=== PATIENT | male | born 1945 | race Caucasian/White ===

== ENCOUNTER 2018-05-30 19:59 | Observation (INO) | payer OTHER ==
[2018-05-30 21:42] LABS: Arterial Blood Carboxyhemoglob 1.6 % (0-1.5); Blood Gas Oxyhemoglobin 92.5 % (94-97); Blood O2 Saturation 94.8 % (92-98.5)
[2018-05-30] MEDS ORDERED: NA CHLORIDE 0.9% 1,000 ML ONE (21:43)
[2018-05-30 21:57] LABS: Absolute Lymphocytes (CBC) 1.5 K/uL (0.7-4.9); Absolute Monocytes 0.7 K/uL (0.1-1.3); Absolute Neutrophil 12.9 K/uL (1.8-8.0); Basophils % 0.5 % (0-1.3); Eosinophils % 0.2 % (0-4.4); Hematocrit 41.9 % (39.6-49.0); Lymphocytes % 10.1 % (15.3-44.8); MCH 29.4 pg (27.0-35.0); MCV 87.9 fL (80-100); MPV 9.1 fL (7.6-11.3); Monocytes % 4.7 % (3.3-12.3); RBC Red Blood Cell Count 4.77 M/uL (4.33-5.43)
[2018-05-30 21:58] LABS: Protime INR 1.03
[2018-05-30 22:20] LABS: Albumin 3.6 g/dL (3.4-5.0); Bilirubin Direct 0.1 mg/dL (0-0.2); Bilirubin Total 0.8 mg/dL (0.2-1.0); C-Reactive Protein 24.5 mg/L (<3.00); CKMB Creatine Kinase MB 2.5 ng/mL (0.3-3.6); Magnesium 2.2 mg/dL (1.8-2.4); Potassium 4.6 mmol/L (3.5-5.1); Protein, Total 7.1 g/dL (6.4-8.2); Troponin (Emerg Dept Use Only) 0.1 ng/mL (0.0-0.045)
--- NOTE | 2018-05-30 22:57 | ER ---
Nurse's Notes [facility] Name: Carlos Yoon Age: 72 yrs Sex: Male : 1945 Arrival Date: 05/30/2018 Time: 20:00 Bed 7 Private MD: Arvind Collado Diagnosis: Acute dyspnea. 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 Transition of care: patient was not received from another setting of care. Onset of symptoms was May 30, 2018. Risk Assessment: Do you want to hurt yourself or someone else? Patient reports no desire to harm self or others. Initial Sepsis Screen: Does the patient meet any 2 criteria? No. Patient's initial sepsis screen is negative. Does the patient have a suspected source of infection? No. Patient's initial sepsis screen is negative. Care prior to arrival: None. 20:17 Method Of Arrival: Wheelchair ea 20:17 Acuity: IZZY 3 ea Triage Assessment: 20:24 General: Appears in no apparent distress. Behavior is calm, cooperative, appropriate ea for age. Pain: Denies pain. Neuro: Level of Consciousness is awake, alert, obeys commands, Oriented to person, place, time, situation. Cardiovascular: Patient's skin is warm and dry. Respiratory: Reports "I felt short of breath earlier but I feel like I am doing a little better" Airway is patent Respiratory effort is even, unlabored, Respiratory pattern is regular, symmetrical, Breath sounds are clear bilaterally. Onset: The symptoms/episode began/occurred 1600, the patient reports symptoms have resolved. Derm: Skin is pink, warm \\T\\ dry. Musculoskeletal: Circulation, motion, and sensation intact. Historical: - Allergies: 20:23 No Known Allergies; ea - Home Meds: 20:23 Januvia oral oral [Active]; carvedilol 6.25 mg oral tab [Active]; Abilify 2 mg oral tab ea [Active]; [place] Thyroid 30 mg Oral tab [Active]; clopidogrel 75 mg oral tab 1 tab once daily [Active]; Crestor 5 mg oral tab 1 tab once daily [Active]; sertraline oral oral [Active]; metformin 1,000 mg Oral tab [Active]; Benicar oral oral [Active]; Aspirin Oral [Active]; - PMHx: 20:23 Diabetes - IDDM; Hypertension; Hypothyroidism; ea - PSHx: 20:23 triple bypass; ea - Immunization history:: Adult Immunizations up to date. - Social history:: Smoking status: Patient/guardian denies using tobacco. - Ebola Screening: : No symptoms or risks identified at this time. Screenin:27 Abuse screen: Denies threats or abuse. Nutritional screening: No deficits noted. ea Tuberculosis screening: No symptoms or risk factors identified. Fall Risk Gait- Impaired (20 pts.). Assessment: 20:17 Reassessment: see triage assessment. ea 21:50 Reassessment: Patient and/or family updated on plan of care and expected duration. Pain ea level reassessed. Patient is alert, oriented x 3, equal unlabored respirations, skin warm/dry/pink. 22:20 Reassessment: Pt stood up for urine sample, pt reports feeling short of breath. O2 sats ea at 94%, pt placed on 2 L of O2 per NC tolerating well. 22:54 Reassessment: Patient and/or family updated on plan of care and expected duration. Pain ea level reassessed. Patient is alert, oriented x 3, equal unlabored respirations, skin warm/dry/pink. 23:14 Reassessment: Patient and/or family updated on plan of care and expected duration. Pain ea level reassessed. Patient is alert, oriented x 3, equal unlabored respirations, skin warm/dry/pink. awaiting on Room assignment. 05/31 00:36 Reassessment: Report called to [facility] on second floor. Reassessment: Patient and/or ea family updated on plan of care and expected duration. Pain level reassessed. Patient is alert, oriented x 3, equal unlabored respirations, skin warm/dry/pink. 00:47 Reassessment: Patient and/or family updated on plan of care and expected duration. Pain ea level reassessed. Patient is alert, oriented x 3, equal unlabored respirations, skin warm/dry/pink. Patient admitted to second floor, taken via wheelchair per tech, tolerating well. Patient states feeling better. Vital Signs: 05/30 20:26 BP 108 / 81; Pulse 91; Resp 18; Pulse Ox 96% on R/A; Weight 113.4 kg; Height 5 ft. 10 ea in. (177.80 cm); Pain 0/10; 20:26 Temp 99.2(O); ea 21:15 BP 114 / 54; Pulse 93; Resp 18; Pulse Ox 97% ; ea 22:00 BP 105 / 54; Pulse 89; Resp 18; Pulse Ox 97% on R/A; Pain 0/10; ea 23:15 BP 108 / 59; Pulse 87; Resp 18; Temp 98.9(TE); Pulse Ox 97% on 2 lpm NC; Pain 0/10; ea 23:55 BP 117 / 62; Pulse 90; Resp 16; Pulse Ox 99% on 2 lpm NC; ea 05/31 00:37 BP 123 / 75; Pulse 75; Resp 16; Pulse Ox 98% on 1 lpm NC; ea 05/30 20:26 Body Mass Index 35.87 (113.40 kg, 177.80 cm) ea ED Course: 05/30 20:00 Patient arrived in ED. ds1 20:01 Volodymyr Beltran MD is Attending Physician. pkl 20:07 Arvind Collado is Private Physician. ds1 20:17 Bev Garcia, RUCHI is Primary Nurse. ea 20:19 Triage completed. ea 20:28 Patient has correct armband on for positive identification. Bed in low position. Call ea light in reach. Side rails up X2. 20:28 Patient placed in an exam room, on a stretcher, on pulse oximetry. ea 21:27 Inserted saline lock: 20 gauge in right antecubital area, using aseptic technique. ea Blood collected. 21:39 X-ray completed. Portable x-ray completed in exam room. Patient tolerated procedure az well. 21:41 XRAY Chest (1 view) In Process Unspecified. EDMS 22:51 Attending Physician role handed off by Volodymyr Beltran MD rn 22:51 Kayode Rodriguez MD is Attending Physician. rn 22:56 Phil Palafox MD is Hospitalizing Provider. rn 23:07 Attending Physician role handed off by Kayode Rodriguez MD bb 23:07 Volodymyr Beltran MD is Attending Physician. bb 23:56 No provider procedures requiring assistance completed. Patient admitted, IV remains in ea place. Administered Medications: 22:02 Drug: NS 0.9% 1000 ml Route: IV; Rate: 100 ml/hr; Site: right antecubital; jana 05/31 00:13 Follow up: Response: No adverse reaction; IV Status: Infusion continued upon admission jana Point of Care Testing: Blood Glucose: 05/30 20:18 Blood Glucose: 324 mg/dL; cc1 Ranges: Outcome: 22:57 Decision to Hospitalize by Provider. rn 23:57 Instructed on the need for admit, Demonstrated understanding of instructions. jana 05/31 00:13 Condition: stable ea 00:37 Admitted to Med/surg accompanied by tech, room 228, with oxygen, with chart, Report ea called to Aliza HOPPER 00:49 Patient left the ED. ea Signatures: Dispatcher [employer] EDMS Volodymyr Beltran MD MD pkl Sanford, Demi ds1 Sandy Leggett RN RN Kayode Molina MD MD rn Cahoon, Charlie cc1 Bev Garcia RN RN ea Zavala, Araceli az Corrections: (The following items were deleted from the chart) 00:31 00:11 Reassessment: Report given to Gricelda HOPPER on second floor. jana bates
--- NOTE | 2018-05-30 22:57 | EDPHYS ---
Physician Documentation [facility] Name: Carlos Yoon Age: 72 yrs Sex: Male : 1945 Arrival Date: 05/30/2018 Time: 20:00 Bed 7 Private MD: Arvind Collado ED Physician Volodymyr Beltran HPI: 05/30 22:52 This 72 yrs old Male presents to ER via Wheelchair with complaints of rn Shortness Of Breath. 22:52 The patient has shortness of breath at rest. Onset: The symptoms/episode began/occurred rn today. Associated signs and symptoms: Pertinent positives: productive cough, fever, chills. Historical: - Allergies: 20:23 No Known Allergies; ea - Home Meds: 20:23 Januvia oral oral [Active]; carvedilol 6.25 mg oral tab [Active]; Abilify 2 mg oral tab ea [Active]; [place] Thyroid 30 mg Oral tab [Active]; clopidogrel 75 mg oral tab 1 tab once daily [Active]; Crestor 5 mg oral tab 1 tab once daily [Active]; sertraline oral oral [Active]; metformin 1,000 mg Oral tab [Active]; Benicar oral oral [Active]; Aspirin Oral [Active]; - PMHx: 20:23 Diabetes - IDDM; Hypertension; Hypothyroidism; ea - PSHx: 20:23 triple bypass; ea - Immunization history:: Adult Immunizations up to date. - Social history:: Smoking status: Patient/guardian denies using tobacco. - Ebola Screening: : No symptoms or risks identified at this time. ROS: 22:52 Eyes: Negative for injury, pain, redness, and discharge, ENT: Negative for injury, rn pain, and discharge, Neck: Negative for injury, pain, and swelling. 22:52 Cardiovascular: 22:52 Cardiovascular: Negative for chest pain. 22:52 Respiratory: Positive for cough, with yellow sputum, shortness of breath. 22:52 Abdomen/GI: Negative for abdominal pain, nausea, vomiting, and diarrhea. 22:52 Back: Negative for acute changes. 22:52 : Negative for urinary symptoms. 22:52 MS/extremity: Negative for rash. 22:52 Skin: Negative for rash. 22:52 Neuro: Negative for altered mental status. Exam: 22:52 Head/Face: Normocephalic, atraumatic. Eyes: Pupils equal round and reactive to light, rn extra-ocular motions intact. Lids and lashes normal. Conjunctiva and sclera are non-icteric and not injected. Cornea within normal limits. Periorbital areas with no swelling, redness, or edema. ENT: Nares patent. No nasal discharge, no septal abnormalities noted. Tympanic membranes are normal and external auditory canals are clear. Oropharynx with no redness, swelling, or masses, exudates, or evidence of obstruction, uvula midline. Mucous membranes moist. Neck: Trachea midline, no thyromegaly or masses palpated, and no cervical lymphadenopathy. Supple, full range of motion without nuchal rigidity, or vertebral point tenderness. No Meningismus. Chest/axilla: Normal chest wall appearance and motion. Nontender with no deformity. No lesions are appreciated. Cardiovascular: Regular rate and rhythm with a normal S1 and S2. No gallops, murmurs, or rubs. Normal PMI, no JVD. No pulse deficits. 22:52 Respiratory: the patient does not display signs of respiratory distress, Respirations: normal, Breath sounds: rales, that are mild, are scattered. 22:52 Abdomen/GI: Bowel sounds: normal, Palpation: abdomen is soft and non-tender, in all quadrants. 22:52 Back: Exam negative for acute changes. 22:52 : Exam negative for acute changes. 22:52 Musculoskeletal/extremity: Exam is negative for acute changes. 22:52 Skin: Exam negative for rash. 22:52 Neuro: Orientation: is normal, Mentation: is normal, Cranial nerves: grossly normal, Motor: is normal. Vital Signs: 20:26 BP 108 / 81; Pulse 91; Resp 18; Pulse Ox 96% on R/A; Weight 113.4 kg; Height 5 ft. 10 ea in. (177.80 cm); Pain 0/10; 20:26 Temp 99.2(O); ea 21:15 BP 114 / 54; Pulse 93; Resp 18; Pulse Ox 97% ; ea 22:00 BP 105 / 54; Pulse 89; Resp 18; Pulse Ox 97% on R/A; Pain 0/10; ea 23:15 BP 108 / 59; Pulse 87; Resp 18; Temp 98.9(TE); Pulse Ox 97% on 2 lpm NC; Pain 0/10; ea 23:55 BP 117 / 62; Pulse 90; Resp 16; Pulse Ox 99% on 2 lpm NC; ea 05/31 00:37 BP 123 / 75; Pulse 75; Resp 16; Pulse Ox 98% on 1 lpm NC; ea 05/30 20:26 Body Mass Index 35.87 (113.40 kg, 177.80 cm) ea MDM: 05/30 20:02 Patient medically screened. pkl 22:52 Data reviewed: vital signs, nurses notes, lab test result(s), EKG, radiologic studies, rn plain films. 05/30 20:15 Order name: Glucose, Ancillary Testing; Complete Time: 22:15 EDDE 05/30 21:17 Order name: Basic Metabolic Panel [facility] 05/30 21:17 Order name: CBC with Diff pk 05/30 21:17 Order name: Ckmb pk 05/30 21:17 Order name: CPK; Complete Time: 04:21 pk 05/30 21:17 Order name: LFT's; Complete Time: 04:21 pk 05/30 21:17 Order name: Magnesium; Complete Time: 04:21 pk 05/30 21:17 Order name: NT PRO-BNP; Complete Time: 04:21 pk 05/30 21:17 Order name: PT-INR; Complete Time: 22:15 pk 05/30 21:17 Order name: Ptt, Activated; Complete Time: 22:15 pk 05/30 21:17 Order name: Troponin (emerg Dept Use Only); Complete Time: 04:21 [facility] 05/30 21:19 Order name: Basic Metabolic Panel; Complete Time: 04:21 EDDE 05/30 21:19 Order name: CBC with Automated Diff; Complete Time: 22:15 EDDE 05/30 21:19 Order name: CKMB Creatine Kinase MB; Complete Time: 04:21 EDDE 05/30 21:17 Order name: XRAY Chest (1 view); Complete Time: 04:21 pk 05/30 21:17 Order name: EKG; Complete Time: 21:19 pk 05/30 21:17 Order name: Cardiac monitoring; Complete Time: 21:53 pk 05/30 21:17 Order name: EKG - Nurse/Tech; Complete Time: 21:53 pk 05/30 21:17 Order name: IV Saline Lock; Complete Time: 21:28 pkl 05/30 21:17 Order name: Labs collected and sent; Complete Time: 21:54 pkl 05/30 21:17 Order name: O2 Per Protocol; Complete Time: 21:54 pkl 05/30 21:20 Order name: ABG; Complete Time: 22:15 pkl 05/30 21:20 Order name: Lactate; Complete Time: 04:21 pkl 05/30 21:20 Order name: Procalcitonin; Complete Time: 04:21 pkl 05/30 21:41 Order name: Sedimentation Rate, [place]; Complete Time: 22:15 EDMS 05/30 21:43 Order name: C-Reactive Protein; Complete Time: 04:21 EDMS 05/30 22:32 Order name: Urine Dipstick--Ancillary (enter results); Complete Time: 04:21 ms 05/30 21:17 Order name: O2 Sat Monitoring; Complete Time: 21:54 pkl 05/30 21:17 Order name: Urine Dipstick-Ancillary (obtain specimen); Complete Time: 21:54 pkl Administered Medications: 22:02 Drug: NS 0.9% 1000 ml Route: IV; Rate: 100 ml/hr; Site: right antecubital; ea 05/31 00:13 Follow up: Response: No adverse reaction; IV Status: Infusion continued upon admission ea Point of Care Testing: Blood Glucose: 05/30 20:18 Blood Glucose: 324 mg/dL; cc1 Ranges: Critical Glucose Levels:Adult <50 mg/dl or >400 mg/dl <40 mg/dl or >180 mg/dl Disposition: 05/30/18 22:57 Hospitalization ordered by Phil Palafox for Inpatient Admission. Preliminary diagnosis is Acute dyspnea. Pneumonia. - Bed requested for Telemetry/MedSurg (Inpatient). - Status is Inpatient Admission. ea - Condition is Stable. - Problem is new. - Symptoms are unchanged. UTI on Admission? No Signatures: Dispatcher [employer] Volodymyr Brown MD MD pkl Solis, Maria ms Nieto, Roman, MD MD rn Antunez, Elena, RN RN ea Corrections: (The following items were deleted from the chart) 21:41 21:21 [place] SEDRATE+H.LAB.BRZ ordered. EDDE EDMS 21:42 21:21 C-REACTIVE PROTEIN+C.LAB.BRZ ordered. [facility] EDDE 23:51 22:57 Hospitalization Ordered by Phil Palafox MD for Inpatient Admission. Preliminary ms diagnosis is Acute dyspnea. Pneumonia. Bed requested for Telemetry/MedSurg (Inpatient). Status is Inpatient Admission. Condition is Stable. Problem is new. Symptoms are unchanged. UTI on Admission? No. rn 05/31 00:49 05/30 23:51 05/30/2018 22:57 Hospitalization Ordered by Phil Palafox MD for Inpatient ea Admission. Preliminary diagnosis is Acute dyspnea. Pneumonia. Bed requested for Telemetry/MedSurg (Inpatient). Status is Inpatient Admission. Condition is Stable. Problem is new. Symptoms are unchanged. UTI on Admission? No. ms
[2018-05-30] MEDS ORDERED: ALBUTEROL 2.5 MG/3 ML NEB SOL NEB PRN (23:03)
[2018-05-30] MEDS ORDERED: ACETAMINOPHEN 500 MG TAB PO PRN (23:03)
[2018-05-30] MEDS ORDERED: ONDANSETRON 4 MG/2 ML VIAL IV PRN (23:03)
--- NOTE | 2018-05-30 23:07 | RAD REPORT ---
EXAM DESCRIPTION: RAD - Chest Single View - 05/30/2018 9:41 pm CLINICAL HISTORY: Cough;Dyspnea Chest pain. COMPARISON: None FINDINGS: Portable technique limits examination quality. The lungs are grossly clear. The heart is upper limit normal size. No displaced fractures.Sternotomy wires present. IMPRESSION: No acute intrathoracic process suspected.
[2018-05-30] MEDS ORDERED: NA CHLORIDE 0.9% 1,000 ML IV SCH (23:45)
[2018-05-30 23:50] LABS: Urine Blood NEGATIVE (NEG); Urine Glucose 2+ (NEG); Urine Protein TRACE (NEG)
[2018-05-31] MEDS: Levofloxacin500mg IV 500 MG/100 ML BAG IV SCH ×2 (01:24→23:34)
[2018-05-31 05:19] LABS: Absolute Lymphocytes (CBC) 3.3 K/uL (0.7-4.9); Absolute Monocytes 0.8 K/uL (0.1-1.3); Absolute Neutrophil 9.2 K/uL (1.8-8.0); Basophils % 0.4 % (0-1.3); Eosinophils % 0.4 % (0-4.4); Hematocrit 39.5 % (39.6-49.0); Lymphocytes % 24.5 % (15.3-44.8); MCH 29.7 pg (27.0-35.0); MCV 87.9 fL (80-100); MPV 8.6 fL (7.6-11.3); Monocytes % 6.1 % (3.3-12.3); RBC Red Blood Cell Count 4.49 M/uL (4.33-5.43)
[2018-05-31 05:37] LABS: Magnesium 2.3 mg/dL (1.8-2.4); Phosphorus 3.1 mg/dL (2.5-4.9); Potassium 3.9 mmol/L (3.5-5.1)
[2018-05-31] MEDS ORDERED: POTASSIUM CL SA 10 MEQ TAB PO ONE (05:55)
[2018-05-31 06:24] LABS: Urine Appearance CLEAR; Urine Bilirubin NEGATIVE (NEG); Urine Blood NEGATIVE (NEG); Urine Color YELLOW; Urine Glucose 3+ (NEG); Urine Protein TRACE (NEG); Urine Specific Gravity 1.025 (1.005-1.030); Urine Urobilinogen 0.2 mg/dL (0.2-1.0)
[2018-05-31 06:26] LABS: Urine Microscopic Reflex ORDER UMIC
[2018-05-31 07:00] LABS: Urine Bacteria <20 /HPF (NONE SEEN); Urine Culture Reflex Order NOT NEEDED; Urine RBC NONE SEEN /HPF (NONE SEEN)
--- NOTE | 2018-05-31 09:42 | P.HP ---
Certification for Inpatient Patient admitted to: Inpatient With expected LOS: >2 Midnights Patient will require the following post-hospital care: None Practitioner: I am a practitioner with admitting privileges, knowledge of patient current condition, hospital course, and medical plan of care. Services: Services provided to patient in accordance with Admission requirements found in Title 42 Section 412.3 of the Code of Federal Regulations Patient History Date of Service: 05/30/18 Reason for admission: Shortness of breath History of Present Illness: Patient is a 72-year-old gentleman who came into the hospital with difficulty breathing. Patient was found have shortness of breath and his workup in the emergency room revealed a pneumonia. Patient has a history of multiple medical issues better taken care of by Dr. Collado in [place]. Patient was feeling poorly and becoming more short of breath and having a fever, cough, and congestion. He came into the hospital for evaluation. In the emergency room his chest x-ray suggested a pneumonia. Patient be admitted to the hospital for further treatment. Allergies No Known Allergies Allergy (Verified 06/06/13 20:17) Home Medications: Aspirin Enteric Coated [ASPIRIN 81 MG EC*] 81 mg PO DAILY 06/07/13 Cyanocobalamin [Vitamin B-12*] 1,000 mcg PO DAILY 06/07/13 Metformin HCl [Glucophage XR OR ER] 750 mg PO DAILY 06/07/13 Thyroid Tab [[place] Thyroid*] 90 mg PO DAILY 06/07/13 Acetaminophen [Tylenol*] 650 mg PO Q4HP PRN #30 tab 06/13/13 Carvedilol [Coreg*] 6.25 mg PO BID #30 06/13/13 Clopidogrel Bisulfate [Plavix*] 75 mg PO DAILY #30 tablet 06/13/13 Hydrocodone 5/APAP 325 [[place] 5/325*] 1 tab PO Q4HP PRN #30 tab 06/13/13 Iron/FA/Vit B-Com W/C [Hemocyte Plus*] 1 tab PO BIDWM #30 tab 06/13/13 Lisinopril [Prinivil*] 2.5 mg PO DAILY #30 tab 06/13/13 Olmesartan/Hydrochlorothiazide [Benicar Hct 20-12.5 mg Tablet] 1 each PO DAILY # 30 06/13/13 Sertraline [Zoloft*] 2 tab PO DAILY #60 06/13/13 - Past Medical/Surgical History Has patient received pneumonia vaccine in the past: Yes Diabetic: Yes -: [place], HTN, CKD -: CHF -: INSOMNIA -: SLEEP APNEA -: CPAP DYSPNEA -: NERVOUSNESS/DEPRESSION -: CARDIOMYOPATHY -: ANEMIA -: quadruple heart bypass (5 yrs ago) - Family History Father Medical History: Cancer Notes: throat cancer Mother Medical History: Cancer Notes: liver cancer - Social History Smoking Status: Never smoker Alcohol use: Yes CD- Drugs: No Caffeine use: Yes Place of Residence: Home Review of Systems 10-point ROS is otherwise unremarkable Physical Examination - Vital Signs Temperature: 98.1 F Blood Pressure: 112/59 Pulse: 82 Respirations: 18 Pulse Ox (%): 96 - Physical Exam General: Alert, In no apparent distress, Oriented x3 HEENT: Atraumatic, PERRLA, Mucous membr. moist/pink, EOMI, Sclerae nonicteric Neck: Supple, 2+ carotid pulse no bruit, No LAD, Without JVD or thyroid abnormality Respiratory: Diminished, Expiratory wheezes Cardiovascular: Regular rate/rhythm, Normal S1 S2, No murmurs Gastrointestinal: Normal bowel sounds, Soft and benign, Non-distended, No tenderness Musculoskeletal: No clubbing, No swelling, No tenderness Integumentary: No rashes Neurological: Normal gait, Normal speech, Normal strength at 5/5 x4 extr, Normal tone, Normal affect Lymphatics: No axilla or inguinal lymphadenopathy - Studies Laboratory Data (last 24 hrs) 05/30/18 21:31: PT 12.2, INR 1.03, APTT 25.7 05/30/18 21:31: WBC 15.3 H, Hgb 14.0, Hct 41.9, Plt Count 221 05/30/18 21:31: Sodium 134 L, Potassium 4.6, BUN 23 H, Creatinine 1.70 H, Glucose 309 H, Magnesium 2.2, Total Bilirubin 0.8, AST 21, ALT 19, Alkaline Phosphatase 132 H Assessment & Plan - Plan Assessment: 1. Shortness of breath 2. Pneumonia 3. History of coronary artery disease status post quadruple bypass 4. History of hypertension 5. History of obstructive sleep apnea. Plan: 1. Continue with IV antibiotics 2. Awaiting blood culture 3. Repeat chest x-ray 4. Will proceed with CT scan of the chest if pneumonia is not improved to evaluate for postobstructive pneumonia 5. Outpatient follow with Pulmonary 6. Continue with nebs as needed 7. O2 per protocol 8. Continue with gentle hydration 9. Repeat labs including CBC and renal function in a.m. 10. Continue with cardiac meds 11. CPAP at night to help breast 12. Strict blood pressure control 13. GI and DVT prophylaxis Discharge Plan: Home Plan to discharge in: Greater than 2 days - Advance Directives Does patient have a Living Will: No Does patient have a Durable POA for Healthcare: Yes - Code Status/Comfort Care Code Status Assessed: Yes Code Status: Full Code Critical Care: No Time Spent Managing PTS Care (In Minutes): 50
[2018-05-31] MEDS: ENOXAPARIN 40 MG/0.4 ML SQ SCH (10:06)
--- NOTE | 2018-05-31 12:11 | EKG ---
Test Date: 2018-05-30 Test Time: 21:44:54 Engagement Engineer: JERRY MEASUREMENT RESULTS: Intervals: Rate: 90 MN: 170 QRSD: 176 QT: 406 QTc: 496 [place]: P: 58 MN: 170 QRS: 157 T: 41 INTERPRETIVE STATEMENTS: Sinus rhythm with frequent premature ventricular complexes Possible Left atrial enlargement Right bundle branch block Possible Lateral infarct, age undetermined Inferior infarct, age undetermined Abnormal ECG No previous ECG available for comparison Electronically Signed On 05-31-18 12:08:45 CDT by Anup Silva
--- NOTE | 2018-05-31 14:33 | P.PN ---
Subjective Date of Service: 05/31/18 Chief Complaint: Shortness of breath Patient seen and examined at bedside with RN. Chart reviewed. Patient this morning has no complaints to offer states that he does feel much better than before. Complains of having some chills better so going on however better than what he was experiencing at home. Denies having any chest pain nausea vomiting or any other associated symptoms at this time Review of Systems 10-point ROS is otherwise unremarkable Physical Examination - Vital Signs Temperature: 97.5 F Blood Pressure: 126/58 Pulse: 68 Respirations: 18 Pulse Ox (%): 96 - Physical Exam General: Alert, In no apparent distress HEENT: Atraumatic, PERRLA, EOMI Neck: Supple, JVD not distended Respiratory: Normal air movement, Crackles/rales Cardiovascular: Regular rate/rhythm, Normal S1 S2 Gastrointestinal: Normal bowel sounds, No tenderness Musculoskeletal: No tenderness Integumentary: No rashes Neurological: Normal speech, Normal tone, Normal affect Lymphatics: No axilla or inguinal lymphadenopathy - Studies Laboratory Data (last 24 hrs) 05/30/18 21:31: PT 12.2, INR 1.03, APTT 25.7 05/30/18 21:31: WBC 15.3 H, Hgb 14.0, Hct 41.9, Plt Count 221 05/30/18 21:31: Sodium 134 L, Potassium 4.6, BUN 23 H, Creatinine 1.70 H, Glucose 309 H, Magnesium 2.2, Total Bilirubin 0.8, AST 21, ALT 19, Alkaline Phosphatase 132 H Medications List Reviewed: Yes Assessment And Plan - Current Problems (Diagnosis) (1) SOB (shortness of breath) Onset Date: 05/31/18 Current Visit: Yes Status: Acute Plan: Shortness of breath on exertion. Most likely secondary to pneumonia versus CHF exacerbation. -patient currently on IV Levaquin at this time. Given the elevated white count pneumonia is most likely the cause of this shortness of breath. -oxygen as necessary. Will wean oxygen off as tolerated (2) PNA (pneumonia) Onset Date: 05/31/18 Current Visit: Yes Status: Acute Plan: Pneumonia on chest x-ray. Elevated white count. Pro calcitonin was within normal limits which could make this a viral pneumonia however given the symptoms of chills and fever at the house bacterial infection cannot be ruled out -Currently on IV Levaquin. -Will continue to monitor it closely (3) CHF (congestive heart failure) Current Visit: Yes Status: Chronic Plan: Patient with ejection fraction of 20-25% after his CABG. -will follow up with his cardiology on last echocardiogram -if needed will repeat a here in the hospital (4) Hx of CABG Current Visit: Yes Status: Chronic - Plan Currently awaiting clinical improvement. Will get in touch with patient's cardiology to find out when his last echocardiogram was. Patient might need an echocardiogram done here in the hospital to re-evaluate his ejection fraction. However if patient has improvement in his symptoms this could be done outpatient as well. Will await further recommendations from his cardiology Discharge Plan: Home Plan to discharge in: 48 Hours - Code Status/Comfort Care Code Status Assessed: Yes Critical Care: No
[2018-05-31] MEDS ORDERED: ARIPIPRAZOLE 2 MG PO SCH (18:00)
[2018-05-31] MEDS: CARVEDILOL 6.25 MG TAB PO SCH (20:55)
[2018-06-01 01:02] VITALS: O2SAT 95
[2018-06-01 05:37] LABS: Potassium 4.9 mmol/L (3.5-5.1)
[2018-06-01 05:41] VITALS: BMI 34.6
[2018-06-01] MEDS ORDERED: glyBURIDE 2.5 MG TAB PO SCH (08:00)
[2018-06-01] MEDS ORDERED: hydroCHLOROthiazide 12.5 MG CAP PO SCH (09:00)
[2018-06-01] MEDS ORDERED: CYANOCOBALAMIN 1,000 MCG TAB PO SCH (09:00)
[2018-06-01] MEDS ORDERED: [UNRECOGNIZED DRUG - OTHER] PO SCH (09:00)
[2018-06-01] MEDS: ENOXAPARIN 40 MG/0.4 ML SQ SCH (09:00)
[2018-06-01] MEDS ORDERED: ASPIRIN EC 81 MG TAB PO SCH (09:00)
[2018-06-01] MEDS ORDERED: SITAGLIPTIN PHOS 100 MG TAB PO SCH (09:00)
[2018-06-01] MEDS ORDERED: OLMESARTAN PO SCH (09:00)
[2018-06-01] MEDS ORDERED: VALSARTAN 80 MG TAB PO SCH (09:00)
[2018-06-01] MEDS ORDERED: HYDROCHLOROTHIAZIDE PO SCH (09:00)
[2018-06-01] MEDS ORDERED: SERTRALINE HCL 100 MG TAB PO SCH (09:00)
[2018-06-01] MEDS ORDERED: CLOPIDOGREL 75 MG TABLET PO SCH (09:00)
[2018-06-01] MEDS: CARVEDILOL 6.25 MG TAB PO SCH (09:02)
[2018-06-01 14:06] VITALS: BP 130/64; TEMP 97.7
--- NOTE | 2018-06-01 14:57 | P.DS ---
Admission Date: 05/30/18 Discharge Date: 06/01/18 Disposition: ROUTINE DISCHARGE Discharge Condition: GOOD Reason for Admission: Shortness of breath - Problems (1) SOB (shortness of breath) Onset Date: 05/31/18 Status: Acute (2) PNA (pneumonia) Onset Date: 05/31/18 Status: Acute (3) CHF (congestive heart failure) Status: Chronic (4) Hx of CABG Status: Chronic Brief History of Present Illness: 72-year-old male with significant past medical history who presented to the ED complaining of having some shortness of breath was admitted to the hospital for pneumonia. Hospital Course: Overall during the hospital stay patient remained stable Patient was initially admitted to [facility] for acute dyspnea most likely secondary to pneumonia. Patient was found to have a lower lobe pneumonia on the x-ray. Patient was started on Levaquin here in the hospital. Had marked improvement in his symptoms. Patient then was discharged home on Levaquin. Of note, there was a possibility the patient has acute dyspnea was also likely secondary to his congestive heart failure with poor ejection fraction. Patient cardiology was consulted who recommended outpatient followup and workup. Patient thus was asked to follow up with his cobbler mckay in about 1-2 weeks post discharge. Patient demonstrate understanding and once his symptoms had resolved patient was then discharged home under stable condition. Patient was given a prescription for Levaquin to be taken for total of 10 days post discharge. Vital Signs/Physical Exam: Temp Pulse Resp BP Pulse Ox 97.7 F 75 18 130/64 93 06/01/18 12:00 06/01/18 12:00 06/01/18 12:00 06/01/18 12:00 06/01/18 12:00 General: Alert, In no apparent distress HEENT: Atraumatic, PERRLA, EOMI Neck: Supple, JVD not distended Respiratory: Clear to auscultation bilaterally, Normal air movement Cardiovascular: Regular rate/rhythm, Normal S1 S2 Gastrointestinal: Normal bowel sounds, No tenderness Musculoskeletal: No tenderness Integumentary: No rashes Neurological: Normal speech, Normal tone, Normal affect Lymphatics: No axilla or inguinal lymphadenopathy Laboratory Data at Discharge: WBC 13.3 K/uL (4.3-10.9) H 05/31/18 04:54 Hgb 13.3 g/dL (13.6-17.9) L 05/31/18 04:54 Hct 39.5 % (39.6-49.0) L 05/31/18 04:54 Plt Count 205 K/uL (152-406) 05/31/18 04:54 PT 12.2 SECONDS (9.5-12.5) 05/30/18 21:31 INR 1.03 05/30/18 21:31 APTT 25.7 SECONDS (24.3-36.9) 05/30/18 21:31 Sodium 133 mmol/L (136-145) L 06/01/18 04:38 Potassium 4.9 mmol/L (3.5-5.1) 06/01/18 04:38 BUN 25 mg/dL (7-18) H 06/01/18 04:38 Creatinine 1.50 mg/dL (0.55-1.3) H 06/01/18 04:38 Glucose 298 mg/dL (74-106) H 06/01/18 04:38 Phosphorus 3.1 mg/dL (2.5-4.9) 05/31/18 04:54 Magnesium 2.3 mg/dL (1.8-2.4) 05/31/18 04:54 Total Bilirubin 0.8 mg/dL (0.2-1.0) 05/30/18 21:31 AST 21 U/L (15-37) 05/30/18 21:31 ALT 19 U/L (12-78) 05/30/18 21:31 Alkaline Phosphatase 132 U/L (45-117) H 05/30/18 21:31 Triglycerides 124 mg/dL (<150) 05/31/18 04:54 Cholesterol 156 mg/dL (<200) 05/31/18 04:54 HDL Cholesterol 32 mg/dL (40-60) L 05/31/18 04:54 Cholesterol/HDL Ratio 4.88 05/31/18 04:54 Home Medications: ARIPiprazole [Aripiprazole] 2 mg PO DAILY 6PM 05/31/18 Aspirin [Aspirin EC 81 MG] 81 mg PO DAILY 05/31/18 Carvedilol [Coreg*] 6.25 mg PO BID 05/31/18 Clopidogrel Bisulfate [Plavix*] 75 mg PO DAILY 05/31/18 Cyanocobalamin (Vitamin B-12) [Vitamin B-12] 1,000 mcg PO DAILY 05/31/18 Magnesium Oxide [Magnesium] 500 mg PO DAILY 05/31/18 Metformin ER [Glucophage ER*] 1,000 mg PO DAILY 05/31/18 Olmesartan/Hydrochlorothiazide [Olmesartan-Hctz 20-12.5 mg Tab] 1 each PO DAILY 05/31/18 Sertraline HCl 200 mg PO DAILY 05/31/18 Sitagliptin Phos/Metformin HCl [Janumet 50-1,000 mg Tablet] 1 each PO DAILY 09/05 levoFLOXacin [Levaquin] 500 mg PO DAILY #10 tab 06/01/18 New Medications: levoFLOXacin [Levaquin] 500 mg PO DAILY #10 tab Patient Discharge Instructions: Please f.u with PCP and Dr Antonio In 1 to 2 week post discharge. New medication. Levaquin 500mg Daily for 10 days Diet: Regular Activity: Ad jimmy Followup: [facility] [UNKNOWN] - 1 Week (Call office to schedule an appointment)
== END 2018-06-01 13:11 | disposition home or self-care (01) ==
LOC: ER 19:59 → INTOOBSV 23:28 → ERHOLD 23:28 → 2ND 05-31
PROVIDERS: ADMIT Hospitalist; ATTEND Hospitalist
DX: J18.9 Pneumonia, unspecified organism (principal); I11.0 Hypertensive heart disease with heart failure; I50.9 Heart failure, unspecified; G47.33 Obstructive sleep apnea (adult) (pediatric); I25.10 Atherosclerotic heart disease of native coronary artery without angina pectoris; E03.9 Hypothyroidism, unspecified; Z95.1 Presence of aortocoronary bypass graft; Z79.82 Long term (current) use of aspirin
CPT/HCPCS: 36415 ×2; 71045; 80048 ×3; 80061; 80076; 81003; 82550; 82553; 82805; 82962 ×6; 83605; 83735 ×2; 83880; 84100; 84145; 84484; 85025 ×2; 85610; 85652; 85730; 86140; 93005; 94660; 96360; 96361; 99285; G0378 ×2; J1650 ×2; J7030; 81015

== ENCOUNTER 2019-10-19 09:21 | Inpatient (IN) | payer OTHER ==
--- NOTE | 2019-10-19 12:01 | R.PREADM ---
SCREENING DATE AND TIME 10/19/2019 10:49 (CARPET FINISHING SUPERVISOR) ANTICIPATED REHAB ADMISSION DATE 10/21/2019 REFERRING FACILITY [facility] REFERRAL DATE AND TIME 10/19/2019 10:50 (CARPET FINISHING SUPERVISOR) REFERRAL ROOM# 422 ACUTE ADMIT DATE 10/06/2019 Previous Rehabilitation(s): No. ACUTE HEAD OF RESEARCH & INSIGHTS/DC LENS POLISHER HAND Priti Treviño REFERRING PHYSICIAN [facility] REHAB FACILITY [facility] CLINICAL LIAISON Nestor Bennett PHYSICIAN REVIEWER Dr. Celso Noonan M.D. MR# [id number] NAME CARLA YOON ADDRESS [address] [place] [address] PHONE [facility] [id number] DATE OF 1945 AGE 73 SSN# [id number] GENDER male MARITAL STATUS RACE white ADMIT FROM 02 - [facility] PRE-HOSPITAL LIVING SETTING 01 - Home (private home/apt. board/care, assisted living, skilled nursing, transitional living) HOME TYPE AND DETAILS Type of home: single family house # of steps within the residence: 1 # of levels in the residence: 1 # of steps to enter the residence: 0 PRE-HOSPITAL LIVING WITH Alone FAMILY SUPPORT Yes PRIMARY FAMILY CONTACT NAME Migel Yoon PRIMARY FAMILY CONTACT PHONE PHONE PRIMARY FAMILY CONTACT ON ADM.? no IS PRIMARY FAMILY CONTACT AUTH. REP.? no 1ST EMERGENCY CONTACT Migel Yoon 1ST CONTACT PHONE PHONE 1ST CONTACT ON ADM. no IS 1ST CONTACT AUTH. REP.? no PHONE 2ND CONTACT ON ADM.? no PATIENT EMPLOYMENT STATUS Retired (for age) PATIENT EMPLOYER No Employer PAYOR INFORMATION: 1ST PAYOR NAME Moshe BASURTO 1ST PAYOR PHONE [phone] 1ST PAYOR POLICY ID [id number] INJURY/ILLNESS DUE TO ACCIDENT? No ANOTHER DEMOCRAT RESPONSIBLE? No PRIMARY REHAB/ACUTE DIAGNOSIS: Left BKA ONSET DATE 10/06/2019 REHAB IMPAIRMENT CATEGORY (SHENA): 10 Amputation, lower extremity (Amp/LE) MEETS 60% rule AFFECTED EXTREMITIES: LLE PRIMARY DIAGNOSIS-RELATED SURGERIES: Left Below the Knee Amputation- performed by Thompson Willis on 10/16/2019 COMORBID REHAB/ACUTE DIAGNOSES: - N/A HTN RI CKD CHF Insomnia Sleep Apnea CPAP dyspnea Depression Cardiomyopathty Anemia DM Sepsis Acute Kidney Injury HYPONATREMIA INTERVENTIONS: - Sleep Apnea 02 sats Oxygen Respiratory management - Depression Medications Psycho/social Safety RISK FOR COMPLICATIONS: - Sleep Apnea Anoxia BI CVA Fatigue RI - Depression Serotonin side effects SUMMARY OF ACUTE HOSPITALIZATION: Pt. is a 73 yo Right-handed white male. His impairment category is Amputation of Limb 05 - Unilateral Lower Limb Below the Knee (BK) (05.4). Pre-morbidly, Pt. was independent/mod-I in Locomotion, Balance, Safety Awareness, Social Cognition, T ransfers Control, Sphincter Control, Self-Care, Communication, and Endurance; and he had good Locomot ion, Balance, Safety Awareness, Social Cognition, Transfers Control, Sphincter Control, Self-Care, Co mmunication, and Endurance. Currently, he has deficits of Locomotion, Balance, Safety Awareness, Transfers Control, Self-Care, En durance, and Communication. Pt. is now referred to [facility] for acute in-patient rehabilitation in order to maximize patient's functional independence in activities of daily living, strength, ROM, and mobi lity. Patient has realistic goal of being discharged at assistance level 6-Elvia to reside at Home with Fam bel/Relatives. Carla Yoon is a 73 year old male that lives alone in a single jhonny home. He was ambulating independently without assistive device. 3 days before the admission he saw his PCP and was given oral antibiotics but with no improvement. On 10/06/2019, he went to ER with complaints of generalized weakness and left lower extremity redness and swelling. He was diagnosed with severe sepsis secondary to severe cellulitis and admitted at [facility]. He was S/P Excisional debridement, infected wound, left foot at 12 x 6cm to subcutaneous tissue and Incision, drainage and debridement of left foot abscess, removal of foreign body and interpretation of fluoroscoy. On 10/15/2019, examination of the left foot revealed worsening of the redness and increase in the fibrin and nonviability of the second and third toe completely now and after careful thought surgeon planned to do Left BKA. He is now medically stable but in need of 24-hour nursing, doctor supervision and oversight is reasonably expected to participate in 3 hours of therapy a day/15 hours per week and receive care with an intensive interdisciplinary approach. CONSULT: Consult Certified Prosthetic for prosthesis construction PAST MEDICAL HISTORY Acute Kidney Injury Anemia CHF CKD CPAP dyspnea Cardiomyopathty DM Depression HTN HYPONATREMIA Insomnia RI Sepsis Sleep Apnea PAST SURGICAL HISTORY: CABG MEDICATION ALLERGIES: No Known Drug Allergies (NKDA) ENVIRONMENTAL ALLERGIES: None Known - Substance Allergies None Known - Other Allergies None Known CODE STATUS: Full code WEIGHT/HEIGHT/BMI: WEIGHT 244 lbs HEIGHT 5' 10" BMI 35 DIET: - Diet Type Regular - Diet - Solid Texture Regular - Diet - Liquid Texture Regular - Tube Feed N/A SKIN DIAGRAM: Incision on Left lower leg; extent - small; stage - NS(Not Stageable). Treatment - Per Physician's Or ders. REVIEW OF SYSTEMS: - Gen Alert and awake Lying in bed No apparent distress Oriented to: person, time, and place - Vital Signs Temperature: 97.9 F SBP/DBP: 137/67 Pulse: 74 Resp: 16 Vital signs stable, afebrile - Skin LLE incisions intact - CVS RRR VITAL SIGNS Temperature: 97.9 F SBP/DBP: 137/67 Pulse: 74 Resp: 16 Vital signs stable, afebrile MEDICATIONS/TREATMENT: Other- See attached MAR (Medication Administration Record). CURRENT SPHINCTER CONTROL: Pre-hospital bladder status: continent # of bladder accidents in the last 7 days prior to screenin Pre-hospital bowel status: continent # of bowel accidents in the last 7 days prior to screenin Last Bowel Movement Date: CURRENT LOCOMOTION STATUS: distance traveled in wheelchair 0 feet distance walked 0 feet DETAILED CURRENT FUNCTIONAL STATUS: - Bladder accident frequency: Ind - No accidents in the past 7 days - Bowel accident frequency: Ind - No accidents in the past 7 days - Walking score based on distance walked: 0(N/A) - Wheelchair score based on distance traveled: 0(N/A) QI SCORES: - Self-Care A. Eating 05-Setup or clean-up assistance B. Oral hygiene 05-Setup or clean-up assistance C. Toileting hygiene 03-Partial/moderate assistance E. Shower/bathe self 03-Partial/moderate assistance F. Upper body dressing 03-Partial/moderate assistance G. Lower body dressing 02-Substantial/maximal assistance H. Putting on/taking off footwear 02-Substantial/maximal assistance - Mobility A. Roll left and right 03-Partial/moderate assistance B. Sit to lying 03-Partial/moderate assistance C. Lying to sitting on side of bed 03-Partial/moderate assistance D. Sit to stand 03-Partial/moderate assistance E. Chair/uqe-ea-ewacu transfer 03-Partial/moderate assistance F. Toilet transfer 03-Partial/moderate assistance G. Car transfer 10-Not attempted due to environmental limitations I. Walk 10 feet 88-Not attempted due to medical condition or safety concerns J. Walk 50 feet with two turns 88-Not attempted due to medical condition or safety concerns K. Walk 150 feet 88-Not attempted due to medical condition or safety concerns L. Walking 10 feet on uneven surfaces 88-Not attempted due to medical condition or safety concerns M. 1 step (curb) 88-Not attempted due to medical condition or safety concerns N. 4 steps 09-Not applicable O. 12 steps 09-Not applicable P. Picking up object 88-Not attempted due to medical condition or safety concerns R. Wheel 50 feet with two turns 88-Not attempted due to medical condition or safety concerns S. Wheel 150 feet 88-Not attempted due to medical condition or safety concerns - Bladder and Bowel Bladder continence 0-Always continent Bowel continence 0-Always continent - Endurance Poor - Balance Poor - Safety Awareness Fair CURRENT FUNC. DEFICITS: Self-Care, Mobility, Endurance, Balance, and Safety Awareness CURRENT / PREVIOUS ASSISTIVE DEVICES: [facility] Rolling Walker Shower Chair Tub Bench Wheelchair CURRENT USE ASSISTIVE DEVICES: CPAP HISTORY OF FALLS. HAS THE PATIENT HAD TWO OR MORE FALLS IN THE PAST YEAR OR ANY FALL WITH INJURY IN T HE PAST YEAR?: No PRIOR SURGERY. DID THE PATIENT HAVE MAJOR SURGERY DURING THE 100 DAYS PRIOR TO ADMISSION?: No THERAPY NOTES FROM ACUTE CARE: Attached. SPECIAL NEEDS: - Safety Concerns Skin breakdown precautions needed due to skin breakdown risk PRECAUTIONS: - Weight Bearing Precaution NWB left LE PATIENT NEEDS ACTIVE AND ONGOING THERAPEUTIC INTERVENTION OF MULTIPLE THERAPY DISCIPLINES, INCLUDING: - Orthotics/Prosthetics Prosthetic Evaluation. - Dietary and Nutrition Adequate Nutrition. Nutritional Education. Nutritional Supplements. PATIENT NEEDS CLOSE MEDICAL SUPERVISION BY A REHABILITATION PHYSICIAN FOR: Coordination of Treatment Team Medical and Co-Morbidity Management Sleep Problems Wound Care PATIENT REQUIRES 24X7 REHAB NURSING FOR MEDICAL AND FUNCTIONAL MGT. OF THE FOLLOWING DEFICITS: Disease Management Medication Management Patient/Family Education Providing Safe Environment Skin Integrity PATIENT REQUIRES INTENSIVE, COORDINATED INTERDISCIPLINARY APPROACH TO REHAB: Arranging Home Equipment/Services Discharge Planning Family Intervention/Training Licensed Mortician/Case Management PATIENT REHAB POTENTIAL: Gibran YOON is able and expected to receive 3 hours of individualized therapy daily on at least 5 of chetan ry 7 days Gibran YOON's prognosis for significant practical improvement within a reasonable period of time appears Good Expected level of measurable improvement will be of a practical value to Gibran Ashton functional capaci ty or adaptations to impairments Has a viable Discharge Plan Medically appropriate; condition is sufficiently stable to participate in intensive rehab program DISCHARGE PLAN: - Estimated Length of Stay (days) 11. - Consensus on plan Discharge plan has been discussed with primary caregiver. Patient/Family is in agreement with the fartun n. Primary caregiver is in agreement with the plan. - Patient/Family Goals Return home with assistance. - Planned Living Setting Upon Discharge Home, to live alone. Transitional Living. RECOMMENDED CARE LEVEL: IRF RECOMMENDATION DETAILS: Recommended Admission to Comprehensive Rehabilitation Program to Increase Functional [place] SCREENER'S COMPLETENESS CONFIRMATION: - Screening Confirmation The patient data collection on this preadmission screening form is finished PHYSICIANS REVIEW AND ADMISSION DETERMINATION Admit - Based on my review of the Pre-Admission Screening results, in my medical judgment and experie nce, I concur with the findings and recommend admission to [facility], as this patient requires an IRF level of care. SIGNATURE PANEL: Clinical Liaison - [electronically] signed by Nestor Bennett on 10/19/2019 at 11:36 (CARPET FINISHING SUPERVISOR) Physician Reviewer - [electronically] signed by Dr. Celso Noonan M.D. on 10/19/2019 at 12:00 (CARPET FINISHING SUPERVISOR )
--- NOTE | 2019-10-19 14:53 | PN ---
Date of Progress Note: 10/19/2019 Subjective: Patient is awake, alert. No complaint. Vital signs stable. Afebrile. White count is down to 11.8. Left shift has improved. His H and H are stable at 8.7 on 27. His dressings are shanika n, dry, and intact. Objective: Vital Signs: Stable. He is afebrile. Assessment: Status post left below-knee amputation. Recommendations: Continue IV antibiotics. Discharge planning, physical therapy. /MODL Voice ID: [id number] Report ID: [id number]
--- NOTE | 2019-10-19 15:51 | R.HP ---
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 board/care, assisted living, correction, transitional living) PRE-HOSPITAL LIVING WITH Alone ENCOUNTER PHYSICIAN: Dr. Celso Noonan M.D. REFERRING DOCTOR: thompson Willis DATE OF ADMISSION: 10/19/2019 15:48 (Central Standard Time) REFERRING FACILITY [facility] HOME TYPE AND DETAILS: Type of home: single family house # of steps within the residence: 1 # of levels in the residence: 1 # of steps to enter the residence: 0 ADMISSION DIAGNOSIS: Left BKA ONSET DATE: 10/06/2019 PRIMARY DIAGNOSIS-RELATED SURGERIES: Left Below the Knee Amputation- performed by Thompson Willis on 10/16/2019 SECONDARY/COMORBID DIAGNOSES (TIERED): - N/A HTN MO CKD CHF Insomnia Sleep Apnea CPAP dyspnea Depression Cardiomyopathty Anemia DM Sepsis Acute Kidney Injury HYPONATREMIA HISTORY OF PRESENT ILLNESS (HPI): Pt. is a 73 yo Right-handed white male. His impairment category is Amputation of Limb 05 - Unilateral Lower Limb Below the Knee (BK) (05.4). Pre-morbidly, Pt. was independent/mod-I in Locomotion, Balance, Safety Awareness, Social Cognition, T ransfers Control, Sphincter Control, Self-Care, Communication, and Endurance; and he had good Locomot ion, Balance, Safety Awareness, Social Cognition, Transfers Control, Sphincter Control, Self-Care, Co mmunication, and Endurance. Currently, he has deficits of Locomotion, Balance, Safety Awareness, Transfers Control, Self-Care, En durance, and Communication. Pt. is now referred to [facility] for acute in-patient rehabilitation in order to maximize patient's functional independence in activities of daily living, strength, ROM, and mobi lity. Patient has realistic goal of being discharged at assistance level 6-Elvia to reside at Home with Fam bel/Relatives. Carla Forbes is a 73 year old male that lives alone in a single jhonny home. He was ambulating independently without assistive device. 3 days before the admission he saw his PCP and was given oral antibiotics but with no improvement. On 10/06/2019, he went to ER with complaints of generalized weakness and left lower extremity redness and swelling. He was diagnosed with severe sepsis secondary to severe cellulitis and admitted at [facility]. He was S/P Excisional debridement, infected wound, left foot at 12 x 6cm to subcutaneous tissue and Incision, drainage and debridement of left foot abscess, removal of foreign body and interpretation of fluoroscoy. On 10/15/2019, examination of the left foot revealed worsening of the redness and increase in the fibrin and nonviability of the second and third toe completely now and after careful thought surgeon planned to do Left BKA. He is now medically stable but in need of 24-hour nursing, doctor supervision and oversight is reasonably expected to participate in 3 hours of therapy a day/15 hours per week and receive care with an intensive interdisciplinary approach. MEDICATION ALLERGIES: No Known Drug Allergies (NKDA) ENVIRONMENTAL ALLERGIES: None Known - Substance Allergies None Known - Other Allergies None Known PAST MEDICAL HISTORY: Acute Kidney Injury Anemia CHF CKD CPAP dyspnea Cardiomyopathty DM Depression HTN HYPONATREMIA Insomnia MO Sepsis Sleep Apnea PAST SURGICAL HISTORY: CABG FAMILY HISTORY: Family history is not contributory. SOCIAL HISTORY: - Home Living Alone REVIEW OF SYSTEMS: - Gen No Chills Fatigue No Fever - Eyes No Double Vision No itchiness - ENMT No Difficulty Swallowing - CVS No Chest Discomfort No Chest Pain Fatigue No Weight Gain - Resp No Cough No Shortness of Breath - GI Continent No Abdominal Pain No Constipation No Diarrhea - Continent No Kidney Pain No Painful Urination No Urinary Urgency - MSK Joint Pain Muscle Cramps Stiffness - Skin No Itching No Rash No Suspicious Lesions - Neuro Coordination Difficulty Difficulty with Concentration No Memory Loss No Seizures Weakness - Psych No Anxiety No Depression No HIV Exposure No Persistent Infections No Seasonal Allergies - Endo No Cold/Heat Intolerance No Excessive Hunger No Excessive Thirst No Excessive Urination PHYSICAL EXAM - Gen Alert and awake Lying in bed No apparent distress Oriented to: person, time, and place - Skin LLE incisions intact Normacephalic - Eyes No abnormalities - ENMT No abnormalities - Neck No abnormalities - CVS RRR - Chest No abnormalities - Resp Clear to auscultation - Abd Soft - GI Non distended Deferred - No abnormalities - Ext Left BKA good hemostasis, dressing in place - MSK 4+/5 weakness in left lower extremity - Neuro 4/5 strength left lower extremity. - Psych No abnormalities VITAL SIGNS Temperature: 97.9 F SBP/DBP: 137/67 Pulse: 74 Resp: 16 NURSING: - Shower allowing shower - Skin care per protocol PRECAUTIONS: - Weight Bearing Precaution NWB left LE ACTIVITIES OOB only with supervision QI SCORES: - Self-Care A. Eating 05-Setup or clean-up assistance B. Oral hygiene 05-Setup or clean-up assistance C. Toileting hygiene 03-Partial/moderate assistance E. Shower/bathe self 03-Partial/moderate assistance F. Upper body dressing 03-Partial/moderate assistance G. Lower body dressing 02-Substantial/maximal assistance H. Putting on/taking off footwear 02-Substantial/maximal assistance - Mobility A. Roll left and right 03-Partial/moderate assistance B. Sit to lying 03-Partial/moderate assistance C. Lying to sitting on side of bed 03-Partial/moderate assistance D. Sit to stand 03-Partial/moderate assistance E. Chair/[id number]-gd-[id number] transfer 03-Partial/moderate assistance F. Toilet transfer 03-Partial/moderate assistance G. Car transfer 10-Not attempted due to environmental limitations I. Walk 10 feet 88-Not attempted due to medical condition or safety concerns J. Walk 50 feet with two turns 88-Not attempted due to medical condition or safety concerns K. Walk 150 feet 88-Not attempted due to medical condition or safety concerns L. Walking 10 feet on uneven surfaces 88-Not attempted due to medical condition or safety concerns M. 1 step (curb) 88-Not attempted due to medical condition or safety concerns N. 4 steps 09-Not applicable O. 12 steps 09-Not applicable P. Picking up object 88-Not attempted due to medical condition or safety concerns R. Wheel 50 feet with two turns 88-Not attempted due to medical condition or safety concerns S. Wheel 150 feet 88-Not attempted due to medical condition or safety concerns - Bladder and Bowel Bladder continence 0-Always continent Bowel continence 0-Always continent - Endurance Poor - Balance Poor - Safety Awareness Fair CURRENT FUNC. DEFICITS: Self-Care, Mobility, Endurance, Balance, and Safety Awareness MEDICATIONS: - Other See attached MAR (Medication Administration Record) ASSESSMENT: Pt. 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 was independent/mod-I in Locomotion, Balance , Safety Awareness, Social Cognition, Transfers Control, Sphincter Control, Self-Care, Communication, and Endurance; and he had good Locomotion, Balance, Safety Awareness, Social Cognition, Transfers Co ntrol, Sphincter Control, Self-Care, Communication, and Endurance.Currently, he has deficits of Locom otion, Balance, Safety Awareness, Transfers Control, Self-Care, Endurance, and Communication.Pt. is n ow referred to [facility] for acute in-patient rehabilitation in order to maxi manuel patient's functional independence in activities of daily living, strength, ROM, and mobility.- R ehab Goal Patient has realistic goal of being discharged at assistance level 6-Elvia to reside at Home with Fam bel/Relatives. Carla Forbes is a 73 year old male that lives alone in a single jhonny home. He was ambulating independently without assistive device. 3 days before the admission he saw his PCP and was given oral antibiotics but with no improvement. On 10/06/2019, he went to ER with complaints of generalized weakness and left lower extremity redness and swelling. He was diagnosed with severe sepsis secondary to severe cellulitis and admitted at [facility]. He was S/P Excisional debridement, infected wound, left foot at 12 x 6cm to subcutaneous tissue and Incision, drainage and debridement of left foot abscess, removal of foreign body and interpretation of fluoroscoy. On 10/15/2019, examination of the left foot revealed worsening of the redness and increase in the fibrin and nonviability of the second and third toe completely now and after careful thought surgeon planned to do Left BKA. He is now medically stable but in need of 24-hour nursing, doctor supervision and oversight is reasonably expected to participate in 3 hours of therapy a day/15 hours per week and receive care with an intensive interdisciplinary approach.REHAB PLAN: - Physical Therapy Gait dysfunction - to improve, our physical therapists will perform initial evaluation of pt's status upon admission and devise an individualized program for Gait Training, and Wheel Chair mobility Inability to transfer - to improve, our physical therapists will perform initial evaluation of pt's s tatus upon admission and devise an individualized program for Bed mobility Need for home safety evaluation - to improve, our physical therapists will perform initial evaluation of pt's status upon admission and devise an individualized program for Home Evaluation Need in caregiver upon discharge - to improve, our physical therapists will perform initial evaluatio n of pt's status upon admission and devise an individualized program for Caregiver Training New precaution - to improve, our physical therapists will perform initial evaluation of pt's status u lyle admission and devise an individualized program for Patient precaution education Poor balance - to improve, our physical therapists will perform initial evaluation of pt's status upo n admission and devise an individualized program for Balance Training Poor endurance - to improve, our physical therapists will perform initial evaluation of pt's status u lyle admission and devise an individualized program for Endurance Training Weakness - to improve, our physical therapists will perform initial evaluation of pt's status upon ad mission and devise an individualized program for Aquatic Therapy, Neuromuscular Reeducation, and Stre ngthening Achieving independence - to improve, our physical therapists will perform initial evaluation of pt's status upon admission and devise an individualized program for Community Reintegration Activities - Occupational Therapy ADL deficits - to improve, our occupation therapists will perform initial evaluation of pt's status u lyle admission and devise an individualized program for Bathing, Bed mobility, Community Reintegration , Cooking, Dressing, Eating, Fine Motor Skills, Grooming, Homemaking, Kitchen Mobility, Laundry, Ju[place] ent Education, Safety Awareness, Splinting - Positioning, Transfers(Toilet, Tub, Shower), and Wheel C hair Management Need for pediatric acute care unit nurse - to improve, our occupation therapists will perform initial evaluation of pt's s tatus upon admission and devise an individualized program for Caregiver Training Weakness - to improve, our occupation therapists will perform initial evaluation of pt's status upon admission and devise an individualized program for Aquatic Therapy, Balance, Endurance, UE ROM, and U E strengthening MEDICAL PLAN: - Diet Type Start Regular - Diet - Liquid Texture Start Regular - Tube Feed Start N/A - Weight Bearing Precaution NWB left LE - Skin care per protocol - Other See attached MAR (Medication Administration Record) - N/A Perform Consult Certified Prosthetic for prosthesis construction - Diet - Solid Texture Regular - Shower shower DISCHARGE PLAN: - Estimated Length of Stay (days) 11. - Consensus on plan Discharge plan has been discussed with primary caregiver. Patient/Family is in agreement with the fartun n. Primary caregiver is in agreement with the plan. - Patient/Family Goals Return home with assistance. - Planned Living Setting Upon Discharge Home, to live alone. Transitional Living. 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
--- NOTE | 2019-10-19 15:52 | PAPE ---
PATIENT: [facility] MR# [id number] REFERRING DOCTOR meron Willis EVALUATION DATE AND TIME 10/19/2019 15:51 (BOBBIN WINDER) NAME CARLA FORBES DATE OF 1945 AGE 73 PHONE SSN# [id number] GENDER male EVALUATING PHYSICIAN Dr. Celso Noonan M.D. ADMISSION DIAGNOSIS: Left BKA ONSET DATE 10/06/2019 SECONDARY/COMORBID DIAGNOSES TIERED: - N/A HTN CA CKD CHF Insomnia Sleep Apnea CPAP dyspnea Depression Cardiomyopathty Anemia DM Sepsis Acute Kidney Injury HYPONATREMIA POST-ADMISSION FUNCTIONAL/MEDICAL STATUS: - Bladder Same accident frequency: Ind - No accidents in the past 7 days - Bowel Same accident frequency: Ind - No accidents in the past 7 days - Walking Same score based on distance walked: 0(N/A) - Wheelchair Same score based on distance traveled: 0(N/A) STATUS CHANGE EVALUATION: No change in Functional or Medical Status is identified compared with Pre-Admission screening. PATIENT NEEDS CLOSE MEDICAL SUPERVISION BY A REHABILITATION PHYSICIAN FOR: Coordination of Treatment Team Medical and Co-Morbidity Management Sleep Problems Wound Care PATIENT REQUIRES 24X7 REHAB NURSING FOR MEDICAL AND FUNCTIONAL MGT. OF THE FOLLOWING DEFICITS: Disease Management Medication Management Patient/Family Education Providing Safe Environment Skin Integrity PATIENT REQUIRES INTENSIVE, COORDINATED INTERDISCIPLINARY APPROACH TO REHAB: Arranging Home Equipment/Services Discharge Planning Family Intervention/Training Software Licensing Analyst/Case Management LIST OF IDENTIFIED AND POTENTIAL PROBLEMS: Alteration in Sleep Alteration in leisure activities Bladder, Incontinence Bowel, Incontinence Depression, Actual or Potential Fluid volume overload related to Congestive Heart Failure (CHF) Infection, Actual or Potential Mobility Impaired Pain, Alteration in Comfort Self Care Deficit Skin Integrity, Actual or Potential Urinary Tract Infection (UTI), Actual or Potential RISK FOR COMPLICATIONS - Sleep Apnea Anoxia. BI. CVA. Fatigue. CA. - Depression Serotonin side effects. INTERVENTIONS - Sleep Apnea 02 sats. Oxygen. Respiratory management. - Depression Medications. Psycho/social. Safety. PATIENT COULD BE AT RISK FOR COMPLICATIONS FROM ADVERSE MEDICAL CONDITIONS DUE TO HIS/HER COMORBIDITI ES AND THE RIGORS OF THE INTENSIVE REHABILLITATION PROGRAM. METHODS OR INTERVENTIONS TO AVOID COMPLIC ATIONS INCLUDE: - Bleeding Assess lab values and manage abnormalities. Nursing to teach precautions for anti-coagulation therapy . Wound to be assessed every shift. - Infection Clinical staff to assess and manage the signs and symptoms of infection including fever, redness, war mth, etc. - Urinary Tract Infection - Falls Patient will be evaluated for Fall Precautions and will be placed on Fall Precautions as indicated pe r protocol. - Skin Breakdown Nursing will assess skin daily using assessment tool and will place on Skin Breakdown Precautions as indicated per protocol. - Pain Clinical staff may employ non-medication methods such as massage, distraction, decrease stimulus, etc . as needed. Clinical staff will assess patient's pain level every shift per protocol to assess and e nsure pain management effectiveness. Medications will be given and the pain level re-assessed. PRELIMINARY PLAN OF CARE: - Physical Therapy Patient needs Physical Therapy for a daily minimum of 1.5 hours at least 5 out of 7 days, to improve: Mobility, Strengthening, Transfers, Stretching, ROM, Endurance, Ability to manage stairs, Gait, and Balance. - Rehabilitation Nursing Patient requires 24x7 Rehabilitation Nursing for: Pain Issues, Identifying and preventing risk factor s, Monitoring and reporting current medical conditions, Assisting with ambulation and transfer, Rosalva ting with all ADL-s, Teaching patients about disease process and medications, Family teaching, Provid ing safe environment, Bowel and Bladder Issues, Skin Integrity, and Medication Management. Patient needs Software Licensing Analyst and/or Case Management for: Discharge Planning, Arranging Home Equipmen t or Services, and Family Interventions. - Dietary and Nutrition Services Patient needs Dietary and Nutrition Services for: Adequate Nutrition, Nutritional Supplements, and Nu tritional Education. - Occupational Therapy Patient needs Occupational Therapy for a daily minimum of 1.5 hours at least 5 out of 7 days, to impr ove Activities of Daily Living, including: Eating, Grooming, Bathing, Dressing, Toileting, Toilet Tra nsfers, Community Reintegration, Higher functional activities, Adaptive Equipment, Splinting, Househo ld Tasks, and Other activities as determined. QI SCORES: - Self-Care A. Eating 05-Setup or clean-up assistance B. Oral hygiene 05-Setup or clean-up assistance C. Toileting hygiene 03-Partial/moderate assistance E. Shower/bathe self 03-Partial/moderate assistance F. Upper body dressing 03-Partial/moderate assistance G. Lower body dressing 02-Substantial/maximal assistance H. Putting on/taking off footwear 02-Substantial/maximal assistance - Mobility A. Roll left and right 03-Partial/moderate assistance B. Sit to lying 03-Partial/moderate assistance C. Lying to sitting on side of bed 03-Partial/moderate assistance D. Sit to stand 03-Partial/moderate assistance E. Chair/raq-tf-[id number] transfer 03-Partial/moderate assistance F. Toilet transfer 03-Partial/moderate assistance G. Car transfer 10-Not attempted due to environmental limitations I. Walk 10 feet 88-Not attempted due to medical condition or safety concerns J. Walk 50 feet with two turns 88-Not attempted due to medical condition or safety concerns K. Walk 150 feet 88-Not attempted due to medical condition or safety concerns L. Walking 10 feet on uneven surfaces 88-Not attempted due to medical condition or safety concerns M. 1 step (curb) 88-Not attempted due to medical condition or safety concerns N. 4 steps 09-Not applicable O. 12 steps 09-Not applicable P. Picking up object 88-Not attempted due to medical condition or safety concerns R. Wheel 50 feet with two turns 88-Not attempted due to medical condition or safety concerns S. Wheel 150 feet 88-Not attempted due to medical condition or safety concerns - Bladder and Bowel Bladder continence 0-Always continent Bowel continence 0-Always continent - Endurance Poor - Balance Poor - Safety Awareness Fair POTENTIAL FUNCTIONAL GOALS FOR PATIENT TO ACHIEVE BY DISCHARGE: - Safety Precaution Patient will remain free from falls or injury at time of discharge. - Bed Mobility Patient will perform bed mobility at 4-Isaías level of assistance. - Transfers Patient will complete transfers from bed to chair at 4-Isaías level of assistance. - Mobility Patient will ambulate 150 ft with 4-Isaías level of assistance with RW. PATIENT REHAB POTENTIAL Gibran FORBES is able and expected to receive 3 hours of individualized therapy daily on at least 5 of chetan ry 7 days Gibran FORBES's prognosis for significant practical improvement within a reasonable period of time appears Good Expected level of measurable improvement will be of a practical value to Gibran FORBES's functional capaci ty or adaptations to impairments Has a viable Discharge Plan Medically appropriate; condition is sufficiently stable to participate in intensive rehab program DISCHARGE PLAN: - Estimated Length of Stay (days) 11. - Consensus on plan Discharge plan has been discussed with primary caregiver. Patient/Family is in agreement with the fartun n. Primary caregiver is in agreement with the plan. - Patient/Family Goals Return home with assistance. - Planned Living Setting Upon Discharge Home, to live alone. Transitional Living. CONCLUSION ON REHABILITATION NECESSITY: I have evaluated patient's pre-admission functional status and, comparing it to the patient's post-ad mission functional status now, I conclude that the pre-admission assessment was accurate. Patient's c ondition on admission supports the medical necessity of admission to [facility]. It is safe to proceed with patient's therapy program. SIGNATURE PANEL: (BOBBIN WINDER)
[2019-10-19] MEDS ORDERED: ACETAMINOPHEN 325 MG TABLET PO PRN (16:46)
[2019-10-19] MEDS ORDERED: ONDANSETRON 4 MG (ODT) TAB PO PRN (16:46)
[2019-10-19] MEDS ORDERED: POLYETHYL GLY 3350 17 GM/DOSE PO PRN (16:46)
[2019-10-19] MEDS ORDERED: GLUCAGON 1 MG/VIAL IM PRN (16:46)
[2019-10-19] MEDS ORDERED: D50W 25 GM/50 ML SYRINGE IV PRN (16:46)
--- NOTE | 2019-10-19 17:01 | FAST ---
ENCOUNTER DATE AND TIME: 10/19/2019 08:00 (DEPUTY BUILDING GUARD) NAME CARLA FORBES DATE OF : 1945 DATE OF ADMISSION: 10/19/2019 15:48 (DEPUTY BUILDING GUARD) PHONE: AGE: 73 N# [id number] GENDER: Male ENCOUNTER PHYSICIAN: Dr. Celso Noonan M.D. 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 ROLL LEFT AND RIGHT: ROLL LEFT AND RIGHT - STEP 1: Does the patient complete the activity by him/herself with no assistance (physical, verbal/nonverbal cueing, setup/clean-up)? No. ROLL LEFT AND RIGHT - STEP 2: Does the patient need only setup/clean-up assistance from one helper? No. ROLL LEFT AND RIGHT - STEP 3: Does the patient need only verbal/nonverbal cueing or touching/steadying/contact guard assistance fro m one helper? Yes. 1. [id number] ADMISSION PERFORMANCE: Supervision or touching assistance CODE: 04 SIT TO LYING: SIT TO LYING - STEP 1: Does the patient complete the activity by him/herself with no assistance (physical, verbal/nonverbal cueing, setup/clean-up)? No. SIT TO LYING - STEP 2: Does the patient need only setup/clean-up assistance from one helper? No. SIT TO LYING - STEP 3: Does the patient need only verbal/nonverbal cueing or touching/steadying/contact guard assistance fro m one helper? No. SIT TO LYING - STEP 4: Does the patient need physical assistance - for example lifting or trunk support from one helper - wi th the helper providing less than half of the effort? Yes. 1. [id number] ADMISSION PERFORMANCE: Partial/moderate assistance CODE: 03 LYING TO SITTING: LYING TO SITTING ON SIDE OF BED - STEP 1: Does the patient complete the activity by him/herself with no assistance (physical, verbal/nonverbal cueing, setup/clean-up)? No. LYING TO SITTING ON SIDE OF BED - STEP 2: Does the patient need only setup/clean-up assistance from one helper? No. LYING TO SITTING ON SIDE OF BED - STEP 3: Does the patient need only verbal/nonverbal cueing or touching/steadying/contact guard assistance fro m one helper? Yes. 1. [id number] ADMISSION PERFORMANCE: Supervision or touching assistance CODE: 04 SIT TO STAND: SIT TO STAND - STEP 1: Does the patient complete the activity by him/herself with no assistance (physical, verbal/nonverbal cueing, setup/clean-up)? No. SIT TO STAND - STEP 2: Does the patient need only setup/clean-up assistance from one helper? No. SIT TO STAND - STEP 3: Does the patient need only verbal/nonverbal cueing or touching/steadying/contact guard assistance fro m one helper? No. SIT TO STAND - STEP 4: Does the patient need physical assistance - for example lifting or trunk support from one helper - wi th the helper providing less than half of the effort? Yes. 1. [id number] ADMISSION PERFORMANCE: Partial/moderate assistance CODE: 03 TRANSFERS: BED, CHAIR: CHAIR/WEN-ZD-PHNUH TRANSFER - STEP 1: Does the patient complete the activity by him/herself with no assistance (physical, verbal/nonverbal cueing, setup/clean-up)? No. CHAIR/NRI-MP-UOAXA TRANSFER - STEP 2: Does the patient need only setup/clean-up assistance from one helper? No. CHAIR/[id number] TRANSFER - STEP 3: Does the patient need only verbal/nonverbal cueing or touching/steadying/contact guard assistance fro m one helper? No. CHAIR/HMJ-OM-DHMHS TRANSFER - STEP 4: Does the patient need physical assistance - for example lifting or trunk support from one helper - wi th the helper providing less than half of the effort? Yes. 1. [id number] ADMISSION PERFORMANCE: Partial/moderate assistance CODE: 03 TRANSFER TOILET: TOILET TRANSFER - STEP 1: Does the patient complete the activity by him/herself with no assistance (physical, verbal/nonverbal cueing, setup/clean-up)? No. TOILET TRANSFER - STEP 2: Does the patient need only setup/clean-up assistance from one helper? No. TOILET TRANSFER - STEP 3: Does the patient need only verbal/nonverbal cueing or touching/steadying/contact guard assistance fro m one helper? No. TOILET TRANSFER - STEP 4: Does the patient need physical assistance - for example lifting or trunk support from one helper - wi th the helper providing less than half of the effort? Yes. 1. [id number] ADMISSION PERFORMANCE: Partial/moderate assistance CODE: 03 TRANSFERS: CAR: Not attempted due to environmental limitations (e.g., lack of equipment, weather constraints) CODE: 10 WALK 10 FEET: WALK 10 FEET - STEP 1: Does the patient complete the activity by him/herself with no assistance (physical, verbal/nonverbal cueing, setup/clean-up)? No. WALK 10 FEET - STEP 2: Does the patient need only setup/clean-up assistance from one helper? No. WALK 10 FEET - STEP 3: Does the patient need only verbal/nonverbal cueing or touching/steadying/contact guard assistance fro m one helper? No. WALK 10 FEET - STEP 4: Does the patient need physical assistance - for example lifting or trunk support from one helper - wi th the helper providing less than half of the effort? Yes. 1. [id number] ADMISSION PERFORMANCE: Partial/moderate assistance CODE: 03 WALK 50 FEET: Not attempted due to medical condition or safety concerns CODE: 88 WALK 150 FEET: Not attempted due to medical condition or safety concerns CODE: 88 WALK 10 FEET UNEVEN: Not attempted due to medical condition or safety concerns CODE: 88 1 STEP (CURB): Not attempted due to medical condition or safety concerns CODE: 88 PICKING UP OBJECT: Not attempted due to medical condition or safety concerns CODE: 88 DOES THE PATIENT USE A WHEELCHAIR/SCOOTER? Q1. DOES THE PATIENT USE A WHEELCHAIR/SCOOTER?: Yes CODE: 1 WHEEL 50 FEET WITH TWO TURNS: WHEEL 50 FEET WITH TWO TURNS - STEP 1: Does the patient complete the activity by him/herself with no assistance (physical, verbal/nonverbal cueing, setup/clean-up)? No. WHEEL 50 FEET WITH TWO TURNS - STEP 2: Does the patient need only setup/clean-up assistance from one helper? No. WHEEL 50 FEET WITH TWO TURNS - STEP 3: Does the patient need only verbal/nonverbal cueing or touching/steadying/contact guard assistance fro m one helper? Yes. 1. [id number] ADMISSION PERFORMANCE: Supervision or touching assistance CODE: 04 INDICATE THE TYPE OF WHEELCHAIR/SCOOTER USED: RR1. INDICATE THE TYPE OF WHEELCHAIR/SCOOTER USED.: Manual CODE: 1 WHEEL 150 FEET: Not attempted due to medical condition or safety concerns CODE: 88 INDICATE THE TYPE OF WHEELCHAIR/SCOOTER USED: SS1. INDICATE THE TYPE OF WHEELCHAIR/SCOOTER USED.: Manual CODE: 1 BLADDER AND BOWEL: CODE: EXPR CODE: EXPR SIGNATURE PANEL: The following modified sections: 1. [id number] Admission Performance, 1. [id number] Admission Performance, 1. [id number] Admission Performance, 1. [id number] Admission Performance, 1. [id number] Admission Performance, 1. [id number] Admission Performance, 1. [id number] Admission Performance, Q1. Does the patient use a wheel chair/scooter?, 1. [id number] Admission Performance, RR1. Indicate the type of wheelchair/scooter used., Code, SS1. Indicate the type of wheelchair/scooter used. were [electronically] signed by Pedro berry PT on TueOct 19 2019 17:00:23 GMT-0600 (Central Standard Time)
[2019-10-19] MEDS: ENOXAPARIN 30 MG/0.3 ML SQ SCH (17:31)
--- OUTSIDE RECORDS SUMMARY | 2019-10-19 17:49 | XMS REPORT ---
:1945 [facility] Address [address] [place] [address] Care Team Providers Name Role Phone Unavailable Unavailable Unavailable Payers Payer Name Policy Type Policy Number Effective Date Expiration Date Problems This patient has no known problems. Allergies, Adverse Reactions, Alerts Allergy Allergy Status Severity Reaction(s) Onset Inactive Treating Comments Name Type Date Date Clinician No Known DA Active U 2013-05 Allergies -12 00:00:0 0 Medications This patient has no known medications. Results Test Description Test Time Test Comments Text Results Atomic Results Result Comments GLUCOSE BEDSIDE TESTING 2019-01-12 07:32:00 Test Item Value Reference Range Comments GLUCOSE BEDSIDE TESTING (test code=GLUBED) 232 MG/DL 60-99 BASIC METABOLIC [id number] 07:01:00 Test Item Value Reference Range Comments SODIUM (test code=NA) 138 MMOL/L 137-145 POTASSIUM (test code=K) 4.8 MMOL/L 3.5-5.1 CHLORIDE (test code=CL) 103 MMOL/L 98-107 CARBON DIOXIDE (test code=CO2) 24 MMOL/L 22-30 ANION GAP (test code=GAP) 16 MMOL/L 14-24 GLUCOSE (test code=GLU) 241 MG/DL 74-106 BLOOD UREA NITROGEN (test 33 MG/DL 9-20 code=BUN) GLOMERULAR FILTRATION RATE 46 Reporting units: ml/min/1.73 (test code=GFR) m2 (Modified MDRD Formula)Reference Range: > or=60 ml/min/1.73 m2 CREATININE (test code=CREAT) 1.50 MG/DL 0.66-1.25 CALCIUM (test code=CA) 9.2 MG/DL 8.4-10.2 [id number] 07:01:00 Test Item Value Reference Range Comments MAGNESIUM (test code=MAG) 2.2 MG/DL 1.6-2.3 CBC W/AUTO [id number] 06:33:00 Test Item Value Reference Range Comments WHITE BLOOD CELL (test code=WBC) 12.4 K/MM3 3.8-9.8 RED BLOOD CELL (test code=RBC) 4.62 M/MM3 3.95-5.67 HEMOGLOBIN (test code=HGB) 13.8 G/DL 12.4-16.7 HEMATOCRIT (test code=HCT) 43.0 % 35.9-49.5 MEAN CELL VOLUME (test code=MCV) 93 fL 81.7-96.1 MEAN CELL HGB (test code=MCH) 29.9 pg 27.6-33.2 MEAN CELL HGB CONCETRATION (test code=MCHC) 32.1 % 32.9-35.5 RED CELL DISTRIBUTION WIDTH (test code=RDW) 13.2 % 12.1-15.2 PLATELET COUNT (test code=PLT) 225 K/MM3 129-368 MEAN PLATELET VOLUME (test code=MPV) 9.4 fl 7.4-10.4 NEUTROPHIL % (test code=NT%) 61.7 % 43-75 IMMATURE GRANULOCYTE % (test code=IG%) 0.4 % 0.0-2.0 LYMPHOCYTE % (test code=LY%) 30.0 % 14-44 MONOCYTE % (test code=MO%) 5.6 % 4-13 EOSINOPHIL % (test code=EO%) 2.1 % 0-6 BASOPHIL % (test code=BA%) 0.2 % 0-2 NUCLEATED RBC % (test code=NRBC%) 0.0 % 0-1.0 NEUTROPHIL # (test code=NT#) 7.64 K/mm3 2.0-7.6 IMMATURE GRANULOCYTE # (test code=IG#) 0.05 x10 3/uL 0-0.03 LYMPHOCYTE # (test code=LY#) 3.72 K/mm3 1.0-3.8 MONOCYTE # (test code=MO#) 0.70 K/mm3 0.1-0.8 EOSINOPHIL # (test code=EO#) 0.26 K/mm3 0.0-0.2 BASOPHIL # (test code=BA#) 0.03 K/mm3 0.0-0.2 NUCLEATED RBC # (test code=NRBC#) 0.00 K/mm3 0.0-0.1 GLUCOSE BEDSIDE [id number] 19:42:00 Test Item Value Reference Range Comments GLUCOSE BEDSIDE TESTING (test code=GLUBED) 174 MG/DL 60-99 - XR CHEST [id number] 17:30:00 Patient Name: CARLA FORBES Unit No: [id number] EXAMS: CPT CODE: [id number] XR CHEST 1V [id number] Location of dictation: B2 Portable chest one view. HISTORY: S /P ICD COMMENT: No recent comparisons. The heart is enlarged. Poststernotomy changes are again noted compared to 06/04/2013. There is a left ICD in place. Mild diffuse interstitial prominence appears unchanged with no new consolidation, pneumothorax or effusion. Visualized soft tissues and skeletal structures are unremarkable. IMPRESSION: Interval placement of left ICD with stable cardiomegaly and possibly mild chronic CHF. at 1730 Reported and signed by: Melody Munson M.D. CC: Carlito Houser Technologist: Belen Ingram RT(R) Transcrpt Date/Tm/Trnsp: 01/11/2019 (1730) JacquelinPXC Orig Print D/T: S: ([id number]) [facility] NAME: CARLA FORBES [id number] PHYS: [place] [address] : 1945 AGE : 73 SEX: M [facility] #: [phone] EXAM DATE: 01/11/2019 STATUS : [facility] FAX #: [phone] RADIOLOGY NO: PAGE 1 Signed ReportPROTHROMBIN [id number] 11:43:00 Test Item Value Reference Range Comments PROTHROMBIN TIME PATIENT (test 10.1 SECONDS 9.6-11.6 code=PTP) INTERNATIONAL NORMAL RATIO 1.0 0.8-1.1 The INR is to be used only (test code=INR) for monitoring oral anticoagulanttherapy. INDICATION INR VALUE 1. Prophylaxis, deep venous thrombosis, including high risk surgery. 2.0 - 3.0 2. Prophylaxis, deep venous thrombosis, hip surgery, treatment for deep venous thrombosis or pulmonary prevention of systemic embolism in patients with valvular heart disease, atrial fibrillation, tissue heart valve, or acute myocardial infarction. 2.0 - 3.0 3. Mechanical prosthesis heart valves, recurrent systemic embolism. 3.0 - 4.5 PTT [id number] 11:43:00 Test Item Value Reference Range Comments PTT ACTIVATED (test code=APTT) 25.8 SECONDS 22.0-33.0 BASIC METABOLIC [id number] 11:41:00 Test Item Value Reference Range Comments SODIUM (test code=NA) 143 MMOL/L 137-145 POTASSIUM (test code=K) 5.3 MMOL/L 3.5-5.1 CHLORIDE (test code=CL) 104 MMOL/L 98-107 CARBON DIOXIDE (test code=CO2) 27 MMOL/L 22-30 GLUCOSE (test code=GLU) 214 MG/DL 74-106 BLOOD UREA NITROGEN (test 29 MG/DL 9-20 code=BUN) GLOMERULAR FILTRATION RATE 46 Reporting units: ml/min/1.73 (test code=GFR) m2 (Modified MDRD Formula)Reference Range: > or=60 ml/min/1.73 m2 CREATININE (test code=CREAT) 1.50 MG/DL 0.66-1.25 CALCIUM (test code=CA) 9.9 MG/DL 8.4-10.2 [id number] 11:41:00 Test Item Value Reference Range Comments MAGNESIUM (test code=MAG) 2.3 MG/DL 1.6-2.3 CBC W/AUTO [id number] 11:27:00 Test Item Value Reference Range Comments WHITE BLOOD CELL (test code=WBC) 10.6 K/MM3 3.8-9.8 RED BLOOD CELL (test code=RBC) 5.06 M/MM3 3.95-5.67 HEMOGLOBIN (test code=HGB) 15.0 G/DL 12.4-16.7 HEMATOCRIT (test code=HCT) 46.2 % 35.9-49.5 MEAN CELL VOLUME (test code=MCV) 91 fL 81.7-96.1 MEAN CELL HGB (test code=MCH) 29.6 pg 27.6-33.2 MEAN CELL HGB CONCETRATION (test code=MCHC) 32.5 % 32.9-35.5 RED CELL DISTRIBUTION WIDTH (test code=RDW) 13.3 % 12.1-15.2 PLATELET COUNT (test code=PLT) 263 K/MM3 129-368 MEAN PLATELET VOLUME (test code=MPV) 9.3 fl 7.4-10.4 NEUTROPHIL % (test code=NT%) 52.8 % 43-75 IMMATURE GRANULOCYTE % (test code=IG%) 0.6 % 0.0-2.0 LYMPHOCYTE % (test code=LY%) 38.4 % 14-44 MONOCYTE % (test code=MO%) 5.3 % 4-13 EOSINOPHIL % (test code=EO%) 2.6 % 0-6 BASOPHIL % (test code=BA%) 0.3 % 0-2 NUCLEATED RBC % (test code=NRBC%) 0.0 % 0-1.0 NEUTROPHIL # (test code=NT#) 5.58 K/mm3 2.0-7.6 IMMATURE GRANULOCYTE # (test code=IG#) 0.06 x10 3/uL 0-0.03 LYMPHOCYTE # (test code=LY#) 4.05 K/mm3 1.0-3.8 MONOCYTE # (test code=MO#) 0.56 K/mm3 0.1-0.8 EOSINOPHIL # (test code=EO#) 0.27 K/mm3 0.0-0.2 BASOPHIL # (test code=BA#) 0.03 K/mm3 0.0-0.2 NUCLEATED RBC # (test code=NRBC#) 0.00 K/mm3 0.0-0.1
[2019-10-19 20:07] LABS: Urine Appearance CLEAR; Urine Bilirubin NEGATIVE (NEG); Urine Blood NEGATIVE (NEG); Urine Color YELLOW; Urine Glucose NEGATIVE (NEG); Urine Protein NEGATIVE (NEG); Urine Urobilinogen 0.2 mg/dL (0.2-1.0); Urine pH 5.5 (5.0-7.0)
[2019-10-19 20:15] LABS: Urine Bacteria <20 /HPF (NONE SEEN); Urine RBC NONE SEEN /HPF (NONE SEEN)
[2019-10-19] MEDS: INSULIN -REGULAR HUMAN 50 UNIT/0.5 ML ML SQ SCH (21:00)
[2019-10-19] MEDS: INSULIN GLARGINE 100 UNITS/ML SQ SCH (21:10)
[2019-10-19] MEDS: DOCUSATE NA 100 MG CAP PO SCH (21:10)
[2019-10-19] MEDS: LACTOBACILLUS/ACIDOPHILUS TAB PO SCH (21:10)
[2019-10-19] MEDS: HYDROCODONE/APAP 7.5/325 MG TAB PO PRN (21:12)
[2019-10-20] MEDS: VANCOMYCIN 1.5 GM in NA CHLORIDE 0.9% 500 ML IVPB SCH (05:22)
[2019-10-20 07:00] LABS: Absolute Lymphocytes (CBC) 5.2 K/uL (0.7-4.9); Basophils % 0.5 % (0-1.3); Hematocrit 28.3 % (39.6-49.0); Lymphocytes % 50.8 % (15.3-44.8); MPV 7.1 fL (7.6-11.3); RBC Red Blood Cell Count 3.11 M/uL (4.33-5.43)
[2019-10-20 07:12] LABS: Albumin 2.1 g/dL (3.4-5.0); Magnesium 2.5 mg/dL (1.8-2.4); Potassium 4.7 mmol/L (3.5-5.1); Prealbumin 9.3 mg/dL (20-40)
[2019-10-20] MEDS: INSULIN -REGULAR HUMAN 50 UNIT/0.5 ML ML SQ SCH ×4 (07:30→21:23)
[2019-10-20] MEDS: HYDROCODONE/APAP 7.5/325 MG TAB PO PRN ×2 (07:52→20:10)
[2019-10-20] MEDS: levoFLOXacin 250 MG TAB PO SCH (07:57)
[2019-10-20] MEDS: DOCUSATE NA 100 MG CAP PO SCH ×2 (07:57→20:00)
[2019-10-20] MEDS: SERTRALINE HCL 100 MG TAB PO SCH (07:57)
[2019-10-20] MEDS: LACTOBACILLUS/ACIDOPHILUS TAB PO SCH ×2 (07:58→20:11)
[2019-10-20] MEDS: ASPIRIN EC 81 MG TAB PO SCH (07:58)
[2019-10-20] MEDS: CYANOCOBALAMIN 1,000 MCG TAB PO SCH (07:58)
[2019-10-20] MEDS: CLOPIDOGREL 75 MG TABLET PO SCH (07:58)
[2019-10-20] MEDS ORDERED: PNEUMOCOCCAL VACCINE 0.5 ML IMVAC ONE (11:00)
[2019-10-20] MEDS: ENSURE HIGH PROTEIN 237 ML CAN PO SCH (12:22)
--- NOTE | 2019-10-20 16:11 | FAST ---
ENCOUNTER DATE AND TIME: 10/20/2019 08:00 (ACCOUNTING SUPPORT SPECIALIST) NAME CARLA FORBES DATE OF : 1945 DATE OF ADMISSION: 10/19/2019 15:48 (ACCOUNTING SUPPORT SPECIALIST) PHONE: AGE: 73 N# [id number] GENDER: Male ENCOUNTER PHYSICIAN: Dr. Celso Noonan M.D. 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 EATING: Not assessed/no information CODE: - ORAL HYGIENE: Not assessed/no information CODE: - TOILETING HYGIENE: TOILETING HYGIENE - STEP 1: Does the patient complete the activity by him/herself with no assistance (physical, verbal/nonverbal cueing, setup/clean-up)? No. TOILETING HYGIENE - STEP 2: Does the patient need only setup/clean-up assistance from one helper? No. TOILETING HYGIENE - STEP 3: Does the patient need only verbal/nonverbal cueing or touching/steadying/contact guard assistance fro m one helper? No. TOILETING HYGIENE - STEP 4: Does the patient need physical assistance - for example lifting or trunk support from one helper - wi th the helper providing less than half of the effort? No. TOILETING HYGIENE - STEP 5: Does the patient need physical assistance - for example lifting or trunk support from one helper - wi th the helper providing more than half of the effort? No. TOILETING HYGIENE - STEP 6: Does the helper provide all of the effort? OR Is the assistance of two or more helpers required to co mplete the activity? Yes. 1. [id number] ADMISSION PERFORMANCE: Dependent CODE: 01 BATHING: SHOWER/BATHE SELF - STEP 1: Does the patient complete the activity by him/herself with no assistance (physical, verbal/nonverbal cueing, setup/clean-up)? No. SHOWER/BATHE SELF - STEP 2: Does the patient need only setup/clean-up assistance from one helper? No. SHOWER/BATHE SELF - STEP 3: Does the patient need only verbal/nonverbal cueing or touching/steadying/contact guard assistance fro m one helper? No. SHOWER/BATHE SELF - STEP 4: Does the patient need physical assistance - for example lifting or trunk support from one helper - wi th the helper providing less than half of the effort? Yes. 1. [id number] ADMISSION PERFORMANCE: Partial/moderate assistance CODE: 03 DRESSING - UPPER BODY: Not attempted due to environmental limitations (e.g., lack of equipment, weather constraints) CODE: 10 DRESSING - LOWER BODY: Not attempted due to environmental limitations (e.g., lack of equipment, weather constraints) CODE: 10 PUTTING ON/TAKING OFF FOOTWEAR: Not attempted due to environmental limitations (e.g., lack of equipment, weather constraints) CODE: 10 DOES THE PATIENT USE A WHEELCHAIR/SCOOTER? CODE: EXPR INDICATE THE TYPE OF WHEELCHAIR/SCOOTER USED: CODE: EXPR INDICATE THE TYPE OF WHEELCHAIR/SCOOTER USED: CODE: EXPR BLADDER AND BOWEL: CODE: EXPR CODE: EXPR SIGNATURE PANEL: The following modified sections: 1. [id number] Admission Performance, 1. [id number] Admission Performance w ere [electronically] signed by Lis Prakash OT on Sat Oct 20 2019 16:10:34 GMT-0600 (Central Stand yamileth Time)
--- NOTE | 2019-10-20 17:16 | PN ---
Date of Progress Note: 10/20/2019 Subjective: Patient is awake, alert. No complaints. Objective: Vital Signs: Stable. Afebrile. Extremities: Examination of the wound reveals to be clean dry and intact. There is some bruising ar ound the wound, but no evidence of any infection Laboratory Data: White count is normal. Assessment: Status post left below-knee amputation. Recommendations: Slxpso-qi-rjxqr dressing changes. Continue antibiotics for the time being and phys ical therapy. /MODL Voice ID: [id number] Report ID: [id number]
[2019-10-20] MEDS: ENOXAPARIN 30 MG/0.3 ML SQ SCH (17:31)
[2019-10-20] MEDS: SODIUM CHLORIDE 0.9% 10ML INJ IV SCH (20:00)
[2019-10-20] MEDS: INSULIN GLARGINE 100 UNITS/ML SQ SCH (21:24)
[2019-10-21] MEDS: VANCOMYCIN 1.5 GM in NA CHLORIDE 0.9% 500 ML IVPB SCH ×2 (06:00→19:17)
[2019-10-21] MEDS ORDERED: ALTEPLASE 2 MG/VIAL IV SCH (06:00)
[2019-10-21] MEDS: INSULIN -REGULAR HUMAN 50 UNIT/0.5 ML ML SQ SCH ×4 (07:30→21:00)
[2019-10-21] MEDS: HYDROCODONE/APAP 7.5/325 MG TAB PO PRN (08:55)
[2019-10-21] MEDS: DOCUSATE NA 100 MG CAP PO SCH ×2 (08:57→19:45)
[2019-10-21] MEDS: SODIUM CHLORIDE 0.9% 10ML INJ IV SCH ×2 (08:57→19:17)
[2019-10-21] MEDS: levoFLOXacin 250 MG TAB PO SCH (08:57)
[2019-10-21] MEDS: ASPIRIN EC 81 MG TAB PO SCH (08:57)
[2019-10-21] MEDS: LACTOBACILLUS/ACIDOPHILUS TAB PO SCH ×2 (08:57→19:45)
[2019-10-21] MEDS: CYANOCOBALAMIN 1,000 MCG TAB PO SCH (08:57)
[2019-10-21] MEDS: SERTRALINE HCL 100 MG TAB PO SCH (08:57)
[2019-10-21] MEDS: CLOPIDOGREL 75 MG TABLET PO SCH (08:58)
[2019-10-21] MEDS: ENSURE HIGH PROTEIN 237 ML CAN PO SCH (11:56)
[2019-10-21] MEDS: ENOXAPARIN 30 MG/0.3 ML SQ SCH (16:44)
[2019-10-21] MEDS: INSULIN GLARGINE 100 UNITS/ML SQ SCH (21:21)
[2019-10-22] MEDS: INSULIN -REGULAR HUMAN 50 UNIT/0.5 ML ML SQ SCH ×4 (07:30→21:32)
[2019-10-22] MEDS: SODIUM CHLORIDE 0.9% 10ML INJ IV SCH ×2 (08:00→21:00)
[2019-10-22] MEDS: HYDROCODONE/APAP 7.5/325 MG TAB PO PRN ×3 (08:23→20:59)
[2019-10-22] MEDS: ASPIRIN EC 81 MG TAB PO SCH (08:23)
[2019-10-22] MEDS: SERTRALINE HCL 100 MG TAB PO SCH (08:23)
[2019-10-22] MEDS: LACTOBACILLUS/ACIDOPHILUS TAB PO SCH ×2 (08:23→20:58)
[2019-10-22] MEDS: levoFLOXacin 250 MG TAB PO SCH (08:23)
[2019-10-22] MEDS: CYANOCOBALAMIN 1,000 MCG TAB PO SCH (08:23)
[2019-10-22] MEDS: DOCUSATE NA 100 MG CAP PO SCH ×2 (08:23→20:00)
[2019-10-22] MEDS: CLOPIDOGREL 75 MG TABLET PO SCH (08:23)
[2019-10-22] MEDS: ENSURE HIGH PROTEIN 237 ML CAN PO SCH (12:27)
--- NOTE | 2019-10-22 15:49 | FAST ---
SHIFT START DATE/TIME: 10/22/2019 07:00 (DEMOGRAPHER) SHIFT END DATE/TIME: 10/22/2019 19:00 (DEMOGRAPHER) NAME CARLA FORBES DATE OF : 1945 DATE OF ADMISSION: 10/19/2019 15:48 (DEMOGRAPHER) PHONE: AGE: 73 N# [id number] GENDER: Male ENCOUNTER PHYSICIAN: Dr. Celso Noonan M.D. 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 EATING: EATING - STEP 1: Does the patient complete the activity by him/herself with no assistance (physical, verbal/nonverbal cueing, setup/clean-up)? No. EATING - STEP 2: Does the patient need only setup/clean-up assistance from one helper? Yes. 1. [id number] ADMISSION PERFORMANCE: Setup or clean-up assistance CODE: 05 ORAL HYGIENE: Not assessed/no information CODE: - TOILETING HYGIENE: TOILETING HYGIENE - STEP 1: Does the patient complete the activity by him/herself with no assistance (physical, verbal/nonverbal cueing, setup/clean-up)? No. TOILETING HYGIENE - STEP 2: Does the patient need only setup/clean-up assistance from one helper? Yes. 1. [id number] ADMISSION PERFORMANCE: Setup or clean-up assistance CODE: 05 BATHING: Not assessed/no information CODE: - DRESSING - UPPER BODY: Not assessed/no information CODE: - DRESSING - LOWER BODY: DRESSING - LOWER BODY - STEP 1: Does the patient complete the activity by him/herself with no assistance (physical, verbal/nonverbal cueing, setup/clean-up)? No. DRESSING - LOWER BODY - STEP 2: Does the patient need only setup/clean-up assistance from one helper? No. DRESSING - LOWER BODY - STEP 3: Does the patient need only verbal/nonverbal cueing or touching/steadying/contact guard assistance fro m one helper? Yes. 1. [id number] ADMISSION PERFORMANCE: Supervision or touching assistance CODE: 04 PUTTING ON/TAKING OFF FOOTWEAR: FOOTWEAR - STEP 1: Does the patient complete the activity by him/herself with no assistance (physical, verbal/nonverbal cueing, setup/clean-up)? No. FOOTWEAR - STEP 2: Does the patient need only setup/clean-up assistance from one helper? No. FOOTWEAR - STEP 3: Does the patient need only verbal/nonverbal cueing or touching/steadying/contact guard assistance fro m one helper? No. FOOTWEAR - STEP 4: Does the patient need physical assistance - for example lifting or trunk support from one helper - wi th the helper providing less than half of the effort? No. FOOTWEAR - STEP 5: Does the patient need physical assistance - for example lifting or trunk support from one helper - wi th the helper providing more than half of the effort? Yes. 1. [id number] ADMISSION PERFORMANCE: Substantial/maximal assistance CODE: 02 ROLL LEFT AND RIGHT: ROLL LEFT AND RIGHT - STEP 1: Does the patient complete the activity by him/herself with no assistance (physical, verbal/nonverbal cueing, setup/clean-up)? No. ROLL LEFT AND RIGHT - STEP 2: Does the patient need only setup/clean-up assistance from one helper? No. ROLL LEFT AND RIGHT - STEP 3: Does the patient need only verbal/nonverbal cueing or touching/steadying/contact guard assistance fro m one helper? Yes. 1. [id number] ADMISSION PERFORMANCE: Supervision or touching assistance CODE: 04 SIT TO LYING: SIT TO LYING - STEP 1: Does the patient complete the activity by him/herself with no assistance (physical, verbal/nonverbal cueing, setup/clean-up)? No. SIT TO LYING - STEP 2: Does the patient need only setup/clean-up assistance from one helper? No. SIT TO LYING - STEP 3: Does the patient need only verbal/nonverbal cueing or touching/steadying/contact guard assistance fro m one helper? Yes. 1. [id number] ADMISSION PERFORMANCE: Supervision or touching assistance CODE: 04 LYING TO SITTING: LYING TO SITTING ON SIDE OF BED - STEP 1: Does the patient complete the activity by him/herself with no assistance (physical, verbal/nonverbal cueing, setup/clean-up)? No. LYING TO SITTING ON SIDE OF BED - STEP 2: Does the patient need only setup/clean-up assistance from one helper? No. LYING TO SITTING ON SIDE OF BED - STEP 3: Does the patient need only verbal/nonverbal cueing or touching/steadying/contact guard assistance fro m one helper? Yes. 1. [id number] ADMISSION PERFORMANCE: Supervision or touching assistance CODE: 04 SIT TO STAND: SIT TO STAND - STEP 1: Does the patient complete the activity by him/herself with no assistance (physical, verbal/nonverbal cueing, setup/clean-up)? No. SIT TO STAND - STEP 2: Does the patient need only setup/clean-up assistance from one helper? No. SIT TO STAND - STEP 3: Does the patient need only verbal/nonverbal cueing or touching/steadying/contact guard assistance fro m one helper? Yes. 1. [id number] ADMISSION PERFORMANCE: Supervision or touching assistance CODE: 04 TRANSFERS: BED, CHAIR: CHAIR/[id number] TRANSFER - STEP 1: Does the patient complete the activity by him/herself with no assistance (physical, verbal/nonverbal cueing, setup/clean-up)? No. CHAIR/[id number] TRANSFER - STEP 2: Does the patient need only setup/clean-up assistance from one helper? No. CHAIR/[id number] TRANSFER - STEP 3: Does the patient need only verbal/nonverbal cueing or touching/steadying/contact guard assistance fro m one helper? No. CHAIR/[id number] TRANSFER - STEP 4: Does the patient need physical assistance - for example lifting or trunk support from one helper - wi th the helper providing less than half of the effort? Yes. 1. [id number] ADMISSION PERFORMANCE: Partial/moderate assistance CODE: 03 TRANSFER TOILET: TOILET TRANSFER - STEP 1: Does the patient complete the activity by him/herself with no assistance (physical, verbal/nonverbal cueing, setup/clean-up)? No. TOILET TRANSFER - STEP 2: Does the patient need only setup/clean-up assistance from one helper? No. TOILET TRANSFER - STEP 3: Does the patient need only verbal/nonverbal cueing or touching/steadying/contact guard assistance fro m one helper? Yes. 1. [id number] ADMISSION PERFORMANCE: Supervision or touching assistance CODE: 04 TRANSFERS: CAR: Not assessed/no information CODE: - WALK 10 FEET: Not assessed/no information CODE: - 1 STEP (CURB): Not assessed/no information CODE: - PICKING UP OBJECT: Not assessed/no information CODE: - DOES THE PATIENT USE A WHEELCHAIR/SCOOTER? Q1. DOES THE PATIENT USE A WHEELCHAIR/SCOOTER?: Yes CODE: 1 WHEEL 50 FEET WITH TWO TURNS: WHEEL 50 FEET WITH TWO TURNS - STEP 1: Does the patient complete the activity by him/herself with no assistance (physical, verbal/nonverbal cueing, setup/clean-up)? No. WHEEL 50 FEET WITH TWO TURNS - STEP 2: Does the patient need only setup/clean-up assistance from one helper? No. WHEEL 50 FEET WITH TWO TURNS - STEP 3: Does the patient need only verbal/nonverbal cueing or touching/steadying/contact guard assistance fro m one helper? Yes. 1. [id number] ADMISSION PERFORMANCE: Supervision or touching assistance CODE: 04 INDICATE THE TYPE OF WHEELCHAIR/SCOOTER USED: RR1. INDICATE THE TYPE OF WHEELCHAIR/SCOOTER USED.: Manual CODE: 1 WHEEL 150 FEET: Not assessed/no information CODE: - INDICATE THE TYPE OF WHEELCHAIR/SCOOTER USED: SS1. INDICATE THE TYPE OF WHEELCHAIR/SCOOTER USED.: Manual CODE: 1 BLADDER AND BOWEL: H350. BLADDER CONTINENCE (3-DAY ASSESSMENT PERIOD): Always continent (no documented incontinence) CODE: 0 H400. BOWEL CONTINENCE (3-DAY ASSESSMENT PERIOD): Always continent CODE: 0 SIGNATURE PANEL: The following modified sections: 1. [id number] Admission Performance, 1. [id number] Admission Performance, 1. [id number] Admission Performance, 1. [id number] Admission Performance, 1. [id number] Admission Performance, 1. [id number] Admission Performance, 1. [id number] Admission Performance, 1. [id number] Admission Performance , 1. [id number] Admission Performance, 1. [id number] Admission Performance, 1. [id number] Admission Performanc e, 1. [id number] Admission Performance, Q1. Does the patient use a wheelchair/scooter?, 1. [id number] Admis zen Performance, RR1. Indicate the type of wheelchair/scooter used., Code, SS1. Indicate the type of wheelchair/scooter used., H350. Bladder Continence (3-day assessment period), H400. Bowel Continence (3-day assessment period) were [electronically] signed by Karis Ochoa C.N.A. on TueOct 22 2019 15 :49:07 GMT-0600 (Central Standard Time)
[2019-10-22] MEDS: ENOXAPARIN 30 MG/0.3 ML SQ SCH (16:30)
--- NOTE | 2019-10-22 17:36 | R.PN ---
ENCOUNTER DATE AND TIME: 10/22/2019 17:27 (MULE DRIVER) NAME CARLA FORBES DATE OF : 1945 DATE OF ADMISSION: 10/19/2019 15:48 (MULE DRIVER) Left BKACHIEF COMPLAINT: Left below the knee amputation SUBJECTIVE: Pt denied any Shortness of Breath. Pt denied any depression. Ambulated 25' with minimum assistance using a rolling walker. WBC 10.3, Hgb 9.4, glucose 147 to 215, vanc trough 14.5, UA is normal. VITAL SIGNS Temperature: 97.2 F SBP/DBP: 128/73 Pulse: 78 Resp: 16 MEDICATION ALLERGIES: No Known Drug Allergies (NKDA) ENVIRONMENTAL ALLERGIES: None Known - Substance Allergies None Known - Other Allergies None Known CONSULT: Perform Consult Certified Prosthetic for prosthesis construction NURSING: - Shower allowing shower - Skin care per protocol PRECAUTIONS: - Weight Bearing Precaution NWB left LE ACTIVITIES OOB only with supervision THERAPIES: - Orthotics/Prosthetics Prosthetic Evaluation. - Dietary and Nutrition Adequate Nutrition. Nutritional Education. Nutritional Supplements. PHYSICAL EXAM - Gen Alert and awake Lying in bed No apparent distress Oriented to: person, time, and place - Skin LLE incisions intact Normacephalic - Eyes No abnormalities - ENMT No abnormalities - Neck No abnormalities - CVS RRR - Chest No abnormalities - Resp Clear to auscultation - Abd Soft - GI Non distended Deferred - No abnormalities - Ext Left BKA good hemostasis, dressing in place - MSK 4+/5 weakness in left lower extremity - Neuro 4/5 strength left lower extremity. - Psych No abnormalities ASSESSMENT: Pt. 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 was independent/mod-I in Locomotion, Balance , Safety Awareness, Social Cognition, Transfers Control, Sphincter Control, Self-Care, Communication, and Endurance; and he had good Locomotion, Balance, Safety Awareness, Social Cognition, Transfers Co ntrol, Sphincter Control, Self-Care, Communication, and Endurance.Currently, he has deficits of Locom otion, Balance, Safety Awareness, Transfers Control, Self-Care, Endurance, and Communication.Pt. is n ow referred to [facility] for acute in-patient rehabilitation in order to max manuel patient's functional independence in activities of daily living, strength, ROM, and mobility.- R ehab Goal Patient has realistic goal of being discharged at assistance level 6-Elvia to reside at Home with Fam bel/Relatives. MDM/PLAN: - Physical Therapy Gait dysfunction - to improve, our physical therapists will perform initial evaluation of pt's statu s upon admission and devise an individualized program for Gait Training, and Wheel Chair mobility Inability to transfer - to improve, our physical therapists will perform initial evaluation of pt's status upon admission and devise an individualized program for Bed mobility Need for home safety evaluation - to improve, our physical therapists will perform initial evaluatio n of pt's status upon admission and devise an individualized program for Home Evaluation Need in caregiver upon discharge - to improve, our physical therapists will perform initial evaluati on of pt's status upon admission and devise an individualized program for Caregiver Training New precaution - to improve, our physical therapists will perform initial evaluation of pt's status upon admission and devise an individualized program for Patient precaution education Poor balance - to improve, our physical therapists will perform initial evaluation of pt's status up on admission and devise an individualized program for Balance Training Poor endurance - to improve, our physical therapists will perform initial evaluation of pt's status upon admission and devise an individualized program for Endurance Training Weakness - to improve, our physical therapists will perform initial evaluation of pt's status upon a dmission and devise an individualized program for Aquatic Therapy, Neuromuscular Reeducation, and Str engthening Achieving independence - to improve, our physical therapists will perform initial evaluation of pt's status upon admission and devise an individualized program for Community Reintegration Activities - Occupational Therapy ADL deficits - to improve, our occupation therapists will perform initial evaluation of pt's status upon admission and devise an individualized program for Bathing, Bed mobility, Community Reintegratio n, Cooking, Dressing, Eating, Fine Motor Skills, Grooming, Homemaking, Kitchen Mobility, Laundry, Pat ient Education, Safety Awareness, Splinting - Positioning, Transfers(Toilet, Tub, Shower), and Wheel Chair Management Need for wound care specialist - to improve, our occupation therapists will perform initial evaluation of pt's status upon admission and devise an individualized program for Caregiver Training Weakness - to improve, our occupation therapists will perform initial evaluation of pt's status upon admission and devise an individualized program for Aquatic Therapy, Balance, Endurance, UE ROM, and UE strengthening - Other See attached MAR (Medication Administration Record) - Diet Type Continue Regular - Diet - Liquid Texture Continue Regular - Tube Feed Continue N/A - Weight Bearing Precaution NWB left LE - Skin care per protocol - N/A Perform Consult Certified Prosthetic for prosthesis construction - Diet - Solid Texture Continue Regular - Shower allowing shower FUNCTIONAL STATUS: UPDATED AT WEEKLY TEAM CONFERENCE - Bladder Same accident frequency: 7-Ind - No accidents in the past 7 days - Bowel Same accident frequency: 7-Ind - No accidents in the past 7 days - Walking Same score based on distance walked: 0(N/A) - Wheelchair Same score based on distance traveled: 0(N/A) FUNCTIONAL STATUS: - Self-Care A. Eating Ind B. Grooming sup C. Bathing Isaías D. Dressing - Upper Ind E. Dressing - Lower modA F. Toileting modA - Sphincter Control G. Bladder control sup H. Bowel control sup - Transfers Control I. Bed/Chair/Wheelchair modA J. Toilet modA K. Tub/Shower modA - Locomotion L. Walk/Wheelchair (B) modA M. Stairs ADNO - Communication N. Comprehension (B) Elvia O. Expression (B) Elvia - Social Cognition P. Social Interaction Elvia Q. Problem Solving sup R. Memory sup - Endurance Fair - Balance Fair - Safety Awareness Fair QI SCORES: - Self-Care A. Eating 05-Setup or clean-up assistance B. Oral hygiene 05-Setup or clean-up assistance C. Toileting hygiene 03-Partial/moderate assistance E. Shower/bathe self 03-Partial/moderate assistance F. Upper body dressing 03-Partial/moderate assistance G. Lower body dressing 02-Substantial/maximal assistance H. Putting on/taking off footwear 02-Substantial/maximal assistance - Mobility A. Roll left and right 03-Partial/moderate assistance B. Sit to lying 03-Partial/moderate assistance C. Lying to sitting on side of bed 03-Partial/moderate assistance D. Sit to stand 03-Partial/moderate assistance E. Chair/[id number]-[id number] transfer 03-Partial/moderate assistance F. Toilet transfer 03-Partial/moderate assistance G. Car transfer 10-Not attempted due to environmental limitations I. Walk 10 feet 88-Not attempted due to medical condition or safety concerns J. Walk 50 feet with two turns 88-Not attempted due to medical condition or safety concerns K. Walk 150 feet 88-Not attempted due to medical condition or safety concerns L. Walking 10 feet on uneven surfaces 88-Not attempted due to medical condition or safety concerns M. 1 step (curb) 88-Not attempted due to medical condition or safety concerns N. 4 steps 09-Not applicable O. 12 steps 09-Not applicable P. Picking up object 88-Not attempted due to medical condition or safety concerns R. Wheel 50 feet with two turns 88-Not attempted due to medical condition or safety concerns S. Wheel 150 feet 88-Not attempted due to medical condition or safety concerns - Bladder and Bowel Bladder continence 0-Always continent Bowel continence 0-Always continent - Endurance Poor - Balance Poor - Safety Awareness Fair CURRENT FUNC. DEFICITS: Self-Care, Mobility, Endurance, Balance, and Safety Awareness SIGNATURE PANEL: (MULE DRIVER)
[2019-10-22] MEDS: INSULIN GLARGINE 100 UNITS/ML SQ SCH (21:00)
[2019-10-22] MEDS ORDERED: INSULIN -REGULAR HUMAN 50 UNIT/0.5 ML ML ONE (21:32)
[2019-10-23] MEDS: VANCOMYCIN 1.5 GM in NA CHLORIDE 0.9% 500 ML IVPB SCH (07:08)
[2019-10-23] MEDS: INSULIN -REGULAR HUMAN 50 UNIT/0.5 ML ML SQ SCH ×4 (07:30→20:17)
[2019-10-23] MEDS: SODIUM CHLORIDE 0.9% 10ML INJ IV SCH ×2 (08:00→20:00)
[2019-10-23] MEDS: ASPIRIN EC 81 MG TAB PO SCH (08:37)
[2019-10-23] MEDS: LACTOBACILLUS/ACIDOPHILUS TAB PO SCH ×2 (08:37→20:17)
[2019-10-23] MEDS: levoFLOXacin 250 MG TAB PO SCH (08:38)
[2019-10-23] MEDS: DOCUSATE NA 100 MG CAP PO SCH ×2 (08:38→20:17)
[2019-10-23] MEDS: CYANOCOBALAMIN 1,000 MCG TAB PO SCH (08:38)
[2019-10-23] MEDS: SERTRALINE HCL 100 MG TAB PO SCH (08:38)
[2019-10-23] MEDS: CLOPIDOGREL 75 MG TABLET PO SCH (08:38)
[2019-10-23] MEDS: HYDROCODONE/APAP 7.5/325 MG TAB PO PRN ×3 (08:39→20:17)
[2019-10-23] MEDS: ENSURE HIGH PROTEIN 237 ML CAN PO SCH (11:44)
[2019-10-23] MEDS: ENOXAPARIN 30 MG/0.3 ML SQ SCH (17:03)
--- NOTE | 2019-10-23 18:07 | R.PN ---
ENCOUNTER DATE AND TIME: 10/23/2019 18:02 (RFP WRITER) NAME CARLA FORBES DATE OF : 1945 DATE OF ADMISSION: 10/19/2019 15:48 (RFP WRITER) Left BKACHIEF COMPLAINT: Left below the knee amputation SUBJECTIVE: Pt denied any Shortness of Breath. Pt denied any depression. Ambulated 66' with minimum assistance using a rolling walker. WBC 10.3, Hgb 9.4, glucose 143 to 186, vanc trough 13.4, UA is normal. VITAL SIGNS Temperature: 97.2 F SBP/DBP: 109/68 Pulse: 76 Resp: 16 MEDICATION ALLERGIES: No Known Drug Allergies (NKDA) ENVIRONMENTAL ALLERGIES: None Known - Substance Allergies None Known - Other Allergies None Known CONSULT: Perform Consult Certified Prosthetic for prosthesis construction NURSING: - Shower allowing shower - Skin care per protocol PRECAUTIONS: - Weight Bearing Precaution NWB left LE ACTIVITIES OOB only with supervision THERAPIES: - Orthotics/Prosthetics Prosthetic Evaluation. - Dietary and Nutrition Adequate Nutrition. Nutritional Education. Nutritional Supplements. PHYSICAL EXAM - Gen Alert and awake Lying in bed No apparent distress Oriented to: person, time, and place - Skin LLE incisions intact Normacephalic - Eyes No abnormalities - ENMT No abnormalities - Neck No abnormalities - CVS RRR - Chest No abnormalities - Resp Clear to auscultation - Abd Soft - GI Non distended Deferred - No abnormalities - Ext Left BKA good hemostasis, dressing in place - MSK 4+/5 weakness in left lower extremity - Neuro 4/5 strength left lower extremity. - Psych No abnormalities ASSESSMENT: Pt. 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 was independent/mod-I in Locomotion, Balance , Safety Awareness, Social Cognition, Transfers Control, Sphincter Control, Self-Care, Communication, and Endurance; and he had good Locomotion, Balance, Safety Awareness, Social Cognition, Transfers Co ntrol, Sphincter Control, Self-Care, Communication, and Endurance.Currently, he has deficits of Locom otion, Balance, Safety Awareness, Transfers Control, Self-Care, Endurance, and Communication.Pt. is n ow referred to [facility] for acute in-patient rehabilitation in order to max manuel patient's functional independence in activities of daily living, strength, ROM, and mobility.- R ehab Goal Patient has realistic goal of being discharged at assistance level 6-Elvia to reside at Home with Fam bel/Relatives. MDM/PLAN: - Physical Therapy Gait dysfunction - to improve, our physical therapists will perform initial evaluation of pt's statu s upon admission and devise an individualized program for Gait Training, and Wheel Chair mobility Inability to transfer - to improve, our physical therapists will perform initial evaluation of pt's status upon admission and devise an individualized program for Bed mobility Need for home safety evaluation - to improve, our physical therapists will perform initial evaluatio n of pt's status upon admission and devise an individualized program for Home Evaluation Need in caregiver upon discharge - to improve, our physical therapists will perform initial evaluati on of pt's status upon admission and devise an individualized program for Caregiver Training New precaution - to improve, our physical therapists will perform initial evaluation of pt's status upon admission and devise an individualized program for Patient precaution education Poor balance - to improve, our physical therapists will perform initial evaluation of pt's status up on admission and devise an individualized program for Balance Training Poor endurance - to improve, our physical therapists will perform initial evaluation of pt's status upon admission and devise an individualized program for Endurance Training Weakness - to improve, our physical therapists will perform initial evaluation of pt's status upon a dmission and devise an individualized program for Aquatic Therapy, Neuromuscular Reeducation, and Str engthening Achieving independence - to improve, our physical therapists will perform initial evaluation of pt's status upon admission and devise an individualized program for Community Reintegration Activities - Occupational Therapy ADL deficits - to improve, our occupation therapists will perform initial evaluation of pt's status upon admission and devise an individualized program for Bathing, Bed mobility, Community Reintegratio n, Cooking, Dressing, Eating, Fine Motor Skills, Grooming, Homemaking, Kitchen Mobility, Laundry, Pat ient Education, Safety Awareness, Splinting - Positioning, Transfers(Toilet, Tub, Shower), and Wheel Chair Management Need for career guidance technician - to improve, our occupation therapists will perform initial evaluation of pt's status upon admission and devise an individualized program for Caregiver Training Weakness - to improve, our occupation therapists will perform initial evaluation of pt's status upon admission and devise an individualized program for Aquatic Therapy, Balance, Endurance, UE ROM, and UE strengthening - Other See attached MAR (Medication Administration Record) - Diet Type Continue Regular - Diet - Liquid Texture Continue Regular - Tube Feed Continue N/A - Weight Bearing Precaution NWB left LE - Skin care per protocol - N/A Perform Consult Certified Prosthetic for prosthesis construction - Diet - Solid Texture Continue Regular - Shower allowing shower FUNCTIONAL STATUS: UPDATED AT WEEKLY TEAM CONFERENCE - Bladder Same accident frequency: 7-Ind - No accidents in the past 7 days - Bowel Same accident frequency: 7-Ind - No accidents in the past 7 days - Walking Same score based on distance walked: 0(N/A) - Wheelchair Same score based on distance traveled: 0(N/A) FUNCTIONAL STATUS: - Self-Care A. Eating Ind B. Grooming sup C. Bathing Isaías D. Dressing - Upper Ind E. Dressing - Lower modA F. Toileting modA - Sphincter Control G. Bladder control sup H. Bowel control sup - Transfers Control I. Bed/Chair/Wheelchair modA J. Toilet modA K. Tub/Shower modA - Locomotion L. Walk/Wheelchair (B) modA M. Stairs ADNO - Communication N. Comprehension (B) Elvia O. Expression (B) Elvia - Social Cognition P. Social Interaction Elvia Q. Problem Solving sup R. Memory sup - Endurance Fair - Balance Fair - Safety Awareness Fair QI SCORES: - Self-Care A. Eating 05-Setup or clean-up assistance B. Oral hygiene 05-Setup or clean-up assistance C. Toileting hygiene 03-Partial/moderate assistance E. Shower/bathe self 03-Partial/moderate assistance F. Upper body dressing 03-Partial/moderate assistance G. Lower body dressing 02-Substantial/maximal assistance H. Putting on/taking off footwear 02-Substantial/maximal assistance - Mobility A. Roll left and right 03-Partial/moderate assistance B. Sit to lying 03-Partial/moderate assistance C. Lying to sitting on side of bed 03-Partial/moderate assistance D. Sit to stand 03-Partial/moderate assistance E. Chair/vhh-rm-[id number] transfer 03-Partial/moderate assistance F. Toilet transfer 03-Partial/moderate assistance G. Car transfer 10-Not attempted due to environmental limitations I. Walk 10 feet 88-Not attempted due to medical condition or safety concerns J. Walk 50 feet with two turns 88-Not attempted due to medical condition or safety concerns K. Walk 150 feet 88-Not attempted due to medical condition or safety concerns L. Walking 10 feet on uneven surfaces 88-Not attempted due to medical condition or safety concerns M. 1 step (curb) 88-Not attempted due to medical condition or safety concerns N. 4 steps 09-Not applicable O. 12 steps 09-Not applicable P. Picking up object 88-Not attempted due to medical condition or safety concerns R. Wheel 50 feet with two turns 88-Not attempted due to medical condition or safety concerns S. Wheel 150 feet 88-Not attempted due to medical condition or safety concerns - Bladder and Bowel Bladder continence 0-Always continent Bowel continence 0-Always continent - Endurance Poor - Balance Poor - Safety Awareness Fair CURRENT FUNC. DEFICITS: Self-Care, Mobility, Endurance, Balance, and Safety Awareness SIGNATURE PANEL: (RFP WRITER)
[2019-10-23] MEDS: INSULIN GLARGINE 100 UNITS/ML SQ SCH (20:18)
[2019-10-24] MEDS: INSULIN -REGULAR HUMAN 50 UNIT/0.5 ML ML SQ SCH ×4 (07:30→19:59)
[2019-10-24] MEDS: SODIUM CHLORIDE 0.9% 10ML INJ IV SCH ×2 (08:00→19:59)
[2019-10-24] MEDS: DOCUSATE NA 100 MG CAP PO SCH ×2 (08:17→19:58)
[2019-10-24] MEDS: LACTOBACILLUS/ACIDOPHILUS TAB PO SCH ×2 (08:17→19:58)
[2019-10-24] MEDS: CLOPIDOGREL 75 MG TABLET PO SCH (08:17)
[2019-10-24] MEDS: ASPIRIN EC 81 MG TAB PO SCH (08:17)
[2019-10-24] MEDS: levoFLOXacin 250 MG TAB PO SCH (08:17)
[2019-10-24] MEDS: CYANOCOBALAMIN 1,000 MCG TAB PO SCH (08:17)
[2019-10-24] MEDS: HYDROCODONE/APAP 7.5/325 MG TAB PO PRN ×3 (08:18→20:12)
[2019-10-24] MEDS: SERTRALINE HCL 100 MG TAB PO SCH (08:18)
[2019-10-24] MEDS: ENSURE HIGH PROTEIN 237 ML CAN PO SCH (12:53)
[2019-10-24] MEDS: ENOXAPARIN 30 MG/0.3 ML SQ SCH (16:47)
--- NOTE | 2019-10-24 18:20 | R.PN ---
ENCOUNTER DATE AND TIME: 10/24/2019 18:16 (COMMERCIAL FRONT LOAD DRIVER) NAME CARLA FORBES DATE OF : 1945 DATE OF ADMISSION: 10/19/2019 15:48 (COMMERCIAL FRONT LOAD DRIVER) Left BKACHIEF COMPLAINT: Left below the knee amputation SUBJECTIVE: Pt denied any Shortness of Breath. Pt denied any depression. Ambulated 86' with contact guard assistance using a rolling walker. WBC 10.3, Hgb 9.4, glucose 182 to 208, vanc trough 13.4, UA is normal. VITAL SIGNS Temperature: 97.8 F SBP/DBP: 120/64 Pulse: 86 Resp: 16 MEDICATION ALLERGIES: No Known Drug Allergies (NKDA) ENVIRONMENTAL ALLERGIES: None Known - Substance Allergies None Known - Other Allergies None Known CONSULT: Perform Consult Certified Prosthetic for prosthesis construction NURSING: - Shower allowing shower - Skin care per protocol PRECAUTIONS: - Weight Bearing Precaution NWB left LE ACTIVITIES OOB only with supervision THERAPIES: - Orthotics/Prosthetics Prosthetic Evaluation. - Dietary and Nutrition Adequate Nutrition. Nutritional Education. Nutritional Supplements. PHYSICAL EXAM - Gen Alert and awake Lying in bed No apparent distress Oriented to: person, time, and place - Skin LLE incisions intact Normacephalic - Eyes No abnormalities - ENMT No abnormalities - Neck No abnormalities - CVS RRR - Chest No abnormalities - Resp Clear to auscultation - Abd Soft - GI Non distended Deferred - No abnormalities - Ext Left BKA good hemostasis, dressing in place - MSK 4+/5 weakness in left lower extremity - Neuro 4/5 strength left lower extremity. - Psych No abnormalities ASSESSMENT: Pt. 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 was independent/mod-I in Locomotion, Balance , Safety Awareness, Social Cognition, Transfers Control, Sphincter Control, Self-Care, Communication, and Endurance; and he had good Locomotion, Balance, Safety Awareness, Social Cognition, Transfers Co ntrol, Sphincter Control, Self-Care, Communication, and Endurance.Currently, he has deficits of Locom otion, Balance, Safety Awareness, Transfers Control, Self-Care, Endurance, and Communication.Pt. is n ow referred to [facility] for acute in-patient rehabilitation in order to max manuel patient's functional independence in activities of daily living, strength, ROM, and mobility.- R ehab Goal Patient has realistic goal of being discharged at assistance level 6-Elvia to reside at Home with Fam bel/Relatives. MDM/PLAN: - Physical Therapy Gait dysfunction - to improve, our physical therapists will perform initial evaluation of pt's statu s upon admission and devise an individualized program for Gait Training, and Wheel Chair mobility Inability to transfer - to improve, our physical therapists will perform initial evaluation of pt's status upon admission and devise an individualized program for Bed mobility Need for home safety evaluation - to improve, our physical therapists will perform initial evaluatio n of pt's status upon admission and devise an individualized program for Home Evaluation Need in caregiver upon discharge - to improve, our physical therapists will perform initial evaluati on of pt's status upon admission and devise an individualized program for Caregiver Training New precaution - to improve, our physical therapists will perform initial evaluation of pt's status upon admission and devise an individualized program for Patient precaution education Poor balance - to improve, our physical therapists will perform initial evaluation of pt's status up on admission and devise an individualized program for Balance Training Poor endurance - to improve, our physical therapists will perform initial evaluation of pt's status upon admission and devise an individualized program for Endurance Training Weakness - to improve, our physical therapists will perform initial evaluation of pt's status upon a dmission and devise an individualized program for Aquatic Therapy, Neuromuscular Reeducation, and Str engthening Achieving independence - to improve, our physical therapists will perform initial evaluation of pt's status upon admission and devise an individualized program for Community Reintegration Activities - Occupational Therapy ADL deficits - to improve, our occupation therapists will perform initial evaluation of pt's status upon admission and devise an individualized program for Bathing, Bed mobility, Community Reintegratio n, Cooking, Dressing, Eating, Fine Motor Skills, Grooming, Homemaking, Kitchen Mobility, Laundry, Pat ient Education, Safety Awareness, Splinting - Positioning, Transfers(Toilet, Tub, Shower), and Wheel Chair Management Need for infant caregiver - to improve, our occupation therapists will perform initial evaluation of pt's status upon admission and devise an individualized program for Caregiver Training Weakness - to improve, our occupation therapists will perform initial evaluation of pt's status upon admission and devise an individualized program for Aquatic Therapy, Balance, Endurance, UE ROM, and UE strengthening - Other See attached MAR (Medication Administration Record) - Diet Type Continue Regular - Diet - Liquid Texture Continue Regular - Tube Feed Continue N/A - Weight Bearing Precaution NWB left LE - Skin care per protocol - N/A Perform Consult Certified Prosthetic for prosthesis construction - Diet - Solid Texture Continue Regular - Shower allowing shower FUNCTIONAL STATUS: UPDATED AT WEEKLY TEAM CONFERENCE - Bladder Same accident frequency: 7-Ind - No accidents in the past 7 days - Bowel Same accident frequency: 7-Ind - No accidents in the past 7 days - Walking Same score based on distance walked: 0(N/A) - Wheelchair Same score based on distance traveled: 0(N/A) FUNCTIONAL STATUS: - Self-Care A. Eating Ind B. Grooming sup C. Bathing Isaías D. Dressing - Upper Ind E. Dressing - Lower modA F. Toileting modA - Sphincter Control G. Bladder control sup H. Bowel control sup - Transfers Control I. Bed/Chair/Wheelchair modA J. Toilet modA K. Tub/Shower modA - Locomotion L. Walk/Wheelchair (B) modA M. Stairs ADNO - Communication N. Comprehension (B) Elvia O. Expression (B) Elvia - Social Cognition P. Social Interaction Elvia Q. Problem Solving sup R. Memory sup - Endurance Fair - Balance Fair - Safety Awareness Fair QI SCORES: - Self-Care A. Eating 05-Setup or clean-up assistance B. Oral hygiene 05-Setup or clean-up assistance C. Toileting hygiene 03-Partial/moderate assistance E. Shower/bathe self 03-Partial/moderate assistance F. Upper body dressing 03-Partial/moderate assistance G. Lower body dressing 02-Substantial/maximal assistance H. Putting on/taking off footwear 02-Substantial/maximal assistance - Mobility A. Roll left and right 03-Partial/moderate assistance B. Sit to lying 03-Partial/moderate assistance C. Lying to sitting on side of bed 03-Partial/moderate assistance D. Sit to stand 03-Partial/moderate assistance E. Chair/thy-lo-nsjrr transfer 03-Partial/moderate assistance F. Toilet transfer 03-Partial/moderate assistance G. Car transfer 10-Not attempted due to environmental limitations I. Walk 10 feet 88-Not attempted due to medical condition or safety concerns J. Walk 50 feet with two turns 88-Not attempted due to medical condition or safety concerns K. Walk 150 feet 88-Not attempted due to medical condition or safety concerns L. Walking 10 feet on uneven surfaces 88-Not attempted due to medical condition or safety concerns M. 1 step (curb) 88-Not attempted due to medical condition or safety concerns N. 4 steps 09-Not applicable O. 12 steps 09-Not applicable P. Picking up object 88-Not attempted due to medical condition or safety concerns R. Wheel 50 feet with two turns 88-Not attempted due to medical condition or safety concerns S. Wheel 150 feet 88-Not attempted due to medical condition or safety concerns - Bladder and Bowel Bladder continence 0-Always continent Bowel continence 0-Always continent - Endurance Poor - Balance Poor - Safety Awareness Fair CURRENT FUNC. DEFICITS: Self-Care, Mobility, Endurance, Balance, and Safety Awareness SIGNATURE PANEL: (COMMERCIAL FRONT LOAD DRIVER)
[2019-10-24] MEDS: VANCOMYCIN 1.5 GM in NA CHLORIDE 0.9% 500 ML IVPB SCH (18:23)
[2019-10-24] MEDS: INSULIN GLARGINE 100 UNITS/ML SQ SCH (19:59)
[2019-10-25 06:31] LABS: Absolute Lymphocytes (CBC) 5.3 K/uL (0.7-4.9); Basophils % 0.5 % (0-1.3); Hematocrit 29.1 % (39.6-49.0); Lymphocytes % 49.3 % (15.3-44.8); MPV 7.2 fL (7.6-11.3); RBC Red Blood Cell Count 3.23 M/uL (4.33-5.43)
[2019-10-25 07:05] LABS: Albumin 2.5 g/dL (3.4-5.0); Magnesium 2.5 mg/dL (1.8-2.4); Potassium 4.5 mmol/L (3.5-5.1); Prealbumin 15.7 mg/dL (20-40)
[2019-10-25] MEDS: INSULIN -REGULAR HUMAN 50 UNIT/0.5 ML ML SQ SCH ×5 (07:06→19:47)
[2019-10-25 07:19] LABS: Blood Morphology Comment NOT SEEN (NOT SEEN); White Blood Cell Scan OK
[2019-10-25 07:20] LABS: Platelet Estimate ADEQ
[2019-10-25] MEDS: SODIUM CHLORIDE 0.9% 10ML INJ IV SCH ×2 (08:00→19:48)
[2019-10-25] MEDS: FE SULF/FA/VIT B COMP & C TAB PO SCH (08:03)
[2019-10-25] MEDS: ASPIRIN EC 81 MG TAB PO SCH (08:03)
[2019-10-25] MEDS: DOCUSATE NA 100 MG CAP PO SCH ×2 (08:03→19:48)
[2019-10-25] MEDS: LACTOBACILLUS/ACIDOPHILUS TAB PO SCH ×2 (08:03→19:48)
[2019-10-25] MEDS: levoFLOXacin 250 MG TAB PO SCH (08:03)
[2019-10-25] MEDS: FERROUS SULFATE 325 MG TAB PO SCH (08:03)
[2019-10-25] MEDS: CLOPIDOGREL 75 MG TABLET PO SCH (08:03)
[2019-10-25] MEDS: SERTRALINE HCL 100 MG TAB PO SCH (08:03)
[2019-10-25] MEDS: HYDROCODONE/APAP 7.5/325 MG TAB PO PRN ×3 (08:03→19:48)
[2019-10-25] MEDS: CYANOCOBALAMIN 1,000 MCG TAB PO SCH (08:04)
--- NOTE | 2019-10-25 11:35 | FAST ---
SHIFT START DATE/TIME: 10/25/2019 07:00 (ALUM PLANT OPERATOR) SHIFT END DATE/TIME: 10/25/2019 19:00 (ALUM PLANT OPERATOR) NAME CARLA FORBES DATE OF : 1945 DATE OF ADMISSION: 10/19/2019 15:48 (ALUM PLANT OPERATOR) PHONE: AGE: 73 N# [id number] GENDER: Male ENCOUNTER PHYSICIAN: Dr. Celso Noonan M.D. 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 EATING: EATING - STEP 1: Does the patient complete the activity by him/herself with no assistance (physical, verbal/nonverbal cueing, setup/clean-up)? No. EATING - STEP 2: Does the patient need only setup/clean-up assistance from one helper? No. EATING - STEP 3: Does the patient need only verbal/nonverbal cueing or touching/steadying/contact guard assistance fro m one helper? Yes. 1. [id number] ADMISSION PERFORMANCE: Supervision or touching assistance CODE: 04 ORAL HYGIENE: ORAL HYGIENE - STEP 1: Does the patient complete the activity by him/herself with no assistance (physical, verbal/nonverbal cueing, setup/clean-up)? No. ORAL HYGIENE - STEP 2: Does the patient need only setup/clean-up assistance from one helper? No. ORAL HYGIENE - STEP 3: Does the patient need only verbal/nonverbal cueing or touching/steadying/contact guard assistance fro m one helper? No. ORAL HYGIENE - STEP 4: Does the patient need physical assistance - for example lifting or trunk support from one helper - wi th the helper providing less than half of the effort? Yes. 1. [id number] ADMISSION PERFORMANCE: Partial/moderate assistance CODE: 03 TOILETING HYGIENE: TOILETING HYGIENE - STEP 1: Does the patient complete the activity by him/herself with no assistance (physical, verbal/nonverbal cueing, setup/clean-up)? No. TOILETING HYGIENE - STEP 2: Does the patient need only setup/clean-up assistance from one helper? No. TOILETING HYGIENE - STEP 3: Does the patient need only verbal/nonverbal cueing or touching/steadying/contact guard assistance fro m one helper? Yes. 1. [id number] ADMISSION PERFORMANCE: Supervision or touching assistance CODE: 04 BATHING: Not assessed/no information CODE: - DRESSING - UPPER BODY: Not assessed/no information CODE: - DRESSING - LOWER BODY: Not assessed/no information CODE: - PUTTING ON/TAKING OFF FOOTWEAR: Not assessed/no information CODE: - ROLL LEFT AND RIGHT: Not assessed/no information CODE: - SIT TO LYING: Not assessed/no information CODE: - LYING TO SITTING: Not assessed/no information CODE: - SIT TO STAND: Not assessed/no information CODE: - TRANSFERS: BED, CHAIR: [id number]/[id number] TRANSFER - STEP 1: Does the patient complete the activity by him/herself with no assistance (physical, verbal/nonverbal cueing, setup/clean-up)? No. CHAIR/[id number] TRANSFER - STEP 2: Does the patient need only setup/clean-up assistance from one helper? No. CHAIR/[id number] TRANSFER - STEP 3: Does the patient need only verbal/nonverbal cueing or touching/steadying/contact guard assistance fro m one helper? No. CHAIR/[id number] TRANSFER - STEP 4: Does the patient need physical assistance - for example lifting or trunk support from one helper - wi th the helper providing less than half of the effort? Yes. 1. [id number] ADMISSION PERFORMANCE: Partial/moderate assistance CODE: 03 TRANSFER TOILET: TOILET TRANSFER - STEP 1: Does the patient complete the activity by him/herself with no assistance (physical, verbal/nonverbal cueing, setup/clean-up)? No. TOILET TRANSFER - STEP 2: Does the patient need only setup/clean-up assistance from one helper? No. TOILET TRANSFER - STEP 3: Does the patient need only verbal/nonverbal cueing or touching/steadying/contact guard assistance fro m one helper? No. TOILET TRANSFER - STEP 4: Does the patient need physical assistance - for example lifting or trunk support from one helper - wi th the helper providing less than half of the effort? Yes. 1. [id number] ADMISSION PERFORMANCE: Partial/moderate assistance CODE: 03 TRANSFERS: CAR: Not assessed/no information CODE: - WALK 10 FEET: Not assessed/no information CODE: - 1 STEP (CURB): Not assessed/no information CODE: - PICKING UP OBJECT: Not assessed/no information CODE: - DOES THE PATIENT USE A WHEELCHAIR/SCOOTER? CODE: EXPR WHEEL 50 FEET WITH TWO TURNS: Not assessed/no information CODE: - INDICATE THE TYPE OF WHEELCHAIR/SCOOTER USED: CODE: EXPR WHEEL 150 FEET: Not assessed/no information CODE: - INDICATE THE TYPE OF WHEELCHAIR/SCOOTER USED: CODE: EXPR BLADDER AND BOWEL: H350. BLADDER CONTINENCE (3-DAY ASSESSMENT PERIOD): Always continent (no documented incontinence) CODE: 0 H400. BOWEL CONTINENCE (3-DAY ASSESSMENT PERIOD): Always continent CODE: 0 SIGNATURE PANEL: The following modified sections: 1. [id number] Admission Performance, 1. [id number] Admission Performance, 1. [id number] Admission Performance, 1. [id number] Admission Performance, 1. [id number] Admission Performance, 1. [id number] Admission Performance, 1. [id number] Admission Performance, 1. [id number] Admission Performance , Code, H350. Bladder Continence (3-day assessment period), H400. Bowel Continence (3-day assessment period) were [electronically] signed by Guillermo Elias on TueOct 25 2019 11:34:[address] [facility]-[id number] ([facility])
[2019-10-25] MEDS: ENSURE HIGH PROTEIN 237 ML CAN PO SCH (12:00)
--- NOTE | 2019-10-25 17:18 | R.PN ---
ENCOUNTER DATE AND TIME: 10/25/2019 17:14 (DIRECTOR CARDIOLOGY) NAME CARLA FORBES DATE OF : 1945 DATE OF ADMISSION: 10/19/2019 15:48 (DIRECTOR CARDIOLOGY) Left BKACHIEF COMPLAINT: Left below the knee amputation SUBJECTIVE: Pt denied any Shortness of Breath. Pt denied any depression. Ambulated 48' with contact guard assistance using a rolling walker. WBC 10.7, Hgb 9.6, glucose 172 to 217, prelabumin 15.7, vanc trough 10.9, UA is normal. VITAL SIGNS Temperature: 97.1 F SBP/DBP: 112/63 Pulse: 84 Resp: 16 MEDICATION ALLERGIES: No Known Drug Allergies (NKDA) ENVIRONMENTAL ALLERGIES: None Known - Substance Allergies None Known - Other Allergies None Known CONSULT: Perform Consult Certified Prosthetic for prosthesis construction NURSING: - Shower allowing shower - Skin care per protocol PRECAUTIONS: - Weight Bearing Precaution NWB left LE ACTIVITIES OOB only with supervision THERAPIES: - Orthotics/Prosthetics Prosthetic Evaluation. - Dietary and Nutrition Adequate Nutrition. Nutritional Education. Nutritional Supplements. PHYSICAL EXAM - Gen Alert and awake Lying in bed No apparent distress Oriented to: person, time, and place - Skin LLE incisions intact Normacephalic - Eyes No abnormalities - ENMT No abnormalities - Neck No abnormalities - CVS RRR - Chest No abnormalities - Resp Clear to auscultation - Abd Soft - GI Non distended Deferred - No abnormalities - Ext Left BKA good hemostasis, dressing in place - MSK 4+/5 weakness in left lower extremity - Neuro 4/5 strength left lower extremity. - Psych No abnormalities ASSESSMENT: Pt. 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 was independent/mod-I in Locomotion, Balance , Safety Awareness, Social Cognition, Transfers Control, Sphincter Control, Self-Care, Communication, and Endurance; and he had good Locomotion, Balance, Safety Awareness, Social Cognition, Transfers Co ntrol, Sphincter Control, Self-Care, Communication, and Endurance.Currently, he has deficits of Locom otion, Balance, Safety Awareness, Transfers Control, Self-Care, Endurance, and Communication.Pt. is n ow referred to [facility] for acute in-patient rehabilitation in order to max manuel patient's functional independence in activities of daily living, strength, ROM, and mobility.- R ehab Goal Patient has realistic goal of being discharged at assistance level 6-Elvia to reside at Home with Fam bel/Relatives. MDM/PLAN: - Physical Therapy Gait dysfunction - to improve, our physical therapists will perform initial evaluation of pt's statu s upon admission and devise an individualized program for Gait Training, and Wheel Chair mobility Inability to transfer - to improve, our physical therapists will perform initial evaluation of pt's status upon admission and devise an individualized program for Bed mobility Need for home safety evaluation - to improve, our physical therapists will perform initial evaluatio n of pt's status upon admission and devise an individualized program for Home Evaluation Need in caregiver upon discharge - to improve, our physical therapists will perform initial evaluati on of pt's status upon admission and devise an individualized program for Caregiver Training New precaution - to improve, our physical therapists will perform initial evaluation of pt's status upon admission and devise an individualized program for Patient precaution education Poor balance - to improve, our physical therapists will perform initial evaluation of pt's status up on admission and devise an individualized program for Balance Training Poor endurance - to improve, our physical therapists will perform initial evaluation of pt's status upon admission and devise an individualized program for Endurance Training Weakness - to improve, our physical therapists will perform initial evaluation of pt's status upon a dmission and devise an individualized program for Aquatic Therapy, Neuromuscular Reeducation, and Str engthening Achieving independence - to improve, our physical therapists will perform initial evaluation of pt's status upon admission and devise an individualized program for Community Reintegration Activities - Occupational Therapy ADL deficits - to improve, our occupation therapists will perform initial evaluation of pt's status upon admission and devise an individualized program for Bathing, Bed mobility, Community Reintegratio n, Cooking, Dressing, Eating, Fine Motor Skills, Grooming, Homemaking, Kitchen Mobility, Laundry, Pat ient Education, Safety Awareness, Splinting - Positioning, Transfers(Toilet, Tub, Shower), and Wheel Chair Management Need for resident care manager - to improve, our occupation therapists will perform initial evaluation of pt's status upon admission and devise an individualized program for Caregiver Training Weakness - to improve, our occupation therapists will perform initial evaluation of pt's status upon admission and devise an individualized program for Aquatic Therapy, Balance, Endurance, UE ROM, and UE strengthening - Other See attached MAR (Medication Administration Record) - Diet Type Continue Regular - Diet - Liquid Texture Continue Regular - Tube Feed Continue N/A - Weight Bearing Precaution NWB left LE - Skin care per protocol - N/A Perform Consult Certified Prosthetic for prosthesis construction - Diet - Solid Texture Continue Regular - Shower allowing shower FUNCTIONAL STATUS: UPDATED AT WEEKLY TEAM CONFERENCE - Bladder Same accident frequency: 7-Ind - No accidents in the past 7 days - Bowel Same accident frequency: 7-Ind - No accidents in the past 7 days - Walking Same score based on distance walked: 0(N/A) - Wheelchair Same score based on distance traveled: 0(N/A) FUNCTIONAL STATUS: - Self-Care A. Eating Ind B. Grooming sup C. Bathing Isaías D. Dressing - Upper Ind E. Dressing - Lower modA F. Toileting modA - Sphincter Control G. Bladder control sup H. Bowel control sup - Transfers Control I. Bed/Chair/Wheelchair modA J. Toilet modA K. Tub/Shower modA - Locomotion L. Walk/Wheelchair (B) modA M. Stairs ADNO - Communication N. Comprehension (B) Elvia O. Expression (B) Elvia - Social Cognition P. Social Interaction Elvia Q. Problem Solving sup R. Memory sup - Endurance Fair - Balance Fair - Safety Awareness Fair QI SCORES: - Self-Care A. Eating 05-Setup or clean-up assistance B. Oral hygiene 05-Setup or clean-up assistance C. Toileting hygiene 03-Partial/moderate assistance E. Shower/bathe self 03-Partial/moderate assistance F. Upper body dressing 03-Partial/moderate assistance G. Lower body dressing 02-Substantial/maximal assistance H. Putting on/taking off footwear 02-Substantial/maximal assistance - Mobility A. Roll left and right 03-Partial/moderate assistance B. Sit to lying 03-Partial/moderate assistance C. Lying to sitting on side of bed 03-Partial/moderate assistance D. Sit to stand 03-Partial/moderate assistance E. Chair/[id number]-[id number] transfer 03-Partial/moderate assistance F. Toilet transfer 03-Partial/moderate assistance G. Car transfer 10-Not attempted due to environmental limitations I. Walk 10 feet 88-Not attempted due to medical condition or safety concerns J. Walk 50 feet with two turns 88-Not attempted due to medical condition or safety concerns K. Walk 150 feet 88-Not attempted due to medical condition or safety concerns L. Walking 10 feet on uneven surfaces 88-Not attempted due to medical condition or safety concerns M. 1 step (curb) 88-Not attempted due to medical condition or safety concerns N. 4 steps 09-Not applicable O. 12 steps 09-Not applicable P. Picking up object 88-Not attempted due to medical condition or safety concerns R. Wheel 50 feet with two turns 88-Not attempted due to medical condition or safety concerns S. Wheel 150 feet 88-Not attempted due to medical condition or safety concerns - Bladder and Bowel Bladder continence 0-Always continent Bowel continence 0-Always continent - Endurance Poor - Balance Poor - Safety Awareness Fair CURRENT FUNC. DEFICITS: Self-Care, Mobility, Endurance, Balance, and Safety Awareness SIGNATURE PANEL: (DIRECTOR CARDIOLOGY)
[2019-10-25] MEDS: ENOXAPARIN 30 MG/0.3 ML SQ SCH (17:25)
[2019-10-25] MEDS: INSULIN GLARGINE 100 UNITS/ML SQ SCH (19:47)
[2019-10-26] MEDS: INSULIN -REGULAR HUMAN 50 UNIT/0.5 ML ML SQ SCH ×4 (07:30→21:12)
[2019-10-26] MEDS: HYDROCODONE/APAP 7.5/325 MG TAB PO PRN (07:55)
[2019-10-26] MEDS: SERTRALINE HCL 100 MG TAB PO SCH (07:58)
[2019-10-26] MEDS: LACTOBACILLUS/ACIDOPHILUS TAB PO SCH ×2 (07:59→19:40)
[2019-10-26] MEDS: FERROUS SULFATE 325 MG TAB PO SCH (07:59)
[2019-10-26] MEDS: SODIUM CHLORIDE 0.9% 10ML INJ IV SCH ×2 (07:59→19:40)
[2019-10-26] MEDS: ASPIRIN EC 81 MG TAB PO SCH (07:59)
[2019-10-26] MEDS: FE SULF/FA/VIT B COMP & C TAB PO SCH (07:59)
[2019-10-26] MEDS: CYANOCOBALAMIN 1,000 MCG TAB PO SCH (07:59)
[2019-10-26] MEDS: levoFLOXacin 250 MG TAB PO SCH (08:00)
[2019-10-26] MEDS: CLOPIDOGREL 75 MG TABLET PO SCH (08:00)
[2019-10-26] MEDS: DOCUSATE NA 100 MG CAP PO SCH ×2 (08:00→19:39)
[2019-10-26] MEDS: VANCOMYCIN 1.75 GM in NA CHLORIDE 0.9% 500 ML IVPB SCH (09:02)
--- NOTE | 2019-10-26 10:03 | P.RH.PN ---
Estimated Length of Stay: 16 Expected Discharge Date: 11/03/19 Discharge Disposition Plan: Home Family Support: Yes Shelter Goal: Mobility, Transfers, Self Care Vital Signs: Last Vital Signs Temp 98 F 10/26/19 07:49 Pulse 87 10/26/19 07:49 Resp 15 10/26/19 08:55 BP 106/73 10/26/19 07:49 Pulse Ox 97 10/26/19 08:55 Laboratory: Laboratory Last Values WBC 10.7 K/uL (4.3-10.9) 10/25/19 05:50 RBC 3.23 M/uL (4.33-5.43) L 10/25/19 05:50 Hgb 9.8 g/dL (13.6-17.9) L 10/25/19 05:50 Hct 29.1 % (39.6-49.0) L 10/25/19 05:50 MCV 90.2 fL (80-100) 10/25/19 05:50 MCH 30.4 pg (27.0-35.0) 10/25/19 05:50 MCHC 33.7 g/dL (32.0-36.0) 10/25/19 05:50 RDW 14.1 % (12.1-15.2) 10/25/19 05:50 Plt Count 445 K/uL (152-406) H D 10/25/19 05:50 MPV 7.2 fL (7.6-11.3) L 10/25/19 05:50 Neutrophils % 39.8 % (41.7-73.7) L 10/25/19 05:50 Lymphocytes % 49.3 % (15.3-44.8) H 10/25/19 05:50 Monocytes % 3.7 % (3.3-12.3) 10/25/19 05:50 Eosinophils % 6.7 % (0-4.4) H 10/25/19 05:50 Basophils % 0.5 % (0-1.3) 10/25/19 05:50 Absolute Neutrophils 4.3 K/uL (1.8-8.0) 10/25/19 05:50 Absolute Lymphocytes 5.3 K/uL (0.7-4.9) H 10/25/19 05:50 Absolute Monocytes 0.4 K/uL (0.1-1.3) 10/25/19 05:50 Absolute Eosinophils 0.7 K/uL (0-0.5) H 10/25/19 05:50 Absolute Basophils 0.1 K/uL (0-0.5) 10/25/19 05:50 Morphology Comment Not seen (NOT SEEN) 10/25/19 05:50 Sodium 140 mmol/L (136-145) 10/25/19 05:50 Potassium 4.5 mmol/L (3.5-5.1) 10/25/19 05:50 Chloride 105 mmol/L (98-107) 10/25/19 05:50 Carbon Dioxide 29 mmol/L (21-32) 10/25/19 05:50 BUN 23 mg/dL (7-18) H 10/25/19 05:50 Creatinine 1.57 mg/dL (0.55-1.3) H 10/25/19 05:50 Estimated GFR 44 mL/min (=/>90) L 10/25/19 05:50 Glucose 172 mg/dL (74-106) H 10/25/19 05:50 POC Glucose 145 mg/dl (65-120) H 10/26/19 07:37 Calcium 8.1 mg/dL (8.5-10.1) L 10/25/19 05:50 Magnesium 2.5 mg/dL (1.8-2.4) H 10/25/19 05:50 Albumin 2.5 g/dL (3.4-5.0) L 10/25/19 05:50 Prealbumin 15.7 mg/dL (20-40) L 10/25/19 05:50 Urine Color Yellow 10/19/19 19:50 Urine Appearance Clear 10/19/19 19:50 Urine pH 5.5 (5.0-7.0) 10/19/19 19:50 Ur Specific [place] 1.010 (1.005-1.030) 10/19/19 19:50 Glucose (UA)(Auto) Negative (NEG) 10/19/19 19:50 Urine Ketones Negative (NEG) 10/19/19 19:50 Urine Blood Negative (NEG) 10/19/19 19:50 Urine Nitrite Negative (NEG) 10/19/19 19:50 Urine Bilirubin Negative (NEG) 10/19/19 19:50 Urine Urobilinogen 0.2 mg/dL (0.2-1.0) 10/19/19 19:50 Ur Leukocyte Esterase Negative (NEG) 10/19/19 19:50 Urine RBC None seen /HPF (NONE SEEN) 10/19/19 19:50 Urine WBC <5 /HPF (<5) 10/19/19 19:50 Ur Squamous Epith Cells <5 /HPF (NONE SEEN) 10/19/19 19:50 Urine Bacteria <20 /HPF (NONE SEEN) 10/19/19 19:50 Urine Culture Reflexed Not needed 10/19/19 19:50 Urine Total Protein Negative (NEG) 10/19/19 19:50 Vancomycin Trough 11.0 ug/mL (5.0-20.0) 10/26/19 05:40 Weight: 242 lb Wound Present: Yes Closed Surgical Incision Present: Yes Negative Pressure Wound Therapy Present: No Physician Update: His labs were reviewed and are stable. He is making fair overall progress with therapy. He is walking 36' with rolling walker and contact guard with the hopping. Medical Issues: Patient is always continent with bladder and bowel. Pain Issues: Patient is taking Tylenol 650mg Q6H PO PRN and [place] 7.5/325mg Q4H PO PRN for pain. Functional Improvement: pt has demonstrated progress with his tolerance to ambulation as well and functional performance and safety. pt only requires CG during functional transfers. pt does rapidly fatigue during ambulation and repeated sit <-> stand transfers. pt is progressing well and is on track to meet his long term acute care registered nurse goals. Summary: Patient's care plan and long term acute care registered nurse goals have been reviewed and revised as necessary. Please see the Rehabilitation Signature page for all necessary signatures.
[2019-10-26] MEDS: ENSURE HIGH PROTEIN 237 ML CAN PO SCH (12:05)
--- NOTE | 2019-10-26 14:13 | FAST ---
SHIFT START DATE/TIME: 10/26/2019 07:00 (CHANDELIER MAKER) SHIFT END DATE/TIME: 10/26/2019 19:00 (CHANDELIER MAKER) NAME CARLA FORBES DATE OF : 1945 DATE OF ADMISSION: 10/19/2019 15:48 (CHANDELIER MAKER) PHONE: AGE: 73 N# [id number] GENDER: Male ENCOUNTER PHYSICIAN: Dr. Celso Noonan M.D. 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 EATING: EATING - STEP 1: Does the patient complete the activity by him/herself with no assistance (physical, verbal/nonverbal cueing, setup/clean-up)? No. EATING - STEP 2: Does the patient need only setup/clean-up assistance from one helper? Yes. 1. [id number] ADMISSION PERFORMANCE: Setup or clean-up assistance CODE: 05 ORAL HYGIENE: ORAL HYGIENE - STEP 1: Does the patient complete the activity by him/herself with no assistance (physical, verbal/nonverbal cueing, setup/clean-up)? No. ORAL HYGIENE - STEP 2: Does the patient need only setup/clean-up assistance from one helper? Yes. 1. [id number] ADMISSION PERFORMANCE: Setup or clean-up assistance CODE: 05 TOILETING HYGIENE: TOILETING HYGIENE - STEP 1: Does the patient complete the activity by him/herself with no assistance (physical, verbal/nonverbal cueing, setup/clean-up)? No. TOILETING HYGIENE - STEP 2: Does the patient need only setup/clean-up assistance from one helper? Yes. 1. [id number] ADMISSION PERFORMANCE: Setup or clean-up assistance CODE: 05 BATHING: Not assessed/no information CODE: - DRESSING - UPPER BODY: DRESSING - UPPER BODY - STEP 1: Does the patient complete the activity by him/herself with no assistance (physical, verbal/nonverbal cueing, setup/clean-up)? No. DRESSING - UPPER BODY - STEP 2: Does the patient need only setup/clean-up assistance from one helper? Yes. 1. [id number] ADMISSION PERFORMANCE: Setup or clean-up assistance CODE: 05 DRESSING - LOWER BODY: DRESSING - LOWER BODY - STEP 1: Does the patient complete the activity by him/herself with no assistance (physical, verbal/nonverbal cueing, setup/clean-up)? No. DRESSING - LOWER BODY - STEP 2: Does the patient need only setup/clean-up assistance from one helper? No. DRESSING - LOWER BODY - STEP 3: Does the patient need only verbal/nonverbal cueing or touching/steadying/contact guard assistance fro m one helper? Yes. 1. [id number] ADMISSION PERFORMANCE: Supervision or touching assistance CODE: 04 PUTTING ON/TAKING OFF FOOTWEAR: FOOTWEAR - STEP 1: Does the patient complete the activity by him/herself with no assistance (physical, verbal/nonverbal cueing, setup/clean-up)? No. FOOTWEAR - STEP 2: Does the patient need only setup/clean-up assistance from one helper? No. FOOTWEAR - STEP 3: Does the patient need only verbal/nonverbal cueing or touching/steadying/contact guard assistance fro m one helper? Yes. 1. [id number] ADMISSION PERFORMANCE: Supervision or touching assistance CODE: 04 SIT TO LYING: SIT TO LYING - STEP 1: Does the patient complete the activity by him/herself with no assistance (physical, verbal/nonverbal cueing, setup/clean-up)? No. SIT TO LYING - STEP 2: Does the patient need only setup/clean-up assistance from one helper? No. SIT TO LYING - STEP 3: Does the patient need only verbal/nonverbal cueing or touching/steadying/contact guard assistance fro m one helper? Yes. 1. [id number] ADMISSION PERFORMANCE: Supervision or touching assistance CODE: 04 LYING TO SITTING: LYING TO SITTING ON SIDE OF BED - STEP 1: Does the patient complete the activity by him/herself with no assistance (physical, verbal/nonverbal cueing, setup/clean-up)? No. LYING TO SITTING ON SIDE OF BED - STEP 2: Does the patient need only setup/clean-up assistance from one helper? Yes. 1. [id number] ADMISSION PERFORMANCE: Setup or clean-up assistance CODE: 05 SIT TO STAND: SIT TO STAND - STEP 1: Does the patient complete the activity by him/herself with no assistance (physical, verbal/nonverbal cueing, setup/clean-up)? No. SIT TO STAND - STEP 2: Does the patient need only setup/clean-up assistance from one helper? No. SIT TO STAND - STEP 3: Does the patient need only verbal/nonverbal cueing or touching/steadying/contact guard assistance fro m one helper? Yes. 1. [id number] ADMISSION PERFORMANCE: Supervision or touching assistance CODE: 04 TRANSFERS: BED, CHAIR: CHAIR/[id number] TRANSFER - STEP 1: Does the patient complete the activity by him/herself with no assistance (physical, verbal/nonverbal cueing, setup/clean-up)? No. CHAIR/[id number] TRANSFER - STEP 2: Does the patient need only setup/clean-up assistance from one helper? No. CHAIR/[id number] TRANSFER - STEP 3: Does the patient need only verbal/nonverbal cueing or touching/steadying/contact guard assistance fro m one helper? Yes. 1. [id number] ADMISSION PERFORMANCE: Supervision or touching assistance CODE: 04 TRANSFER TOILET: TOILET TRANSFER - STEP 1: Does the patient complete the activity by him/herself with no assistance (physical, verbal/nonverbal cueing, setup/clean-up)? No. TOILET TRANSFER - STEP 2: Does the patient need only setup/clean-up assistance from one helper? No. TOILET TRANSFER - STEP 3: Does the patient need only verbal/nonverbal cueing or touching/steadying/contact guard assistance fro m one helper? Yes. 1. [id number] ADMISSION PERFORMANCE: Supervision or touching assistance CODE: 04 TRANSFERS: CAR: Not assessed/no information CODE: - WALK 10 FEET: Not assessed/no information CODE: - 1 STEP (CURB): Not assessed/no information CODE: - PICKING UP OBJECT: Not assessed/no information CODE: - DOES THE PATIENT USE A WHEELCHAIR/SCOOTER? Q1. DOES THE PATIENT USE A WHEELCHAIR/SCOOTER?: Yes CODE: 1 WHEEL 50 FEET WITH TWO TURNS: WHEEL 50 FEET WITH TWO TURNS - STEP 1: Does the patient complete the activity by him/herself with no assistance (physical, verbal/nonverbal cueing, setup/clean-up)? Yes. 1. [id number] ADMISSION PERFORMANCE: Independent CODE: 06 INDICATE THE TYPE OF WHEELCHAIR/SCOOTER USED: RR1. INDICATE THE TYPE OF WHEELCHAIR/SCOOTER USED.: Manual CODE: 1 WHEEL 150 FEET: WHEEL 150 FEET - STEP 1: Does the patient complete the activity by him/herself with no assistance (physical, verbal/nonverbal cueing, setup/clean-up)? Yes. 1. [id number] ADMISSION PERFORMANCE: Independent CODE: 06 INDICATE THE TYPE OF WHEELCHAIR/SCOOTER USED: SS1. INDICATE THE TYPE OF WHEELCHAIR/SCOOTER USED.: Manual CODE: 1 BLADDER AND BOWEL: H350. BLADDER CONTINENCE (3-DAY ASSESSMENT PERIOD): Always continent (no documented incontinence) CODE: 0 H400. BOWEL CONTINENCE (3-DAY ASSESSMENT PERIOD): Always continent CODE: 0 SIGNATURE PANEL: The following modified sections: 1. [id number] Admission Performance, 1. [id number] Admission Performance, 1. MH0384L Admission Performance, 1. [id number] Admission Performance, 1. [id number] Admission Performance, 1. GE9561v Admission Performance, 1. CO1280P Admission Performance, 1. [id number] Admission Performance , 1. [id number] Admission Performance, 1. [id number] Admission Performance, 1. [id number] Admission Performanc e, Q1. Does the patient use a wheelchair/scooter?, 1. [id number] Admission Performance, RR1. Indicate th e type of wheelchair/scooter used., 1. [id number] Admission Performance, Code, SS1. Indicate the type of wheelchair/scooter used., H350. Bladder Continence (3-day assessment period), H400. Bowel Continence (3-day assessment period) were [electronically] signed by Karis Ochoa C.N.Lois on TueOct 26 2019 14 :12:15 T-0600 (Central Standard Time)
--- NOTE | 2019-10-26 16:00 | FAST ---
ENCOUNTER DATE AND TIME: 10/26/2019 08:00 (FISH ROD MAKER) NAME CARLA FORBES DATE OF : 1945 DATE OF ADMISSION: 10/19/2019 15:48 (FISH ROD MAKER) PHONE: AGE: 73 N# [id number] GENDER: Male ENCOUNTER PHYSICIAN: Dr. Celso Noonan M.D. 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 EATING: Not assessed/no information CODE: - ORAL HYGIENE: ORAL HYGIENE - STEP 1: Does the patient complete the activity by him/herself with no assistance (physical, verbal/nonverbal cueing, setup/clean-up)? Yes. 1. [id number] ADMISSION PERFORMANCE: Independent CODE: 06 TOILETING HYGIENE: Not assessed/no information CODE: - BATHING: SHOWER/BATHE SELF - STEP 1: Does the patient complete the activity by him/herself with no assistance (physical, verbal/nonverbal cueing, setup/clean-up)? No. SHOWER/BATHE SELF - STEP 2: Does the patient need only setup/clean-up assistance from one helper? No. SHOWER/BATHE SELF - STEP 3: Does the patient need only verbal/nonverbal cueing or touching/steadying/contact guard assistance fro m one helper? Yes. 1. [id number] ADMISSION PERFORMANCE: Supervision or touching assistance CODE: 04 DRESSING - UPPER BODY: DRESSING - UPPER BODY - STEP 1: Does the patient complete the activity by him/herself with no assistance (physical, verbal/nonverbal cueing, setup/clean-up)? Yes. 1. [id number] ADMISSION PERFORMANCE: Independent CODE: 06 DRESSING - LOWER BODY: DRESSING - LOWER BODY - STEP 1: Does the patient complete the activity by him/herself with no assistance (physical, verbal/nonverbal cueing, setup/clean-up)? No. DRESSING - LOWER BODY - STEP 2: Does the patient need only setup/clean-up assistance from one helper? No. DRESSING - LOWER BODY - STEP 3: Does the patient need only verbal/nonverbal cueing or touching/steadying/contact guard assistance fro m one helper? No. DRESSING - LOWER BODY - STEP 4: Does the patient need physical assistance - for example lifting or trunk support from one helper - wi th the helper providing less than half of the effort? Yes. 1. [id number] ADMISSION PERFORMANCE: Partial/moderate assistance CODE: 03 PUTTING ON/TAKING OFF FOOTWEAR: FOOTWEAR - STEP 1: Does the patient complete the activity by him/herself with no assistance (physical, verbal/nonverbal cueing, setup/clean-up)? No. FOOTWEAR - STEP 2: Does the patient need only setup/clean-up assistance from one helper? No. FOOTWEAR - STEP 3: Does the patient need only verbal/nonverbal cueing or touching/steadying/contact guard assistance fro m one helper? Yes. 1. [id number] ADMISSION PERFORMANCE: Supervision or touching assistance CODE: 04 DOES THE PATIENT USE A WHEELCHAIR/SCOOTER? CODE: EXPR INDICATE THE TYPE OF WHEELCHAIR/SCOOTER USED: CODE: EXPR INDICATE THE TYPE OF WHEELCHAIR/SCOOTER USED: CODE: EXPR BLADDER AND BOWEL: CODE: EXPR CODE: EXPR SIGNATURE PANEL: The following modified sections: 1. [id number] Admission Performance, 1. [id number] Admission Performance, 1. [id number] Admission Performance, 1. OD0934d Admission Performance, 1. FH3584o Admission Performance, 1. QQ4155t Admission Performance were [electronically] signed by MARY ALICE Kelly on TueOct 26 2019 15:59:09 GMT-0600 (Central Standard Time)
[2019-10-26] MEDS: ENOXAPARIN 30 MG/0.3 ML SQ SCH (17:31)
[2019-10-26] MEDS: TRIAMCINOLONE ACET 0.1% CREAM 80 GM TOP SCH (19:40)
[2019-10-26] MEDS ORDERED: TRIAMCINOLONE 0.1% OINT 15 GM TOP SCH (20:00)
[2019-10-26] MEDS: INSULIN GLARGINE 100 UNITS/ML SQ SCH (21:12)
--- NOTE | 2019-10-27 02:18 | FAST ---
SHIFT START DATE/TIME: 10/26/2019 19:00 (STRATIGRAPHY TEACHER) SHIFT END DATE/TIME: 10/27/2019 07:00 (STRATIGRAPHY TEACHER) NAME CARLA FORBES DATE OF : 1945 DATE OF ADMISSION: 10/19/2019 15:48 (STRATIGRAPHY TEACHER) PHONE: AGE: 73 N# [id number] GENDER: Male ENCOUNTER PHYSICIAN: Dr. Celso Noonan M.D. 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 EATING: Not assessed/no information CODE: - ORAL HYGIENE: Not assessed/no information CODE: - TOILETING HYGIENE: TOILETING HYGIENE - STEP 1: Does the patient complete the activity by him/herself with no assistance (physical, verbal/nonverbal cueing, setup/clean-up)? No. TOILETING HYGIENE - STEP 2: Does the patient need only setup/clean-up assistance from one helper? No. TOILETING HYGIENE - STEP 3: Does the patient need only verbal/nonverbal cueing or touching/steadying/contact guard assistance fro m one helper? No. TOILETING HYGIENE - STEP 4: Does the patient need physical assistance - for example lifting or trunk support from one helper - wi th the helper providing less than half of the effort? Yes. 1. [id number] ADMISSION PERFORMANCE: Partial/moderate assistance CODE: 03 BATHING: Not assessed/no information CODE: - DRESSING - UPPER BODY: Not assessed/no information CODE: - DRESSING - LOWER BODY: Not assessed/no information CODE: - PUTTING ON/TAKING OFF FOOTWEAR: Not assessed/no information CODE: - ROLL LEFT AND RIGHT: ROLL LEFT AND RIGHT - STEP 1: Does the patient complete the activity by him/herself with no assistance (physical, verbal/nonverbal cueing, setup/clean-up)? No. ROLL LEFT AND RIGHT - STEP 2: Does the patient need only setup/clean-up assistance from one helper? No. ROLL LEFT AND RIGHT - STEP 3: Does the patient need only verbal/nonverbal cueing or touching/steadying/contact guard assistance fro m one helper? Yes. 1. [id number] ADMISSION PERFORMANCE: Supervision or touching assistance CODE: 04 SIT TO LYING: SIT TO LYING - STEP 1: Does the patient complete the activity by him/herself with no assistance (physical, verbal/nonverbal cueing, setup/clean-up)? No. SIT TO LYING - STEP 2: Does the patient need only setup/clean-up assistance from one helper? No. SIT TO LYING - STEP 3: Does the patient need only verbal/nonverbal cueing or touching/steadying/contact guard assistance fro m one helper? Yes. 1. [id number] ADMISSION PERFORMANCE: Supervision or touching assistance CODE: 04 LYING TO SITTING: LYING TO SITTING ON SIDE OF BED - STEP 1: Does the patient complete the activity by him/herself with no assistance (physical, verbal/nonverbal cueing, setup/clean-up)? No. LYING TO SITTING ON SIDE OF BED - STEP 2: Does the patient need only setup/clean-up assistance from one helper? No. LYING TO SITTING ON SIDE OF BED - STEP 3: Does the patient need only verbal/nonverbal cueing or touching/steadying/contact guard assistance fro m one helper? Yes. 1. [id number] ADMISSION PERFORMANCE: Supervision or touching assistance CODE: 04 SIT TO STAND: SIT TO STAND - STEP 1: Does the patient complete the activity by him/herself with no assistance (physical, verbal/nonverbal cueing, setup/clean-up)? No. SIT TO STAND - STEP 2: Does the patient need only setup/clean-up assistance from one helper? No. SIT TO STAND - STEP 3: Does the patient need only verbal/nonverbal cueing or touching/steadying/contact guard assistance fro m one helper? Yes. 1. [id number] ADMISSION PERFORMANCE: Supervision or touching assistance CODE: 04 TRANSFERS: BED, CHAIR: CHAIR/[id number] TRANSFER - STEP 1: Does the patient complete the activity by him/herself with no assistance (physical, verbal/nonverbal cueing, setup/clean-up)? No. CHAIR/[id number] TRANSFER - STEP 2: Does the patient need only setup/clean-up assistance from one helper? No. CHAIR/[id number] TRANSFER - STEP 3: Does the patient need only verbal/nonverbal cueing or touching/steadying/contact guard assistance fro m one helper? Yes. 1. [id number] ADMISSION PERFORMANCE: Supervision or touching assistance CODE: 04 TRANSFER TOILET: TOILET TRANSFER - STEP 1: Does the patient complete the activity by him/herself with no assistance (physical, verbal/nonverbal cueing, setup/clean-up)? No. TOILET TRANSFER - STEP 2: Does the patient need only setup/clean-up assistance from one helper? No. TOILET TRANSFER - STEP 3: Does the patient need only verbal/nonverbal cueing or touching/steadying/contact guard assistance fro m one helper? No. TOILET TRANSFER - STEP 4: Does the patient need physical assistance - for example lifting or trunk support from one helper - wi th the helper providing less than half of the effort? Yes. 1. [id number] ADMISSION PERFORMANCE: Partial/moderate assistance CODE: 03 TRANSFERS: CAR: Not assessed/no information CODE: - WALK 10 FEET: Not assessed/no information CODE: - 1 STEP (CURB): Not assessed/no information CODE: - PICKING UP OBJECT: Not assessed/no information CODE: - DOES THE PATIENT USE A WHEELCHAIR/SCOOTER? CODE: EXPR WHEEL 50 FEET WITH TWO TURNS: Not assessed/no information CODE: - INDICATE THE TYPE OF WHEELCHAIR/SCOOTER USED: CODE: EXPR WHEEL 150 FEET: Not assessed/no information CODE: - INDICATE THE TYPE OF WHEELCHAIR/SCOOTER USED: CODE: EXPR BLADDER AND BOWEL: H350. BLADDER CONTINENCE (3-DAY ASSESSMENT PERIOD): Always continent (no documented incontinence) CODE: 0 H400. BOWEL CONTINENCE (3-DAY ASSESSMENT PERIOD): Always continent CODE: 0
[2019-10-27] MEDS: INSULIN -REGULAR HUMAN 50 UNIT/0.5 ML ML SQ SCH ×4 (07:29→20:58)
[2019-10-27] MEDS: HYDROCODONE/APAP 7.5/325 MG TAB PO PRN ×2 (08:41→20:58)
[2019-10-27] MEDS: CYANOCOBALAMIN 1,000 MCG TAB PO SCH (08:42)
[2019-10-27] MEDS: ASPIRIN EC 81 MG TAB PO SCH (08:42)
[2019-10-27] MEDS: levoFLOXacin 250 MG TAB PO SCH (08:42)
[2019-10-27] MEDS: SODIUM CHLORIDE 0.9% 10ML INJ IV SCH ×2 (08:42→19:28)
[2019-10-27] MEDS: FERROUS SULFATE 325 MG TAB PO SCH (08:42)
[2019-10-27] MEDS: LACTOBACILLUS/ACIDOPHILUS TAB PO SCH ×2 (08:42→19:28)
[2019-10-27] MEDS: FE SULF/FA/VIT B COMP & C TAB PO SCH (08:43)
[2019-10-27] MEDS: DOCUSATE NA 100 MG CAP PO SCH ×2 (08:43→19:27)
[2019-10-27] MEDS: CLOPIDOGREL 75 MG TABLET PO SCH (08:43)
[2019-10-27] MEDS: SERTRALINE HCL 100 MG TAB PO SCH (08:43)
[2019-10-27] MEDS: TRIAMCINOLONE ACET 0.1% CREAM 80 GM TOP SCH ×2 (08:44→19:28)
[2019-10-27] MEDS: ENSURE HIGH PROTEIN 237 ML CAN PO SCH (11:33)
--- NOTE | 2019-10-27 14:59 | PN ---
Date of Progress Note: 10/27/2019 Subjective: Patient is awake, alert. No complaints. Objective: Vital Signs: Stable, afebrile. White count is normal. Wound: Examination of the wound reveals some blistering of the skin, but no infection. This is just a small area above top of the incision. There is still some edema present, but no erythema or warmt h. Assessment: Status post left below-knee amputation. Recommendations: Clean wound with Betadine and gauze and then put Xeroform, Kerlix, and Zi as direc porsha daily. Keep abhilash in for at least 3 weeks and physical therapy and evaluation for a prosthesis . /MODL Voice ID: [id number] Report ID: [id number]
[2019-10-27] MEDS: ENOXAPARIN 30 MG/0.3 ML SQ SCH (16:25)
[2019-10-27] MEDS: VANCOMYCIN 1.75 GM in NA CHLORIDE 0.9% 500 ML IVPB SCH (18:56)
[2019-10-27] MEDS: INSULIN GLARGINE 100 UNITS/ML SQ SCH (20:57)
[2019-10-28] MEDS: INSULIN -REGULAR HUMAN 50 UNIT/0.5 ML ML SQ SCH ×4 (07:21→21:18)
[2019-10-28] MEDS: HYDROCODONE/APAP 7.5/325 MG TAB PO PRN ×2 (08:01→20:36)
[2019-10-28] MEDS: SODIUM CHLORIDE 0.9% 10ML INJ IV SCH ×2 (08:02→20:38)
[2019-10-28] MEDS: FE SULF/FA/VIT B COMP & C TAB PO SCH (08:02)
[2019-10-28] MEDS: ASPIRIN EC 81 MG TAB PO SCH (08:02)
[2019-10-28] MEDS: TRIAMCINOLONE ACET 0.1% CREAM 80 GM TOP SCH ×2 (08:03→20:37)
[2019-10-28] MEDS: CLOPIDOGREL 75 MG TABLET PO SCH (08:03)
[2019-10-28] MEDS: levoFLOXacin 250 MG TAB PO SCH (08:03)
[2019-10-28] MEDS: SERTRALINE HCL 100 MG TAB PO SCH (08:03)
[2019-10-28] MEDS: CYANOCOBALAMIN 1,000 MCG TAB PO SCH (08:03)
[2019-10-28] MEDS: DOCUSATE NA 100 MG CAP PO SCH ×2 (08:03→20:00)
[2019-10-28] MEDS: LACTOBACILLUS/ACIDOPHILUS TAB PO SCH ×2 (08:03→20:37)
[2019-10-28] MEDS: FERROUS SULFATE 325 MG TAB PO SCH (08:03)
[2019-10-28] MEDS: ENSURE HIGH PROTEIN 237 ML CAN PO SCH (12:14)
[2019-10-28] MEDS: ENOXAPARIN 30 MG/0.3 ML SQ SCH (16:22)
[2019-10-28] MEDS: INSULIN GLARGINE 100 UNITS/ML SQ SCH (20:37)
[2019-10-28] MEDS ORDERED: INSULIN -REGULAR HUMAN 50 UNIT/0.5 ML ML ONE (21:14)
[2019-10-29] MEDS: VANCOMYCIN 1.75 GM in NA CHLORIDE 0.9% 500 ML IVPB SCH (07:20)
[2019-10-29] MEDS: INSULIN -REGULAR HUMAN 50 UNIT/0.5 ML ML SQ SCH ×4 (07:30→21:57)
[2019-10-29] MEDS: SODIUM CHLORIDE 0.9% 10ML INJ IV SCH ×2 (08:00→21:07)
[2019-10-29] MEDS: DOCUSATE NA 100 MG CAP PO SCH ×2 (08:00→20:00)
[2019-10-29] MEDS: LACTOBACILLUS/ACIDOPHILUS TAB PO SCH ×2 (08:02→21:06)
[2019-10-29] MEDS: TRIAMCINOLONE ACET 0.1% CREAM 80 GM TOP SCH ×2 (08:02→21:07)
[2019-10-29] MEDS: CYANOCOBALAMIN 1,000 MCG TAB PO SCH (08:03)
[2019-10-29] MEDS: CLOPIDOGREL 75 MG TABLET PO SCH (08:03)
[2019-10-29] MEDS: FE SULF/FA/VIT B COMP & C TAB PO SCH (08:03)
[2019-10-29] MEDS: ASPIRIN EC 81 MG TAB PO SCH (08:03)
[2019-10-29] MEDS: levoFLOXacin 250 MG TAB PO SCH (08:03)
[2019-10-29] MEDS: SERTRALINE HCL 100 MG TAB PO SCH (08:04)
[2019-10-29] MEDS: HYDROCODONE/APAP 7.5/325 MG TAB PO PRN (08:04)
[2019-10-29] MEDS: FERROUS SULFATE 325 MG TAB PO SCH (08:04)
[2019-10-29] MEDS: ENSURE HIGH PROTEIN 237 ML CAN PO SCH (12:00)
--- NOTE | 2019-10-29 14:57 | FAST ---
ENCOUNTER DATE AND TIME: 10/29/2019 08:00 (OVEREDGE SEWER) NAME CARLA FORBES DATE OF : 1945 DATE OF ADMISSION: 10/19/2019 15:48 (OVEREDGE SEWER) PHONE: AGE: 73 N# [id number] GENDER: Male ENCOUNTER PHYSICIAN: Dr. Celso Noonan M.D. 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 EATING: Not assessed/no information CODE: - ORAL HYGIENE: ORAL HYGIENE - STEP 1: Does the patient complete the activity by him/herself with no assistance (physical, verbal/nonverbal cueing, setup/clean-up)? Yes. 1. [id number] ADMISSION PERFORMANCE: Independent CODE: 06 TOILETING HYGIENE: Patient refused CODE: 07 BATHING: SHOWER/BATHE SELF - STEP 1: Does the patient complete the activity by him/herself with no assistance (physical, verbal/nonverbal cueing, setup/clean-up)? No. SHOWER/BATHE SELF - STEP 2: Does the patient need only setup/clean-up assistance from one helper? No. SHOWER/BATHE SELF - STEP 3: Does the patient need only verbal/nonverbal cueing or touching/steadying/contact guard assistance fro m one helper? Yes. 1. [id number] ADMISSION PERFORMANCE: Supervision or touching assistance CODE: 04 DRESSING - UPPER BODY: DRESSING - UPPER BODY - STEP 1: Does the patient complete the activity by him/herself with no assistance (physical, verbal/nonverbal cueing, setup/clean-up)? No. DRESSING - UPPER BODY - STEP 2: Does the patient need only setup/clean-up assistance from one helper? Yes. 1. [id number] ADMISSION PERFORMANCE: Setup or clean-up assistance CODE: 05 DRESSING - LOWER BODY: DRESSING - LOWER BODY - STEP 1: Does the patient complete the activity by him/herself with no assistance (physical, verbal/nonverbal cueing, setup/clean-up)? No. DRESSING - LOWER BODY - STEP 2: Does the patient need only setup/clean-up assistance from one helper? No. DRESSING - LOWER BODY - STEP 3: Does the patient need only verbal/nonverbal cueing or touching/steadying/contact guard assistance fro m one helper? Yes. 1. [id number] ADMISSION PERFORMANCE: Supervision or touching assistance CODE: 04 PUTTING ON/TAKING OFF FOOTWEAR: FOOTWEAR - STEP 1: Does the patient complete the activity by him/herself with no assistance (physical, verbal/nonverbal cueing, setup/clean-up)? No. FOOTWEAR - STEP 2: Does the patient need only setup/clean-up assistance from one helper? No. FOOTWEAR - STEP 3: Does the patient need only verbal/nonverbal cueing or touching/steadying/contact guard assistance fro m one helper? Yes. 1. [id number] ADMISSION PERFORMANCE: Supervision or touching assistance CODE: 04 DOES THE PATIENT USE A WHEELCHAIR/SCOOTER? CODE: EXPR INDICATE THE TYPE OF WHEELCHAIR/SCOOTER USED: CODE: EXPR INDICATE THE TYPE OF WHEELCHAIR/SCOOTER USED: CODE: EXPR BLADDER AND BOWEL: CODE: EXPR CODE: EXPR SIGNATURE PANEL: The following modified sections: 1. [id number] Admission Performance, 1. [id number] Admission Performance, 1. [id number] Admission Performance, 1. [id number] Admission Performance, 1. IK9728b Admission Performance were [electronically] signed by MARY ALICE Kelly on TueOct 29 2019 14:56:25 GMT-0600 (Central Standard Time)
--- NOTE | 2019-10-29 15:57 | FAST ---
SHIFT START DATE/TIME: 10/29/2019 07:00 (NETWORK COMMUNICATIONS ENGINEER) SHIFT END DATE/TIME: 10/29/2019 19:00 (NETWORK COMMUNICATIONS ENGINEER) NAME CARLA FORBES DATE OF : 1945 DATE OF ADMISSION: 10/19/2019 15:48 (NETWORK COMMUNICATIONS ENGINEER) PHONE: AGE: 73 N# [id number] GENDER: Male ENCOUNTER PHYSICIAN: Dr. Celso Noonan M.D. 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 EATING: EATING - STEP 1: Does the patient complete the activity by him/herself with no assistance (physical, verbal/nonverbal cueing, setup/clean-up)? Yes. 1. [id number] ADMISSION PERFORMANCE: Independent CODE: 06 ORAL HYGIENE: ORAL HYGIENE - STEP 1: Does the patient complete the activity by him/herself with no assistance (physical, verbal/nonverbal cueing, setup/clean-up)? Yes. 1. [id number] ADMISSION PERFORMANCE: Independent CODE: 06 TOILETING HYGIENE: TOILETING HYGIENE - STEP 1: Does the patient complete the activity by him/herself with no assistance (physical, verbal/nonverbal cueing, setup/clean-up)? No. TOILETING HYGIENE - STEP 2: Does the patient need only setup/clean-up assistance from one helper? No. TOILETING HYGIENE - STEP 3: Does the patient need only verbal/nonverbal cueing or touching/steadying/contact guard assistance fro m one helper? Yes. 1. [id number] ADMISSION PERFORMANCE: Supervision or touching assistance CODE: 04 BATHING: Not assessed/no information CODE: - DRESSING - UPPER BODY: DRESSING - UPPER BODY - STEP 1: Does the patient complete the activity by him/herself with no assistance (physical, verbal/nonverbal cueing, setup/clean-up)? No. DRESSING - UPPER BODY - STEP 2: Does the patient need only setup/clean-up assistance from one helper? Yes. 1. [id number] ADMISSION PERFORMANCE: Setup or clean-up assistance CODE: 05 DRESSING - LOWER BODY: DRESSING - LOWER BODY - STEP 1: Does the patient complete the activity by him/herself with no assistance (physical, verbal/nonverbal cueing, setup/clean-up)? No. DRESSING - LOWER BODY - STEP 2: Does the patient need only setup/clean-up assistance from one helper? No. DRESSING - LOWER BODY - STEP 3: Does the patient need only verbal/nonverbal cueing or touching/steadying/contact guard assistance fro m one helper? Yes. 1. [id number] ADMISSION PERFORMANCE: Supervision or touching assistance CODE: 04 PUTTING ON/TAKING OFF FOOTWEAR: FOOTWEAR - STEP 1: Does the patient complete the activity by him/herself with no assistance (physical, verbal/nonverbal cueing, setup/clean-up)? No. FOOTWEAR - STEP 2: Does the patient need only setup/clean-up assistance from one helper? No. FOOTWEAR - STEP 3: Does the patient need only verbal/nonverbal cueing or touching/steadying/contact guard assistance fro m one helper? Yes. 1. [id number] ADMISSION PERFORMANCE: Supervision or touching assistance CODE: 04 DOES THE PATIENT USE A WHEELCHAIR/SCOOTER? CODE: EXPR INDICATE THE TYPE OF WHEELCHAIR/SCOOTER USED: CODE: EXPR INDICATE THE TYPE OF WHEELCHAIR/SCOOTER USED: CODE: EXPR BLADDER AND BOWEL: H350. BLADDER CONTINENCE (3-DAY ASSESSMENT PERIOD): Always continent (no documented incontinence) CODE: 0 H400. BOWEL CONTINENCE (3-DAY ASSESSMENT PERIOD): Always continent CODE: 0 SIGNATURE PANEL: The following modified sections: 1. [id number] Admission Performance, 1. [id number] Admission Performance, 1. [id number] Admission Performance, 1. UL9777u Admission Performance, 1. GE9636b Admission Performance, 1. CT2242o Admission Performance, 1. PN4541a Admission Performance, H350. Bladder Continence (3-day assessment period), H400. Bowel Continence (3-day assessment period) were [electronically] signed by Karis Ochoa C.N.A. on TueOct 29 2019 15:56:49 GMT-0600 (Central Standard Time)
[2019-10-29] MEDS: ENOXAPARIN 30 MG/0.3 ML SQ SCH (16:29)
--- NOTE | 2019-10-29 17:53 | R.PN ---
ENCOUNTER DATE AND TIME: 10/29/2019 17:50 (ADMIN ASSISTANT) NAME CARLA FORBES DATE OF : 1945 DATE OF ADMISSION: 10/19/2019 15:48 (ADMIN ASSISTANT) Left BKACHIEF COMPLAINT: Left below the knee amputation SUBJECTIVE: Pt denied any Shortness of Breath. Pt denied any depression. Ambulated 88' with contact guard assistance using a rolling walker. WBC 10.7, Hgb 9.6, glucose 172 to 217, prelabumin 15.7, vanc trough 10.9, UA is normal. VITAL SIGNS Temperature: 97.1 F SBP/DBP: 141/65 Pulse: 68 Resp: 16 MEDICATION ALLERGIES: No Known Drug Allergies (NKDA) ENVIRONMENTAL ALLERGIES: None Known - Substance Allergies None Known - Other Allergies None Known CONSULT: Perform Consult Certified Prosthetic for prosthesis construction NURSING: - Shower allowing shower - Skin care per protocol PRECAUTIONS: - Weight Bearing Precaution NWB left LE ACTIVITIES OOB only with supervision THERAPIES: - Orthotics/Prosthetics Prosthetic Evaluation. - Dietary and Nutrition Adequate Nutrition. Nutritional Education. Nutritional Supplements. PHYSICAL EXAM - Gen Alert and awake Lying in bed No apparent distress Oriented to: person, time, and place - Skin LLE incisions intact Normacephalic - Eyes No abnormalities - ENMT No abnormalities - Neck No abnormalities - CVS RRR - Chest No abnormalities - Resp Clear to auscultation - Abd Soft - GI Non distended Deferred - No abnormalities - Ext Left BKA good hemostasis, dressing in place - MSK 4+/5 weakness in left lower extremity - Neuro 4/5 strength left lower extremity. - Psych No abnormalities ASSESSMENT: Pt. 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 was independent/mod-I in Locomotion, Balance , Safety Awareness, Social Cognition, Transfers Control, Sphincter Control, Self-Care, Communication, and Endurance; and he had good Locomotion, Balance, Safety Awareness, Social Cognition, Transfers Co ntrol, Sphincter Control, Self-Care, Communication, and Endurance.Currently, he has deficits of Locom otion, Balance, Safety Awareness, Transfers Control, Self-Care, Endurance, and Communication.Pt. is n ow referred to [facility] for acute in-patient rehabilitation in order to max manuel patient's functional independence in activities of daily living, strength, ROM, and mobility.- R ehab Goal Patient has realistic goal of being discharged at assistance level 6-Elvia to reside at Home with Fam bel/Relatives. MDM/PLAN: - Physical Therapy Gait dysfunction - to improve, our physical therapists will perform initial evaluation of pt's statu s upon admission and devise an individualized program for Gait Training, and Wheel Chair mobility Inability to transfer - to improve, our physical therapists will perform initial evaluation of pt's status upon admission and devise an individualized program for Bed mobility Need for home safety evaluation - to improve, our physical therapists will perform initial evaluatio n of pt's status upon admission and devise an individualized program for Home Evaluation Need in caregiver upon discharge - to improve, our physical therapists will perform initial evaluati on of pt's status upon admission and devise an individualized program for Caregiver Training New precaution - to improve, our physical therapists will perform initial evaluation of pt's status upon admission and devise an individualized program for Patient precaution education Poor balance - to improve, our physical therapists will perform initial evaluation of pt's status up on admission and devise an individualized program for Balance Training Poor endurance - to improve, our physical therapists will perform initial evaluation of pt's status upon admission and devise an individualized program for Endurance Training Weakness - to improve, our physical therapists will perform initial evaluation of pt's status upon a dmission and devise an individualized program for Aquatic Therapy, Neuromuscular Reeducation, and Str engthening Achieving independence - to improve, our physical therapists will perform initial evaluation of pt's status upon admission and devise an individualized program for Community Reintegration Activities - Occupational Therapy ADL deficits - to improve, our occupation therapists will perform initial evaluation of pt's status upon admission and devise an individualized program for Bathing, Bed mobility, Community Reintegratio n, Cooking, Dressing, Eating, Fine Motor Skills, Grooming, Homemaking, Kitchen Mobility, Laundry, Pat ient Education, Safety Awareness, Splinting - Positioning, Transfers(Toilet, Tub, Shower), and Wheel Chair Management Need for palliative care physician - to improve, our occupation therapists will perform initial evaluation of pt's status upon admission and devise an individualized program for Caregiver Training Weakness - to improve, our occupation therapists will perform initial evaluation of pt's status upon admission and devise an individualized program for Aquatic Therapy, Balance, Endurance, UE ROM, and UE strengthening - Other See attached MAR (Medication Administration Record) - Diet Type Continue Regular - Diet - Liquid Texture Continue Regular - Tube Feed Continue N/A - Weight Bearing Precaution NWB left LE - Skin care per protocol - N/A Perform Consult Certified Prosthetic for prosthesis construction - Diet - Solid Texture Continue Regular - Shower allowing shower FUNCTIONAL STATUS: UPDATED AT WEEKLY TEAM CONFERENCE - Bladder Same accident frequency: 7-Ind - No accidents in the past 7 days - Bowel Same accident frequency: 7-Ind - No accidents in the past 7 days - Walking Same score based on distance walked: 0(N/A) - Wheelchair Same score based on distance traveled: 0(N/A) FUNCTIONAL STATUS: - Self-Care A. Eating Ind B. Grooming sup C. Bathing Isaías D. Dressing - Upper Ind E. Dressing - Lower modA F. Toileting modA - Sphincter Control G. Bladder control sup H. Bowel control sup - Transfers Control I. Bed/Chair/Wheelchair modA J. Toilet modA K. Tub/Shower modA - Locomotion L. Walk/Wheelchair (B) modA M. Stairs ADNO - Communication N. Comprehension (B) Elvia O. Expression (B) Elvia - Social Cognition P. Social Interaction Elvia Q. Problem Solving sup R. Memory sup - Endurance Fair - Balance Fair - Safety Awareness Fair QI SCORES: - Self-Care A. Eating 05-Setup or clean-up assistance B. Oral hygiene 05-Setup or clean-up assistance C. Toileting hygiene 03-Partial/moderate assistance E. Shower/bathe self 03-Partial/moderate assistance F. Upper body dressing 03-Partial/moderate assistance G. Lower body dressing 02-Substantial/maximal assistance H. Putting on/taking off footwear 02-Substantial/maximal assistance - Mobility A. Roll left and right 03-Partial/moderate assistance B. Sit to lying 03-Partial/moderate assistance C. Lying to sitting on side of bed 03-Partial/moderate assistance D. Sit to stand 03-Partial/moderate assistance E. Chair/mze-jq-jwake transfer 03-Partial/moderate assistance F. Toilet transfer 03-Partial/moderate assistance G. Car transfer 10-Not attempted due to environmental limitations I. Walk 10 feet 88-Not attempted due to medical condition or safety concerns J. Walk 50 feet with two turns 88-Not attempted due to medical condition or safety concerns K. Walk 150 feet 88-Not attempted due to medical condition or safety concerns L. Walking 10 feet on uneven surfaces 88-Not attempted due to medical condition or safety concerns M. 1 step (curb) 88-Not attempted due to medical condition or safety concerns N. 4 steps 09-Not applicable O. 12 steps 09-Not applicable P. Picking up object 88-Not attempted due to medical condition or safety concerns R. Wheel 50 feet with two turns 88-Not attempted due to medical condition or safety concerns S. Wheel 150 feet 88-Not attempted due to medical condition or safety concerns - Bladder and Bowel Bladder continence 0-Always continent Bowel continence 0-Always continent - Endurance Poor - Balance Poor - Safety Awareness Fair CURRENT FUNC. DEFICITS: Self-Care, Mobility, Endurance, Balance, and Safety Awareness SIGNATURE PANEL: (ADMIN ASSISTANT)
[2019-10-29] MEDS: MELATONIN 3 MG TABLET PO PRN (21:06)
[2019-10-29] MEDS: INSULIN GLARGINE 100 UNITS/ML SQ SCH (21:08)
[2019-10-30] MEDS: HYDROCODONE/APAP 7.5/325 MG TAB PO PRN ×3 (00:08→19:09)
[2019-10-30] MEDS: DOCUSATE NA 100 MG CAP PO SCH ×2 (08:00→19:10)
[2019-10-30] MEDS: SODIUM CHLORIDE 0.9% 10ML INJ IV SCH ×2 (08:00→19:10)
[2019-10-30] MEDS: INSULIN -REGULAR HUMAN 50 UNIT/0.5 ML ML SQ SCH ×4 (08:23→19:18)
[2019-10-30] MEDS: TRIAMCINOLONE ACET 0.1% CREAM 80 GM TOP SCH ×2 (08:23→19:10)
[2019-10-30] MEDS: levoFLOXacin 250 MG TAB PO SCH (08:24)
[2019-10-30] MEDS: SERTRALINE HCL 100 MG TAB PO SCH (08:24)
[2019-10-30] MEDS: LACTOBACILLUS/ACIDOPHILUS TAB PO SCH ×2 (08:24→19:10)
[2019-10-30] MEDS: CYANOCOBALAMIN 1,000 MCG TAB PO SCH (08:24)
[2019-10-30] MEDS: ASPIRIN EC 81 MG TAB PO SCH (08:24)
[2019-10-30] MEDS: CLOPIDOGREL 75 MG TABLET PO SCH (08:24)
[2019-10-30] MEDS: FERROUS SULFATE 325 MG TAB PO SCH (08:24)
[2019-10-30] MEDS: FE SULF/FA/VIT B COMP & C TAB PO SCH (08:24)
[2019-10-30] MEDS: ENSURE HIGH PROTEIN 237 ML CAN PO SCH (12:08)
[2019-10-30] MEDS: ENOXAPARIN 30 MG/0.3 ML SQ SCH (16:53)
[2019-10-30] MEDS: VANCOMYCIN 1.75 GM in NA CHLORIDE 0.9% 500 ML IVPB SCH (19:09)
[2019-10-30] MEDS: MELATONIN 3 MG TABLET PO PRN (19:09)
[2019-10-30] MEDS: INSULIN GLARGINE 100 UNITS/ML SQ SCH (19:17)
[2019-10-31 06:06] LABS: Absolute Lymphocytes (CBC) 4.9 K/uL (0.7-4.9); Basophils % 0.6 % (0-1.3); Hematocrit 29.6 % (39.6-49.0); Lymphocytes % 63.1 % (15.3-44.8); MPV 6.9 fL (7.6-11.3); RBC Red Blood Cell Count 3.28 M/uL (4.33-5.43)
[2019-10-31 06:28] LABS: Magnesium 2.3 mg/dL (1.8-2.4); Potassium 4.3 mmol/L (3.5-5.1); Prealbumin 19.5 mg/dL (20-40)
[2019-10-31] MEDS: INSULIN -REGULAR HUMAN 50 UNIT/0.5 ML ML SQ SCH ×4 (07:30→19:54)
[2019-10-31 07:36] LABS: Blood Morphology Comment NOT SEEN (NOT SEEN); Platelet Estimate ADEQ
[2019-10-31] MEDS: DOCUSATE NA 100 MG CAP PO SCH ×2 (08:00→19:58)
[2019-10-31] MEDS: SODIUM CHLORIDE 0.9% 10ML INJ IV SCH ×2 (08:00→19:59)
[2019-10-31] MEDS: TRIAMCINOLONE ACET 0.1% CREAM 80 GM TOP SCH ×2 (08:06→19:53)
[2019-10-31] MEDS: FE SULF/FA/VIT B COMP & C TAB PO SCH (08:06)
[2019-10-31] MEDS: CYANOCOBALAMIN 1,000 MCG TAB PO SCH (08:06)
[2019-10-31] MEDS: FERROUS SULFATE 325 MG TAB PO SCH (08:06)
[2019-10-31] MEDS: CLOPIDOGREL 75 MG TABLET PO SCH (08:06)
[2019-10-31] MEDS: ASPIRIN EC 81 MG TAB PO SCH (08:06)
[2019-10-31] MEDS: LACTOBACILLUS/ACIDOPHILUS TAB PO SCH ×2 (08:07→19:54)
[2019-10-31] MEDS: SERTRALINE HCL 100 MG TAB PO SCH (08:07)
[2019-10-31] MEDS: levoFLOXacin 250 MG TAB PO SCH (08:07)
[2019-10-31] MEDS: HYDROCODONE/APAP 7.5/325 MG TAB PO PRN ×2 (08:08→19:54)
[2019-10-31] MEDS: ENSURE HIGH PROTEIN 237 ML CAN PO SCH (12:00)
--- NOTE | 2019-10-31 14:26 | FAST ---
ENCOUNTER DATE AND TIME: 10/31/2019 08:00 (COOKER HELPER) NAME CARLA FORBES DATE OF : 1945 DATE OF ADMISSION: 10/19/2019 15:48 (COOKER HELPER) PHONE: AGE: 73 N# [id number] GENDER: Male ENCOUNTER PHYSICIAN: Dr. Celso Noonan M.D. 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 EATING: Not assessed/no information CODE: - ORAL HYGIENE: ORAL HYGIENE - STEP 1: Does the patient complete the activity by him/herself with no assistance (physical, verbal/nonverbal cueing, setup/clean-up)? Yes. 1. [id number] ADMISSION PERFORMANCE: Independent CODE: 06 TOILETING HYGIENE: Not assessed/no information CODE: - BATHING: SHOWER/BATHE SELF - STEP 1: Does the patient complete the activity by him/herself with no assistance (physical, verbal/nonverbal cueing, setup/clean-up)? No. SHOWER/BATHE SELF - STEP 2: Does the patient need only setup/clean-up assistance from one helper? No. SHOWER/BATHE SELF - STEP 3: Does the patient need only verbal/nonverbal cueing or touching/steadying/contact guard assistance fro m one helper? Yes. 1. [id number] ADMISSION PERFORMANCE: Supervision or touching assistance CODE: 04 DRESSING - UPPER BODY: DRESSING - UPPER BODY - STEP 1: Does the patient complete the activity by him/herself with no assistance (physical, verbal/nonverbal cueing, setup/clean-up)? No. DRESSING - UPPER BODY - STEP 2: Does the patient need only setup/clean-up assistance from one helper? Yes. 1. [id number] ADMISSION PERFORMANCE: Setup or clean-up assistance CODE: 05 DRESSING - LOWER BODY: DRESSING - LOWER BODY - STEP 1: Does the patient complete the activity by him/herself with no assistance (physical, verbal/nonverbal cueing, setup/clean-up)? No. DRESSING - LOWER BODY - STEP 2: Does the patient need only setup/clean-up assistance from one helper? No. DRESSING - LOWER BODY - STEP 3: Does the patient need only verbal/nonverbal cueing or touching/steadying/contact guard assistance fro m one helper? Yes. 1. [id number] ADMISSION PERFORMANCE: Supervision or touching assistance CODE: 04 PUTTING ON/TAKING OFF FOOTWEAR: FOOTWEAR - STEP 1: Does the patient complete the activity by him/herself with no assistance (physical, verbal/nonverbal cueing, setup/clean-up)? No. FOOTWEAR - STEP 2: Does the patient need only setup/clean-up assistance from one helper? No. FOOTWEAR - STEP 3: Does the patient need only verbal/nonverbal cueing or touching/steadying/contact guard assistance fro m one helper? Yes. 1. [id number] ADMISSION PERFORMANCE: Supervision or touching assistance CODE: 04 DOES THE PATIENT USE A WHEELCHAIR/SCOOTER? CODE: EXPR INDICATE THE TYPE OF WHEELCHAIR/SCOOTER USED: CODE: EXPR INDICATE THE TYPE OF WHEELCHAIR/SCOOTER USED: CODE: EXPR BLADDER AND BOWEL: CODE: EXPR CODE: EXPR SIGNATURE PANEL: The following modified sections: 1. [id number] Admission Performance, 1. [id number] Admission Performance, 1. [id number] Admission Performance, 1. VA6266q Admission Performance, 1. [id number] Admission Performance were [electronically] signed by MARY ALICE Kelly on TueOct 31 2019 14:25:33 GMT-0600 (Central Standard Time)
--- NOTE | 2019-10-31 14:54 | FAST ---
SHIFT START DATE/TIME: 10/31/2019 07:00 (MARINE CARGO SPECIALIST) SHIFT END DATE/TIME: 10/31/2019 19:00 (MARINE CARGO SPECIALIST) NAME CARLA FORBES DATE OF : 1945 DATE OF ADMISSION: 10/19/2019 15:48 (MARINE CARGO SPECIALIST) PHONE: AGE: 73 N# [id number] GENDER: Male ENCOUNTER PHYSICIAN: Dr. Celso Noonan M.D. 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 EATING: EATING - STEP 1: Does the patient complete the activity by him/herself with no assistance (physical, verbal/nonverbal cueing, setup/clean-up)? Yes. 1. [id number] ADMISSION PERFORMANCE: Independent CODE: 06 ORAL HYGIENE: ORAL HYGIENE - STEP 1: Does the patient complete the activity by him/herself with no assistance (physical, verbal/nonverbal cueing, setup/clean-up)? Yes. 1. [id number] ADMISSION PERFORMANCE: Independent CODE: 06 TOILETING HYGIENE: TOILETING HYGIENE - STEP 1: Does the patient complete the activity by him/herself with no assistance (physical, verbal/nonverbal cueing, setup/clean-up)? No. TOILETING HYGIENE - STEP 2: Does the patient need only setup/clean-up assistance from one helper? No. TOILETING HYGIENE - STEP 3: Does the patient need only verbal/nonverbal cueing or touching/steadying/contact guard assistance fro m one helper? Yes. 1. [id number] ADMISSION PERFORMANCE: Supervision or touching assistance CODE: 04 BATHING: Not assessed/no information CODE: - DRESSING - UPPER BODY: DRESSING - UPPER BODY - STEP 1: Does the patient complete the activity by him/herself with no assistance (physical, verbal/nonverbal cueing, setup/clean-up)? No. DRESSING - UPPER BODY - STEP 2: Does the patient need only setup/clean-up assistance from one helper? Yes. 1. [id number] ADMISSION PERFORMANCE: Setup or clean-up assistance CODE: 05 DRESSING - LOWER BODY: DRESSING - LOWER BODY - STEP 1: Does the patient complete the activity by him/herself with no assistance (physical, verbal/nonverbal cueing, setup/clean-up)? No. DRESSING - LOWER BODY - STEP 2: Does the patient need only setup/clean-up assistance from one helper? No. DRESSING - LOWER BODY - STEP 3: Does the patient need only verbal/nonverbal cueing or touching/steadying/contact guard assistance fro m one helper? Yes. 1. [id number] ADMISSION PERFORMANCE: Supervision or touching assistance CODE: 04 PUTTING ON/TAKING OFF FOOTWEAR: FOOTWEAR - STEP 1: Does the patient complete the activity by him/herself with no assistance (physical, verbal/nonverbal cueing, setup/clean-up)? No. FOOTWEAR - STEP 2: Does the patient need only setup/clean-up assistance from one helper? Yes. 1. [id number] ADMISSION PERFORMANCE: Setup or clean-up assistance CODE: 05 DOES THE PATIENT USE A WHEELCHAIR/SCOOTER? CODE: EXPR INDICATE THE TYPE OF WHEELCHAIR/SCOOTER USED: CODE: EXPR INDICATE THE TYPE OF WHEELCHAIR/SCOOTER USED: CODE: EXPR BLADDER AND BOWEL: H350. BLADDER CONTINENCE (3-DAY ASSESSMENT PERIOD): Always continent (no documented incontinence) CODE: 0 H400. BOWEL CONTINENCE (3-DAY ASSESSMENT PERIOD): Always continent CODE: 0 SIGNATURE PANEL: The following modified sections: 1. [id number] Admission Performance, 1. IG9039M Admission Performance, 1. AO9300E Admission Performance, 1. [id number] Admission Performance, 1. HW8567l Admission Performance, 1. MA5733r Admission Performance, 1. QV2906p Admission Performance, H350. Bladder Continence (3-day assessment period), H400. Bowel Continence (3-day assessment period) were [electronically] signed by Rogelio DiazNNathalia on TueOct 31 2019 14:53:51 GMT-0600 (Central Standard Time)
--- NOTE | 2019-10-31 16:09 | RAD REPORT ---
EXAM DESCRIPTION: RAD - Chest Single View - 10/31/2019 4:04 pm CLINICAL HISTORY: increase sob on exertion Chest pain. COMPARISON: Chest Single View dated 10/11/2019; Chest Single View dated 10/08/2019; Chest Single View dated 10/06/2019; Chest Single View dated 05/30/2018 FINDINGS: Portable technique limits examination quality. Hazy opacity in the right lung base may represent atelectasis. Small right pleural effusion likely pr esent. The heart is moderately enlarged in size with multilead pacer/ defibrillator device present. S ternotomy wires are noted.Right-sided PICC line has tip in the SVC.
[2019-10-31] MEDS: ENOXAPARIN 30 MG/0.3 ML SQ SCH (16:37)
[2019-10-31] MEDS: FUROSEMIDE 20 MG TABLET PO SCH (16:38)
[2019-10-31] MEDS: INSULIN GLARGINE 100 UNITS/ML SQ SCH (19:54)
[2019-10-31] MEDS: MELATONIN 3 MG TABLET PO PRN (19:55)
[2019-11-01 05:57] LABS: Absolute Lymphocytes (CBC) 5.7 K/uL (0.7-4.9); Basophils % 0.6 % (0-1.3); Hematocrit 28.7 % (39.6-49.0); Lymphocytes % 70.3 % (15.3-44.8); MPV 7.1 fL (7.6-11.3); RBC Red Blood Cell Count 3.17 M/uL (4.33-5.43)
[2019-11-01 06:16] LABS: Magnesium 2.3 mg/dL (1.8-2.4); Potassium 4.3 mmol/L (3.5-5.1); Prealbumin 16.6 mg/dL (20-40)
[2019-11-01] MEDS: VANCOMYCIN 1.75 GM in NA CHLORIDE 0.9% 500 ML IVPB SCH (06:51)
[2019-11-01] MEDS: INSULIN -REGULAR HUMAN 50 UNIT/0.5 ML ML SQ SCH ×4 (07:30→20:03)
[2019-11-01] MEDS: SODIUM CHLORIDE 0.9% 10ML INJ IV SCH ×2 (08:00→20:03)
[2019-11-01] MEDS: TRIAMCINOLONE ACET 0.1% CREAM 80 GM TOP SCH ×2 (08:22→20:02)
[2019-11-01] MEDS: FE SULF/FA/VIT B COMP & C TAB PO SCH (08:23)
[2019-11-01] MEDS: CYANOCOBALAMIN 1,000 MCG TAB PO SCH (08:23)
[2019-11-01] MEDS: ASPIRIN EC 81 MG TAB PO SCH (08:23)
[2019-11-01] MEDS: LACTOBACILLUS/ACIDOPHILUS TAB PO SCH ×2 (08:23→20:03)
[2019-11-01] MEDS: DOCUSATE NA 100 MG CAP PO SCH ×2 (08:23→20:09)
[2019-11-01] MEDS: SERTRALINE HCL 100 MG TAB PO SCH (08:23)
[2019-11-01] MEDS: levoFLOXacin 250 MG TAB PO SCH (08:23)
[2019-11-01] MEDS: HYDROCODONE/APAP 7.5/325 MG TAB PO PRN ×2 (08:24→20:02)
[2019-11-01] MEDS: CLOPIDOGREL 75 MG TABLET PO SCH (08:24)
[2019-11-01] MEDS: FUROSEMIDE 20 MG TABLET PO SCH (08:24)
[2019-11-01] MEDS: FERROUS SULFATE 325 MG TAB PO SCH (08:25)
--- NOTE | 2019-11-01 11:07 | FAST ---
SHIFT START DATE/TIME: 11/01/2019 07:00 (IT SECURITY ANALYST) SHIFT END DATE/TIME: 11/01/2019 19:00 (IT SECURITY ANALYST) NAME CARLA FORBES DATE OF : 1945 DATE OF ADMISSION: 10/19/2019 15:48 (IT SECURITY ANALYST) PHONE: AGE: 73 N# [id number] GENDER: Male ENCOUNTER PHYSICIAN: Dr. Celso Noonan M.D. 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 EATING: EATING - STEP 1: Does the patient complete the activity by him/herself with no assistance (physical, verbal/nonverbal cueing, setup/clean-up)? No. EATING - STEP 2: Does the patient need only setup/clean-up assistance from one helper? Yes. 1. [id number] ADMISSION PERFORMANCE: Setup or clean-up assistance CODE: 05 ORAL HYGIENE: ORAL HYGIENE - STEP 1: Does the patient complete the activity by him/herself with no assistance (physical, verbal/nonverbal cueing, setup/clean-up)? No. ORAL HYGIENE - STEP 2: Does the patient need only setup/clean-up assistance from one helper? No. ORAL HYGIENE - STEP 3: Does the patient need only verbal/nonverbal cueing or touching/steadying/contact guard assistance fro m one helper? Yes. 1. [id number] ADMISSION PERFORMANCE: Supervision or touching assistance CODE: 04 TOILETING HYGIENE: TOILETING HYGIENE - STEP 1: Does the patient complete the activity by him/herself with no assistance (physical, verbal/nonverbal cueing, setup/clean-up)? No. TOILETING HYGIENE - STEP 2: Does the patient need only setup/clean-up assistance from one helper? No. TOILETING HYGIENE - STEP 3: Does the patient need only verbal/nonverbal cueing or touching/steadying/contact guard assistance fro m one helper? Yes. 1. [id number] ADMISSION PERFORMANCE: Supervision or touching assistance CODE: 04 BATHING: Not assessed/no information CODE: - DRESSING - UPPER BODY: DRESSING - UPPER BODY - STEP 1: Does the patient complete the activity by him/herself with no assistance (physical, verbal/nonverbal cueing, setup/clean-up)? No. DRESSING - UPPER BODY - STEP 2: Does the patient need only setup/clean-up assistance from one helper? No. DRESSING - UPPER BODY - STEP 3: Does the patient need only verbal/nonverbal cueing or touching/steadying/contact guard assistance fro m one helper? Yes. 1. [id number] ADMISSION PERFORMANCE: Supervision or touching assistance CODE: 04 DRESSING - LOWER BODY: DRESSING - LOWER BODY - STEP 1: Does the patient complete the activity by him/herself with no assistance (physical, verbal/nonverbal cueing, setup/clean-up)? No. DRESSING - LOWER BODY - STEP 2: Does the patient need only setup/clean-up assistance from one helper? No. DRESSING - LOWER BODY - STEP 3: Does the patient need only verbal/nonverbal cueing or touching/steadying/contact guard assistance fro m one helper? Yes. 1. [id number] ADMISSION PERFORMANCE: Supervision or touching assistance CODE: 04 PUTTING ON/TAKING OFF FOOTWEAR: Not assessed/no information CODE: - ROLL LEFT AND RIGHT: Not assessed/no information CODE: - SIT TO LYING: Not assessed/no information CODE: - LYING TO SITTING: LYING TO SITTING ON SIDE OF BED - STEP 1: Does the patient complete the activity by him/herself with no assistance (physical, verbal/nonverbal cueing, setup/clean-up)? No. LYING TO SITTING ON SIDE OF BED - STEP 2: Does the patient need only setup/clean-up assistance from one helper? No. LYING TO SITTING ON SIDE OF BED - STEP 3: Does the patient need only verbal/nonverbal cueing or touching/steadying/contact guard assistance fro m one helper? Yes. 1. [id number] ADMISSION PERFORMANCE: Supervision or touching assistance CODE: 04 SIT TO STAND: SIT TO STAND - STEP 1: Does the patient complete the activity by him/herself with no assistance (physical, verbal/nonverbal cueing, setup/clean-up)? No. SIT TO STAND - STEP 2: Does the patient need only setup/clean-up assistance from one helper? No. SIT TO STAND - STEP 3: Does the patient need only verbal/nonverbal cueing or touching/steadying/contact guard assistance fro m one helper? Yes. 1. [id number] ADMISSION PERFORMANCE: Supervision or touching assistance CODE: 04 TRANSFERS: BED, CHAIR: CHAIR/[id number] TRANSFER - STEP 1: Does the patient complete the activity by him/herself with no assistance (physical, verbal/nonverbal cueing, setup/clean-up)? No. CHAIR/[id number] TRANSFER - STEP 2: Does the patient need only setup/clean-up assistance from one helper? No. CHAIR/[id number] TRANSFER - STEP 3: Does the patient need only verbal/nonverbal cueing or touching/steadying/contact guard assistance fro m one helper? No. CHAIR/[id number] TRANSFER - STEP 4: Does the patient need physical assistance - for example lifting or trunk support from one helper - wi th the helper providing less than half of the effort? Yes. 1. [id number] ADMISSION PERFORMANCE: Partial/moderate assistance CODE: 03 TRANSFER TOILET: TOILET TRANSFER - STEP 1: Does the patient complete the activity by him/herself with no assistance (physical, verbal/nonverbal cueing, setup/clean-up)? No. TOILET TRANSFER - STEP 2: Does the patient need only setup/clean-up assistance from one helper? No. TOILET TRANSFER - STEP 3: Does the patient need only verbal/nonverbal cueing or touching/steadying/contact guard assistance fro m one helper? No. TOILET TRANSFER - STEP 4: Does the patient need physical assistance - for example lifting or trunk support from one helper - wi th the helper providing less than half of the effort? Yes. 1. [id number] ADMISSION PERFORMANCE: Partial/moderate assistance CODE: 03 TRANSFERS: CAR: Not assessed/no information CODE: - WALK 10 FEET: Not assessed/no information CODE: - 1 STEP (CURB): Not assessed/no information CODE: - PICKING UP OBJECT: Not assessed/no information CODE: - DOES THE PATIENT USE A WHEELCHAIR/SCOOTER? CODE: EXPR WHEEL 50 FEET WITH TWO TURNS: Not assessed/no information CODE: - INDICATE THE TYPE OF WHEELCHAIR/SCOOTER USED: CODE: EXPR WHEEL 150 FEET: Not assessed/no information CODE: - INDICATE THE TYPE OF WHEELCHAIR/SCOOTER USED: CODE: EXPR BLADDER AND BOWEL: H350. BLADDER CONTINENCE (3-DAY ASSESSMENT PERIOD): Stress incontinence only CODE: 1 H400. BOWEL CONTINENCE (3-DAY ASSESSMENT PERIOD): Occasionally incontinent (one episode of bowel incontinence) CODE: 1 SIGNATURE PANEL: The following modified sections: 1. BP1978A Admission Performance, 1. [id number] Admission Performance, 1. TR6178F Admission Performance, 1. UV3237u Admission Performance, 1. YU6036j Admission Performance, 1. GK6572C Admission Performance, 1. [id number] Admission Performance, 1. [id number] Admission Performance , 1. [id number] Admission Performance, 1. LY1154W Admission Performance, Code, H350. Bladder Continence (3-day assessment period), H400. Bowel Continence (3-day assessment period) were [electronically] sig kay by Guillermo Elias on TueNov 01 2019 11:07:12 T-0600 (Central Standard Time)
[2019-11-01] MEDS: ENSURE HIGH PROTEIN 237 ML CAN PO SCH (11:37)
[2019-11-01] MEDS ORDERED: TRAZODONE 50 MG TABLET PO PRN (14:33)
[2019-11-01] MEDS ORDERED: FUROSEMIDE 20 MG TABLET PO SCH (16:00)
[2019-11-01] MEDS: ENOXAPARIN 30 MG/0.3 ML SQ SCH (16:29)
--- NOTE | 2019-11-01 17:27 | R.PN ---
ENCOUNTER DATE AND TIME: 11/01/2019 17:22 (FOREIGN EXCHANGE TRADER) NAME CARLA FORBES DATE OF : 1945 DATE OF ADMISSION: 10/19/2019 15:48 (FOREIGN EXCHANGE TRADER) Left BKACHIEF COMPLAINT: Left below the knee amputation SUBJECTIVE: Pt denied any Shortness of Breath. Pt denied any depression. Ambulated a total of 83' with contact guard assistance using a rolling walker. Self-propelled wheelch air 500' total with standby assistance. WBC 8.1, Hgb 9.7, glucose 147 to 185, prealbumin 16.6, vanc trough 15.4, UA is normal. VITAL SIGNS Temperature: 97.6 F SBP/DBP: 106/70 Pulse: 85 Resp: 14 MEDICATION ALLERGIES: No Known Drug Allergies (NKDA) ENVIRONMENTAL ALLERGIES: None Known - Substance Allergies None Known - Other Allergies None Known CONSULT: Perform Consult Certified Prosthetic for prosthesis construction NURSING: - Shower allowing shower - Skin care per protocol PRECAUTIONS: - Weight Bearing Precaution NWB left LE ACTIVITIES OOB only with supervision THERAPIES: - Orthotics/Prosthetics Prosthetic Evaluation. - Dietary and Nutrition Adequate Nutrition. Nutritional Education. Nutritional Supplements. PHYSICAL EXAM - Gen Alert and awake Lying in bed No apparent distress Oriented to: person, time, and place - Skin LLE incisions intact Normacephalic - Eyes No abnormalities - ENMT No abnormalities - Neck No abnormalities - CVS RRR - Chest No abnormalities - Resp Clear to auscultation - Abd Soft - GI Non distended Deferred - No abnormalities - Ext Left BKA good hemostasis, dressing in place - MSK 4+/5 weakness in left lower extremity - Neuro 4/5 strength left lower extremity. - Psych No abnormalities ASSESSMENT: Pt. 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 was independent/mod-I in Locomotion, Balance , Safety Awareness, Social Cognition, Transfers Control, Sphincter Control, Self-Care, Communication, and Endurance; and he had good Locomotion, Balance, Safety Awareness, Social Cognition, Transfers Co ntrol, Sphincter Control, Self-Care, Communication, and Endurance.Currently, he has deficits of Locom otion, Balance, Safety Awareness, Transfers Control, Self-Care, Endurance, and Communication.Pt. is n ow referred to [facility] for acute in-patient rehabilitation in order to maxi manuel patient's functional independence in activities of daily living, strength, ROM, and mobility.- R ehab Goal Patient has realistic goal of being discharged at assistance level 6-Elvia to reside at Home with Fam bel/Relatives. MDM/PLAN: - Physical Therapy Gait dysfunction - to improve, our physical therapists will perform initial evaluation of pt's statu s upon admission and devise an individualized program for Gait Training, and Wheel Chair mobility Inability to transfer - to improve, our physical therapists will perform initial evaluation of pt's status upon admission and devise an individualized program for Bed mobility Need for home safety evaluation - to improve, our physical therapists will perform initial evaluatio n of pt's status upon admission and devise an individualized program for Home Evaluation Need in caregiver upon discharge - to improve, our physical therapists will perform initial evaluati on of pt's status upon admission and devise an individualized program for Caregiver Training New precaution - to improve, our physical therapists will perform initial evaluation of pt's status upon admission and devise an individualized program for Patient precaution education Poor balance - to improve, our physical therapists will perform initial evaluation of pt's status up on admission and devise an individualized program for Balance Training Poor endurance - to improve, our physical therapists will perform initial evaluation of pt's status upon admission and devise an individualized program for Endurance Training Weakness - to improve, our physical therapists will perform initial evaluation of pt's status upon a dmission and devise an individualized program for Aquatic Therapy, Neuromuscular Reeducation, and Str engthening Achieving independence - to improve, our physical therapists will perform initial evaluation of pt's status upon admission and devise an individualized program for Community Reintegration Activities - Occupational Therapy ADL deficits - to improve, our occupation therapists will perform initial evaluation of pt's status upon admission and devise an individualized program for Bathing, Bed mobility, Community Reintegratio n, Cooking, Dressing, Eating, Fine Motor Skills, Grooming, Homemaking, Kitchen Mobility, Laundry, Pat ient Education, Safety Awareness, Splinting - Positioning, Transfers(Toilet, Tub, Shower), and Wheel Chair Management Need for post acute care registered nurse - to improve, our occupation therapists will perform initial evaluation of pt's status upon admission and devise an individualized program for Caregiver Training Weakness - to improve, our occupation therapists will perform initial evaluation of pt's status upon admission and devise an individualized program for Aquatic Therapy, Balance, Endurance, UE ROM, and UE strengthening - Other See attached MAR (Medication Administration Record) - Diet Type Continue Regular - Diet - Liquid Texture Continue Regular - Tube Feed Continue N/A - Weight Bearing Precaution NWB left LE - Skin care per protocol - N/A Perform Consult Certified Prosthetic for prosthesis construction - Diet - Solid Texture Continue Regular - Shower allowing shower FUNCTIONAL STATUS: UPDATED AT WEEKLY TEAM CONFERENCE - Bladder Same accident frequency: 7-Ind - No accidents in the past 7 days - Bowel Same accident frequency: 7-Ind - No accidents in the past 7 days - Walking Same score based on distance walked: 0(N/A) - Wheelchair Same score based on distance traveled: 0(N/A) FUNCTIONAL STATUS: - Self-Care A. Eating Ind B. Grooming sup C. Bathing Isaías D. Dressing - Upper Ind E. Dressing - Lower modA F. Toileting modA - Sphincter Control G. Bladder control sup H. Bowel control sup - Transfers Control I. Bed/Chair/Wheelchair modA J. Toilet modA K. Tub/Shower modA - Locomotion L. Walk/Wheelchair (B) modA M. Stairs ADNO - Communication N. Comprehension (B) Elvia O. Expression (B) Elvia - Social Cognition P. Social Interaction Elvia Q. Problem Solving sup R. Memory sup - Endurance Fair - Balance Fair - Safety Awareness Fair QI SCORES: - Self-Care A. Eating 05-Setup or clean-up assistance B. Oral hygiene 05-Setup or clean-up assistance C. Toileting hygiene 03-Partial/moderate assistance E. Shower/bathe self 03-Partial/moderate assistance F. Upper body dressing 03-Partial/moderate assistance G. Lower body dressing 02-Substantial/maximal assistance H. Putting on/taking off footwear 02-Substantial/maximal assistance - Mobility A. Roll left and right 03-Partial/moderate assistance B. Sit to lying 03-Partial/moderate assistance C. Lying to sitting on side of bed 03-Partial/moderate assistance D. Sit to stand 03-Partial/moderate assistance E. Chair/bdl-qi-[id number] transfer 03-Partial/moderate assistance F. Toilet transfer 03-Partial/moderate assistance G. Car transfer 10-Not attempted due to environmental limitations I. Walk 10 feet 88-Not attempted due to medical condition or safety concerns J. Walk 50 feet with two turns 88-Not attempted due to medical condition or safety concerns K. Walk 150 feet 88-Not attempted due to medical condition or safety concerns L. Walking 10 feet on uneven surfaces 88-Not attempted due to medical condition or safety concerns M. 1 step (curb) 88-Not attempted due to medical condition or safety concerns N. 4 steps 09-Not applicable O. 12 steps 09-Not applicable P. Picking up object 88-Not attempted due to medical condition or safety concerns R. Wheel 50 feet with two turns 88-Not attempted due to medical condition or safety concerns S. Wheel 150 feet 88-Not attempted due to medical condition or safety concerns - Bladder and Bowel Bladder continence 0-Always continent Bowel continence 0-Always continent - Endurance Poor - Balance Poor - Safety Awareness Fair CURRENT FUNC. DEFICITS: Self-Care, Mobility, Endurance, Balance, and Safety Awareness SIGNATURE PANEL: (FOREIGN EXCHANGE TRADER)
[2019-11-01] MEDS: MELATONIN 5 MG TABLET PO PRN (20:03)
[2019-11-01] MEDS: INSULIN GLARGINE 100 UNITS/ML SQ SCH (20:04)
[2019-11-02] MEDS: SODIUM CHLORIDE 0.9% 10ML INJ IV SCH ×2 (06:37→19:51)
[2019-11-02] MEDS: INSULIN -REGULAR HUMAN 50 UNIT/0.5 ML ML SQ SCH ×4 (07:28→21:09)
[2019-11-02] MEDS: HYDROCODONE/APAP 7.5/325 MG TAB PO PRN ×2 (07:59→19:50)
[2019-11-02] MEDS: LACTOBACILLUS/ACIDOPHILUS TAB PO SCH ×2 (08:00→19:50)
[2019-11-02] MEDS: ASPIRIN EC 81 MG TAB PO SCH (08:00)
[2019-11-02] MEDS: SERTRALINE HCL 100 MG TAB PO SCH (08:01)
[2019-11-02] MEDS: DOCUSATE NA 100 MG CAP PO SCH ×2 (08:01→19:50)
[2019-11-02] MEDS: FE SULF/FA/VIT B COMP & C TAB PO SCH (08:01)
[2019-11-02] MEDS: CLOPIDOGREL 75 MG TABLET PO SCH (08:01)
[2019-11-02] MEDS: FERROUS SULFATE 325 MG TAB PO SCH (08:01)
[2019-11-02] MEDS: FUROSEMIDE 20 MG TABLET PO SCH (08:01)
[2019-11-02] MEDS: CYANOCOBALAMIN 1,000 MCG TAB PO SCH (08:01)
[2019-11-02] MEDS: levoFLOXacin 250 MG TAB PO SCH (08:01)
[2019-11-02] MEDS: TRIAMCINOLONE ACET 0.1% CREAM 80 GM TOP SCH ×2 (08:02→19:52)
--- NOTE | 2019-11-02 09:36 | P.RH.PN ---
Estimated Length of Stay: 20 Expected Discharge Date: 11/07/19 Discharge Disposition Plan: Home Family Support: Yes Alf Goal: Mobility, Transfers, Self Care Vital Signs: Last Vital Signs Temp 96.9 F 11/02/19 06:53 Pulse 90 11/02/19 08:01 Resp 16 11/02/19 08:51 BP 125/71 11/02/19 08:01 Pulse Ox 95 11/02/19 08:51 Laboratory: Laboratory Last Values WBC 8.1 K/uL (4.3-10.9) 11/01/19 05:40 RBC 3.17 M/uL (4.33-5.43) L 11/01/19 05:40 Hgb 9.7 g/dL (13.6-17.9) L 11/01/19 05:40 Hct 28.7 % (39.6-49.0) L 11/01/19 05:40 MCV 90.6 fL (80-100) 11/01/19 05:40 MCH 30.7 pg (27.0-35.0) 11/01/19 05:40 MCHC 33.9 g/dL (32.0-36.0) 11/01/19 05:40 RDW 15.1 % (12.1-15.2) 11/01/19 05:40 Plt Count 360 K/uL (152-406) 11/01/19 05:40 MPV 7.1 fL (7.6-11.3) L 11/01/19 05:40 Neutrophils % 14.7 % (41.7-73.7) L 11/01/19 05:40 Lymphocytes % 70.3 % (15.3-44.8) H 11/01/19 05:40 Monocytes % 5.5 % (3.3-12.3) 11/01/19 05:40 Eosinophils % 8.9 % (0-4.4) H 11/01/19 05:40 Basophils % 0.6 % (0-1.3) 11/01/19 05:40 Absolute Neutrophils 1.2 K/uL (1.8-8.0) L 11/01/19 05:40 Segmented Neutrophils 18 % (40-80) L 10/31/19 05:40 Absolute Lymphocytes 5.7 K/uL (0.7-4.9) H 11/01/19 05:40 Lymphocytes 68 % (15-42) H 10/31/19 05:40 Monocytes 3 % (0-10) 10/31/19 05:40 Absolute Monocytes 0.4 K/uL (0.1-1.3) 11/01/19 05:40 Eosinophils 9 % (0-3) H 10/31/19 05:40 Absolute Eosinophils 0.7 K/uL (0-0.5) H 11/01/19 05:40 Basophils 2 % (0-1) H 10/31/19 05:40 Absolute Basophils 0.0 K/uL (0-0.5) 11/01/19 05:40 Nucleated RBCs 1 /100WBC 10/31/19 05:40 Morphology Comment Not seen (NOT SEEN) 10/31/19 05:40 Sodium 139 mmol/L (136-145) 11/01/19 05:40 Potassium 4.3 mmol/L (3.5-5.1) 11/01/19 05:40 Chloride 104 mmol/L (98-107) 11/01/19 05:40 Carbon Dioxide 27 mmol/L (21-32) 11/01/19 05:40 BUN 29 mg/dL (7-18) H 11/01/19 05:40 Creatinine 1.89 mg/dL (0.55-1.3) H 11/01/19 05:40 Estimated GFR 35 mL/min (=/>90) L 11/01/19 05:40 Glucose 155 mg/dL (74-106) H 11/01/19 05:40 POC Glucose 139 mg/dl (65-120) H 11/02/19 07:19 Calcium 8.2 mg/dL (8.5-10.1) L 11/01/19 05:40 Magnesium 2.3 mg/dL (1.8-2.4) 11/01/19 05:40 Albumin 3.0 g/dL (3.4-5.0) L 11/01/19 05:40 Prealbumin 16.6 mg/dL (20-40) L 11/01/19 05:40 Urine Color Yellow 10/19/19 19:50 Urine Appearance Clear 10/19/19 19:50 Urine pH 5.5 (5.0-7.0) 10/19/19 19:50 Ur Specific [place] 1.010 (1.005-1.030) 10/19/19 19:50 Glucose (UA)(Auto) Negative (NEG) 10/19/19 19:50 Urine Ketones Negative (NEG) 10/19/19 19:50 Urine Blood Negative (NEG) 10/19/19 19:50 Urine Nitrite Negative (NEG) 10/19/19 19:50 Urine Bilirubin Negative (NEG) 10/19/19 19:50 Urine Urobilinogen 0.2 mg/dL (0.2-1.0) 10/19/19 19:50 Ur Leukocyte Esterase Negative (NEG) 10/19/19 19:50 Urine RBC None seen /HPF (NONE SEEN) 10/19/19 19:50 Urine WBC <5 /HPF (<5) 10/19/19 19:50 Ur Squamous Epith Cells <5 /HPF (NONE SEEN) 10/19/19 19:50 Urine Bacteria <20 /HPF (NONE SEEN) 10/19/19 19:50 Urine Culture Reflexed Not needed 10/19/19 19:50 Urine Total Protein Negative (NEG) 10/19/19 19:50 Vancomycin Trough 15.4 ug/mL (5.0-20.0) 11/01/19 05:40 Weight: 234 lb 4.8 oz Wound Present: Yes Closed Surgical Incision Present: Yes Negative Pressure Wound Therapy Present: No Physician Update: Labs were reviewed and show 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 He is mobilizing well by wheelchair. His wound is still draining slightly. Wet to dry dressing ae applied once daily. He is on vanc more than 7 days and levaquin more than 14 days. Will check with Dr. Martin about stopping antibiotics. Medical Issues: Patient is always continent with bladder and bowel. Pain Issues: Patient is taking Tylenol 650mg Q6H PO PRN and Venus 7.5/325mg Q4H PO PRN for pain. Functional Improvement: Patient has met all short-term goals at this time and is progressing well toward long-term goals. Patient is continuing to show progress w/ technique and endurance w/ gait tx. Summary: Patient's care plan and mcc goals have been reviewed and revised as necessary. Please see the Rehabilitation Signature page for all necessary signatures.
[2019-11-02] MEDS: ENSURE HIGH PROTEIN 237 ML CAN PO SCH (12:02)
--- NOTE | 2019-11-02 15:25 | FAST ---
ENCOUNTER DATE AND TIME: 11/02/2019 08:00 (PLASTIC BATTERY ASSEMBLER) NAME CARLA FORBES DATE OF : 1945 DATE OF ADMISSION: 10/19/2019 15:48 (PLASTIC BATTERY ASSEMBLER) PHONE: AGE: 73 N# [id number] GENDER: Male ENCOUNTER PHYSICIAN: Dr. Celso Noonan M.D. 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 EATING: Not assessed/no information CODE: - ORAL HYGIENE: ORAL HYGIENE - STEP 1: Does the patient complete the activity by him/herself with no assistance (physical, verbal/nonverbal cueing, setup/clean-up)? Yes. 1. [id number] ADMISSION PERFORMANCE: Independent CODE: 06 TOILETING HYGIENE: Not assessed/no information CODE: - BATHING: SHOWER/BATHE SELF - STEP 1: Does the patient complete the activity by him/herself with no assistance (physical, verbal/nonverbal cueing, setup/clean-up)? No. SHOWER/BATHE SELF - STEP 2: Does the patient need only setup/clean-up assistance from one helper? No. SHOWER/BATHE SELF - STEP 3: Does the patient need only verbal/nonverbal cueing or touching/steadying/contact guard assistance fro m one helper? Yes. 1. [id number] ADMISSION PERFORMANCE: Supervision or touching assistance CODE: 04 DRESSING - UPPER BODY: DRESSING - UPPER BODY - STEP 1: Does the patient complete the activity by him/herself with no assistance (physical, verbal/nonverbal cueing, setup/clean-up)? No. DRESSING - UPPER BODY - STEP 2: Does the patient need only setup/clean-up assistance from one helper? Yes. 1. [id number] ADMISSION PERFORMANCE: Setup or clean-up assistance CODE: 05 DRESSING - LOWER BODY: DRESSING - LOWER BODY - STEP 1: Does the patient complete the activity by him/herself with no assistance (physical, verbal/nonverbal cueing, setup/clean-up)? No. DRESSING - LOWER BODY - STEP 2: Does the patient need only setup/clean-up assistance from one helper? No. DRESSING - LOWER BODY - STEP 3: Does the patient need only verbal/nonverbal cueing or touching/steadying/contact guard assistance fro m one helper? Yes. 1. [id number] ADMISSION PERFORMANCE: Supervision or touching assistance CODE: 04 PUTTING ON/TAKING OFF FOOTWEAR: FOOTWEAR - STEP 1: Does the patient complete the activity by him/herself with no assistance (physical, verbal/nonverbal cueing, setup/clean-up)? Yes. 1. [id number] ADMISSION PERFORMANCE: Independent CODE: 06 DOES THE PATIENT USE A WHEELCHAIR/SCOOTER? CODE: EXPR INDICATE THE TYPE OF WHEELCHAIR/SCOOTER USED: CODE: EXPR INDICATE THE TYPE OF WHEELCHAIR/SCOOTER USED: CODE: EXPR BLADDER AND BOWEL: CODE: EXPR CODE: EXPR SIGNATURE PANEL: The following modified sections: 1. [id number] Admission Performance, 1. [id number] Admission Performance, 1. [id number] Admission Performance, 1. [id number] Admission Performance, 1. [id number] Admission Performance were [electronically] signed by MARY ALICE Kelly on TueNov 02 2019 15:24:53 T-0600 (Central Standard Time)
[2019-11-02] MEDS: ENOXAPARIN 30 MG/0.3 ML SQ SCH (17:16)
[2019-11-02] MEDS: METFORMIN HCL 500 MG TAB PO SCH (17:16)
[2019-11-02] MEDS: VANCOMYCIN 1.75 GM in NA CHLORIDE 0.9% 500 ML IVPB SCH (19:16)
[2019-11-02] MEDS: MELATONIN 5 MG TABLET PO PRN (19:50)
[2019-11-02] MEDS: TRAZODONE 50 MG TABLET PO PRN (21:09)
[2019-11-02] MEDS: INSULIN GLARGINE 100 UNITS/ML SQ SCH (21:10)
[2019-11-03] MEDS: SODIUM CHLORIDE 0.9% 10ML INJ IV SCH ×2 (06:46→20:00)
[2019-11-03] MEDS: INSULIN -REGULAR HUMAN 50 UNIT/0.5 ML ML SQ SCH ×4 (07:30→20:17)
[2019-11-03] MEDS: TRIAMCINOLONE ACET 0.1% CREAM 80 GM TOP SCH ×2 (07:45→20:10)
[2019-11-03] MEDS: HYDROCODONE/APAP 7.5/325 MG TAB PO PRN (07:45)
[2019-11-03] MEDS: LACTOBACILLUS/ACIDOPHILUS TAB PO SCH ×2 (07:47→20:10)
[2019-11-03] MEDS: CYANOCOBALAMIN 1,000 MCG TAB PO SCH (07:47)
[2019-11-03] MEDS: FE SULF/FA/VIT B COMP & C TAB PO SCH (07:47)
[2019-11-03] MEDS: CLOPIDOGREL 75 MG TABLET PO SCH (07:47)
[2019-11-03] MEDS: FERROUS SULFATE 325 MG TAB PO SCH (07:47)
[2019-11-03] MEDS: FUROSEMIDE 20 MG TABLET PO SCH (07:48)
[2019-11-03] MEDS: METFORMIN HCL 500 MG TAB PO SCH ×2 (07:48→16:55)
[2019-11-03] MEDS: ASPIRIN EC 81 MG TAB PO SCH (07:48)
[2019-11-03] MEDS: DOCUSATE NA 100 MG CAP PO SCH ×2 (07:49→20:10)
[2019-11-03] MEDS: SERTRALINE HCL 100 MG TAB PO SCH (07:49)
[2019-11-03] MEDS: ENSURE HIGH PROTEIN 237 ML CAN PO SCH (12:20)
[2019-11-03] MEDS: AYR NASAL SALINE DROPS NAS PRN ×2 (13:21→20:16)
[2019-11-03] MEDS: ENOXAPARIN 30 MG/0.3 ML SQ SCH (16:54)
[2019-11-03] MEDS: clonazePAM 0.5 MG TAB PO PRN (20:11)
[2019-11-03] MEDS: MELATONIN 5 MG TABLET PO PRN (20:11)
[2019-11-03] MEDS: INSULIN GLARGINE 100 UNITS/ML SQ SCH (20:17)
[2019-11-04] MEDS: SODIUM CHLORIDE 0.9% 10ML INJ IV SCH ×2 (06:44→20:51)
[2019-11-04] MEDS: INSULIN -REGULAR HUMAN 50 UNIT/0.5 ML ML SQ SCH ×4 (07:25→21:13)
[2019-11-04] MEDS: SERTRALINE HCL 100 MG TAB PO SCH (07:55)
[2019-11-04] MEDS: ASPIRIN EC 81 MG TAB PO SCH (07:56)
[2019-11-04] MEDS: DOCUSATE NA 100 MG CAP PO SCH ×2 (07:56→20:00)
[2019-11-04] MEDS: CLOPIDOGREL 75 MG TABLET PO SCH (07:57)
[2019-11-04] MEDS: FUROSEMIDE 20 MG TABLET PO SCH (07:57)
[2019-11-04] MEDS: TRIAMCINOLONE ACET 0.1% CREAM 80 GM TOP SCH ×2 (07:57→20:33)
[2019-11-04] MEDS: LACTOBACILLUS/ACIDOPHILUS TAB PO SCH ×2 (07:57→20:33)
[2019-11-04] MEDS: METFORMIN HCL 500 MG TAB PO SCH ×2 (07:57→16:56)
[2019-11-04] MEDS: FE SULF/FA/VIT B COMP & C TAB PO SCH (07:58)
[2019-11-04] MEDS: CYANOCOBALAMIN 1,000 MCG TAB PO SCH (07:58)
[2019-11-04] MEDS: FERROUS SULFATE 325 MG TAB PO SCH (07:58)
[2019-11-04] MEDS: ENSURE HIGH PROTEIN 237 ML CAN PO SCH (11:11)
[2019-11-04] MEDS: ENOXAPARIN 30 MG/0.3 ML SQ SCH (16:55)
[2019-11-04] MEDS: clonazePAM 0.5 MG TAB PO PRN (20:33)
[2019-11-04] MEDS: TRAZODONE 50 MG TABLET PO PRN (20:34)
[2019-11-04] MEDS: AYR NASAL SALINE DROPS NAS PRN (20:35)
[2019-11-04] MEDS: INSULIN GLARGINE 100 UNITS/ML SQ SCH (20:51)
[2019-11-04] MEDS ORDERED: INSULIN -REGULAR HUMAN 50 UNIT/0.5 ML ML ONE (21:11)
[2019-11-05] MEDS: INSULIN -REGULAR HUMAN 50 UNIT/0.5 ML ML SQ SCH ×4 (07:11→19:51)
[2019-11-05] MEDS: DOCUSATE NA 100 MG CAP PO SCH ×2 (08:00→19:50)
[2019-11-05] MEDS: SODIUM CHLORIDE 0.9% 10ML INJ IV SCH ×2 (08:00→19:06)
[2019-11-05] MEDS: ASPIRIN EC 81 MG TAB PO SCH (08:15)
[2019-11-05] MEDS: SERTRALINE HCL 100 MG TAB PO SCH (08:15)
[2019-11-05] MEDS: TRIAMCINOLONE ACET 0.1% CREAM 80 GM TOP SCH ×2 (08:15→19:06)
[2019-11-05] MEDS: CYANOCOBALAMIN 1,000 MCG TAB PO SCH (08:15)
[2019-11-05] MEDS: FERROUS SULFATE 325 MG TAB PO SCH (08:15)
[2019-11-05] MEDS: CLOPIDOGREL 75 MG TABLET PO SCH (08:16)
[2019-11-05] MEDS: FUROSEMIDE 20 MG TABLET PO SCH (08:16)
[2019-11-05] MEDS: METFORMIN HCL 500 MG TAB PO SCH ×2 (08:16→16:34)
[2019-11-05] MEDS: LACTOBACILLUS/ACIDOPHILUS TAB PO SCH ×2 (08:16→19:06)
[2019-11-05] MEDS: FE SULF/FA/VIT B COMP & C TAB PO SCH (08:16)
[2019-11-05] MEDS: ENSURE HIGH PROTEIN 237 ML CAN PO SCH (11:52)
[2019-11-05] MEDS: AYR NASAL SALINE DROPS NAS PRN (14:06)
--- NOTE | 2019-11-05 14:51 | FAST ---
ENCOUNTER DATE AND TIME: 11/05/2019 08:00 (CONTENT PRODUCER) NAME CARLA FORBES DATE OF : 1945 DATE OF ADMISSION: 10/19/2019 15:48 (CONTENT PRODUCER) PHONE: AGE: 73 N# [id number] GENDER: Male ENCOUNTER PHYSICIAN: Dr. Celso Noonan M.D. 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 EATING: Not assessed/no information CODE: - ORAL HYGIENE: ORAL HYGIENE - STEP 1: Does the patient complete the activity by him/herself with no assistance (physical, verbal/nonverbal cueing, setup/clean-up)? Yes. 1. [id number] ADMISSION PERFORMANCE: Independent CODE: 06 TOILETING HYGIENE: Not assessed/no information CODE: - BATHING: SHOWER/BATHE SELF - STEP 1: Does the patient complete the activity by him/herself with no assistance (physical, verbal/nonverbal cueing, setup/clean-up)? No. SHOWER/BATHE SELF - STEP 2: Does the patient need only setup/clean-up assistance from one helper? No. SHOWER/BATHE SELF - STEP 3: Does the patient need only verbal/nonverbal cueing or touching/steadying/contact guard assistance fro m one helper? Yes. 1. [id number] ADMISSION PERFORMANCE: Supervision or touching assistance CODE: 04 DRESSING - UPPER BODY: DRESSING - UPPER BODY - STEP 1: Does the patient complete the activity by him/herself with no assistance (physical, verbal/nonverbal cueing, setup/clean-up)? Yes. 1. [id number] ADMISSION PERFORMANCE: Independent CODE: 06 DRESSING - LOWER BODY: DRESSING - LOWER BODY - STEP 1: Does the patient complete the activity by him/herself with no assistance (physical, verbal/nonverbal cueing, setup/clean-up)? No. DRESSING - LOWER BODY - STEP 2: Does the patient need only setup/clean-up assistance from one helper? No. DRESSING - LOWER BODY - STEP 3: Does the patient need only verbal/nonverbal cueing or touching/steadying/contact guard assistance fro m one helper? Yes. 1. [id number] ADMISSION PERFORMANCE: Supervision or touching assistance CODE: 04 PUTTING ON/TAKING OFF FOOTWEAR: FOOTWEAR - STEP 1: Does the patient complete the activity by him/herself with no assistance (physical, verbal/nonverbal cueing, setup/clean-up)? Yes. 1. [id number] ADMISSION PERFORMANCE: Independent CODE: 06 DOES THE PATIENT USE A WHEELCHAIR/SCOOTER? CODE: EXPR INDICATE THE TYPE OF WHEELCHAIR/SCOOTER USED: CODE: EXPR INDICATE THE TYPE OF WHEELCHAIR/SCOOTER USED: CODE: EXPR BLADDER AND BOWEL: CODE: EXPR CODE: EXPR SIGNATURE PANEL: The following modified sections: 1. [id number] Admission Performance, 1. [id number] Admission Performance, 1. [id number] Admission Performance, 1. [id number] Admission Performance, 1. [id number] Admission Performance were [electronically] signed by MARY ALICE Kelly on TueNov 05 2019 14:50:34 GMT-0600 (Central Standard Time)
[2019-11-05] MEDS: ENOXAPARIN 30 MG/0.3 ML SQ SCH (16:34)
[2019-11-05] MEDS: clonazePAM 0.5 MG TAB PO PRN (19:06)
[2019-11-05] MEDS: MELATONIN 5 MG TABLET PO PRN (19:07)
[2019-11-05] MEDS: HYDROCODONE/APAP 7.5/325 MG TAB PO PRN (19:07)
[2019-11-05] MEDS: INSULIN GLARGINE 100 UNITS/ML SQ SCH (19:51)
[2019-11-06] MEDS: SODIUM CHLORIDE 0.9% 10ML INJ IV SCH ×2 (06:58→19:25)
[2019-11-06] MEDS: INSULIN -REGULAR HUMAN 50 UNIT/0.5 ML ML SQ SCH ×4 (07:23→19:25)
[2019-11-06] MEDS: TRIAMCINOLONE ACET 0.1% CREAM 80 GM TOP SCH ×2 (07:53→19:25)
[2019-11-06] MEDS: CLOPIDOGREL 75 MG TABLET PO SCH (07:54)
[2019-11-06] MEDS: FE SULF/FA/VIT B COMP & C TAB PO SCH (07:54)
[2019-11-06] MEDS: ASPIRIN EC 81 MG TAB PO SCH (07:54)
[2019-11-06] MEDS: FERROUS SULFATE 325 MG TAB PO SCH (07:54)
[2019-11-06] MEDS: DOCUSATE NA 100 MG CAP PO SCH ×2 (07:54→19:25)
[2019-11-06] MEDS: CYANOCOBALAMIN 1,000 MCG TAB PO SCH (07:54)
[2019-11-06] MEDS: SERTRALINE HCL 100 MG TAB PO SCH (07:54)
[2019-11-06] MEDS: FUROSEMIDE 20 MG TABLET PO SCH (07:54)
[2019-11-06] MEDS: LACTOBACILLUS/ACIDOPHILUS TAB PO SCH ×2 (07:54→19:24)
[2019-11-06] MEDS: METFORMIN HCL 500 MG TAB PO SCH ×2 (07:54→16:58)
[2019-11-06] MEDS: ENSURE HIGH PROTEIN 237 ML CAN PO SCH (11:57)
[2019-11-06] MEDS: AYR NASAL SALINE DROPS NAS PRN ×2 (14:48→19:26)
--- NOTE | 2019-11-06 15:04 | FAST ---
SHIFT START DATE/TIME: 11/05/2019 07:00 (CARD FOLDER) SHIFT END DATE/TIME: 11/05/2019 19:00 (CARD FOLDER) NAME CARLA FORBES DATE OF : 1945 DATE OF ADMISSION: 10/19/2019 15:48 (CARD FOLDER) PHONE: AGE: 73 N# [id number] GENDER: Male ENCOUNTER PHYSICIAN: Dr. Celso Noonan M.D. 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 EATING: EATING - STEP 1: Does the patient complete the activity by him/herself with no assistance (physical, verbal/nonverbal cueing, setup/clean-up)? No. EATING - STEP 2: Does the patient need only setup/clean-up assistance from one helper? Yes. 1. [id number] ADMISSION PERFORMANCE: Setup or clean-up assistance CODE: 05 ORAL HYGIENE: ORAL HYGIENE - STEP 1: Does the patient complete the activity by him/herself with no assistance (physical, verbal/nonverbal cueing, setup/clean-up)? Yes. 1. [id number] ADMISSION PERFORMANCE: Independent CODE: 06 TOILETING HYGIENE: TOILETING HYGIENE - STEP 1: Does the patient complete the activity by him/herself with no assistance (physical, verbal/nonverbal cueing, setup/clean-up)? No. TOILETING HYGIENE - STEP 2: Does the patient need only setup/clean-up assistance from one helper? No. TOILETING HYGIENE - STEP 3: Does the patient need only verbal/nonverbal cueing or touching/steadying/contact guard assistance fro m one helper? Yes. 1. [id number] ADMISSION PERFORMANCE: Supervision or touching assistance CODE: 04 BATHING: Not assessed/no information CODE: - DRESSING - UPPER BODY: DRESSING - UPPER BODY - STEP 1: Does the patient complete the activity by him/herself with no assistance (physical, verbal/nonverbal cueing, setup/clean-up)? Yes. 1. [id number] ADMISSION PERFORMANCE: Independent CODE: 06 DRESSING - LOWER BODY: DRESSING - LOWER BODY - STEP 1: Does the patient complete the activity by him/herself with no assistance (physical, verbal/nonverbal cueing, setup/clean-up)? No. DRESSING - LOWER BODY - STEP 2: Does the patient need only setup/clean-up assistance from one helper? No. DRESSING - LOWER BODY - STEP 3: Does the patient need only verbal/nonverbal cueing or touching/steadying/contact guard assistance fro m one helper? Yes. 1. [id number] ADMISSION PERFORMANCE: Supervision or touching assistance CODE: 04 PUTTING ON/TAKING OFF FOOTWEAR: FOOTWEAR - STEP 1: Does the patient complete the activity by him/herself with no assistance (physical, verbal/nonverbal cueing, setup/clean-up)? No. FOOTWEAR - STEP 2: Does the patient need only setup/clean-up assistance from one helper? Yes. 1. [id number] ADMISSION PERFORMANCE: Setup or clean-up assistance CODE: 05 DOES THE PATIENT USE A WHEELCHAIR/SCOOTER? CODE: EXPR INDICATE THE TYPE OF WHEELCHAIR/SCOOTER USED: CODE: EXPR INDICATE THE TYPE OF WHEELCHAIR/SCOOTER USED: CODE: EXPR BLADDER AND BOWEL: H350. BLADDER CONTINENCE (3-DAY ASSESSMENT PERIOD): Always continent (no documented incontinence) CODE: 0 H400. BOWEL CONTINENCE (3-DAY ASSESSMENT PERIOD): Always continent CODE: 0 SIGNATURE PANEL: The following modified sections: 1. [id number] Admission Performance, 1. SR6070K Admission Performance, 1. [id number] Admission Performance, 1. RG7764V Admission Performance, 1. QZ5266k Admission Performance, 1. GG8933e Admission Performance, 1. ZT0587k Admission Performance, 1. WX0592r Admission Performance , H350. Bladder Continence (3-day assessment period), H400. Bowel Continence (3-day assessment period ) were [electronically] signed by Rogelio DiazNNathalia on TueNov 06 2019 15:03:50 GMT-0600 (Central Standard Time)
[2019-11-06] MEDS: ENOXAPARIN 30 MG/0.3 ML SQ SCH (16:58)
--- NOTE | 2019-11-06 17:57 | R.PN ---
ENCOUNTER DATE AND TIME: 11/06/2019 17:50 (NURSE PRN) NAME CARLA FORBES DATE OF : 1945 DATE OF ADMISSION: 10/19/2019 15:48 (NURSE PRN) Left BKACHIEF COMPLAINT: Left below the knee amputation SUBJECTIVE: Pt denied any Shortness of Breath. Pt denied any depression. Ambulated a total of 91' with contact guard assistance using a rolling walker. Self-propelled wheelch air 750' total with standby assistance. WBC 8.1, Hgb 9.7, glucose 97 to 147, prealbumin 16.6, vanc trough 15.4, UA is normal. VITAL SIGNS Temperature: 97.6 F SBP/DBP: 107/62 Pulse: 86 Resp: 16 MEDICATION ALLERGIES: No Known Drug Allergies (NKDA) ENVIRONMENTAL ALLERGIES: None Known - Substance Allergies None Known - Other Allergies None Known CONSULT: Perform Consult Certified Prosthetic for prosthesis construction NURSING: - Shower allowing shower - Skin care per protocol PRECAUTIONS: - Weight Bearing Precaution NWB left LE ACTIVITIES OOB only with supervision THERAPIES: - Orthotics/Prosthetics Prosthetic Evaluation. - Dietary and Nutrition Adequate Nutrition. Nutritional Education. Nutritional Supplements. PHYSICAL EXAM - Gen Alert and awake Lying in bed No apparent distress Oriented to: person, time, and place - Skin LLE incisions intact Normacephalic - Eyes No abnormalities - ENMT No abnormalities - Neck No abnormalities - CVS RRR - Chest No abnormalities - Resp Clear to auscultation - Abd Soft - GI Non distended Deferred - No abnormalities - Ext Left BKA good hemostasis, dressing in place - MSK 4+/5 weakness in left lower extremity - Neuro 4/5 strength left lower extremity. - Psych No abnormalities ASSESSMENT: Pt. 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 was independent/mod-I in Locomotion, Balance , Safety Awareness, Social Cognition, Transfers Control, Sphincter Control, Self-Care, Communication, and Endurance; and he had good Locomotion, Balance, Safety Awareness, Social Cognition, Transfers Co ntrol, Sphincter Control, Self-Care, Communication, and Endurance.Currently, he has deficits of Locom otion, Balance, Safety Awareness, Transfers Control, Self-Care, Endurance, and Communication.Pt. is n ow referred to [facility] for acute in-patient rehabilitation in order to maxi manuel patient's functional independence in activities of daily living, strength, ROM, and mobility.- R ehab Goal Patient has realistic goal of being discharged at assistance level 6-Elvia to reside at Home with Fam bel/Relatives. MDM/PLAN: - Physical Therapy Gait dysfunction - to improve, our physical therapists will perform initial evaluation of pt's statu s upon admission and devise an individualized program for Gait Training, and Wheel Chair mobility Inability to transfer - to improve, our physical therapists will perform initial evaluation of pt's status upon admission and devise an individualized program for Bed mobility Need for home safety evaluation - to improve, our physical therapists will perform initial evaluatio n of pt's status upon admission and devise an individualized program for Home Evaluation Need in caregiver upon discharge - to improve, our physical therapists will perform initial evaluati on of pt's status upon admission and devise an individualized program for Caregiver Training New precaution - to improve, our physical therapists will perform initial evaluation of pt's status upon admission and devise an individualized program for Patient precaution education Poor balance - to improve, our physical therapists will perform initial evaluation of pt's status up on admission and devise an individualized program for Balance Training Poor endurance - to improve, our physical therapists will perform initial evaluation of pt's status upon admission and devise an individualized program for Endurance Training Weakness - to improve, our physical therapists will perform initial evaluation of pt's status upon a dmission and devise an individualized program for Aquatic Therapy, Neuromuscular Reeducation, and Str engthening Achieving independence - to improve, our physical therapists will perform initial evaluation of pt's status upon admission and devise an individualized program for Community Reintegration Activities - Occupational Therapy ADL deficits - to improve, our occupation therapists will perform initial evaluation of pt's status upon admission and devise an individualized program for Bathing, Bed mobility, Community Reintegratio n, Cooking, Dressing, Eating, Fine Motor Skills, Grooming, Homemaking, Kitchen Mobility, Laundry, Pat ient Education, Safety Awareness, Splinting - Positioning, Transfers(Toilet, Tub, Shower), and Wheel Chair Management Need for livestock caretaker - to improve, our occupation therapists will perform initial evaluation of pt's status upon admission and devise an individualized program for Caregiver Training Weakness - to improve, our occupation therapists will perform initial evaluation of pt's status upon admission and devise an individualized program for Aquatic Therapy, Balance, Endurance, UE ROM, and UE strengthening - Other See attached MAR (Medication Administration Record) - Diet Type Continue Regular - Diet - Liquid Texture Continue Regular - Tube Feed Continue N/A - Weight Bearing Precaution NWB left LE - Skin care per protocol - N/A Perform Consult Certified Prosthetic for prosthesis construction - Diet - Solid Texture Continue Regular - Shower allowing shower FUNCTIONAL STATUS: UPDATED AT WEEKLY TEAM CONFERENCE - Bladder Same accident frequency: 7-Ind - No accidents in the past 7 days - Bowel Same accident frequency: 7-Ind - No accidents in the past 7 days - Walking Same score based on distance walked: 0(N/A) - Wheelchair Same score based on distance traveled: 0(N/A) FUNCTIONAL STATUS: - Self-Care A. Eating Ind B. Grooming sup C. Bathing Isaías D. Dressing - Upper Ind E. Dressing - Lower modA F. Toileting modA - Sphincter Control G. Bladder control sup H. Bowel control sup - Transfers Control I. Bed/Chair/Wheelchair modA J. Toilet modA K. Tub/Shower modA - Locomotion L. Walk/Wheelchair (B) modA M. Stairs ADNO - Communication N. Comprehension (B) Elvia O. Expression (B) Elvia - Social Cognition P. Social Interaction Elvia Q. Problem Solving sup R. Memory sup - Endurance Fair - Balance Fair - Safety Awareness Fair QI SCORES: - Self-Care A. Eating 05-Setup or clean-up assistance B. Oral hygiene 05-Setup or clean-up assistance C. Toileting hygiene 03-Partial/moderate assistance E. Shower/bathe self 03-Partial/moderate assistance F. Upper body dressing 03-Partial/moderate assistance G. Lower body dressing 02-Substantial/maximal assistance H. Putting on/taking off footwear 02-Substantial/maximal assistance - Mobility A. Roll left and right 03-Partial/moderate assistance B. Sit to lying 03-Partial/moderate assistance C. Lying to sitting on side of bed 03-Partial/moderate assistance D. Sit to stand 03-Partial/moderate assistance E. Chair/fik-or-chgck transfer 03-Partial/moderate assistance F. Toilet transfer 03-Partial/moderate assistance G. Car transfer 10-Not attempted due to environmental limitations I. Walk 10 feet 88-Not attempted due to medical condition or safety concerns J. Walk 50 feet with two turns 88-Not attempted due to medical condition or safety concerns K. Walk 150 feet 88-Not attempted due to medical condition or safety concerns L. Walking 10 feet on uneven surfaces 88-Not attempted due to medical condition or safety concerns M. 1 step (curb) 88-Not attempted due to medical condition or safety concerns N. 4 steps 09-Not applicable O. 12 steps 09-Not applicable P. Picking up object 88-Not attempted due to medical condition or safety concerns R. Wheel 50 feet with two turns 88-Not attempted due to medical condition or safety concerns S. Wheel 150 feet 88-Not attempted due to medical condition or safety concerns - Bladder and Bowel Bladder continence 0-Always continent Bowel continence 0-Always continent - Endurance Poor - Balance Poor - Safety Awareness Fair CURRENT FUNC. DEFICITS: Self-Care, Mobility, Endurance, Balance, and Safety Awareness SIGNATURE PANEL: (NURSE PRN)
[2019-11-06] MEDS: MELATONIN 5 MG TABLET PO PRN (19:24)
[2019-11-06] MEDS: clonazePAM 0.5 MG TAB PO PRN (19:24)
[2019-11-06] MEDS: INSULIN GLARGINE 100 UNITS/ML SQ SCH (19:24)
[2019-11-06] MEDS: HYDROCODONE/APAP 7.5/325 MG TAB PO PRN (19:24)
[2019-11-07] MEDS: INSULIN -REGULAR HUMAN 50 UNIT/0.5 ML ML SQ SCH ×4 (07:23→20:24)
[2019-11-07] MEDS: CYANOCOBALAMIN 1,000 MCG TAB PO SCH (07:35)
[2019-11-07] MEDS: TRIAMCINOLONE ACET 0.1% CREAM 80 GM TOP SCH ×2 (07:35→20:23)
[2019-11-07] MEDS: FERROUS SULFATE 325 MG TAB PO SCH (07:35)
[2019-11-07] MEDS: CLOPIDOGREL 75 MG TABLET PO SCH (07:35)
[2019-11-07] MEDS: SERTRALINE HCL 100 MG TAB PO SCH (07:35)
[2019-11-07] MEDS: LACTOBACILLUS/ACIDOPHILUS TAB PO SCH ×2 (07:35→20:23)
[2019-11-07] MEDS: METFORMIN HCL 500 MG TAB PO SCH ×2 (07:35→16:56)
[2019-11-07] MEDS: ASPIRIN EC 81 MG TAB PO SCH (07:35)
[2019-11-07] MEDS: FE SULF/FA/VIT B COMP & C TAB PO SCH (07:35)
[2019-11-07] MEDS: DOCUSATE NA 100 MG CAP PO SCH ×2 (07:36→20:23)
[2019-11-07] MEDS: FUROSEMIDE 20 MG TABLET PO SCH (07:36)
[2019-11-07] MEDS: SODIUM CHLORIDE 0.9% 10ML INJ IV SCH ×2 (07:36→20:23)
[2019-11-07] MEDS: ENSURE HIGH PROTEIN 237 ML CAN PO SCH (12:00)
--- NOTE | 2019-11-07 14:18 | FAST ---
ENCOUNTER DATE AND TIME: 11/07/2019 08:00 (VISUAL ASSOCIATE) NAME CARLA FORBES DATE OF : 1945 DATE OF ADMISSION: 10/19/2019 15:48 (VISUAL ASSOCIATE) PHONE: AGE: 73 N# [id number] GENDER: Male ENCOUNTER PHYSICIAN: Dr. Celso Noonan M.D. 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 EATING: Not assessed/no information CODE: - ORAL HYGIENE: ORAL HYGIENE - STEP 1: Does the patient complete the activity by him/herself with no assistance (physical, verbal/nonverbal cueing, setup/clean-up)? Yes. 1. [id number] ADMISSION PERFORMANCE: Independent CODE: 06 TOILETING HYGIENE: Not assessed/no information CODE: - BATHING: SHOWER/BATHE SELF - STEP 1: Does the patient complete the activity by him/herself with no assistance (physical, verbal/nonverbal cueing, setup/clean-up)? No. SHOWER/BATHE SELF - STEP 2: Does the patient need only setup/clean-up assistance from one helper? No. SHOWER/BATHE SELF - STEP 3: Does the patient need only verbal/nonverbal cueing or touching/steadying/contact guard assistance fro m one helper? Yes. 1. [id number] ADMISSION PERFORMANCE: Supervision or touching assistance CODE: 04 DRESSING - UPPER BODY: DRESSING - UPPER BODY - STEP 1: Does the patient complete the activity by him/herself with no assistance (physical, verbal/nonverbal cueing, setup/clean-up)? Yes. 1. [id number] ADMISSION PERFORMANCE: Independent CODE: 06 DRESSING - LOWER BODY: DRESSING - LOWER BODY - STEP 1: Does the patient complete the activity by him/herself with no assistance (physical, verbal/nonverbal cueing, setup/clean-up)? No. DRESSING - LOWER BODY - STEP 2: Does the patient need only setup/clean-up assistance from one helper? No. DRESSING - LOWER BODY - STEP 3: Does the patient need only verbal/nonverbal cueing or touching/steadying/contact guard assistance fro m one helper? Yes. 1. [id number] ADMISSION PERFORMANCE: Supervision or touching assistance CODE: 04 PUTTING ON/TAKING OFF FOOTWEAR: FOOTWEAR - STEP 1: Does the patient complete the activity by him/herself with no assistance (physical, verbal/nonverbal cueing, setup/clean-up)? Yes. 1. [id number] ADMISSION PERFORMANCE: Independent CODE: 06 DOES THE PATIENT USE A WHEELCHAIR/SCOOTER? CODE: EXPR INDICATE THE TYPE OF WHEELCHAIR/SCOOTER USED: CODE: EXPR INDICATE THE TYPE OF WHEELCHAIR/SCOOTER USED: CODE: EXPR BLADDER AND BOWEL: CODE: EXPR CODE: EXPR SIGNATURE PANEL: The following modified sections: 1. [id number] Admission Performance, 1. [id number] Admission Performance, 1. [id number] Admission Performance, 1. [id number] Admission Performance, 1. [id number] Admission Performance were [electronically] signed by MARY ALICE Kelly on TueNov 07 2019 14:17:12 GMT-0600 (Central Standard Time)
[2019-11-07] MEDS: ENOXAPARIN 30 MG/0.3 ML SQ SCH (16:56)
--- NOTE | 2019-11-07 18:04 | R.PN ---
ENCOUNTER DATE AND TIME: 11/07/2019 17:55 (BEAMSTER) NAME CARLA FORBES DATE OF : 1945 DATE OF ADMISSION: 10/19/2019 15:48 (BEAMSTER) Left BKACHIEF COMPLAINT: Left below the knee amputation SUBJECTIVE: Pt denied any Shortness of Breath. Pt denied any depression. Ambulated a total of 91' with contact guard assistance using a rolling walker. Self-propelled wheelch air 750' total with standby assistance. WBC 8.1, Hgb 9.7, glucose 88 to 116, prealbumin 16.6, Vanc is complete and was d/junaid. UA is normal. Mr. Milton is unable to ambulate more than 40' at once using a 2-wheeled walker while supporting his w eight with his arms and right leg. he has a left below the knee amputation with non-weight bearing on the left stump. He self-propelled a wheelchair 250' x 3 with standby assistance using his upper extr emities. He would benefit greatly by having a wheelchair at home for mobilization. VITAL SIGNS Temperature: 97.2 F SBP/DBP: 116/65 Pulse: 85 Resp: 16 MEDICATION ALLERGIES: No Known Drug Allergies (NKDA) ENVIRONMENTAL ALLERGIES: None Known - Substance Allergies None Known - Other Allergies None Known CONSULT: Perform Consult Certified Prosthetic for prosthesis construction NURSING: - Shower allowing shower - Skin care per protocol PRECAUTIONS: - Weight Bearing Precaution NWB left LE ACTIVITIES OOB only with supervision THERAPIES: - Orthotics/Prosthetics Prosthetic Evaluation. - Dietary and Nutrition Adequate Nutrition. Nutritional Education. Nutritional Supplements. PHYSICAL EXAM - Gen Alert and awake Lying in bed No apparent distress Oriented to: person, time, and place - Skin LLE incisions intact Normacephalic - Eyes No abnormalities - ENMT No abnormalities - Neck No abnormalities - CVS RRR - Chest No abnormalities - Resp Clear to auscultation - Abd Soft - GI Non distended Deferred - No abnormalities - Ext Left BKA good hemostasis, dressing in place - MSK 4+/5 weakness in left lower extremity - Neuro 4/5 strength left lower extremity. - Psych No abnormalities ASSESSMENT: Pt. 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 was independent/mod-I in Locomotion, Balance , Safety Awareness, Social Cognition, Transfers Control, Sphincter Control, Self-Care, Communication, and Endurance; and he had good Locomotion, Balance, Safety Awareness, Social Cognition, Transfers Co ntrol, Sphincter Control, Self-Care, Communication, and Endurance.Currently, he has deficits of Locom otion, Balance, Safety Awareness, Transfers Control, Self-Care, Endurance, and Communication.Pt. is n ow referred to [facility] for acute in-patient rehabilitation in order to maxi manuel patient's functional independence in activities of daily living, strength, ROM, and mobility.- R ehab Goal Patient has realistic goal of being discharged at assistance level 6-Elvia to reside at Home with Fam bel/Relatives. MDM/PLAN: - Physical Therapy Gait dysfunction - to improve, our physical therapists will perform initial evaluation of pt's statu s upon admission and devise an individualized program for Gait Training, and Wheel Chair mobility Inability to transfer - to improve, our physical therapists will perform initial evaluation of pt's status upon admission and devise an individualized program for Bed mobility Need for home safety evaluation - to improve, our physical therapists will perform initial evaluatio n of pt's status upon admission and devise an individualized program for Home Evaluation Need in caregiver upon discharge - to improve, our physical therapists will perform initial evaluati on of pt's status upon admission and devise an individualized program for Caregiver Training New precaution - to improve, our physical therapists will perform initial evaluation of pt's status upon admission and devise an individualized program for Patient precaution education Poor balance - to improve, our physical therapists will perform initial evaluation of pt's status up on admission and devise an individualized program for Balance Training Poor endurance - to improve, our physical therapists will perform initial evaluation of pt's status upon admission and devise an individualized program for Endurance Training Weakness - to improve, our physical therapists will perform initial evaluation of pt's status upon a dmission and devise an individualized program for Aquatic Therapy, Neuromuscular Reeducation, and Str engthening Achieving independence - to improve, our physical therapists will perform initial evaluation of pt's status upon admission and devise an individualized program for Community Reintegration Activities - Occupational Therapy ADL deficits - to improve, our occupation therapists will perform initial evaluation of pt's status upon admission and devise an individualized program for Bathing, Bed mobility, Community Reintegratio n, Cooking, Dressing, Eating, Fine Motor Skills, Grooming, Homemaking, Kitchen Mobility, Laundry, Pat ient Education, Safety Awareness, Splinting - Positioning, Transfers(Toilet, Tub, Shower), and Wheel Chair Management Need for child care center administrator - to improve, our occupation therapists will perform initial evaluation of pt's status upon admission and devise an individualized program for Caregiver Training Weakness - to improve, our occupation therapists will perform initial evaluation of pt's status upon admission and devise an individualized program for Aquatic Therapy, Balance, Endurance, UE ROM, and UE strengthening - Other See attached MAR (Medication Administration Record) - Diet Type Continue Regular - Diet - Liquid Texture Continue Regular - Tube Feed Continue N/A - Weight Bearing Precaution NWB left LE - Skin care per protocol - N/A Perform Consult Certified Prosthetic for prosthesis construction - Diet - Solid Texture Continue Regular - Shower allowing shower FUNCTIONAL STATUS: UPDATED AT WEEKLY TEAM CONFERENCE - Bladder Same accident frequency: 7-Ind - No accidents in the past 7 days - Bowel Same accident frequency: 7-Ind - No accidents in the past 7 days - Walking Same score based on distance walked: 0(N/A) - Wheelchair Same score based on distance traveled: 0(N/A) FUNCTIONAL STATUS: - Self-Care A. Eating Ind B. Grooming sup C. Bathing Isaías D. Dressing - Upper Ind E. Dressing - Lower modA F. Toileting modA - Sphincter Control G. Bladder control sup H. Bowel control sup - Transfers Control I. Bed/Chair/Wheelchair modA J. Toilet modA K. Tub/Shower modA - Locomotion L. Walk/Wheelchair (B) modA M. Stairs ADNO - Communication N. Comprehension (B) Elvia O. Expression (B) Elvia - Social Cognition P. Social Interaction Elvia Q. Problem Solving sup R. Memory sup - Endurance Fair - Balance Fair - Safety Awareness Fair QI SCORES: - Self-Care A. Eating 05-Setup or clean-up assistance B. Oral hygiene 05-Setup or clean-up assistance C. Toileting hygiene 03-Partial/moderate assistance E. Shower/bathe self 03-Partial/moderate assistance F. Upper body dressing 03-Partial/moderate assistance G. Lower body dressing 02-Substantial/maximal assistance H. Putting on/taking off footwear 02-Substantial/maximal assistance - Mobility A. Roll left and right 03-Partial/moderate assistance B. Sit to lying 03-Partial/moderate assistance C. Lying to sitting on side of bed 03-Partial/moderate assistance D. Sit to stand 03-Partial/moderate assistance E. Chair/wav-ra-syrty transfer 03-Partial/moderate assistance F. Toilet transfer 03-Partial/moderate assistance G. Car transfer 10-Not attempted due to environmental limitations I. Walk 10 feet 88-Not attempted due to medical condition or safety concerns J. Walk 50 feet with two turns 88-Not attempted due to medical condition or safety concerns K. Walk 150 feet 88-Not attempted due to medical condition or safety concerns L. Walking 10 feet on uneven surfaces 88-Not attempted due to medical condition or safety concerns M. 1 step (curb) 88-Not attempted due to medical condition or safety concerns N. 4 steps 09-Not applicable O. 12 steps 09-Not applicable P. Picking up object 88-Not attempted due to medical condition or safety concerns R. Wheel 50 feet with two turns 88-Not attempted due to medical condition or safety concerns S. Wheel 150 feet 88-Not attempted due to medical condition or safety concerns - Bladder and Bowel Bladder continence 0-Always continent Bowel continence 0-Always continent - Endurance Poor - Balance Poor - Safety Awareness Fair CURRENT FUNC. DEFICITS: Self-Care, Mobility, Endurance, Balance, and Safety Awareness SIGNATURE PANEL: (BEAMSTER)
[2019-11-07] MEDS: INSULIN GLARGINE 100 UNITS/ML SQ SCH (20:22)
[2019-11-07] MEDS: clonazePAM 0.5 MG TAB PO PRN (20:23)
[2019-11-07] MEDS: TRAZODONE 50 MG TABLET PO PRN (20:23)
[2019-11-07] MEDS: AYR NASAL SALINE DROPS NAS PRN (20:24)
[2019-11-08 05:52] LABS: Absolute Lymphocytes (CBC) 7.8 K/uL (0.7-4.9); Basophils % 0.4 % (0-1.3); Hematocrit 32.3 % (39.6-49.0); Lymphocytes % 65.8 % (15.3-44.8); MPV 7.1 fL (7.6-11.3); RBC Red Blood Cell Count 3.54 M/uL (4.33-5.43)
[2019-11-08 06:15] LABS: Albumin 3.4 g/dL (3.4-5.0); Magnesium 2.4 mg/dL (1.8-2.4); Potassium 4.5 mmol/L (3.5-5.1); Prealbumin 29.8 mg/dL (20-40)
[2019-11-08] MEDS: INSULIN -REGULAR HUMAN 50 UNIT/0.5 ML ML SQ SCH ×4 (07:30→20:27)
[2019-11-08 07:49] LABS: Platelet Estimate ADEQ
[2019-11-08 07:50] LABS: Blood Morphology Comment NOT SEEN (NOT SEEN)
[2019-11-08] MEDS: SODIUM CHLORIDE 0.9% 10ML INJ IV SCH ×2 (08:00→20:27)
[2019-11-08] MEDS: ASPIRIN EC 81 MG TAB PO SCH (08:24)
[2019-11-08] MEDS: TRIAMCINOLONE ACET 0.1% CREAM 80 GM TOP SCH ×2 (08:24→20:27)
[2019-11-08] MEDS: SERTRALINE HCL 100 MG TAB PO SCH (08:24)
[2019-11-08] MEDS: FE SULF/FA/VIT B COMP & C TAB PO SCH (08:25)
[2019-11-08] MEDS: FERROUS SULFATE 325 MG TAB PO SCH (08:26)
[2019-11-08] MEDS: FUROSEMIDE 20 MG TABLET PO SCH (08:26)
[2019-11-08] MEDS: CLOPIDOGREL 75 MG TABLET PO SCH (08:26)
[2019-11-08] MEDS: DOCUSATE NA 100 MG CAP PO SCH ×2 (08:26→20:00)
[2019-11-08] MEDS: METFORMIN HCL 500 MG TAB PO SCH ×2 (08:26→16:42)
[2019-11-08] MEDS: LACTOBACILLUS/ACIDOPHILUS TAB PO SCH ×2 (08:26→20:26)
[2019-11-08] MEDS: CYANOCOBALAMIN 1,000 MCG TAB PO SCH (08:29)
[2019-11-08] MEDS: ENSURE HIGH PROTEIN 237 ML CAN PO SCH (12:00)
[2019-11-08] MEDS: ENOXAPARIN 30 MG/0.3 ML SQ SCH (16:23)
--- NOTE | 2019-11-08 18:04 | R.PN ---
ENCOUNTER DATE AND TIME: 11/08/2019 17:57 (SWING TENDER) NAME CARLA FORBES DATE OF : 1945 DATE OF ADMISSION: 10/19/2019 15:48 (SWING TENDER) Left BKACHIEF COMPLAINT: Left below the knee amputation SUBJECTIVE: Pt denied any Shortness of Breath. Pt denied any depression. Ambulated a total of 105' with partial assistance using a rolling walker. Self-propelled wheelchair 5 00' total with standby assistance. WBC 11.9, Hgb 10.5, glucose 112 to 129, prealbumin 29.8, Vanc is complete and was d/junaid. UA is adelaida l. Mr. Forbes is unable to ambulate more than 40' at once using a 2-wheeled walker while supporting his w eight with his arms and right leg. he has a left below the knee amputation with non-weight bearing on the left stump. VITAL SIGNS Temperature: 97.2 F SBP/DBP: 101/66 Pulse: 87 Resp: 16 MEDICATION ALLERGIES: No Known Drug Allergies (NKDA) ENVIRONMENTAL ALLERGIES: None Known - Substance Allergies None Known - Other Allergies None Known CONSULT: Perform Consult Certified Prosthetic for prosthesis construction NURSING: - Shower allowing shower - Skin care per protocol PRECAUTIONS: - Weight Bearing Precaution NWB left LE ACTIVITIES OOB only with supervision THERAPIES: - Orthotics/Prosthetics Prosthetic Evaluation. - Dietary and Nutrition Adequate Nutrition. Nutritional Education. Nutritional Supplements. PHYSICAL EXAM - Gen Alert and awake Lying in bed No apparent distress Oriented to: person, time, and place - Skin LLE incisions intact Normacephalic - Eyes No abnormalities - ENMT No abnormalities - Neck No abnormalities - CVS RRR - Chest No abnormalities - Resp Clear to auscultation - Abd Soft - GI Non distended Deferred - No abnormalities - Ext Left BKA good hemostasis, dressing in place - MSK 4+/5 weakness in left lower extremity - Neuro 4/5 strength left lower extremity. - Psych No abnormalities ASSESSMENT: Pt. 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 was independent/mod-I in Locomotion, Balance , Safety Awareness, Social Cognition, Transfers Control, Sphincter Control, Self-Care, Communication, and Endurance; and he had good Locomotion, Balance, Safety Awareness, Social Cognition, Transfers Co ntrol, Sphincter Control, Self-Care, Communication, and Endurance.Currently, he has deficits of Locom otion, Balance, Safety Awareness, Transfers Control, Self-Care, Endurance, and Communication.Pt. is n ow referred to [facility] for acute in-patient rehabilitation in order to maxrocio jackson patient's functional independence in activities of daily living, strength, ROM, and mobility.- R ehab Goal Patient has realistic goal of being discharged at assistance level 6-Elvia to reside at Home with Fam bel/Relatives. MDM/PLAN: - Physical Therapy Gait dysfunction - to improve, our physical therapists will perform initial evaluation of pt's statu s upon admission and devise an individualized program for Gait Training, and Wheel Chair mobility Inability to transfer - to improve, our physical therapists will perform initial evaluation of pt's status upon admission and devise an individualized program for Bed mobility Need for home safety evaluation - to improve, our physical therapists will perform initial evaluatio n of pt's status upon admission and devise an individualized program for Home Evaluation Need in caregiver upon discharge - to improve, our physical therapists will perform initial evaluati on of pt's status upon admission and devise an individualized program for Caregiver Training New precaution - to improve, our physical therapists will perform initial evaluation of pt's status upon admission and devise an individualized program for Patient precaution education Poor balance - to improve, our physical therapists will perform initial evaluation of pt's status up on admission and devise an individualized program for Balance Training Poor endurance - to improve, our physical therapists will perform initial evaluation of pt's status upon admission and devise an individualized program for Endurance Training Weakness - to improve, our physical therapists will perform initial evaluation of pt's status upon a dmission and devise an individualized program for Aquatic Therapy, Neuromuscular Reeducation, and Str engthening Achieving independence - to improve, our physical therapists will perform initial evaluation of pt's status upon admission and devise an individualized program for Community Reintegration Activities - Occupational Therapy ADL deficits - to improve, our occupation therapists will perform initial evaluation of pt's status upon admission and devise an individualized program for Bathing, Bed mobility, Community Reintegratio n, Cooking, Dressing, Eating, Fine Motor Skills, Grooming, Homemaking, Kitchen Mobility, Laundry, Pat ient Education, Safety Awareness, Splinting - Positioning, Transfers(Toilet, Tub, Shower), and Wheel Chair Management Need for behavioral health care coordinator - to improve, our occupation therapists will perform initial evaluation of pt's status upon admission and devise an individualized program for Caregiver Training Weakness - to improve, our occupation therapists will perform initial evaluation of pt's status upon admission and devise an individualized program for Aquatic Therapy, Balance, Endurance, UE ROM, and UE strengthening - Other See attached MAR (Medication Administration Record) - Diet Type Continue Regular - Diet - Liquid Texture Continue Regular - Tube Feed Continue N/A - Weight Bearing Precaution NWB left LE - Skin care per protocol - N/A Perform Consult Certified Prosthetic for prosthesis construction - Diet - Solid Texture Continue Regular - Shower allowing shower FUNCTIONAL STATUS: UPDATED AT WEEKLY TEAM CONFERENCE - Bladder Same accident frequency: 7-Ind - No accidents in the past 7 days - Bowel Same accident frequency: 7-Ind - No accidents in the past 7 days - Walking Same score based on distance walked: 0(N/A) - Wheelchair Same score based on distance traveled: 0(N/A) FUNCTIONAL STATUS: - Self-Care A. Eating Ind B. Grooming sup C. Bathing Isaías D. Dressing - Upper Ind E. Dressing - Lower modA F. Toileting modA - Sphincter Control G. Bladder control sup H. Bowel control sup - Transfers Control I. Bed/Chair/Wheelchair modA J. Toilet modA K. Tub/Shower modA - Locomotion L. Walk/Wheelchair (B) modA M. Stairs ADNO - Communication N. Comprehension (B) Elvia O. Expression (B) Elvia - Social Cognition P. Social Interaction Elvia Q. Problem Solving sup R. Memory sup - Endurance Fair - Balance Fair - Safety Awareness Fair QI SCORES: - Self-Care A. Eating 05-Setup or clean-up assistance B. Oral hygiene 05-Setup or clean-up assistance C. Toileting hygiene 03-Partial/moderate assistance E. Shower/bathe self 03-Partial/moderate assistance F. Upper body dressing 03-Partial/moderate assistance G. Lower body dressing 02-Substantial/maximal assistance H. Putting on/taking off footwear 02-Substantial/maximal assistance - Mobility A. Roll left and right 03-Partial/moderate assistance B. Sit to lying 03-Partial/moderate assistance C. Lying to sitting on side of bed 03-Partial/moderate assistance D. Sit to stand 03-Partial/moderate assistance E. Chair/krk-lt-sprpz transfer 03-Partial/moderate assistance F. Toilet transfer 03-Partial/moderate assistance G. Car transfer 10-Not attempted due to environmental limitations I. Walk 10 feet 88-Not attempted due to medical condition or safety concerns J. Walk 50 feet with two turns 88-Not attempted due to medical condition or safety concerns K. Walk 150 feet 88-Not attempted due to medical condition or safety concerns L. Walking 10 feet on uneven surfaces 88-Not attempted due to medical condition or safety concerns M. 1 step (curb) 88-Not attempted due to medical condition or safety concerns N. 4 steps 09-Not applicable O. 12 steps 09-Not applicable P. Picking up object 88-Not attempted due to medical condition or safety concerns R. Wheel 50 feet with two turns 88-Not attempted due to medical condition or safety concerns S. Wheel 150 feet 88-Not attempted due to medical condition or safety concerns - Bladder and Bowel Bladder continence 0-Always continent Bowel continence 0-Always continent - Endurance Poor - Balance Poor - Safety Awareness Fair [facility] DEFICITS: Self-Care, Mobility, Endurance, Balance, and Safety Awareness SIGNATURE PANEL: (SWING TENDER)
[2019-11-08] MEDS: INSULIN GLARGINE 100 UNITS/ML SQ SCH (20:26)
[2019-11-08] MEDS: clonazePAM 0.5 MG TAB PO PRN (20:26)
[2019-11-08] MEDS: TRAZODONE 50 MG TABLET PO PRN (20:26)
[2019-11-08] MEDS: AYR NASAL SALINE DROPS NAS PRN (20:34)
[2019-11-09] MEDS: SODIUM CHLORIDE 0.9% 10ML INJ IV SCH ×2 (06:32→19:57)
[2019-11-09] MEDS: INSULIN -REGULAR HUMAN 50 UNIT/0.5 ML ML SQ SCH ×4 (07:30→20:06)
[2019-11-09] MEDS: FE SULF/FA/VIT B COMP & C TAB PO SCH (07:46)
[2019-11-09] MEDS: CLOPIDOGREL 75 MG TABLET PO SCH (07:46)
[2019-11-09] MEDS: METFORMIN HCL 500 MG TAB PO SCH ×2 (07:46→17:12)
[2019-11-09] MEDS: DOCUSATE NA 100 MG CAP PO SCH ×2 (07:47→19:56)
[2019-11-09] MEDS: CYANOCOBALAMIN 1,000 MCG TAB PO SCH (07:47)
[2019-11-09] MEDS: SERTRALINE HCL 100 MG TAB PO SCH (07:47)
[2019-11-09] MEDS: ASPIRIN EC 81 MG TAB PO SCH (07:47)
[2019-11-09] MEDS: FUROSEMIDE 20 MG TABLET PO SCH (07:47)
[2019-11-09] MEDS: LACTOBACILLUS/ACIDOPHILUS TAB PO SCH ×2 (07:47→19:56)
[2019-11-09] MEDS: FERROUS SULFATE 325 MG TAB PO SCH (07:47)
[2019-11-09] MEDS: TRIAMCINOLONE ACET 0.1% CREAM 80 GM TOP SCH ×2 (07:48→19:57)
--- NOTE | 2019-11-09 10:06 | P.RH.PN ---
Estimated Length of Stay: 28 Expected Discharge Date: 11/15/19 Discharge Disposition Plan: Home Family Support: Yes [facility] Goal: Mobility, Transfers, Self Care Vital Signs: Last Vital Signs Temp 96.8 F 11/09/19 06:58 Pulse 80 11/09/19 07:47 Resp 16 11/09/19 06:58 BP 103/62 11/09/19 07:47 Pulse Ox 96 11/09/19 06:58 Laboratory: Laboratory Last Values WBC 11.9 K/uL (4.3-10.9) H D 11/08/19 05:35 RBC 3.54 M/uL (4.33-5.43) L 11/08/19 05:35 Hgb 10.5 g/dL (13.6-17.9) L 11/08/19 05:35 Hct 32.3 % (39.6-49.0) L 11/08/19 05:35 MCV 91.2 fL (80-100) 11/08/19 05:35 MCH 29.8 pg (27.0-35.0) 11/08/19 05:35 MCHC 32.6 g/dL (32.0-36.0) 11/08/19 05:35 RDW 16.2 % (12.1-15.2) H 11/08/19 05:35 Plt Count 261 K/uL (152-406) D 11/08/19 05:35 MPV 7.1 fL (7.6-11.3) L 11/08/19 05:35 Neutrophils % 20.9 % (41.7-73.7) L 11/08/19 05:35 Lymphocytes % 65.8 % (15.3-44.8) H 11/08/19 05:35 Monocytes % 3.9 % (3.3-12.3) 11/08/19 05:35 Eosinophils % 9.0 % (0-4.4) H 11/08/19 05:35 Basophils % 0.4 % (0-1.3) 11/08/19 05:35 Absolute Neutrophils 2.5 K/uL (1.8-8.0) 11/08/19 05:35 Segmented Neutrophils 20 % (40-80) L 11/08/19 05:35 Absolute Lymphocytes 7.8 K/uL (0.7-4.9) H 11/08/19 05:35 Lymphocytes 69 % (15-42) H 11/08/19 05:35 Monocytes 4 % (0-10) 11/08/19 05:35 Absolute Monocytes 0.5 K/uL (0.1-1.3) 11/08/19 05:35 Eosinophils 3 % (0-3) 11/08/19 05:35 Absolute Eosinophils 1.1 K/uL (0-0.5) H 11/08/19 05:35 Basophils 2 % (0-1) H 10/31/19 05:40 Absolute Basophils 0.0 K/uL (0-0.5) 11/08/19 05:35 Nucleated RBCs 1 /100WBC 10/31/19 05:40 Atypical Lymphocytes 4 11/08/19 05:35 Morphology Comment Not seen (NOT SEEN) 11/08/19 05:35 Sodium 141 mmol/L (136-145) 11/08/19 05:35 Potassium 4.5 mmol/L (3.5-5.1) 11/08/19 05:35 Chloride 107 mmol/L (98-107) 11/08/19 05:35 Carbon Dioxide 29 mmol/L (21-32) 11/08/19 05:35 BUN 33 mg/dL (7-18) H 11/08/19 05:35 Creatinine 1.83 mg/dL (0.55-1.3) H 11/08/19 05:35 Estimated GFR 37 mL/min (=/>90) L 11/08/19 05:35 Glucose 112 mg/dL (74-106) H 11/08/19 05:35 POC Glucose 113 mg/dl (65-120) 11/09/19 07:17 Calcium 9.1 mg/dL (8.5-10.1) 11/08/19 05:35 Magnesium 2.4 mg/dL (1.8-2.4) 11/08/19 05:35 Albumin 3.4 g/dL (3.4-5.0) 11/08/19 05:35 Prealbumin 29.8 mg/dL (20-40) 11/08/19 05:35 Urine Color Yellow 10/19/19 19:50 Urine Appearance Clear 10/19/19 19:50 Urine pH 5.5 (5.0-7.0) 10/19/19 19:50 Ur Specific [place] 1.010 (1.005-1.030) 10/19/19 19:50 Glucose (UA)(Auto) Negative (NEG) 10/19/19 19:50 Urine Ketones Negative (NEG) 10/19/19 19:50 Urine Blood Negative (NEG) 10/19/19 19:50 Urine Nitrite Negative (NEG) 10/19/19 19:50 Urine Bilirubin Negative (NEG) 10/19/19 19:50 Urine Urobilinogen 0.2 mg/dL (0.2-1.0) 10/19/19 19:50 Ur Leukocyte Esterase Negative (NEG) 10/19/19 19:50 Urine RBC None seen /HPF (NONE SEEN) 10/19/19 19:50 Urine WBC <5 /HPF (<5) 10/19/19 19:50 Ur Squamous Epith Cells <5 /HPF (NONE SEEN) 10/19/19 19:50 Urine Bacteria <20 /HPF (NONE SEEN) 10/19/19 19:50 Urine Culture Reflexed Not needed 10/19/19 19:50 Urine Total Protein Negative (NEG) 10/19/19 19:50 Vancomycin Trough 16.0 ug/mL (5.0-20.0) 11/02/19 17:50 Weight: 234 lb 4.8 oz Wound Present: Yes Closed Surgical Incision Present: Yes Negative Pressure Wound Therapy Present: No Physician Update: Labs reviewed and are stable. He is still fairly weak in his upper extremity. His at standby with transfers. Walking 30' with partial assistance. He self-propelled his wheelchair over 250'. He may improve further with an extra week of physical therapy. Dr. Willis will see hiim today and may remove the abhilash. Medical Issues: Patient is always continent with bladder and bowel. Pain Issues: Patient is taking Tylenol 650mg Q6H PO PRN and [place] 7.5/325mg Q4H PO PRN for pain. Functional Improvement: Patient has met all short-term goals and is continuing to progress toward long-term goals. Patient presents w/ good work ethic, however continues to become fatigued quickly. Patient has continued to show improvement w/ transfers and technique for gait tx. Summary: Patient's care plan and meterman goals have been reviewed and revised as necessary. Please see the Rehabilitation Signature page for all necessary signatures.
[2019-11-09] MEDS: ENSURE HIGH PROTEIN 237 ML CAN PO SCH (11:29)
--- NOTE | 2019-11-09 13:55 | PN ---
Date of Progress Note: 11/09/2019 Subjective: Patient is awake, alert. No complaint. Objective: Vital Signs: Stable. Afebrile. Skin: Dressing is clean, dry, intact as per nursing report. The wound is clean dry and intact. No sign of infection. Assessment: Status post left below-knee amputation. Recommendations: We will discontinue every other staple today and remainder of the abhilash can be di scontinued in 10 days with Steri-Strips ordered, given to nurse. /MODL Voice ID: [id number] Report ID: [id number]
--- NOTE | 2019-11-09 15:23 | FAST ---
ENCOUNTER DATE AND TIME: 11/09/2019 08:00 (SLOT FLOOR SUPERVISOR) NAME CARLA FORBES DATE OF : 1945 DATE OF ADMISSION: 10/19/2019 15:48 (SLOT FLOOR SUPERVISOR) PHONE: AGE: 73 N# [id number] GENDER: Male ENCOUNTER PHYSICIAN: Dr. Celso Noonan M.D. 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 EATING: Not assessed/no information CODE: - ORAL HYGIENE: ORAL HYGIENE - STEP 1: Does the patient complete the activity by him/herself with no assistance (physical, verbal/nonverbal cueing, setup/clean-up)? Yes. 1. [id number] ADMISSION PERFORMANCE: Independent CODE: 06 TOILETING HYGIENE: TOILETING HYGIENE - STEP 1: Does the patient complete the activity by him/herself with no assistance (physical, verbal/nonverbal cueing, setup/clean-up)? No. TOILETING HYGIENE - STEP 2: Does the patient need only setup/clean-up assistance from one helper? No. TOILETING HYGIENE - STEP 3: Does the patient need only verbal/nonverbal cueing or touching/steadying/contact guard assistance fro m one helper? Yes. 1. [id number] ADMISSION PERFORMANCE: Supervision or touching assistance CODE: 04 BATHING: SHOWER/BATHE SELF - STEP 1: Does the patient complete the activity by him/herself with no assistance (physical, verbal/nonverbal cueing, setup/clean-up)? No. SHOWER/BATHE SELF - STEP 2: Does the patient need only setup/clean-up assistance from one helper? No. SHOWER/BATHE SELF - STEP 3: Does the patient need only verbal/nonverbal cueing or touching/steadying/contact guard assistance fro m one helper? Yes. 1. [id number] ADMISSION PERFORMANCE: Supervision or touching assistance CODE: 04 DRESSING - UPPER BODY: DRESSING - UPPER BODY - STEP 1: Does the patient complete the activity by him/herself with no assistance (physical, verbal/nonverbal cueing, setup/clean-up)? Yes. 1. [id number] ADMISSION PERFORMANCE: Independent CODE: 06 DRESSING - LOWER BODY: DRESSING - LOWER BODY - STEP 1: Does the patient complete the activity by him/herself with no assistance (physical, verbal/nonverbal cueing, setup/clean-up)? No. DRESSING - LOWER BODY - STEP 2: Does the patient need only setup/clean-up assistance from one helper? No. DRESSING - LOWER BODY - STEP 3: Does the patient need only verbal/nonverbal cueing or touching/steadying/contact guard assistance fro m one helper? Yes. 1. [id number] ADMISSION PERFORMANCE: Supervision or touching assistance CODE: 04 PUTTING ON/TAKING OFF FOOTWEAR: FOOTWEAR - STEP 1: Does the patient complete the activity by him/herself with no assistance (physical, verbal/nonverbal cueing, setup/clean-up)? Yes. 1. [id number] ADMISSION PERFORMANCE: Independent CODE: 06 DOES THE PATIENT USE A WHEELCHAIR/SCOOTER? CODE: EXPR INDICATE THE TYPE OF WHEELCHAIR/SCOOTER USED: CODE: EXPR INDICATE THE TYPE OF WHEELCHAIR/SCOOTER USED: CODE: EXPR BLADDER AND BOWEL: CODE: EXPR CODE: EXPR SIGNATURE PANEL: The following modified sections: 1. EU2527L Admission Performance, 1. BB0945L Admission Performance, 1. YZ1469x Admission Performance, 1. IG1533j Admission Performance, 1. FO2322o Admission Performance, 1. LZ3643w Admission Performance, 1. SR0775g Admission Performance, 1. [id number] Admission Performance , 1. NF4770u Admission Performance were [electronically] signed by MARY ALICE Kelly on TueNov 09 2019 15:22:22 GMT-0600 (Central Standard Time)
[2019-11-09] MEDS: APIXABAN 2.5 MG TABLET PO SCH (19:56)
[2019-11-09] MEDS: AYR NASAL SALINE DROPS NAS PRN (19:58)
[2019-11-09] MEDS: INSULIN GLARGINE 100 UNITS/ML SQ SCH (20:05)
[2019-11-09] MEDS: MELATONIN 5 MG TABLET PO PRN (20:05)
--- NOTE | 2019-11-10 02:38 | FAST ---
SHIFT START DATE/TIME: 11/09/2019 19:00 (LOOSELEAF BINDER COVERER) SHIFT END DATE/TIME: 11/10/2019 07:00 (LOOSELEAF BINDER COVERER) NAME CARLA FORBES DATE OF : 1945 DATE OF ADMISSION: 10/19/2019 15:48 (LOOSELEAF BINDER COVERER) PHONE: AGE: 73 N# [id number] GENDER: Male ENCOUNTER PHYSICIAN: Dr. Celso Noonan M.D. 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 EATING: Not assessed/no information CODE: - ORAL HYGIENE: Not assessed/no information CODE: - TOILETING HYGIENE: TOILETING HYGIENE - STEP 1: Does the patient complete the activity by him/herself with no assistance (physical, verbal/nonverbal cueing, setup/clean-up)? No. TOILETING HYGIENE - STEP 2: Does the patient need only setup/clean-up assistance from one helper? No. TOILETING HYGIENE - STEP 3: Does the patient need only verbal/nonverbal cueing or touching/steadying/contact guard assistance fro m one helper? Yes. 1. [id number] ADMISSION PERFORMANCE: Supervision or touching assistance CODE: 04 BATHING: Not assessed/no information CODE: - DRESSING - UPPER BODY: Not assessed/no information CODE: - DRESSING - LOWER BODY: Not assessed/no information CODE: - PUTTING ON/TAKING OFF FOOTWEAR: Not assessed/no information CODE: - ROLL LEFT AND RIGHT: ROLL LEFT AND RIGHT - STEP 1: Does the patient complete the activity by him/herself with no assistance (physical, verbal/nonverbal cueing, setup/clean-up)? No. ROLL LEFT AND RIGHT - STEP 2: Does the patient need only setup/clean-up assistance from one helper? No. ROLL LEFT AND RIGHT - STEP 3: Does the patient need only verbal/nonverbal cueing or touching/steadying/contact guard assistance fro m one helper? Yes. 1. [id number] ADMISSION PERFORMANCE: Supervision or touching assistance CODE: 04 SIT TO LYING: SIT TO LYING - STEP 1: Does the patient complete the activity by him/herself with no assistance (physical, verbal/nonverbal cueing, setup/clean-up)? No. SIT TO LYING - STEP 2: Does the patient need only setup/clean-up assistance from one helper? No. SIT TO LYING - STEP 3: Does the patient need only verbal/nonverbal cueing or touching/steadying/contact guard assistance fro m one helper? Yes. 1. [id number] ADMISSION PERFORMANCE: Supervision or touching assistance CODE: 04 LYING TO SITTING: LYING TO SITTING ON SIDE OF BED - STEP 1: Does the patient complete the activity by him/herself with no assistance (physical, verbal/nonverbal cueing, setup/clean-up)? No. LYING TO SITTING ON SIDE OF BED - STEP 2: Does the patient need only setup/clean-up assistance from one helper? No. LYING TO SITTING ON SIDE OF BED - STEP 3: Does the patient need only verbal/nonverbal cueing or touching/steadying/contact guard assistance fro m one helper? Yes. 1. [id number] ADMISSION PERFORMANCE: Supervision or touching assistance CODE: 04 SIT TO STAND: SIT TO STAND - STEP 1: Does the patient complete the activity by him/herself with no assistance (physical, verbal/nonverbal cueing, setup/clean-up)? No. SIT TO STAND - STEP 2: Does the patient need only setup/clean-up assistance from one helper? No. SIT TO STAND - STEP 3: Does the patient need only verbal/nonverbal cueing or touching/steadying/contact guard assistance fro m one helper? Yes. 1. [id number] ADMISSION PERFORMANCE: Supervision or touching assistance CODE: 04 TRANSFERS: BED, CHAIR: CHAIR/[id number] TRANSFER - STEP 1: Does the patient complete the activity by him/herself with no assistance (physical, verbal/nonverbal cueing, setup/clean-up)? No. CHAIR/[id number] TRANSFER - STEP 2: Does the patient need only setup/clean-up assistance from one helper? No. CHAIR/[id number] TRANSFER - STEP 3: Does the patient need only verbal/nonverbal cueing or touching/steadying/contact guard assistance fro m one helper? Yes. 1. [id number] ADMISSION PERFORMANCE: Supervision or touching assistance CODE: 04 TRANSFER TOILET: TOILET TRANSFER - STEP 1: Does the patient complete the activity by him/herself with no assistance (physical, verbal/nonverbal cueing, setup/clean-up)? No. TOILET TRANSFER - STEP 2: Does the patient need only setup/clean-up assistance from one helper? No. TOILET TRANSFER - STEP 3: Does the patient need only verbal/nonverbal cueing or touching/steadying/contact guard assistance fro m one helper? Yes. 1. [id number] ADMISSION PERFORMANCE: Supervision or touching assistance CODE: 04 TRANSFERS: CAR: Not assessed/no information CODE: - WALK 10 FEET: Not assessed/no information CODE: - 1 STEP (CURB): Not assessed/no information CODE: - PICKING UP OBJECT: Not assessed/no information CODE: - DOES THE PATIENT USE A WHEELCHAIR/SCOOTER? CODE: EXPR WHEEL 50 FEET WITH TWO TURNS: Not assessed/no information CODE: - INDICATE THE TYPE OF WHEELCHAIR/SCOOTER USED: CODE: EXPR WHEEL 150 FEET: Not assessed/no information CODE: - INDICATE THE TYPE OF WHEELCHAIR/SCOOTER USED: CODE: EXPR BLADDER AND BOWEL: H350. BLADDER CONTINENCE (3-DAY ASSESSMENT PERIOD): Always continent (no documented incontinence) CODE: 0 H400. BOWEL CONTINENCE (3-DAY ASSESSMENT PERIOD): Always continent CODE: 0
[2019-11-10] MEDS: SODIUM CHLORIDE 0.9% 10ML INJ IV SCH ×2 (06:38→21:12)
[2019-11-10] MEDS: INSULIN -REGULAR HUMAN 50 UNIT/0.5 ML ML SQ SCH ×4 (07:30→21:00)
[2019-11-10] MEDS: TRIAMCINOLONE ACET 0.1% CREAM 80 GM TOP SCH (07:56)
[2019-11-10] MEDS: ASPIRIN EC 81 MG TAB PO SCH (07:57)
[2019-11-10] MEDS: METFORMIN HCL 500 MG TAB PO SCH ×2 (07:57→16:41)
[2019-11-10] MEDS: FERROUS SULFATE 325 MG TAB PO SCH (07:57)
[2019-11-10] MEDS: DOCUSATE NA 100 MG CAP PO SCH ×2 (07:57→20:00)
[2019-11-10] MEDS: LACTOBACILLUS/ACIDOPHILUS TAB PO SCH ×2 (07:57→21:10)
[2019-11-10] MEDS: SERTRALINE HCL 100 MG TAB PO SCH (07:57)
[2019-11-10] MEDS: FE SULF/FA/VIT B COMP & C TAB PO SCH (07:57)
[2019-11-10] MEDS: CYANOCOBALAMIN 1,000 MCG TAB PO SCH (07:57)
[2019-11-10] MEDS: CLOPIDOGREL 75 MG TABLET PO SCH (07:57)
[2019-11-10] MEDS: APIXABAN 2.5 MG TABLET PO SCH ×2 (07:58→21:11)
[2019-11-10] MEDS: FUROSEMIDE 20 MG TABLET PO SCH (07:58)
[2019-11-10] MEDS: ENSURE HIGH PROTEIN 237 ML CAN PO SCH (11:39)
[2019-11-10] MEDS: AYR NASAL SALINE DROPS NAS PRN ×2 (15:02→21:10)
[2019-11-10] MEDS: INSULIN GLARGINE 100 UNITS/ML SQ SCH (21:10)
[2019-11-10] MEDS: MELATONIN 5 MG TABLET PO PRN (21:11)
[2019-11-10] MEDS: clonazePAM 0.5 MG TAB PO PRN (21:11)
[2019-11-10] MEDS: HYDROCODONE/APAP 7.5/325 MG TAB PO PRN (21:11)
[2019-11-11] MEDS: SODIUM CHLORIDE 0.9% 10ML INJ IV SCH ×2 (07:14→20:57)
[2019-11-11] MEDS: INSULIN -REGULAR HUMAN 50 UNIT/0.5 ML ML SQ SCH ×4 (07:26→21:00)
[2019-11-11] MEDS: APIXABAN 2.5 MG TABLET PO SCH ×2 (07:42→20:58)
[2019-11-11] MEDS: CYANOCOBALAMIN 1,000 MCG TAB PO SCH (07:42)
[2019-11-11] MEDS: SERTRALINE HCL 100 MG TAB PO SCH (07:42)
[2019-11-11] MEDS: FERROUS SULFATE 325 MG TAB PO SCH (07:42)
[2019-11-11] MEDS: LACTOBACILLUS/ACIDOPHILUS TAB PO SCH ×2 (07:42→20:58)
[2019-11-11] MEDS: ASPIRIN EC 81 MG TAB PO SCH (07:42)
[2019-11-11] MEDS: DOCUSATE NA 100 MG CAP PO SCH ×2 (07:42→20:00)
[2019-11-11] MEDS: METFORMIN HCL 500 MG TAB PO SCH ×2 (07:42→17:19)
[2019-11-11] MEDS: CLOPIDOGREL 75 MG TABLET PO SCH (07:42)
[2019-11-11] MEDS: FUROSEMIDE 20 MG TABLET PO SCH (07:43)
[2019-11-11] MEDS: FE SULF/FA/VIT B COMP & C TAB PO SCH (07:43)
[2019-11-11] MEDS: ENSURE HIGH PROTEIN 237 ML CAN PO SCH (11:37)
[2019-11-11] MEDS: AYR NASAL SALINE DROPS NAS PRN ×2 (14:25→20:58)
[2019-11-11] MEDS: clonazePAM 0.5 MG TAB PO PRN (20:58)
[2019-11-11] MEDS: HYDROCODONE/APAP 7.5/325 MG TAB PO PRN (20:58)
[2019-11-11] MEDS: INSULIN GLARGINE 100 UNITS/ML SQ SCH (20:59)
[2019-11-11] MEDS: MELATONIN 5 MG TABLET PO PRN (20:59)
[2019-11-12] MEDS: INSULIN -REGULAR HUMAN 50 UNIT/0.5 ML ML SQ SCH ×4 (07:30→21:00)
[2019-11-12] MEDS: DOCUSATE NA 100 MG CAP PO SCH ×2 (08:00→21:20)
[2019-11-12] MEDS: SODIUM CHLORIDE 0.9% 10ML INJ IV SCH ×2 (08:00→21:23)
[2019-11-12] MEDS: LACTOBACILLUS/ACIDOPHILUS TAB PO SCH ×2 (08:27→21:21)
[2019-11-12] MEDS: FE SULF/FA/VIT B COMP & C TAB PO SCH (08:27)
[2019-11-12] MEDS: FERROUS SULFATE 325 MG TAB PO SCH (08:27)
[2019-11-12] MEDS: CLOPIDOGREL 75 MG TABLET PO SCH (08:27)
[2019-11-12] MEDS: CYANOCOBALAMIN 1,000 MCG TAB PO SCH (08:27)
[2019-11-12] MEDS: METFORMIN HCL 500 MG TAB PO SCH ×2 (08:27→17:00)
[2019-11-12] MEDS: ASPIRIN EC 81 MG TAB PO SCH (08:27)
[2019-11-12] MEDS: FUROSEMIDE 20 MG TABLET PO SCH (08:27)
[2019-11-12] MEDS: SERTRALINE HCL 100 MG TAB PO SCH (08:28)
[2019-11-12] MEDS: APIXABAN 2.5 MG TABLET PO SCH ×2 (08:28→21:21)
[2019-11-12] MEDS: ENSURE HIGH PROTEIN 237 ML CAN PO SCH (12:00)
--- NOTE | 2019-11-12 15:37 | FAST ---
ENCOUNTER DATE AND TIME: 11/12/2019 08:00 (PHOTOGRAPHIC ENGINEER) NAME CARLA FORBES DATE OF : 1945 DATE OF ADMISSION: 10/19/2019 15:48 (PHOTOGRAPHIC ENGINEER) PHONE: AGE: 73 N# [id number] GENDER: Male ENCOUNTER PHYSICIAN: Dr. Celso Noonan M.D. 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 EATING: Not assessed/no information CODE: - ORAL HYGIENE: ORAL HYGIENE - STEP 1: Does the patient complete the activity by him/herself with no assistance (physical, verbal/nonverbal cueing, setup/clean-up)? Yes. 1. [id number] ADMISSION PERFORMANCE: Independent CODE: 06 TOILETING HYGIENE: Not assessed/no information CODE: - BATHING: SHOWER/BATHE SELF - STEP 1: Does the patient complete the activity by him/herself with no assistance (physical, verbal/nonverbal cueing, setup/clean-up)? No. SHOWER/BATHE SELF - STEP 2: Does the patient need only setup/clean-up assistance from one helper? No. SHOWER/BATHE SELF - STEP 3: Does the patient need only verbal/nonverbal cueing or touching/steadying/contact guard assistance fro m one helper? Yes. 1. [id number] ADMISSION PERFORMANCE: Supervision or touching assistance CODE: 04 DRESSING - UPPER BODY: DRESSING - UPPER BODY - STEP 1: Does the patient complete the activity by him/herself with no assistance (physical, verbal/nonverbal cueing, setup/clean-up)? Yes. 1. [id number] ADMISSION PERFORMANCE: Independent CODE: 06 DRESSING - LOWER BODY: DRESSING - LOWER BODY - STEP 1: Does the patient complete the activity by him/herself with no assistance (physical, verbal/nonverbal cueing, setup/clean-up)? No. DRESSING - LOWER BODY - STEP 2: Does the patient need only setup/clean-up assistance from one helper? No. DRESSING - LOWER BODY - STEP 3: Does the patient need only verbal/nonverbal cueing or touching/steadying/contact guard assistance fro m one helper? Yes. 1. [id number] ADMISSION PERFORMANCE: Supervision or touching assistance CODE: 04 PUTTING ON/TAKING OFF FOOTWEAR: FOOTWEAR - STEP 1: Does the patient complete the activity by him/herself with no assistance (physical, verbal/nonverbal cueing, setup/clean-up)? Yes. 1. [id number] ADMISSION PERFORMANCE: Independent CODE: 06 DOES THE PATIENT USE A WHEELCHAIR/SCOOTER? CODE: EXPR INDICATE THE TYPE OF WHEELCHAIR/SCOOTER USED: CODE: EXPR INDICATE THE TYPE OF WHEELCHAIR/SCOOTER USED: CODE: EXPR BLADDER AND BOWEL: CODE: EXPR CODE: EXPR SIGNATURE PANEL: The following modified sections: 1. [id number] Admission Performance, 1. [id number] Admission Performance, 1. XX0836c Admission Performance, 1. YE1229t Admission Performance, 1. SQ7287m Admission Performance were [electronically] signed by MARY ALICE Kelly on TueNov 12 2019 15:35:49 GMT-0600 (Central Standard Time)
--- NOTE | 2019-11-12 16:12 | FAST ---
SHIFT START DATE/TIME: 11/12/2019 07:00 (SAP TRAINER) SHIFT END DATE/TIME: 11/12/2019 19:00 (SAP TRAINER) NAME CARLA FORBES DATE OF : 1945 DATE OF ADMISSION: 10/19/2019 15:48 (SAP TRAINER) PHONE: AGE: 73 N# [id number] GENDER: Male ENCOUNTER PHYSICIAN: Dr. Celso Noonan M.D. 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 EATING: EATING - STEP 1: Does the patient complete the activity by him/herself with no assistance (physical, verbal/nonverbal cueing, setup/clean-up)? Yes. 1. [id number] ADMISSION PERFORMANCE: Independent CODE: 06 ORAL HYGIENE: ORAL HYGIENE - STEP 1: Does the patient complete the activity by him/herself with no assistance (physical, verbal/nonverbal cueing, setup/clean-up)? Yes. 1. [id number] ADMISSION PERFORMANCE: Independent CODE: 06 TOILETING HYGIENE: TOILETING HYGIENE - STEP 1: Does the patient complete the activity by him/herself with no assistance (physical, verbal/nonverbal cueing, setup/clean-up)? No. TOILETING HYGIENE - STEP 2: Does the patient need only setup/clean-up assistance from one helper? Yes. 1. [id number] ADMISSION PERFORMANCE: Setup or clean-up assistance CODE: 05 BATHING: Not assessed/no information CODE: - DRESSING - UPPER BODY: DRESSING - UPPER BODY - STEP 1: Does the patient complete the activity by him/herself with no assistance (physical, verbal/nonverbal cueing, setup/clean-up)? Yes. 1. [id number] ADMISSION PERFORMANCE: Independent CODE: 06 DRESSING - LOWER BODY: DRESSING - LOWER BODY - STEP 1: Does the patient complete the activity by him/herself with no assistance (physical, verbal/nonverbal cueing, setup/clean-up)? No. DRESSING - LOWER BODY - STEP 2: Does the patient need only setup/clean-up assistance from one helper? No. DRESSING - LOWER BODY - STEP 3: Does the patient need only verbal/nonverbal cueing or touching/steadying/contact guard assistance fro m one helper? Yes. 1. [id number] ADMISSION PERFORMANCE: Supervision or touching assistance CODE: 04 PUTTING ON/TAKING OFF FOOTWEAR: FOOTWEAR - STEP 1: Does the patient complete the activity by him/herself with no assistance (physical, verbal/nonverbal cueing, setup/clean-up)? Yes. 1. [id number] ADMISSION PERFORMANCE: Independent CODE: 06 DOES THE PATIENT USE A WHEELCHAIR/SCOOTER? CODE: EXPR INDICATE THE TYPE OF WHEELCHAIR/SCOOTER USED: CODE: EXPR INDICATE THE TYPE OF WHEELCHAIR/SCOOTER USED: CODE: EXPR BLADDER AND BOWEL: H350. BLADDER CONTINENCE (3-DAY ASSESSMENT PERIOD): Always continent (no documented incontinence) CODE: 0 H400. BOWEL CONTINENCE (3-DAY ASSESSMENT PERIOD): Always continent CODE: 0 SIGNATURE PANEL: The following modified sections: 1. [id number] Admission Performance, 1. [id number] Admission Performance, 1. TX7235Y Admission Performance, 1. WC7576l Admission Performance, 1. QG3490e Admission Performance, 1. FM1806s Admission Performance, 1. FO9160g Admission Performance, 1. LX5046i Admission Performance , H350. Bladder Continence (3-day assessment period), H400. Bowel Continence (3-day assessment period ) were [electronically] signed by Rogelio DiazNNathalia on TueNov 12 2019 16:11:36 GMT-0600 (Central Standard Time)
--- NOTE | 2019-11-12 18:20 | R.PN ---
ENCOUNTER DATE AND TIME: 11/12/2019 18:15 (MAPPING EDITOR) NAME CARLA FORBES DATE OF : 1945 DATE OF ADMISSION: 10/19/2019 15:48 (MAPPING EDITOR) Left BKACHIEF COMPLAINT: Left below the knee amputation SUBJECTIVE: Pt denied any Shortness of Breath. Pt denied any depression. Ambulated a total of 280' with standby assistance using a rolling walker. Self-propelled wheelchair 5 00' total with independence. WBC 11.9, Hgb 10.5, glucose 105 to 135, prealbumin 29.8, Vanc is complete and was d/junaid. UA is adelaida l. VITAL SIGNS Temperature: 97.2 F SBP/DBP: 104/56 Pulse: 76 Resp: 15 MEDICATION ALLERGIES: No Known Drug Allergies (NKDA) ENVIRONMENTAL ALLERGIES: None Known - Substance Allergies None Known - Other Allergies None Known CONSULT: Perform Consult Certified Prosthetic for prosthesis construction NURSING: - Shower allowing shower - Skin care per protocol PRECAUTIONS: - Weight Bearing Precaution NWB left LE ACTIVITIES OOB only with supervision THERAPIES: - Orthotics/Prosthetics Prosthetic Evaluation. - Dietary and Nutrition Adequate Nutrition. Nutritional Education. Nutritional Supplements. PHYSICAL EXAM - Gen Alert and awake Lying in bed No apparent distress Oriented to: person, time, and place - Skin LLE incisions intact Normacephalic - Eyes No abnormalities - ENMT No abnormalities - Neck No abnormalities - CVS RRR - Chest No abnormalities - Resp Clear to auscultation - Abd Soft - GI Non distended Deferred - No abnormalities - Ext Left BKA good hemostasis, dressing in place - MSK 4+/5 weakness in left lower extremity - Neuro 4/5 strength left lower extremity. - Psych No abnormalities ASSESSMENT: Pt. 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 was independent/mod-I in Locomotion, Balance , Safety Awareness, Social Cognition, Transfers Control, Sphincter Control, Self-Care, Communication, and Endurance; and he had good Locomotion, Balance, Safety Awareness, Social Cognition, Transfers Co ntrol, Sphincter Control, Self-Care, Communication, and Endurance.Currently, he has deficits of Locom otion, Balance, Safety Awareness, Transfers Control, Self-Care, Endurance, and Communication.Pt. is n ow referred to [facility] for acute in-patient rehabilitation in order to maxi manuel patient's functional independence in activities of daily living, strength, ROM, and mobility.- R ehab Goal Patient has realistic goal of being discharged at assistance level 6-Elvia to reside at Home with Fam bel/Relatives. MDM/PLAN: - Physical Therapy Gait dysfunction - to improve, our physical therapists will perform initial evaluation of pt's statu s upon admission and devise an individualized program for Gait Training, and Wheel Chair mobility Inability to transfer - to improve, our physical therapists will perform initial evaluation of pt's status upon admission and devise an individualized program for Bed mobility Need for home safety evaluation - to improve, our physical therapists will perform initial evaluatio n of pt's status upon admission and devise an individualized program for Home Evaluation Need in caregiver upon discharge - to improve, our physical therapists will perform initial evaluati on of pt's status upon admission and devise an individualized program for Caregiver Training New precaution - to improve, our physical therapists will perform initial evaluation of pt's status upon admission and devise an individualized program for Patient precaution education Poor balance - to improve, our physical therapists will perform initial evaluation of pt's status up on admission and devise an individualized program for Balance Training Poor endurance - to improve, our physical therapists will perform initial evaluation of pt's status upon admission and devise an individualized program for Endurance Training Weakness - to improve, our physical therapists will perform initial evaluation of pt's status upon a dmission and devise an individualized program for Aquatic Therapy, Neuromuscular Reeducation, and Str engthening Achieving independence - to improve, our physical therapists will perform initial evaluation of pt's status upon admission and devise an individualized program for Community Reintegration Activities - Occupational Therapy ADL deficits - to improve, our occupation therapists will perform initial evaluation of pt's status upon admission and devise an individualized program for Bathing, Bed mobility, Community Reintegratio n, Cooking, Dressing, Eating, Fine Motor Skills, Grooming, Homemaking, Kitchen Mobility, Laundry, Pat ient Education, Safety Awareness, Splinting - Positioning, Transfers(Toilet, Tub, Shower), and Wheel Chair Management Need for direct care counselor - to improve, our occupation therapists will perform initial evaluation of pt's status upon admission and devise an individualized program for Caregiver Training Weakness - to improve, our occupation therapists will perform initial evaluation of pt's status upon admission and devise an individualized program for Aquatic Therapy, Balance, Endurance, UE ROM, and UE strengthening - Other See attached MAR (Medication Administration Record) - Diet Type Continue Regular - Diet - Liquid Texture Continue Regular - Tube Feed Continue N/A - Weight Bearing Precaution NWB left LE - Skin care per protocol - N/A Perform Consult Certified Prosthetic for prosthesis construction - Diet - Solid Texture Continue Regular - Shower allowing shower FUNCTIONAL STATUS: UPDATED AT WEEKLY TEAM CONFERENCE - Bladder Same accident frequency: 7-Ind - No accidents in the past 7 days - Bowel Same accident frequency: 7-Ind - No accidents in the past 7 days - Walking Same score based on distance walked: 0(N/A) - Wheelchair Same score based on distance traveled: 0(N/A) FUNCTIONAL STATUS: - Self-Care A. Eating Ind B. Grooming sup C. Bathing Isaías D. Dressing - Upper Ind E. Dressing - Lower modA F. Toileting modA - Sphincter Control G. Bladder control sup H. Bowel control sup - Transfers Control I. Bed/Chair/Wheelchair modA J. Toilet modA K. Tub/Shower modA - Locomotion L. Walk/Wheelchair (B) modA M. Stairs ADNO - Communication N. Comprehension (B) Elvia O. Expression (B) Elvia - Social Cognition P. Social Interaction Elvia Q. Problem Solving sup R. Memory sup - Endurance Fair - Balance Fair - Safety Awareness Fair QI SCORES: - Self-Care A. Eating 05-Setup or clean-up assistance B. Oral hygiene 05-Setup or clean-up assistance C. Toileting hygiene 03-Partial/moderate assistance E. Shower/bathe self 03-Partial/moderate assistance F. Upper body dressing 03-Partial/moderate assistance G. Lower body dressing 02-Substantial/maximal assistance H. Putting on/taking off footwear 02-Substantial/maximal assistance - Mobility A. Roll left and right 03-Partial/moderate assistance B. Sit to lying 03-Partial/moderate assistance C. Lying to sitting on side of bed 03-Partial/moderate assistance D. Sit to stand 03-Partial/moderate assistance E. Chair/sjw-xr-tcpog transfer 03-Partial/moderate assistance F. Toilet transfer 03-Partial/moderate assistance G. Car transfer 10-Not attempted due to environmental limitations I. Walk 10 feet 88-Not attempted due to medical condition or safety concerns J. Walk 50 feet with two turns 88-Not attempted due to medical condition or safety concerns K. Walk 150 feet 88-Not attempted due to medical condition or safety concerns L. Walking 10 feet on uneven surfaces 88-Not attempted due to medical condition or safety concerns M. 1 step (curb) 88-Not attempted due to medical condition or safety concerns N. 4 steps 09-Not applicable O. 12 steps 09-Not applicable P. Picking up object 88-Not attempted due to medical condition or safety concerns R. Wheel 50 feet with two turns 88-Not attempted due to medical condition or safety concerns S. Wheel 150 feet 88-Not attempted due to medical condition or safety concerns - Bladder and Bowel Bladder continence 0-Always continent Bowel continence 0-Always continent - Endurance Poor - Balance Poor - Safety Awareness Fair CURRENT FUNC. DEFICITS: Self-Care, Mobility, Endurance, Balance, and Safety Awareness SIGNATURE PANEL: (MAPPING EDITOR)
[2019-11-12] MEDS: TRAZODONE 50 MG TABLET PO PRN (21:21)
[2019-11-12] MEDS: clonazePAM 0.5 MG TAB PO PRN (21:21)
[2019-11-12] MEDS: INSULIN GLARGINE 100 UNITS/ML SQ SCH (21:21)
[2019-11-12] MEDS: AYR NASAL SALINE DROPS NAS PRN (21:24)
[2019-11-13] MEDS: INSULIN -REGULAR HUMAN 50 UNIT/0.5 ML ML SQ SCH ×4 (07:30→21:00)
[2019-11-13] MEDS: DOCUSATE NA 100 MG CAP PO SCH ×2 (07:48→21:14)
[2019-11-13] MEDS: ASPIRIN EC 81 MG TAB PO SCH (07:49)
[2019-11-13] MEDS: CYANOCOBALAMIN 1,000 MCG TAB PO SCH (07:49)
[2019-11-13] MEDS: SERTRALINE HCL 100 MG TAB PO SCH (07:49)
[2019-11-13] MEDS: LACTOBACILLUS/ACIDOPHILUS TAB PO SCH ×2 (07:49→21:14)
[2019-11-13] MEDS: APIXABAN 2.5 MG TABLET PO SCH ×2 (07:49→21:14)
[2019-11-13] MEDS: FERROUS SULFATE 325 MG TAB PO SCH (07:49)
[2019-11-13] MEDS: FUROSEMIDE 20 MG TABLET PO SCH (07:50)
[2019-11-13] MEDS: CLOPIDOGREL 75 MG TABLET PO SCH (07:50)
[2019-11-13] MEDS: FE SULF/FA/VIT B COMP & C TAB PO SCH (07:51)
[2019-11-13] MEDS: METFORMIN HCL 500 MG TAB PO SCH ×2 (07:51→17:01)
[2019-11-13] MEDS: SODIUM CHLORIDE 0.9% 10ML INJ IV SCH ×2 (07:53→20:14)
[2019-11-13] MEDS: ENSURE HIGH PROTEIN 237 ML CAN PO SCH (12:00)
--- NOTE | 2019-11-13 14:05 | FAST ---
ENCOUNTER DATE AND TIME: 11/08/2019 08:00 (FOREIGN TRADE TEACHER) NAME CARLA FORBES DATE OF : 1945 DATE OF ADMISSION: 10/19/2019 15:48 (FOREIGN TRADE TEACHER) PHONE: AGE: 73 N# [id number] GENDER: Male ENCOUNTER PHYSICIAN: Dr. Celso Noonan M.D. 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 ROLL LEFT AND RIGHT: ROLL LEFT AND RIGHT - STEP 1: Does the patient complete the activity by him/herself with no assistance (physical, verbal/nonverbal cueing, setup/clean-up)? Yes. 1. [id number] ADMISSION PERFORMANCE: Independent CODE: 06 SIT TO LYING: SIT TO LYING - STEP 1: Does the patient complete the activity by him/herself with no assistance (physical, verbal/nonverbal cueing, setup/clean-up)? Yes. 1. [id number] ADMISSION PERFORMANCE: Independent CODE: 06 LYING TO SITTING: LYING TO SITTING ON SIDE OF BED - STEP 1: Does the patient complete the activity by him/herself with no assistance (physical, verbal/nonverbal cueing, setup/clean-up)? Yes. 1. [id number] ADMISSION PERFORMANCE: Independent CODE: 06 SIT TO STAND: SIT TO STAND - STEP 1: Does the patient complete the activity by him/herself with no assistance (physical, verbal/nonverbal cueing, setup/clean-up)? No. SIT TO STAND - STEP 2: Does the patient need only setup/clean-up assistance from one helper? Yes. 1. [id number] ADMISSION PERFORMANCE: Setup or clean-up assistance CODE: 05 TRANSFERS: BED, CHAIR: CHAIR/[id number] TRANSFER - STEP 1: Does the patient complete the activity by him/herself with no assistance (physical, verbal/nonverbal cueing, setup/clean-up)? No. CHAIR/[id number] TRANSFER - STEP 2: Does the patient need only setup/clean-up assistance from one helper? Yes. 1. [id number] ADMISSION PERFORMANCE: Setup or clean-up assistance CODE: 05 TRANSFER TOILET: TOILET TRANSFER - STEP 1: Does the patient complete the activity by him/herself with no assistance (physical, verbal/nonverbal cueing, setup/clean-up)? No. TOILET TRANSFER - STEP 2: Does the patient need only setup/clean-up assistance from one helper? Yes. 1. [id number] ADMISSION PERFORMANCE: Setup or clean-up assistance CODE: 05 TRANSFERS: CAR: Not attempted due to environmental limitations (e.g., lack of equipment, weather constraints) CODE: 10 WALK 10 FEET: WALK 10 FEET - STEP 1: Does the patient complete the activity by him/herself with no assistance (physical, verbal/nonverbal cueing, setup/clean-up)? No. WALK 10 FEET - STEP 2: Does the patient need only setup/clean-up assistance from one helper? No. WALK 10 FEET - STEP 3: Does the patient need only verbal/nonverbal cueing or touching/steadying/contact guard assistance fro m one helper? Yes. 1. [id number] ADMISSION PERFORMANCE: Supervision or touching assistance CODE: 04 WALK 50 FEET: Not attempted due to medical condition or safety concerns CODE: 88 WALK 150 FEET: Not attempted due to medical condition or safety concerns CODE: 88 WALK 10 FEET UNEVEN: Not attempted due to medical condition or safety concerns CODE: 88 1 STEP (CURB): Not attempted due to medical condition or safety concerns CODE: 88 PICKING UP OBJECT: Not attempted due to medical condition or safety concerns CODE: 88 DOES THE PATIENT USE A WHEELCHAIR/SCOOTER? Q1. DOES THE PATIENT USE A WHEELCHAIR/SCOOTER?: Yes CODE: 1 WHEEL 50 FEET WITH TWO TURNS: WHEEL 50 FEET WITH TWO TURNS - STEP 1: Does the patient complete the activity by him/herself with no assistance (physical, verbal/nonverbal cueing, setup/clean-up)? No. WHEEL 50 FEET WITH TWO TURNS - STEP 2: Does the patient need only setup/clean-up assistance from one helper? Yes. 1. [id number] ADMISSION PERFORMANCE: Setup or clean-up assistance CODE: 05 INDICATE THE TYPE OF WHEELCHAIR/SCOOTER USED: RR1. INDICATE THE TYPE OF WHEELCHAIR/SCOOTER USED.: Manual CODE: 1 WHEEL 150 FEET: WHEEL 150 FEET - STEP 1: Does the patient complete the activity by him/herself with no assistance (physical, verbal/nonverbal cueing, setup/clean-up)? No. WHEEL 150 FEET - STEP 2: Does the patient need only setup/clean-up assistance from one helper? Yes. 1. [id number] ADMISSION PERFORMANCE: Setup or clean-up assistance CODE: 05 INDICATE THE TYPE OF WHEELCHAIR/SCOOTER USED: SS1. INDICATE THE TYPE OF WHEELCHAIR/SCOOTER USED.: Manual CODE: 1 BLADDER AND BOWEL: CODE: EXPR CODE: EXPR SIGNATURE PANEL: The following modified sections: 1. [id number] Admission Performance, 1. [id number] Admission Performance, 1. [id number] Admission Performance, 1. [id number] Admission Performance, 1. [id number] Admission Performance, 1. [id number] Admission Performance, 1. [id number] Admission Performance, Q1. Does the patient use a wheel chair/scooter?, 1. [id number] Admission Performance, RR1. Indicate the type of wheelchair/scooter used., 1. [id number] Admission Performance, Code, SS1. Indicate the type of wheelchair/scooter used. were [erin ctronically] signed by Aurbey Chavez PTA on TueNov 13 2019 14:04:22 GMT-0600 (Central Standard Time)
--- NOTE | 2019-11-13 14:49 | FAST ---
SHIFT START DATE/TIME: 11/13/2019 07:00 (E BUSINESS SPECIALIST) SHIFT END DATE/TIME: 11/13/2019 19:00 (E BUSINESS SPECIALIST) NAME CARLA FORBES DATE OF : 1945 DATE OF ADMISSION: 10/19/2019 15:48 (E BUSINESS SPECIALIST) PHONE: AGE: 73 N# [id number] GENDER: Male ENCOUNTER PHYSICIAN: Dr. Celso Noonan M.D. 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 EATING: EATING - STEP 1: Does the patient complete the activity by him/herself with no assistance (physical, verbal/nonverbal cueing, setup/clean-up)? Yes. 1. [id number] ADMISSION PERFORMANCE: Independent CODE: 06 ORAL HYGIENE: ORAL HYGIENE - STEP 1: Does the patient complete the activity by him/herself with no assistance (physical, verbal/nonverbal cueing, setup/clean-up)? Yes. 1. [id number] ADMISSION PERFORMANCE: Independent CODE: 06 TOILETING HYGIENE: TOILETING HYGIENE - STEP 1: Does the patient complete the activity by him/herself with no assistance (physical, verbal/nonverbal cueing, setup/clean-up)? No. TOILETING HYGIENE - STEP 2: Does the patient need only setup/clean-up assistance from one helper? Yes. 1. [id number] ADMISSION PERFORMANCE: Setup or clean-up assistance CODE: 05 BATHING: Not assessed/no information CODE: - DRESSING - UPPER BODY: DRESSING - UPPER BODY - STEP 1: Does the patient complete the activity by him/herself with no assistance (physical, verbal/nonverbal cueing, setup/clean-up)? Yes. 1. [id number] ADMISSION PERFORMANCE: Independent CODE: 06 DRESSING - LOWER BODY: DRESSING - LOWER BODY - STEP 1: Does the patient complete the activity by him/herself with no assistance (physical, verbal/nonverbal cueing, setup/clean-up)? No. DRESSING - LOWER BODY - STEP 2: Does the patient need only setup/clean-up assistance from one helper? No. DRESSING - LOWER BODY - STEP 3: Does the patient need only verbal/nonverbal cueing or touching/steadying/contact guard assistance fro m one helper? Yes. 1. [id number] ADMISSION PERFORMANCE: Supervision or touching assistance CODE: 04 PUTTING ON/TAKING OFF FOOTWEAR: FOOTWEAR - STEP 1: Does the patient complete the activity by him/herself with no assistance (physical, verbal/nonverbal cueing, setup/clean-up)? Yes. 1. [id number] ADMISSION PERFORMANCE: Independent CODE: 06 DOES THE PATIENT USE A WHEELCHAIR/SCOOTER? CODE: EXPR INDICATE THE TYPE OF WHEELCHAIR/SCOOTER USED: CODE: EXPR INDICATE THE TYPE OF WHEELCHAIR/SCOOTER USED: CODE: EXPR BLADDER AND BOWEL: H350. BLADDER CONTINENCE (3-DAY ASSESSMENT PERIOD): Always continent (no documented incontinence) CODE: 0 H400. BOWEL CONTINENCE (3-DAY ASSESSMENT PERIOD): Always continent CODE: 0 SIGNATURE PANEL: The following modified sections: 1. [id number] Admission Performance, 1. [id number] Admission Performance, 1. JJ8514I Admission Performance, 1. BJ0231v Admission Performance, 1. XM9418h Admission Performance, 1. NF8816r Admission Performance, 1. GH7326n Admission Performance, 1. LP7004t Admission Performance , 1. RK6235w Admission Performance, 1. [id number] Admission Performance, H350. Bladder Continence (3-day assessment period), H400. Bowel Continence (3-day assessment period) were [electronically] signed by Rogelio [email or web address] on TueNov 13 2019 14:47:47 GMT-0600 (Central Standard Time)
--- NOTE | 2019-11-13 17:53 | R.PN ---
ENCOUNTER DATE AND TIME: 11/13/2019 17:49 (SAILING OFFICER) NAME CARLA FORBES DATE OF : 1945 DATE OF ADMISSION: 10/19/2019 15:48 (SAILING OFFICER) Left BKACHIEF COMPLAINT: Left below the knee amputation SUBJECTIVE: Pt denied any Shortness of Breath. Pt denied any depression. Ambulated a total of 280' with standby assistance using a rolling walker. Self-propelled wheelchair 5 00' total with independence. Up and down low and high grade ramps with bilateral upper and right lowe r extremity. WBC 11.9, Hgb 10.5, glucose 130 to 161, prealbumin 29.8, Vanc is complete and was d/junaid. UA is adelaida l. VITAL SIGNS Temperature: 97.2 F SBP/DBP: 112/63 Pulse: 84 Resp: 16 MEDICATION ALLERGIES: No Known Drug Allergies (NKDA) ENVIRONMENTAL ALLERGIES: None Known - Substance Allergies None Known - Other Allergies None Known CONSULT: Perform Consult Certified Prosthetic for prosthesis construction NURSING: - Shower allowing shower - Skin care per protocol PRECAUTIONS: - Weight Bearing Precaution NWB left LE ACTIVITIES OOB only with supervision THERAPIES: - Orthotics/Prosthetics Prosthetic Evaluation. - Dietary and Nutrition Adequate Nutrition. Nutritional Education. Nutritional Supplements. PHYSICAL EXAM - Gen Alert and awake Lying in bed No apparent distress Oriented to: person, time, and place - Skin LLE incisions intact Normacephalic - Eyes No abnormalities - ENMT No abnormalities - Neck No abnormalities - CVS RRR - Chest No abnormalities - Resp Clear to auscultation - Abd Soft - GI Non distended Deferred - No abnormalities - Ext Left BKA good hemostasis, dressing in place - MSK 4+/5 weakness in left lower extremity - Neuro 4/5 strength left lower extremity. - Psych No abnormalities ASSESSMENT: Pt. 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 was independent/mod-I in Locomotion, Balance , Safety Awareness, Social Cognition, Transfers Control, Sphincter Control, Self-Care, Communication, and Endurance; and he had good Locomotion, Balance, Safety Awareness, Social Cognition, Transfers Co ntrol, Sphincter Control, Self-Care, Communication, and Endurance.Currently, he has deficits of Locom otion, Balance, Safety Awareness, Transfers Control, Self-Care, Endurance, and Communication.Pt. is n ow referred to [facility] for acute in-patient rehabilitation in order to maxi manuel patient's functional independence in activities of daily living, strength, ROM, and mobility.- R ehab Goal Patient has realistic goal of being discharged at assistance level 6-Elvia to reside at Home with Fam bel/Relatives. MDM/PLAN: - Physical Therapy Gait dysfunction - to improve, our physical therapists will perform initial evaluation of pt's statu s upon admission and devise an individualized program for Gait Training, and Wheel Chair mobility Inability to transfer - to improve, our physical therapists will perform initial evaluation of pt's status upon admission and devise an individualized program for Bed mobility Need for home safety evaluation - to improve, our physical therapists will perform initial evaluatio n of pt's status upon admission and devise an individualized program for Home Evaluation Need in caregiver upon discharge - to improve, our physical therapists will perform initial evaluati on of pt's status upon admission and devise an individualized program for Caregiver Training New precaution - to improve, our physical therapists will perform initial evaluation of pt's status upon admission and devise an individualized program for Patient precaution education Poor balance - to improve, our physical therapists will perform initial evaluation of pt's status up on admission and devise an individualized program for Balance Training Poor endurance - to improve, our physical therapists will perform initial evaluation of pt's status upon admission and devise an individualized program for Endurance Training Weakness - to improve, our physical therapists will perform initial evaluation of pt's status upon a dmission and devise an individualized program for Aquatic Therapy, Neuromuscular Reeducation, and Str engthening Achieving independence - to improve, our physical therapists will perform initial evaluation of pt's status upon admission and devise an individualized program for Community Reintegration Activities - Occupational Therapy ADL deficits - to improve, our occupation therapists will perform initial evaluation of pt's status upon admission and devise an individualized program for Bathing, Bed mobility, Community Reintegratio n, Cooking, Dressing, Eating, Fine Motor Skills, Grooming, Homemaking, Kitchen Mobility, Laundry, Pat ient Education, Safety Awareness, Splinting - Positioning, Transfers(Toilet, Tub, Shower), and Wheel Chair Management Need for care administrative tech - to improve, our occupation therapists will perform initial evaluation of pt's status upon admission and devise an individualized program for Caregiver Training Weakness - to improve, our occupation therapists will perform initial evaluation of pt's status upon admission and devise an individualized program for Aquatic Therapy, Balance, Endurance, UE ROM, and UE strengthening - Other See attached MAR (Medication Administration Record) - Diet Type Continue Regular - Diet - Liquid Texture Continue Regular - Tube Feed Continue N/A - Weight Bearing Precaution NWB left LE - Skin care per protocol - N/A Perform Consult Certified Prosthetic for prosthesis construction - Diet - Solid Texture Continue Regular - Shower allowing shower FUNCTIONAL STATUS: UPDATED AT WEEKLY TEAM CONFERENCE - Bladder Same accident frequency: 7-Ind - No accidents in the past 7 days - Bowel Same accident frequency: 7-Ind - No accidents in the past 7 days - Walking Same score based on distance walked: 0(N/A) - Wheelchair Same score based on distance traveled: 0(N/A) FUNCTIONAL STATUS: - Self-Care A. Eating Ind B. Grooming sup C. Bathing Isaías D. Dressing - Upper Ind E. Dressing - Lower modA F. Toileting modA - Sphincter Control G. Bladder control sup H. Bowel control sup - Transfers Control I. Bed/Chair/Wheelchair modA J. Toilet modA K. Tub/Shower modA - Locomotion L. Walk/Wheelchair (B) modA M. Stairs ADNO - Communication N. Comprehension (B) Elvia O. Expression (B) Elvia - Social Cognition P. Social Interaction Elvia Q. Problem Solving sup R. Memory sup - Endurance Fair - Balance Fair - Safety Awareness Fair QI SCORES: - Self-Care A. Eating 05-Setup or clean-up assistance B. Oral hygiene 05-Setup or clean-up assistance C. Toileting hygiene 03-Partial/moderate assistance E. Shower/bathe self 03-Partial/moderate assistance F. Upper body dressing 03-Partial/moderate assistance G. Lower body dressing 02-Substantial/maximal assistance H. Putting on/taking off footwear 02-Substantial/maximal assistance - Mobility A. Roll left and right 03-Partial/moderate assistance B. Sit to lying 03-Partial/moderate assistance C. Lying to sitting on side of bed 03-Partial/moderate assistance D. Sit to stand 03-Partial/moderate assistance E. Chair/vvt-[id number] transfer 03-Partial/moderate assistance F. Toilet transfer 03-Partial/moderate assistance G. Car transfer 10-Not attempted due to environmental limitations I. Walk 10 feet 88-Not attempted due to medical condition or safety concerns J. Walk 50 feet with two turns 88-Not attempted due to medical condition or safety concerns K. Walk 150 feet 88-Not attempted due to medical condition or safety concerns L. Walking 10 feet on uneven surfaces 88-Not attempted due to medical condition or safety concerns M. 1 step (curb) 88-Not attempted due to medical condition or safety concerns N. 4 steps 09-Not applicable O. 12 steps 09-Not applicable P. Picking up object 88-Not attempted due to medical condition or safety concerns R. Wheel 50 feet with two turns 88-Not attempted due to medical condition or safety concerns S. Wheel 150 feet 88-Not attempted due to medical condition or safety concerns - Bladder and Bowel Bladder continence 0-Always continent Bowel continence 0-Always continent - Endurance Poor - Balance Poor - Safety Awareness Fair CURRENT FUNC. DEFICITS: Self-Care, Mobility, Endurance, Balance, and Safety Awareness SIGNATURE PANEL: (SAILING OFFICER)
[2019-11-13] MEDS: INSULIN GLARGINE 100 UNITS/ML SQ SCH (21:13)
[2019-11-13] MEDS: TRAZODONE 50 MG TABLET PO PRN (21:14)
[2019-11-13] MEDS: clonazePAM 0.5 MG TAB PO PRN (21:14)
[2019-11-13] MEDS: AYR NASAL SALINE DROPS NAS PRN (21:21)
[2019-11-14] MEDS: INSULIN -REGULAR HUMAN 50 UNIT/0.5 ML ML SQ SCH ×4 (07:30→21:00)
[2019-11-14] MEDS: SODIUM CHLORIDE 0.9% 10ML INJ IV SCH ×2 (08:00→21:21)
[2019-11-14] MEDS: DOCUSATE NA 100 MG CAP PO SCH ×2 (08:16→21:21)
[2019-11-14] MEDS: SERTRALINE HCL 100 MG TAB PO SCH (08:16)
[2019-11-14] MEDS: FUROSEMIDE 20 MG TABLET PO SCH (08:16)
[2019-11-14] MEDS: FE SULF/FA/VIT B COMP & C TAB PO SCH (08:16)
[2019-11-14] MEDS: METFORMIN HCL 500 MG TAB PO SCH ×2 (08:16→16:48)
[2019-11-14] MEDS: LACTOBACILLUS/ACIDOPHILUS TAB PO SCH ×2 (08:16→21:21)
[2019-11-14] MEDS: CLOPIDOGREL 75 MG TABLET PO SCH (08:16)
[2019-11-14] MEDS: CYANOCOBALAMIN 1,000 MCG TAB PO SCH (08:16)
[2019-11-14] MEDS: FERROUS SULFATE 325 MG TAB PO SCH (08:16)
[2019-11-14] MEDS: APIXABAN 2.5 MG TABLET PO SCH ×2 (08:16→21:21)
[2019-11-14] MEDS: ASPIRIN EC 81 MG TAB PO SCH (08:16)
[2019-11-14] MEDS: ENSURE HIGH PROTEIN 237 ML CAN PO SCH (12:07)
--- NOTE | 2019-11-14 14:54 | FAST ---
ENCOUNTER DATE AND TIME: 11/14/2019 08:00 (AUTOMOTIVE TECHNOLOGY INSTRUCTOR) NAME CARLA FORBES DATE OF : 1945 DATE OF ADMISSION: 10/19/2019 15:48 (AUTOMOTIVE TECHNOLOGY INSTRUCTOR) PHONE: AGE: 73 N# [id number] GENDER: Male ENCOUNTER PHYSICIAN: Dr. Celso Noonan M.D. 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 EATING: Not assessed/no information CODE: - ORAL HYGIENE: ORAL HYGIENE - STEP 1: Does the patient complete the activity by him/herself with no assistance (physical, verbal/nonverbal cueing, setup/clean-up)? Yes. 1. [id number] ADMISSION PERFORMANCE: Independent CODE: 06 TOILETING HYGIENE: Not assessed/no information CODE: - BATHING: SHOWER/BATHE SELF - STEP 1: Does the patient complete the activity by him/herself with no assistance (physical, verbal/nonverbal cueing, setup/clean-up)? No. SHOWER/BATHE SELF - STEP 2: Does the patient need only setup/clean-up assistance from one helper? No. SHOWER/BATHE SELF - STEP 3: Does the patient need only verbal/nonverbal cueing or touching/steadying/contact guard assistance fro m one helper? Yes. 1. [id number] ADMISSION PERFORMANCE: Supervision or touching assistance CODE: 04 DRESSING - UPPER BODY: DRESSING - UPPER BODY - STEP 1: Does the patient complete the activity by him/herself with no assistance (physical, verbal/nonverbal cueing, setup/clean-up)? Yes. 1. [id number] ADMISSION PERFORMANCE: Independent CODE: 06 DRESSING - LOWER BODY: DRESSING - LOWER BODY - STEP 1: Does the patient complete the activity by him/herself with no assistance (physical, verbal/nonverbal cueing, setup/clean-up)? No. DRESSING - LOWER BODY - STEP 2: Does the patient need only setup/clean-up assistance from one helper? No. DRESSING - LOWER BODY - STEP 3: Does the patient need only verbal/nonverbal cueing or touching/steadying/contact guard assistance fro m one helper? Yes. 1. [id number] ADMISSION PERFORMANCE: Supervision or touching assistance CODE: 04 PUTTING ON/TAKING OFF FOOTWEAR: FOOTWEAR - STEP 1: Does the patient complete the activity by him/herself with no assistance (physical, verbal/nonverbal cueing, setup/clean-up)? Yes. 1. [id number] ADMISSION PERFORMANCE: Independent CODE: 06 DOES THE PATIENT USE A WHEELCHAIR/SCOOTER? CODE: EXPR INDICATE THE TYPE OF WHEELCHAIR/SCOOTER USED: CODE: EXPR INDICATE THE TYPE OF WHEELCHAIR/SCOOTER USED: CODE: EXPR BLADDER AND BOWEL: CODE: EXPR CODE: EXPR SIGNATURE PANEL: The following modified sections: 1. [id number] Admission Performance, 1. [id number] Admission Performance, 1. [id number] Admission Performance, 1. KT2260l Admission Performance, 1. KC6891i Admission Performance were [electronically] signed by MARY ALICE Kelly on TueNov 14 2019 14:53:39 GMT-0600 (Central Standard Time)
--- NOTE | 2019-11-14 15:31 | PN ---
Date of Progress Note: 11/14/2019 Subjective: The patient is awake, alert. No complaint. Objective: Vital signs: Stable. Afebrile. Wound: Examination of the wound reveals it to be almost completely healed. Assessment: Status post left below-knee amputation. Recommendation: Discontinue abhilash next Tuesday, and re-consult cristy WEBER/FREDI Voice ID: [id number] Report ID: [id number]
--- NOTE | 2019-11-14 18:23 | R.PN ---
ENCOUNTER DATE AND TIME: 11/14/2019 18:17 (SULFONATOR OPERATOR) NAME CARLA FORBES DATE OF : 1945 DATE OF ADMISSION: 10/19/2019 15:48 (SULFONATOR OPERATOR) Left BKACHIEF COMPLAINT: Left below the knee amputation SUBJECTIVE: Pt denied any Shortness of Breath. Pt denied any depression. Ambulated a total of 250' with standby assistance using a rolling walker. Self-propelled wheelchair 5 00' total with independence. Up and down low and high grade ramps with bilateral upper and right lowe r extremity. WBC 11.9, Hgb 10.5, glucose 142 to 192, prealbumin 29.8, Vanc is complete and was d/junaid. UA is adelaida l. VITAL SIGNS Temperature: 97.0 F SBP/DBP: 101/67 Pulse: 83 Resp: 18 MEDICATION ALLERGIES: No Known Drug Allergies (NKDA) ENVIRONMENTAL ALLERGIES: None Known - Substance Allergies None Known - Other Allergies None Known CONSULT: Perform Consult Certified Prosthetic for prosthesis construction NURSING: - Shower allowing shower - Skin care per protocol PRECAUTIONS: - Weight Bearing Precaution NWB left LE ACTIVITIES OOB only with supervision THERAPIES: - Orthotics/Prosthetics Prosthetic Evaluation. - Dietary and Nutrition Adequate Nutrition. Nutritional Education. Nutritional Supplements. PHYSICAL EXAM - Gen Alert and awake Lying in bed No apparent distress Oriented to: person, time, and place - Skin LLE incisions intact Normacephalic - Eyes No abnormalities - ENMT No abnormalities - Neck No abnormalities - CVS RRR - Chest No abnormalities - Resp Clear to auscultation - Abd Soft - GI Non distended Deferred - No abnormalities - Ext Left BKA good hemostasis, dressing in place - MSK 4+/5 weakness in left lower extremity - Neuro 4/5 strength left lower extremity. - Psych No abnormalities ASSESSMENT: Pt. 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 was independent/mod-I in Locomotion, Balance , Safety Awareness, Social Cognition, Transfers Control, Sphincter Control, Self-Care, Communication, and Endurance; and he had good Locomotion, Balance, Safety Awareness, Social Cognition, Transfers Co ntrol, Sphincter Control, Self-Care, Communication, and Endurance.Currently, he has deficits of Locom otion, Balance, Safety Awareness, Transfers Control, Self-Care, Endurance, and Communication.Pt. is n ow referred to [facility] for acute in-patient rehabilitation in order to maxi manuel patient's functional independence in activities of daily living, strength, ROM, and mobility.- R ehab Goal Patient has realistic goal of being discharged at assistance level 6-Elvia to reside at Home with Fam bel/Relatives. MDM/PLAN: - Physical Therapy Gait dysfunction - to improve, our physical therapists will perform initial evaluation of pt's statu s upon admission and devise an individualized program for Gait Training, and Wheel Chair mobility Inability to transfer - to improve, our physical therapists will perform initial evaluation of pt's status upon admission and devise an individualized program for Bed mobility Need for home safety evaluation - to improve, our physical therapists will perform initial evaluatio n of pt's status upon admission and devise an individualized program for Home Evaluation Need in caregiver upon discharge - to improve, our physical therapists will perform initial evaluati on of pt's status upon admission and devise an individualized program for Caregiver Training New precaution - to improve, our physical therapists will perform initial evaluation of pt's status upon admission and devise an individualized program for Patient precaution education Poor balance - to improve, our physical therapists will perform initial evaluation of pt's status up on admission and devise an individualized program for Balance Training Poor endurance - to improve, our physical therapists will perform initial evaluation of pt's status upon admission and devise an individualized program for Endurance Training Weakness - to improve, our physical therapists will perform initial evaluation of pt's status upon a dmission and devise an individualized program for Aquatic Therapy, Neuromuscular Reeducation, and Str engthening Achieving independence - to improve, our physical therapists will perform initial evaluation of pt's status upon admission and devise an individualized program for Community Reintegration Activities - Occupational Therapy ADL deficits - to improve, our occupation therapists will perform initial evaluation of pt's status upon admission and devise an individualized program for Bathing, Bed mobility, Community Reintegratio n, Cooking, Dressing, Eating, Fine Motor Skills, Grooming, Homemaking, Kitchen Mobility, Laundry, Pat ient Education, Safety Awareness, Splinting - Positioning, Transfers(Toilet, Tub, Shower), and Wheel Chair Management Need for point of care technician - to improve, our occupation therapists will perform initial evaluation of pt's status upon admission and devise an individualized program for Caregiver Training Weakness - to improve, our occupation therapists will perform initial evaluation of pt's status upon admission and devise an individualized program for Aquatic Therapy, Balance, Endurance, UE ROM, and UE strengthening - Other See attached MAR (Medication Administration Record) - Diet Type Continue Regular - Diet - Liquid Texture Continue Regular - Tube Feed Continue N/A - Weight Bearing Precaution NWB left LE - Skin care per protocol - N/A Perform Consult Certified Prosthetic for prosthesis construction - Diet - Solid Texture Continue Regular - Shower allowing shower FUNCTIONAL STATUS: UPDATED AT WEEKLY TEAM CONFERENCE - Bladder Same accident frequency: 7-Ind - No accidents in the past 7 days - Bowel Same accident frequency: 7-Ind - No accidents in the past 7 days - Walking Same score based on distance walked: 0(N/A) - Wheelchair Same score based on distance traveled: 0(N/A) FUNCTIONAL STATUS: - Self-Care A. Eating Ind B. Grooming sup C. Bathing Isaías D. Dressing - Upper Ind E. Dressing - Lower modA F. Toileting modA - Sphincter Control G. Bladder control sup H. Bowel control sup - Transfers Control I. Bed/Chair/Wheelchair modA J. Toilet modA K. Tub/Shower modA - Locomotion L. Walk/Wheelchair (B) modA M. Stairs ADNO - Communication N. Comprehension (B) Elvia O. Expression (B) Elvia - Social Cognition P. Social Interaction Elvia Q. Problem Solving sup R. Memory sup - Endurance Fair - Balance Fair - Safety Awareness Fair QI SCORES: - Self-Care A. Eating 05-Setup or clean-up assistance B. Oral hygiene 05-Setup or clean-up assistance C. Toileting hygiene 03-Partial/moderate assistance E. Shower/bathe self 03-Partial/moderate assistance F. Upper body dressing 03-Partial/moderate assistance G. Lower body dressing 02-Substantial/maximal assistance H. Putting on/taking off footwear 02-Substantial/maximal assistance - Mobility A. Roll left and right 03-Partial/moderate assistance B. Sit to lying 03-Partial/moderate assistance C. Lying to sitting on side of bed 03-Partial/moderate assistance D. Sit to stand 03-Partial/moderate assistance E. Chair/tfi-sn-kitmb transfer 03-Partial/moderate assistance F. Toilet transfer 03-Partial/moderate assistance G. Car transfer 10-Not attempted due to environmental limitations I. Walk 10 feet 88-Not attempted due to medical condition or safety concerns J. Walk 50 feet with two turns 88-Not attempted due to medical condition or safety concerns K. Walk 150 feet 88-Not attempted due to medical condition or safety concerns L. Walking 10 feet on uneven surfaces 88-Not attempted due to medical condition or safety concerns M. 1 step (curb) 88-Not attempted due to medical condition or safety concerns N. 4 steps 09-Not applicable O. 12 steps 09-Not applicable P. Picking up object 88-Not attempted due to medical condition or safety concerns R. Wheel 50 feet with two turns 88-Not attempted due to medical condition or safety concerns S. Wheel 150 feet 88-Not attempted due to medical condition or safety concerns - Bladder and Bowel Bladder continence 0-Always continent Bowel continence 0-Always continent - Endurance Poor - Balance Poor - Safety Awareness Fair CURRENT FUNC. DEFICITS: Self-Care, Mobility, Endurance, Balance, and Safety Awareness SIGNATURE PANEL: (SULFONATOR OPERATOR)
[2019-11-14] MEDS: AYR NASAL SALINE DROPS NAS PRN (21:20)
[2019-11-14] MEDS: TRAZODONE 50 MG TABLET PO PRN (21:21)
[2019-11-14] MEDS: clonazePAM 0.5 MG TAB PO PRN (21:21)
[2019-11-14] MEDS: INSULIN GLARGINE 100 UNITS/ML SQ SCH (21:21)
[2019-11-15 06:05] LABS: Absolute Lymphocytes (CBC) 8.6 K/uL (0.7-4.9); Basophils % 0.3 % (0-1.3); Hematocrit 32.7 % (39.6-49.0); Lymphocytes % 63.2 % (15.3-44.8); MPV 7.5 fL (7.6-11.3); RBC Red Blood Cell Count 3.63 M/uL (4.33-5.43)
[2019-11-15 06:13] LABS: Albumin 3.6 g/dL (3.4-5.0); Magnesium 2.5 mg/dL (1.8-2.4); Potassium 4.2 mmol/L (3.5-5.1); Prealbumin 22.3 mg/dL (20-40)
[2019-11-15] MEDS: INSULIN -REGULAR HUMAN 50 UNIT/0.5 ML ML SQ SCH ×4 (07:30→20:22)
[2019-11-15 07:55] LABS: Blood Morphology Comment NOT SEEN (NOT SEEN); Platelet Estimate ADEQ
[2019-11-15] MEDS: SODIUM CHLORIDE 0.9% 10ML INJ IV SCH ×2 (08:00→20:00)
[2019-11-15] MEDS: SERTRALINE HCL 100 MG TAB PO SCH (08:13)
[2019-11-15] MEDS: METFORMIN HCL 500 MG TAB PO SCH ×2 (08:13→17:03)
[2019-11-15] MEDS: LACTOBACILLUS/ACIDOPHILUS TAB PO SCH ×2 (08:13→20:22)
[2019-11-15] MEDS: APIXABAN 2.5 MG TABLET PO SCH ×2 (08:13→20:22)
[2019-11-15] MEDS: FE SULF/FA/VIT B COMP & C TAB PO SCH (08:13)
[2019-11-15] MEDS: CYANOCOBALAMIN 1,000 MCG TAB PO SCH (08:13)
[2019-11-15] MEDS: DOCUSATE NA 100 MG CAP PO SCH ×2 (08:13→20:22)
[2019-11-15] MEDS: FERROUS SULFATE 325 MG TAB PO SCH (08:13)
[2019-11-15] MEDS: CLOPIDOGREL 75 MG TABLET PO SCH (08:13)
[2019-11-15] MEDS: ASPIRIN EC 81 MG TAB PO SCH (08:13)
[2019-11-15] MEDS: FUROSEMIDE 20 MG TABLET PO SCH (08:14)
[2019-11-15] MEDS: ENSURE HIGH PROTEIN 237 ML CAN PO SCH (12:00)
--- NOTE | 2019-11-15 12:56 | RAD REPORT ---
EXAM DESCRIPTION: [facility] Single View11/15/2019 12:50 pm CLINICAL HISTORY: Chest pain COMPARISON: November 01, 2019 FINDINGS: The lungs appear clear of acute infiltrate. The heart is mildly enlarged. Pacemaker leads are in place. Postsurgical changes involve the chest. A PICC line has its tip in the superior vena cava IMPRESSION: No acute abnormalities displayed
--- NOTE | 2019-11-15 14:25 | FAST ---
ENCOUNTER DATE AND TIME: 11/15/2019 08:00 (CRITICAL CARE NURSE SPECIALIST) NAME CARLA FORBES DATE OF : 1945 DATE OF ADMISSION: 10/19/2019 15:48 (CRITICAL CARE NURSE SPECIALIST) PHONE: AGE: 73 N# [id number] GENDER: Male ENCOUNTER PHYSICIAN: Dr. Celso Noonan M.D. 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 ROLL LEFT AND RIGHT: ROLL LEFT AND RIGHT - STEP 1: Does the patient complete the activity by him/herself with no assistance (physical, verbal/nonverbal cueing, setup/clean-up)? Yes. 1. [id number] ADMISSION PERFORMANCE: Independent CODE: 06 SIT TO LYING: SIT TO LYING - STEP 1: Does the patient complete the activity by him/herself with no assistance (physical, verbal/nonverbal cueing, setup/clean-up)? Yes. 1. [id number] ADMISSION PERFORMANCE: Independent CODE: 06 LYING TO SITTING: LYING TO SITTING ON SIDE OF BED - STEP 1: Does the patient complete the activity by him/herself with no assistance (physical, verbal/nonverbal cueing, setup/clean-up)? Yes. 1. [id number] ADMISSION PERFORMANCE: Independent CODE: 06 SIT TO STAND: SIT TO STAND - STEP 1: Does the patient complete the activity by him/herself with no assistance (physical, verbal/nonverbal cueing, setup/clean-up)? Yes. 1. [id number] ADMISSION PERFORMANCE: Independent CODE: 06 TRANSFERS: BED, CHAIR: CHAIR/[id number] TRANSFER - STEP 1: Does the patient complete the activity by him/herself with no assistance (physical, verbal/nonverbal cueing, setup/clean-up)? Yes. 1. [id number] ADMISSION PERFORMANCE: Independent CODE: 06 TRANSFER TOILET: TOILET TRANSFER - STEP 1: Does the patient complete the activity by him/herself with no assistance (physical, verbal/nonverbal cueing, setup/clean-up)? Yes. 1. [id number] ADMISSION PERFORMANCE: Independent CODE: 06 TRANSFERS: CAR: Not attempted due to environmental limitations (e.g., lack of equipment, weather constraints) CODE: 10 WALK 10 FEET: WALK 10 FEET - STEP 1: Does the patient complete the activity by him/herself with no assistance (physical, verbal/nonverbal cueing, setup/clean-up)? Yes. 1. [id number] ADMISSION PERFORMANCE: Independent CODE: 06 WALK 50 FEET: WALK 50 FEET - STEP 1: Does the patient complete the activity by him/herself with no assistance (physical, verbal/nonverbal cueing, setup/clean-up)? No. WALK 50 FEET - STEP 2: Does the patient need only setup/clean-up assistance from one helper? No. WALK 50 FEET - STEP 3: Does the patient need only verbal/nonverbal cueing or touching/steadying/contact guard assistance fro m one helper? Yes. 1. [id number] ADMISSION PERFORMANCE: Supervision or touching assistance CODE: 04 WALK 150 FEET: WALK 150 FEET - STEP 1: Does the patient complete the activity by him/herself with no assistance (physical, verbal/nonverbal cueing, setup/clean-up)? No. WALK 150 FEET - STEP 2: Does the patient need only setup/clean-up assistance from one helper? No. WALK 150 FEET - STEP 3: Does the patient need only verbal/nonverbal cueing or touching/steadying/contact guard assistance fro m one helper? Yes. 1. [id number] ADMISSION PERFORMANCE: Supervision or touching assistance CODE: 04 WALK 10 FEET UNEVEN: Not attempted due to medical condition or safety concerns CODE: 88 1 STEP (CURB): Not attempted due to medical condition or safety concerns CODE: 88 PICKING UP OBJECT: Not attempted due to medical condition or safety concerns CODE: 88 DOES THE PATIENT USE A WHEELCHAIR/SCOOTER? Q1. DOES THE PATIENT USE A WHEELCHAIR/SCOOTER?: Yes CODE: 1 WHEEL 50 FEET WITH TWO TURNS: WHEEL 50 FEET WITH TWO TURNS - STEP 1: Does the patient complete the activity by him/herself with no assistance (physical, verbal/nonverbal cueing, setup/clean-up)? Yes. 1. [id number] ADMISSION PERFORMANCE: Independent CODE: 06 INDICATE THE TYPE OF WHEELCHAIR/SCOOTER USED: RR1. INDICATE THE TYPE OF WHEELCHAIR/SCOOTER USED.: Manual CODE: 1 WHEEL 150 FEET: WHEEL 150 FEET - STEP 1: Does the patient complete the activity by him/herself with no assistance (physical, verbal/nonverbal cueing, setup/clean-up)? Yes. 1. [id number] ADMISSION PERFORMANCE: Independent CODE: 06 INDICATE THE TYPE OF WHEELCHAIR/SCOOTER USED: SS1. INDICATE THE TYPE OF WHEELCHAIR/SCOOTER USED.: Manual CODE: 1 BLADDER AND BOWEL: CODE: EXPR CODE: EXPR SIGNATURE PANEL: The following modified sections: 1. [id number] Admission Performance, 1. [id number] Admission Performance, 1. [id number] Admission Performance, 1. [id number] Admission Performance, 1. [id number] Admission Performance, 1. [id number] Admission Performance, 1. [id number] Admission Performance, 1. [id number] Admission Performance , 1. [id number] Admission Performance, 1. [id number] Admission Performance, Q1. Does the patient use a whee lchair/scooter?, 1. [id number] Admission Performance, RR1. Indicate the type of wheelchair/scooter used. , 1. [id number] Admission Performance, Code, SS1. Indicate the type of wheelchair/scooter used. were [el ectronically] signed by Pedro Cantu PT on TueNov 15 2019 14:25:00 GMT-0600 (Central Standard T elzbieta)
--- NOTE | 2019-11-15 17:40 | R.PN ---
ENCOUNTER DATE AND TIME: 11/15/2019 17:23 (COTTON CANDY MAKER) NAME CARLA FORBES DATE OF : 1945 DATE OF ADMISSION: 10/19/2019 15:48 (COTTON CANDY MAKER) Left BKACHIEF COMPLAINT: Left below the knee amputation SUBJECTIVE: Pt denied any Shortness of Breath. Pt denied any depression. Ambulated a total of 250' with standby assistance using a rolling walker. Self-propelled wheelchair 5 00' total with independence. Up and down low and high grade ramps with bilateral upper and right lowe r extremity. WBC increased to 13.5. Chest x-ray is negative. His cath was removed and the tip sent for culture. Wi ll restart Vanc and zosyn until WBCs normalize and cath tip cultures come back. Hgb 10.6, glucose 107 to 150, prealbumin 22.3, UA is normal. VITAL SIGNS Temperature: 97.9 F SBP/DBP: 108/61 Pulse: 79 Resp: 16 MEDICATION ALLERGIES: No Known Drug Allergies (NKDA) ENVIRONMENTAL ALLERGIES: None Known - Substance Allergies None Known - Other Allergies None Known CONSULT: Perform Consult Certified Prosthetic for prosthesis construction NURSING: - Shower allowing shower - Skin care per protocol PRECAUTIONS: - Weight Bearing Precaution NWB left LE ACTIVITIES OOB only with supervision THERAPIES: - Orthotics/Prosthetics Prosthetic Evaluation. - Dietary and Nutrition Adequate Nutrition. Nutritional Education. Nutritional Supplements. PHYSICAL EXAM - Gen Alert and awake Lying in bed No apparent distress Oriented to: person, time, and place - Skin LLE incisions intact Normacephalic - Eyes No abnormalities - ENMT No abnormalities - Neck No abnormalities - CVS RRR - Chest No abnormalities - Resp Clear to auscultation - Abd Soft - GI Non distended Deferred - No abnormalities - Ext Left BKA good hemostasis, dressing in place - MSK 4+/5 weakness in left lower extremity - Neuro 4/5 strength left lower extremity. - Psych No abnormalities ASSESSMENT: Pt. 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 was independent/mod-I in Locomotion, Balance , Safety Awareness, Social Cognition, Transfers Control, Sphincter Control, Self-Care, Communication, and Endurance; and he had good Locomotion, Balance, Safety Awareness, Social Cognition, Transfers Co ntrol, Sphincter Control, Self-Care, Communication, and Endurance.Currently, he has deficits of Locom otion, Balance, Safety Awareness, Transfers Control, Self-Care, Endurance, and Communication.Pt. is n ow referred to [facility] for acute in-patient rehabilitation in order to maxi manuel patient's functional independence in activities of daily living, strength, ROM, and mobility.- R ehab Goal Patient has realistic goal of being discharged at assistance level 6-Elvia to reside at Home with Fam bel/Relatives. MDM/PLAN: - Physical Therapy Gait dysfunction - to improve, our physical therapists will perform initial evaluation of pt's statu s upon admission and devise an individualized program for Gait Training, and Wheel Chair mobility Inability to transfer - to improve, our physical therapists will perform initial evaluation of pt's status upon admission and devise an individualized program for Bed mobility Need for home safety evaluation - to improve, our physical therapists will perform initial evaluatio n of pt's status upon admission and devise an individualized program for Home Evaluation Need in caregiver upon discharge - to improve, our physical therapists will perform initial evaluati on of pt's status upon admission and devise an individualized program for Caregiver Training New precaution - to improve, our physical therapists will perform initial evaluation of pt's status upon admission and devise an individualized program for Patient precaution education Poor balance - to improve, our physical therapists will perform initial evaluation of pt's status up on admission and devise an individualized program for Balance Training Poor endurance - to improve, our physical therapists will perform initial evaluation of pt's status upon admission and devise an individualized program for Endurance Training Weakness - to improve, our physical therapists will perform initial evaluation of pt's status upon a dmission and devise an individualized program for Aquatic Therapy, Neuromuscular Reeducation, and Str engthening Achieving independence - to improve, our physical therapists will perform initial evaluation of pt's status upon admission and devise an individualized program for Community Reintegration Activities - Occupational Therapy ADL deficits - to improve, our occupation therapists will perform initial evaluation of pt's status upon admission and devise an individualized program for Bathing, Bed mobility, Community Reintegratio n, Cooking, Dressing, Eating, Fine Motor Skills, Grooming, Homemaking, Kitchen Mobility, Laundry, Pat ient Education, Safety Awareness, Splinting - Positioning, Transfers(Toilet, Tub, Shower), and Wheel Chair Management Need for managed care nurse - to improve, our occupation therapists will perform initial evaluation of pt's status upon admission and devise an individualized program for Caregiver Training Weakness - to improve, our occupation therapists will perform initial evaluation of pt's status upon admission and devise an individualized program for Aquatic Therapy, Balance, Endurance, UE ROM, and UE strengthening - Other See attached MAR (Medication Administration Record) - Diet Type Continue Regular - Diet - Liquid Texture Continue Regular - Tube Feed Continue N/A - Weight Bearing Precaution NWB left LE - Skin care per protocol - N/A Perform Consult Certified Prosthetic for prosthesis construction - Diet - Solid Texture Continue Regular - Shower allowing shower FUNCTIONAL STATUS: UPDATED AT WEEKLY TEAM CONFERENCE - Bladder Same accident frequency: 7-Ind - No accidents in the past 7 days - Bowel Same accident frequency: 7-Ind - No accidents in the past 7 days - Walking Same score based on distance walked: 0(N/A) - Wheelchair Same score based on distance traveled: 0(N/A) FUNCTIONAL STATUS: - Self-Care A. Eating Ind B. Grooming sup C. Bathing Isaías D. Dressing - Upper Ind E. Dressing - Lower modA F. Toileting modA - Sphincter Control G. Bladder control sup H. Bowel control sup - Transfers Control I. Bed/Chair/Wheelchair modA J. Toilet modA K. Tub/Shower modA - Locomotion L. Walk/Wheelchair (B) modA M. Stairs ADNO - Communication N. Comprehension (B) Elvia O. Expression (B) Elvia - Social Cognition P. Social Interaction Elvia Q. Problem Solving sup R. Memory sup - Endurance Fair - Balance Fair - Safety Awareness Fair QI SCORES: - Self-Care A. Eating 05-Setup or clean-up assistance B. Oral hygiene 05-Setup or clean-up assistance C. Toileting hygiene 03-Partial/moderate assistance E. Shower/bathe self 03-Partial/moderate assistance F. Upper body dressing 03-Partial/moderate assistance G. Lower body dressing 02-Substantial/maximal assistance H. Putting on/taking off footwear 02-Substantial/maximal assistance - Mobility A. Roll left and right 03-Partial/moderate assistance B. Sit to lying 03-Partial/moderate assistance C. Lying to sitting on side of bed 03-Partial/moderate assistance D. Sit to stand 03-Partial/moderate assistance E. Chair/fki-ac-loqxg transfer 03-Partial/moderate assistance F. Toilet transfer 03-Partial/moderate assistance G. Car transfer 10-Not attempted due to environmental limitations I. Walk 10 feet 88-Not attempted due to medical condition or safety concerns J. Walk 50 feet with two turns 88-Not attempted due to medical condition or safety concerns K. Walk 150 feet 88-Not attempted due to medical condition or safety concerns L. Walking 10 feet on uneven surfaces 88-Not attempted due to medical condition or safety concerns M. 1 step (curb) 88-Not attempted due to medical condition or safety concerns N. 4 steps 09-Not applicable O. 12 steps 09-Not applicable P. Picking up object 88-Not attempted due to medical condition or safety concerns R. Wheel 50 feet with two turns 88-Not attempted due to medical condition or safety concerns S. Wheel 150 feet 88-Not attempted due to medical condition or safety concerns - Bladder and Bowel Bladder continence 0-Always continent Bowel continence 0-Always continent - Endurance Poor - Balance Poor - Safety Awareness Fair CURRENT FUNC. DEFICITS: Self-Care, Mobility, Endurance, Balance, and Safety Awareness SIGNATURE PANEL: (COTTON CANDY MAKER)
[2019-11-15] MEDS ORDERED: VANCOMYCIN 1 GM/VIAL IVPB SCH (18:00)
[2019-11-15] MEDS: clonazePAM 0.5 MG TAB PO PRN (20:22)
[2019-11-15] MEDS: TRAZODONE 50 MG TABLET PO PRN (20:22)
[2019-11-15] MEDS: INSULIN GLARGINE 100 UNITS/ML SQ SCH (20:22)
[2019-11-15] MEDS: VANCOMYCIN 1.75 GM in NA CHLORIDE 0.9% 500 ML IVPB SCH (21:44)
[2019-11-16] MEDS: PIPER/TAZO/NS 3.375gm 3.375 GM/100 ML BAG IVPB SCH ×3 (00:35→16:21)
[2019-11-16 06:55] LABS: Absolute Lymphocytes (CBC) 6.7 K/uL (0.7-4.9); Basophils % 0.4 % (0-1.3); Hematocrit 33.7 % (39.6-49.0); Lymphocytes % 55.2 % (15.3-44.8); MPV 7.4 fL (7.6-11.3); RBC Red Blood Cell Count 3.72 M/uL (4.33-5.43)
[2019-11-16] MEDS: SODIUM CHLORIDE 0.9% 10ML INJ IV SCH ×2 (07:13→20:45)
[2019-11-16] MEDS: INSULIN -REGULAR HUMAN 50 UNIT/0.5 ML ML SQ SCH ×4 (07:30→20:44)
[2019-11-16] MEDS: CLOPIDOGREL 75 MG TABLET PO SCH (08:31)
[2019-11-16] MEDS: CYANOCOBALAMIN 1,000 MCG TAB PO SCH (08:31)
[2019-11-16] MEDS: METFORMIN HCL 500 MG TAB PO SCH ×2 (08:31→17:09)
[2019-11-16] MEDS: LACTOBACILLUS/ACIDOPHILUS TAB PO SCH ×2 (08:31→20:42)
[2019-11-16] MEDS: ASPIRIN EC 81 MG TAB PO SCH (08:31)
[2019-11-16] MEDS: FE SULF/FA/VIT B COMP & C TAB PO SCH (08:31)
[2019-11-16] MEDS: FERROUS SULFATE 325 MG TAB PO SCH (08:31)
[2019-11-16] MEDS: APIXABAN 2.5 MG TABLET PO SCH ×2 (08:31→20:42)
[2019-11-16] MEDS: FUROSEMIDE 20 MG TABLET PO SCH (08:31)
[2019-11-16] MEDS: DOCUSATE NA 100 MG CAP PO SCH ×2 (08:32→20:43)
[2019-11-16] MEDS: SERTRALINE HCL 100 MG TAB PO SCH (08:32)
--- NOTE | 2019-11-16 10:12 | P.RH.PN ---
Estimated Length of Stay: 36 Expected Discharge Date: 11/23/19 Discharge Disposition Plan: Home Family Support: Yes Shelter Goal: Mobility, Transfers, Self Care Vital Signs: Last Vital Signs Temp 96.8 F 11/16/19 07:03 Pulse 97 H 11/16/19 08:31 Resp 18 11/16/19 07:03 BP 109/59 L 11/16/19 08:31 Pulse Ox 96 11/16/19 07:03 Laboratory: Laboratory Last Values WBC 12.1 K/uL (4.3-10.9) H 11/16/19 06:31 RBC 3.72 M/uL (4.33-5.43) L 11/16/19 06:31 Hgb 10.9 g/dL (13.6-17.9) L 11/16/19 06:31 Hct 33.7 % (39.6-49.0) L 11/16/19 06:31 MCV 90.4 fL (80-100) 11/16/19 06:31 MCH 29.2 pg (27.0-35.0) 11/16/19 06:31 MCHC 32.3 g/dL (32.0-36.0) 11/16/19 06:31 RDW 16.2 % (12.1-15.2) H 11/16/19 06:31 Plt Count 227 K/uL (152-406) 11/16/19 06:31 MPV 7.4 fL (7.6-11.3) L 11/16/19 06:31 Neutrophils % 32.8 % (41.7-73.7) L 11/16/19 06:31 Lymphocytes % 55.2 % (15.3-44.8) H 11/16/19 06:31 Monocytes % 4.7 % (3.3-12.3) 11/16/19 06:31 Eosinophils % 6.9 % (0-4.4) H 11/16/19 06:31 Basophils % 0.4 % (0-1.3) 11/16/19 06:31 Absolute Neutrophils 4.0 K/uL (1.8-8.0) 11/16/19 06:31 Segmented Neutrophils 22 % (40-80) L 11/15/19 05:35 Absolute Lymphocytes 6.7 K/uL (0.7-4.9) H 11/16/19 06:31 Lymphocytes 63 % (15-42) H 11/15/19 05:35 Monocytes 4 % (0-10) 11/15/19 05:35 Absolute Monocytes 0.6 K/uL (0.1-1.3) 11/16/19 06:31 Eosinophils 2 % (0-3) 11/15/19 05:35 Absolute Eosinophils 0.8 K/uL (0-0.5) H 11/16/19 06:31 Basophils 2 % (0-1) H 10/31/19 05:40 Absolute Basophils 0.1 K/uL (0-0.5) 11/16/19 06:31 Nucleated RBCs 1 /100WBC 10/31/19 05:40 Atypical Lymphocytes 9 11/15/19 05:35 Morphology Comment Not seen (NOT SEEN) 11/15/19 05:35 Sodium 142 mmol/L (136-145) 11/15/19 05:35 Potassium 4.2 mmol/L (3.5-5.1) 11/15/19 05:35 Chloride 104 mmol/L (98-107) 11/15/19 05:35 Carbon Dioxide 29 mmol/L (21-32) 11/15/19 05:35 BUN 36 mg/dL (7-18) H 11/15/19 05:35 Creatinine 1.82 mg/dL (0.55-1.3) H 11/15/19 05:35 Estimated GFR 37 mL/min (=/>90) L 11/15/19 05:35 Glucose 107 mg/dL (74-106) H 11/15/19 05:35 POC Glucose 108 mg/dl (65-120) 11/16/19 07:21 Calcium 8.9 mg/dL (8.5-10.1) 11/15/19 05:35 Magnesium 2.5 mg/dL (1.8-2.4) H 11/15/19 05:35 Albumin 3.6 g/dL (3.4-5.0) 11/15/19 05:35 Prealbumin 22.3 mg/dL (20-40) 11/15/19 05:35 Urine Color Yellow 10/19/19 19:50 Urine Appearance Clear 10/19/19 19:50 Urine pH 5.5 (5.0-7.0) 10/19/19 19:50 Ur Specific [place] 1.010 (1.005-1.030) 10/19/19 19:50 Glucose (UA)(Auto) Negative (NEG) 10/19/19 19:50 Urine Ketones Negative (NEG) 10/19/19 19:50 Urine Blood Negative (NEG) 10/19/19 19:50 Urine Nitrite Negative (NEG) 10/19/19 19:50 Urine Bilirubin Negative (NEG) 10/19/19 19:50 Urine Urobilinogen 0.2 mg/dL (0.2-1.0) 10/19/19 19:50 Ur Leukocyte Esterase Negative (NEG) 10/19/19 19:50 Urine RBC None seen /HPF (NONE SEEN) 10/19/19 19:50 Urine WBC <5 /HPF (<5) 10/19/19 19:50 Ur Squamous Epith Cells <5 /HPF (NONE SEEN) 10/19/19 19:50 Urine Bacteria <20 /HPF (NONE SEEN) 10/19/19 19:50 Urine Culture Reflexed Not needed 10/19/19 19:50 Urine Total Protein Negative (NEG) 10/19/19 19:50 Vancomycin Peak Cancelled 11/15/19 Unknown Vancomycin Trough < 0.8 ug/mL (5.0-20.0) L 11/15/19 19:43 Weight: 211 lb 9.6 oz Wound Present: Yes Closed Surgical Incision Present: Yes Negative Pressure Wound Therapy Present: No Physician Update: Labs reviewed and WBC has decreased today. He is on vanc and zosyn. He is doing better with therapy, ambulating longer distances using his arms and the walker. Medical Issues: Patient is always continent with bladder and bowel. Pain Issues: Patient is taking Tylenol 650mg Q6H PO PRN and [place] 7.5/325mg Q4H PO PRN for pain. Functional Improvement: pt has demonstrated significant progress throughout the past week. pt is Independent with functional transfers and does not require any physical assist for ambulation. pt can safely negotiate ramps and sidewalks with his w/c. pt is on track to meet functional goals and should only require one more week to become fully Independent with ambulation and performed vehicle and curb transfers. Summary: Patient's care plan and intermediate accountant goals have been reviewed and revised as necessary. Please see the Rehabilitation Signature page for all necessary signatures.
[2019-11-16] MEDS: ENSURE HIGH PROTEIN 237 ML CAN PO SCH (12:24)
--- NOTE | 2019-11-16 15:03 | FAST ---
ENCOUNTER DATE AND TIME: 11/16/2019 08:00 (COMMERCIAL INSTALLER) NAME CARLA FORBES DATE OF : 1945 DATE OF ADMISSION: 10/19/2019 15:48 (COMMERCIAL INSTALLER) PHONE: AGE: 73 N# [id number] GENDER: Male ENCOUNTER PHYSICIAN: Dr. Celso Noonan M.D. 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 EATING: Not assessed/no information CODE: - ORAL HYGIENE: ORAL HYGIENE - STEP 1: Does the patient complete the activity by him/herself with no assistance (physical, verbal/nonverbal cueing, setup/clean-up)? Yes. 1. [id number] ADMISSION PERFORMANCE: Independent CODE: 06 TOILETING HYGIENE: TOILETING HYGIENE - STEP 1: Does the patient complete the activity by him/herself with no assistance (physical, verbal/nonverbal cueing, setup/clean-up)? Yes. 1. [id number] ADMISSION PERFORMANCE: Independent CODE: 06 BATHING: SHOWER/BATHE SELF - STEP 1: Does the patient complete the activity by him/herself with no assistance (physical, verbal/nonverbal cueing, setup/clean-up)? Yes. 1. [id number] ADMISSION PERFORMANCE: Independent CODE: 06 DRESSING - UPPER BODY: DRESSING - UPPER BODY - STEP 1: Does the patient complete the activity by him/herself with no assistance (physical, verbal/nonverbal cueing, setup/clean-up)? Yes. 1. [id number] ADMISSION PERFORMANCE: Independent CODE: 06 DRESSING - LOWER BODY: DRESSING - LOWER BODY - STEP 1: Does the patient complete the activity by him/herself with no assistance (physical, verbal/nonverbal cueing, setup/clean-up)? Yes. 1. [id number] ADMISSION PERFORMANCE: Independent CODE: 06 PUTTING ON/TAKING OFF FOOTWEAR: FOOTWEAR - STEP 1: Does the patient complete the activity by him/herself with no assistance (physical, verbal/nonverbal cueing, setup/clean-up)? Yes. 1. [id number] ADMISSION PERFORMANCE: Independent CODE: 06 DOES THE PATIENT USE A WHEELCHAIR/SCOOTER? CODE: EXPR INDICATE THE TYPE OF WHEELCHAIR/SCOOTER USED: CODE: EXPR INDICATE THE TYPE OF WHEELCHAIR/SCOOTER USED: CODE: EXPR BLADDER AND BOWEL: CODE: EXPR CODE: EXPR SIGNATURE PANEL: The following modified sections: 1. [id number] Admission Performance, 1. [id number] Admission Performance, 1. [id number] Admission Performance, 1. [id number] Admission Performance, 1. [id number] Admission Performance, 1. [id number] Admission Performance were [electronically] signed by MARY ALICE Kelly on TueNov 16 2019 15:02:55 GMT-0600 (Central Standard Time)
[2019-11-16] MEDS: MELATONIN 5 MG TABLET PO PRN (20:42)
[2019-11-16] MEDS: AYR NASAL SALINE DROPS NAS PRN (20:43)
[2019-11-16] MEDS: INSULIN GLARGINE 100 UNITS/ML SQ SCH (20:44)
[2019-11-16] MEDS: TRAZODONE 50 MG TABLET PO PRN (20:54)
[2019-11-16] MEDS: clonazePAM 0.5 MG TAB PO PRN (20:54)
[2019-11-17] MEDS: PIPER/TAZO/NS 3.375gm 3.375 GM/100 ML BAG IVPB SCH ×3 (01:43→16:02)
--- NOTE | 2019-11-17 02:37 | FAST ---
SHIFT START DATE/TIME: 11/16/2019 19:00 (SUGAR CANE FARM MANAGER) SHIFT END DATE/TIME: 11/17/2019 07:00 (SUGAR CANE FARM MANAGER) NAME CARLA FORBES DATE OF : 1945 DATE OF ADMISSION: 10/19/2019 15:48 (SUGAR CANE FARM MANAGER) PHONE: AGE: 73 N# [id number] GENDER: Male ENCOUNTER PHYSICIAN: Dr. Celso Noonan M.D. 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 EATING: Not assessed/no information CODE: - ORAL HYGIENE: ORAL HYGIENE - STEP 1: Does the patient complete the activity by him/herself with no assistance (physical, verbal/nonverbal cueing, setup/clean-up)? No. ORAL HYGIENE - STEP 2: Does the patient need only setup/clean-up assistance from one helper? No. ORAL HYGIENE - STEP 3: Does the patient need only verbal/nonverbal cueing or touching/steadying/contact guard assistance fro m one helper? Yes. 1. [id number] ADMISSION PERFORMANCE: Supervision or touching assistance CODE: 04 TOILETING HYGIENE: TOILETING HYGIENE - STEP 1: Does the patient complete the activity by him/herself with no assistance (physical, verbal/nonverbal cueing, setup/clean-up)? No. TOILETING HYGIENE - STEP 2: Does the patient need only setup/clean-up assistance from one helper? No. TOILETING HYGIENE - STEP 3: Does the patient need only verbal/nonverbal cueing or touching/steadying/contact guard assistance fro m one helper? No. TOILETING HYGIENE - STEP 4: Does the patient need physical assistance - for example lifting or trunk support from one helper - wi th the helper providing less than half of the effort? Yes. 1. [id number] ADMISSION PERFORMANCE: Partial/moderate assistance CODE: 03 BATHING: Not assessed/no information CODE: - DRESSING - UPPER BODY: Not assessed/no information CODE: - DRESSING - LOWER BODY: Not assessed/no information CODE: - PUTTING ON/TAKING OFF FOOTWEAR: Not assessed/no information CODE: - ROLL LEFT AND RIGHT: ROLL LEFT AND RIGHT - STEP 1: Does the patient complete the activity by him/herself with no assistance (physical, verbal/nonverbal cueing, setup/clean-up)? No. ROLL LEFT AND RIGHT - STEP 2: Does the patient need only setup/clean-up assistance from one helper? No. ROLL LEFT AND RIGHT - STEP 3: Does the patient need only verbal/nonverbal cueing or touching/steadying/contact guard assistance fro m one helper? Yes. 1. [id number] ADMISSION PERFORMANCE: Supervision or touching assistance CODE: 04 SIT TO LYING: SIT TO LYING - STEP 1: Does the patient complete the activity by him/herself with no assistance (physical, verbal/nonverbal cueing, setup/clean-up)? No. SIT TO LYING - STEP 2: Does the patient need only setup/clean-up assistance from one helper? No. SIT TO LYING - STEP 3: Does the patient need only verbal/nonverbal cueing or touching/steadying/contact guard assistance fro m one helper? Yes. 1. [id number] ADMISSION PERFORMANCE: Supervision or touching assistance CODE: 04 LYING TO SITTING: LYING TO SITTING ON SIDE OF BED - STEP 1: Does the patient complete the activity by him/herself with no assistance (physical, verbal/nonverbal cueing, setup/clean-up)? No. LYING TO SITTING ON SIDE OF BED - STEP 2: Does the patient need only setup/clean-up assistance from one helper? No. LYING TO SITTING ON SIDE OF BED - STEP 3: Does the patient need only verbal/nonverbal cueing or touching/steadying/contact guard assistance fro m one helper? No. LYING TO SITTING ON SIDE OF BED - STEP 4: Does the patient need physical assistance - for example lifting or trunk support from one helper - wi th the helper providing less than half of the effort? Yes. 1. [id number] ADMISSION PERFORMANCE: Partial/moderate assistance CODE: 03 SIT TO STAND: SIT TO STAND - STEP 1: Does the patient complete the activity by him/herself with no assistance (physical, verbal/nonverbal cueing, setup/clean-up)? No. SIT TO STAND - STEP 2: Does the patient need only setup/clean-up assistance from one helper? No. SIT TO STAND - STEP 3: Does the patient need only verbal/nonverbal cueing or touching/steadying/contact guard assistance fro m one helper? No. SIT TO STAND - STEP 4: Does the patient need physical assistance - for example lifting or trunk support from one helper - wi th the helper providing less than half of the effort? Yes. 1. [id number] ADMISSION PERFORMANCE: Partial/moderate assistance CODE: 03 TRANSFERS: BED, CHAIR: CHAIR/[id number] TRANSFER - STEP 1: Does the patient complete the activity by him/herself with no assistance (physical, verbal/nonverbal cueing, setup/clean-up)? No. CHAIR/[id number] TRANSFER - STEP 2: Does the patient need only setup/clean-up assistance from one helper? No. CHAIR/[id number] TRANSFER - STEP 3: Does the patient need only verbal/nonverbal cueing or touching/steadying/contact guard assistance fro m one helper? No. CHAIR/[id number] TRANSFER - STEP 4: Does the patient need physical assistance - for example lifting or trunk support from one helper - wi th the helper providing less than half of the effort? Yes. 1. [id number] ADMISSION PERFORMANCE: Partial/moderate assistance CODE: 03 TRANSFER TOILET: TOILET TRANSFER - STEP 1: Does the patient complete the activity by him/herself with no assistance (physical, verbal/nonverbal cueing, setup/clean-up)? No. TOILET TRANSFER - STEP 2: Does the patient need only setup/clean-up assistance from one helper? No. TOILET TRANSFER - STEP 3: Does the patient need only verbal/nonverbal cueing or touching/steadying/contact guard assistance fro m one helper? Yes. 1. [id number] ADMISSION PERFORMANCE: Supervision or touching assistance CODE: 04 TRANSFERS: CAR: Not assessed/no information CODE: - WALK 10 FEET: Not assessed/no information CODE: - 1 STEP (CURB): Not assessed/no information CODE: - PICKING UP OBJECT: Not assessed/no information CODE: - DOES THE PATIENT USE A WHEELCHAIR/SCOOTER? CODE: EXPR WHEEL 50 FEET WITH TWO TURNS: Not assessed/no information CODE: - INDICATE THE TYPE OF WHEELCHAIR/SCOOTER USED: CODE: EXPR WHEEL 150 FEET: Not assessed/no information CODE: - INDICATE THE TYPE OF WHEELCHAIR/SCOOTER USED: CODE: EXPR BLADDER AND BOWEL: H350. BLADDER CONTINENCE (3-DAY ASSESSMENT PERIOD): Always continent (no documented incontinence) CODE: 0 H400. BOWEL CONTINENCE (3-DAY ASSESSMENT PERIOD): Always continent CODE: 0
[2019-11-17] MEDS: INSULIN -REGULAR HUMAN 50 UNIT/0.5 ML ML SQ SCH ×4 (07:30→20:38)
[2019-11-17] MEDS: SODIUM CHLORIDE 0.9% 10ML INJ IV SCH ×2 (08:05→20:37)
[2019-11-17] MEDS: FERROUS SULFATE 325 MG TAB PO SCH (08:05)
[2019-11-17] MEDS: ASPIRIN EC 81 MG TAB PO SCH (08:05)
[2019-11-17] MEDS: FE SULF/FA/VIT B COMP & C TAB PO SCH (08:06)
[2019-11-17] MEDS: LACTOBACILLUS/ACIDOPHILUS TAB PO SCH ×2 (08:06→20:36)
[2019-11-17] MEDS: CLOPIDOGREL 75 MG TABLET PO SCH (08:06)
[2019-11-17] MEDS: SERTRALINE HCL 100 MG TAB PO SCH (08:06)
[2019-11-17] MEDS: DOCUSATE NA 100 MG CAP PO SCH ×2 (08:06→20:00)
[2019-11-17] MEDS: APIXABAN 2.5 MG TABLET PO SCH ×2 (08:06→20:36)
[2019-11-17] MEDS: FUROSEMIDE 20 MG TABLET PO SCH (08:06)
[2019-11-17] MEDS: CYANOCOBALAMIN 1,000 MCG TAB PO SCH (08:07)
[2019-11-17] MEDS: METFORMIN HCL 500 MG TAB PO SCH ×2 (08:07→16:59)
[2019-11-17] MEDS: VANCOMYCIN 1.75 GM in NA CHLORIDE 0.9% 500 ML IVPB SCH (09:06)
[2019-11-17] MEDS ORDERED: VANCOMYCIN 250 MG in NA CHLORIDE 0.9% 100 ML IVPB ONE (12:00)
[2019-11-17] MEDS: ENSURE HIGH PROTEIN 237 ML CAN PO SCH (12:09)
[2019-11-17] MEDS: clonazePAM 0.5 MG TAB PO PRN (20:36)
[2019-11-17] MEDS: TRAZODONE 50 MG TABLET PO PRN (20:36)
[2019-11-17] MEDS: INSULIN GLARGINE 100 UNITS/ML SQ SCH (20:36)
[2019-11-17] MEDS: AYR NASAL SALINE DROPS NAS PRN (20:38)
[2019-11-18] MEDS: PIPER/TAZO/NS 3.375gm 3.375 GM/100 ML BAG IVPB SCH ×3 (00:34→15:57)
[2019-11-18] MEDS: INSULIN -REGULAR HUMAN 50 UNIT/0.5 ML ML SQ SCH ×4 (07:30→21:00)
[2019-11-18] MEDS: DOCUSATE NA 100 MG CAP PO SCH ×3 (08:00→20:00)
[2019-11-18] MEDS: LACTOBACILLUS/ACIDOPHILUS TAB PO SCH ×2 (08:05→21:00)
[2019-11-18] MEDS: FERROUS SULFATE 325 MG TAB PO SCH (08:05)
[2019-11-18] MEDS: APIXABAN 2.5 MG TABLET PO SCH ×2 (08:05→21:00)
[2019-11-18] MEDS: FUROSEMIDE 20 MG TABLET PO SCH (08:06)
[2019-11-18] MEDS: METFORMIN HCL 500 MG TAB PO SCH ×2 (08:06→17:10)
[2019-11-18] MEDS: FE SULF/FA/VIT B COMP & C TAB PO SCH (08:07)
[2019-11-18] MEDS: CLOPIDOGREL 75 MG TABLET PO SCH (08:07)
[2019-11-18] MEDS: SERTRALINE HCL 100 MG TAB PO SCH (08:07)
[2019-11-18] MEDS: SODIUM CHLORIDE 0.9% 10ML INJ IV SCH ×2 (08:08→21:00)
[2019-11-18] MEDS: CYANOCOBALAMIN 1,000 MCG TAB PO SCH (08:08)
[2019-11-18] MEDS: ASPIRIN EC 81 MG TAB PO SCH (08:08)
[2019-11-18] MEDS: ENSURE HIGH PROTEIN 237 ML CAN PO SCH (11:40)
[2019-11-18] MEDS ORDERED: ACETAMINOPHEN 325 MG TABLET PO PRN (17:47)
[2019-11-18] MEDS ORDERED: D50W 25 GM/50 ML SYRINGE IV PRN (17:48)
[2019-11-18] MEDS ORDERED: GLUCAGON 1 MG/VIAL IM PRN (17:48)
[2019-11-18] MEDS ORDERED: ONDANSETRON 4 MG (ODT) TAB PO PRN (17:49)
[2019-11-18] MEDS ORDERED: POLYETHYL GLY 3350 17 GM/DOSE PO PRN (17:50)
[2019-11-18] MEDS: clonazePAM 0.5 MG TAB PO PRN (21:01)
[2019-11-18] MEDS: INSULIN GLARGINE 100 UNITS/ML SQ SCH (21:01)
[2019-11-18] MEDS: TRAZODONE 50 MG TABLET PO PRN (21:01)
[2019-11-18] MEDS: AYR NASAL SALINE DROPS NAS PRN (21:02)
[2019-11-18] MEDS: VANCOMYCIN 2 GM in NA CHLORIDE 0.9% 500 ML IVPB SCH (23:45)
[2019-11-19] MEDS: PIPER/TAZO/NS 3.375gm 3.375 GM/100 ML BAG IVPB SCH ×3 (01:46→16:08)
[2019-11-19] MEDS: INSULIN -REGULAR HUMAN 50 UNIT/0.5 ML ML SQ SCH ×4 (07:30→20:40)
[2019-11-19] MEDS: SODIUM CHLORIDE 0.9% 10ML INJ IV SCH ×2 (08:00→20:39)
[2019-11-19] MEDS: DOCUSATE NA 100 MG CAP PO SCH ×3 (08:00→20:00)
[2019-11-19] MEDS: METFORMIN HCL 500 MG TAB PO SCH ×2 (08:19→16:51)
[2019-11-19] MEDS: CLOPIDOGREL 75 MG TABLET PO SCH (08:19)
[2019-11-19] MEDS: FE SULF/FA/VIT B COMP & C TAB PO SCH (08:20)
[2019-11-19] MEDS: SERTRALINE HCL 100 MG TAB PO SCH (08:20)
[2019-11-19] MEDS: APIXABAN 2.5 MG TABLET PO SCH ×2 (08:20→20:38)
[2019-11-19] MEDS: CYANOCOBALAMIN 1,000 MCG TAB PO SCH (08:20)
[2019-11-19] MEDS: FUROSEMIDE 20 MG TABLET PO SCH (08:20)
[2019-11-19] MEDS: FERROUS SULFATE 325 MG TAB PO SCH (08:20)
[2019-11-19] MEDS: ASPIRIN EC 81 MG TAB PO SCH (08:20)
[2019-11-19] MEDS: LACTOBACILLUS/ACIDOPHILUS TAB PO SCH ×2 (08:20→20:38)
[2019-11-19] MEDS: ENSURE HIGH PROTEIN 237 ML CAN PO SCH (11:56)
--- NOTE | 2019-11-19 14:04 | FAST ---
ENCOUNTER DATE AND TIME: 11/19/2019 08:00 (PHYSICAL EDUCATION AIDE) NAME CARLA FORBES DATE OF : 1945 DATE OF ADMISSION: 10/19/2019 15:48 (PHYSICAL EDUCATION AIDE) PHONE: AGE: 73 N# [id number] GENDER: Male ENCOUNTER PHYSICIAN: Dr. Celso Noonan M.D. 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 EATING: Not assessed/no information CODE: - ORAL HYGIENE: ORAL HYGIENE - STEP 1: Does the patient complete the activity by him/herself with no assistance (physical, verbal/nonverbal cueing, setup/clean-up)? Yes. 1. [id number] ADMISSION PERFORMANCE: Independent CODE: 06 TOILETING HYGIENE: Not assessed/no information CODE: - BATHING: SHOWER/BATHE SELF - STEP 1: Does the patient complete the activity by him/herself with no assistance (physical, verbal/nonverbal cueing, setup/clean-up)? Yes. 1. [id number] ADMISSION PERFORMANCE: Independent CODE: 06 DRESSING - UPPER BODY: DRESSING - UPPER BODY - STEP 1: Does the patient complete the activity by him/herself with no assistance (physical, verbal/nonverbal cueing, setup/clean-up)? Yes. 1. [id number] ADMISSION PERFORMANCE: Independent CODE: 06 DRESSING - LOWER BODY: DRESSING - LOWER BODY - STEP 1: Does the patient complete the activity by him/herself with no assistance (physical, verbal/nonverbal cueing, setup/clean-up)? Yes. 1. [id number] ADMISSION PERFORMANCE: Independent CODE: 06 PUTTING ON/TAKING OFF FOOTWEAR: FOOTWEAR - STEP 1: Does the patient complete the activity by him/herself with no assistance (physical, verbal/nonverbal cueing, setup/clean-up)? Yes. 1. [id number] ADMISSION PERFORMANCE: Independent CODE: 06 DOES THE PATIENT USE A WHEELCHAIR/SCOOTER? CODE: EXPR INDICATE THE TYPE OF WHEELCHAIR/SCOOTER USED: CODE: EXPR INDICATE THE TYPE OF WHEELCHAIR/SCOOTER USED: CODE: EXPR BLADDER AND BOWEL: CODE: EXPR CODE: EXPR SIGNATURE PANEL: The following modified sections: 1. [id number] Admission Performance, 1. [id number] Admission Performance, 1. [id number] Admission Performance, 1. [id number] Admission Performance, 1. [id number] Admission Performance were [electronically] signed by MARY ALICE Kelly on TueNov 19 2019 14:04:05 GMT-0600 (Central Standard Time)
--- NOTE | 2019-11-19 18:00 | R.PN ---
ENCOUNTER DATE AND TIME: 11/19/2019 17:55 (STEWARD/STEWARDESS DECK) NAME CARAL FORBES DATE OF : 1945 DATE OF ADMISSION: 10/19/2019 15:48 (STEWARD/STEWARDESS DECK) Left BKACHIEF COMPLAINT: Left below the knee amputation SUBJECTIVE: Pt denied any Shortness of Breath. Pt denied any depression. Ambulated a total of 380' with independence using a rolling walker. Self-propelled wheelchair 500' to dante with independence. Up and down low and high grade ramps with bilateral upper and right lower extr emity. WBC increased to 13.5. Chest x-ray is negative. His cath was removed and the tip sent for culture. Wi ll restart Vanc and zosyn until WBCs normalize and cath tip cultures come back. Hgb 10.6, glucose 137 to 161, prealbumin 22.3, UA is normal. He did surface to surface transfers without an assistive device. VITAL SIGNS Temperature: 97.9 F SBP/DBP: 115/60 Pulse: 90 Resp: 16 MEDICATION ALLERGIES: No Known Drug Allergies (NKDA) ENVIRONMENTAL ALLERGIES: None Known - Substance Allergies None Known - Other Allergies None Known CONSULT: Perform Consult Certified Prosthetic for prosthesis construction NURSING: - Shower allowing shower - Skin care per protocol PRECAUTIONS: - Weight Bearing Precaution NWB left LE ACTIVITIES OOB only with supervision THERAPIES: - Orthotics/Prosthetics Prosthetic Evaluation. - Dietary and Nutrition Adequate Nutrition. Nutritional Education. Nutritional Supplements. PHYSICAL EXAM - Gen Alert and awake Lying in bed No apparent distress Oriented to: person, time, and place - Skin LLE incisions intact Normacephalic - Eyes No abnormalities - ENMT No abnormalities - Neck No abnormalities - CVS RRR - Chest No abnormalities - Resp Clear to auscultation - Abd Soft - GI Non distended Deferred - No abnormalities - Ext Left BKA good hemostasis, dressing in place - MSK 4+/5 weakness in left lower extremity - Neuro 4/5 strength left lower extremity. - Psych No abnormalities ASSESSMENT: Pt. 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 was independent/mod-I in Locomotion, Balance , Safety Awareness, Social Cognition, Transfers Control, Sphincter Control, Self-Care, Communication, and Endurance; and he had good Locomotion, Balance, Safety Awareness, Social Cognition, Transfers Co ntrol, Sphincter Control, Self-Care, Communication, and Endurance.Currently, he has deficits of Locom otion, Balance, Safety Awareness, Transfers Control, Self-Care, Endurance, and Communication.Pt. is n ow referred to [facility] for acute in-patient rehabilitation in order to maxi manuel patient's functional independence in activities of daily living, strength, ROM, and mobility.- R ehab Goal Patient has realistic goal of being discharged at assistance level 6-Elvia to reside at Home with Fam bel/Relatives. MDM/PLAN: - Physical Therapy Gait dysfunction - to improve, our physical therapists will perform initial evaluation of pt's statu s upon admission and devise an individualized program for Gait Training, and Wheel Chair mobility Inability to transfer - to improve, our physical therapists will perform initial evaluation of pt's status upon admission and devise an individualized program for Bed mobility Need for home safety evaluation - to improve, our physical therapists will perform initial evaluatio n of pt's status upon admission and devise an individualized program for Home Evaluation Need in caregiver upon discharge - to improve, our physical therapists will perform initial evaluati on of pt's status upon admission and devise an individualized program for Caregiver Training New precaution - to improve, our physical therapists will perform initial evaluation of pt's status upon admission and devise an individualized program for Patient precaution education Poor balance - to improve, our physical therapists will perform initial evaluation of pt's status up on admission and devise an individualized program for Balance Training Poor endurance - to improve, our physical therapists will perform initial evaluation of pt's status upon admission and devise an individualized program for Endurance Training Weakness - to improve, our physical therapists will perform initial evaluation of pt's status upon a dmission and devise an individualized program for Aquatic Therapy, Neuromuscular Reeducation, and Str engthening Achieving independence - to improve, our physical therapists will perform initial evaluation of pt's status upon admission and devise an individualized program for Community Reintegration Activities - Occupational Therapy ADL deficits - to improve, our occupation therapists will perform initial evaluation of pt's status upon admission and devise an individualized program for Bathing, Bed mobility, Community Reintegratio n, Cooking, Dressing, Eating, Fine Motor Skills, Grooming, Homemaking, Kitchen Mobility, Laundry, Pat ient Education, Safety Awareness, Splinting - Positioning, Transfers(Toilet, Tub, Shower), and Wheel Chair Management Need for care manager cna - to improve, our occupation therapists will perform initial evaluation of pt's status upon admission and devise an individualized program for Caregiver Training Weakness - to improve, our occupation therapists will perform initial evaluation of pt's status upon admission and devise an individualized program for Aquatic Therapy, Balance, Endurance, UE ROM, and UE strengthening - Other See attached MAR (Medication Administration Record) - Diet Type Continue Regular - Diet - Liquid Texture Continue Regular - Tube Feed Continue N/A - Weight Bearing Precaution NWB left LE - Skin care per protocol - N/A Perform Consult Certified Prosthetic for prosthesis construction - Diet - Solid Texture Continue Regular - Shower allowing shower FUNCTIONAL STATUS: UPDATED AT WEEKLY TEAM CONFERENCE - Bladder Same accident frequency: 7-Ind - No accidents in the past 7 days - Bowel Same accident frequency: 7-Ind - No accidents in the past 7 days - Walking Same score based on distance walked: 0(N/A) - Wheelchair Same score based on distance traveled: 0(N/A) FUNCTIONAL STATUS: - Self-Care A. Eating Ind B. Grooming sup C. Bathing Isaías D. Dressing - Upper Ind E. Dressing - Lower modA F. Toileting modA - Sphincter Control G. Bladder control sup H. Bowel control sup - Transfers Control I. Bed/Chair/Wheelchair modA J. Toilet modA K. Tub/Shower modA - Locomotion L. Walk/Wheelchair (B) modA M. Stairs ADNO - Communication N. Comprehension (B) Elvia O. Expression (B) Elvia - Social Cognition P. Social Interaction Elvia Q. Problem Solving sup R. Memory sup - Endurance Fair - Balance Fair - Safety Awareness Fair QI SCORES: - Self-Care A. Eating 05-Setup or clean-up assistance B. Oral hygiene 05-Setup or clean-up assistance C. Toileting hygiene 03-Partial/moderate assistance E. Shower/bathe self 03-Partial/moderate assistance F. Upper body dressing 03-Partial/moderate assistance G. Lower body dressing 02-Substantial/maximal assistance H. Putting on/taking off footwear 02-Substantial/maximal assistance - Mobility A. Roll left and right 03-Partial/moderate assistance B. Sit to lying 03-Partial/moderate assistance C. Lying to sitting on side of bed 03-Partial/moderate assistance D. Sit to stand 03-Partial/moderate assistance E. Chair/dvi-pr-[id number] transfer 03-Partial/moderate assistance F. Toilet transfer 03-Partial/moderate assistance G. Car transfer 10-Not attempted due to environmental limitations I. Walk 10 feet 88-Not attempted due to medical condition or safety concerns J. Walk 50 feet with two turns 88-Not attempted due to medical condition or safety concerns K. Walk 150 feet 88-Not attempted due to medical condition or safety concerns L. Walking 10 feet on uneven surfaces 88-Not attempted due to medical condition or safety concerns M. 1 step (curb) 88-Not attempted due to medical condition or safety concerns N. 4 steps 09-Not applicable O. 12 steps 09-Not applicable P. Picking up object 88-Not attempted due to medical condition or safety concerns R. Wheel 50 feet with two turns 88-Not attempted due to medical condition or safety concerns S. Wheel 150 feet 88-Not attempted due to medical condition or safety concerns - Bladder and Bowel Bladder continence 0-Always continent Bowel continence 0-Always continent - Endurance Poor - Balance Poor - Safety Awareness Fair CURRENT FUNC. DEFICITS: Self-Care, Mobility, Endurance, Balance, and Safety Awareness SIGNATURE PANEL: (STEWARD/STEWARDESS DECK)
[2019-11-19] MEDS: clonazePAM 0.5 MG TAB PO PRN (20:38)
[2019-11-19] MEDS: INSULIN GLARGINE 100 UNITS/ML SQ SCH (20:39)
[2019-11-19] MEDS: TRAZODONE 50 MG TABLET PO PRN (20:39)
[2019-11-19] MEDS: AYR NASAL SALINE DROPS NAS PRN (20:40)
[2019-11-20] MEDS: PIPER/TAZO/NS 3.375gm 3.375 GM/100 ML BAG IVPB SCH ×3 (00:33→16:30)
[2019-11-20] MEDS: INSULIN -REGULAR HUMAN 50 UNIT/0.5 ML ML SQ SCH ×4 (07:30→20:06)
[2019-11-20] MEDS: FUROSEMIDE 20 MG TABLET PO SCH (08:00)
[2019-11-20] MEDS: SODIUM CHLORIDE 0.9% 10ML INJ IV SCH ×2 (08:00→19:10)
[2019-11-20] MEDS: DOCUSATE NA 100 MG CAP PO SCH ×2 (08:00→20:00)
[2019-11-20] MEDS: ASPIRIN EC 81 MG TAB PO SCH (08:07)
[2019-11-20] MEDS: FE SULF/FA/VIT B COMP & C TAB PO SCH (08:08)
[2019-11-20] MEDS: APIXABAN 2.5 MG TABLET PO SCH ×2 (08:08→19:10)
[2019-11-20] MEDS: METFORMIN HCL 500 MG TAB PO SCH ×2 (08:08→16:28)
[2019-11-20] MEDS: CLOPIDOGREL 75 MG TABLET PO SCH (08:08)
[2019-11-20] MEDS: CYANOCOBALAMIN 1,000 MCG TAB PO SCH (08:08)
[2019-11-20] MEDS: SERTRALINE HCL 100 MG TAB PO SCH (08:08)
[2019-11-20] MEDS: LACTOBACILLUS/ACIDOPHILUS TAB PO SCH ×2 (08:08→19:10)
[2019-11-20] MEDS: FERROUS SULFATE 325 MG TAB PO SCH (08:08)
[2019-11-20] MEDS: ENSURE HIGH PROTEIN 237 ML CAN PO SCH (11:38)
[2019-11-20] MEDS: VANCOMYCIN 2 GM in NA CHLORIDE 0.9% 500 ML IVPB SCH (11:38)
--- NOTE | 2019-11-20 17:53 | R.PN ---
ENCOUNTER DATE AND TIME: 11/20/2019 17:44 (STAFF AIR TACTICAL OFFICER) NAME CARLA FORBES DATE OF : 1945 DATE OF ADMISSION: 10/19/2019 15:48 (STAFF AIR TACTICAL OFFICER) Left BKACHIEF COMPLAINT: Left below the knee amputation SUBJECTIVE: Pt denied any Shortness of Breath. Pt denied any depression. Ambulated a total of 380' with independence using a rolling walker. Self-propelled wheelchair 500' to dante with independence. Up and down low and high grade ramps with bilateral upper and right lower extr emity. His Head Of English increased to 2.04. He is receiving IV fluids with vanc. His vanc trough is 15.9. He is on Zos yn 3.375 mg q 8 hours. Will also increase oral free water. He did surface to surface transfers without an assistive device. VITAL SIGNS Temperature: 97.9 F SBP/DBP: 99/53 Pulse: 93 Resp: 16 MEDICATION ALLERGIES: No Known Drug Allergies (NKDA) ENVIRONMENTAL ALLERGIES: None Known - Substance Allergies None Known - Other Allergies None Known CONSULT: Perform Consult Certified Prosthetic for prosthesis construction NURSING: - Shower allowing shower - Skin care per protocol PRECAUTIONS: - Weight Bearing Precaution NWB left LE ACTIVITIES OOB only with supervision THERAPIES: - Orthotics/Prosthetics Prosthetic Evaluation. - Dietary and Nutrition Adequate Nutrition. Nutritional Education. Nutritional Supplements. PHYSICAL EXAM - Gen Alert and awake Lying in bed No apparent distress Oriented to: person, time, and place - Skin LLE incisions intact Normacephalic - Eyes No abnormalities - ENMT No abnormalities - Neck No abnormalities - CVS RRR - Chest No abnormalities - Resp Clear to auscultation - Abd Soft - GI Non distended Deferred - No abnormalities - Ext Left BKA good hemostasis, dressing in place - MSK 4+/5 weakness in left lower extremity - Neuro 4/5 strength left lower extremity. - Psych No abnormalities ASSESSMENT: Pt. 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 was independent/mod-I in Locomotion, Balance , Safety Awareness, Social Cognition, Transfers Control, Sphincter Control, Self-Care, Communication, and Endurance; and he had good Locomotion, Balance, Safety Awareness, Social Cognition, Transfers Co ntrol, Sphincter Control, Self-Care, Communication, and Endurance.Currently, he has deficits of Locom otion, Balance, Safety Awareness, Transfers Control, Self-Care, Endurance, and Communication.Pt. is n ow referred to [facility] for acute in-patient rehabilitation in order to maxi manuel patient's functional independence in activities of daily living, strength, ROM, and mobility.- R ehab Goal Patient has realistic goal of being discharged at assistance level 6-Elvia to reside at Home with Fam bel/Relatives. MDM/PLAN: - Physical Therapy Gait dysfunction - to improve, our physical therapists will perform initial evaluation of pt's statu s upon admission and devise an individualized program for Gait Training, and Wheel Chair mobility Inability to transfer - to improve, our physical therapists will perform initial evaluation of pt's status upon admission and devise an individualized program for Bed mobility Need for home safety evaluation - to improve, our physical therapists will perform initial evaluatio n of pt's status upon admission and devise an individualized program for Home Evaluation Need in caregiver upon discharge - to improve, our physical therapists will perform initial evaluati on of pt's status upon admission and devise an individualized program for Caregiver Training New precaution - to improve, our physical therapists will perform initial evaluation of pt's status upon admission and devise an individualized program for Patient precaution education Poor balance - to improve, our physical therapists will perform initial evaluation of pt's status up on admission and devise an individualized program for Balance Training Poor endurance - to improve, our physical therapists will perform initial evaluation of pt's status upon admission and devise an individualized program for Endurance Training Weakness - to improve, our physical therapists will perform initial evaluation of pt's status upon a dmission and devise an individualized program for Aquatic Therapy, Neuromuscular Reeducation, and Str engthening Achieving independence - to improve, our physical therapists will perform initial evaluation of pt's status upon admission and devise an individualized program for Community Reintegration Activities - Occupational Therapy ADL deficits - to improve, our occupation therapists will perform initial evaluation of pt's status upon admission and devise an individualized program for Bathing, Bed mobility, Community Reintegratio n, Cooking, Dressing, Eating, Fine Motor Skills, Grooming, Homemaking, Kitchen Mobility, Laundry, Pat ient Education, Safety Awareness, Splinting - Positioning, Transfers(Toilet, Tub, Shower), and Wheel Chair Management Need for post anesthesia care unit nurse - to improve, our occupation therapists will perform initial evaluation of pt's status upon admission and devise an individualized program for Caregiver Training Weakness - to improve, our occupation therapists will perform initial evaluation of pt's status upon admission and devise an individualized program for Aquatic Therapy, Balance, Endurance, UE ROM, and UE strengthening - Other See attached MAR (Medication Administration Record) - Diet Type Continue Regular - Diet - Liquid Texture Continue Regular - Tube Feed Continue N/A - Weight Bearing Precaution NWB left LE - Skin care per protocol - N/A Perform Consult Certified Prosthetic for prosthesis construction - Diet - Solid Texture Continue Regular - Shower allowing shower FUNCTIONAL STATUS: UPDATED AT WEEKLY TEAM CONFERENCE - Bladder Same accident frequency: 7-Ind - No accidents in the past 7 days - Bowel Same accident frequency: 7-Ind - No accidents in the past 7 days - Walking Same score based on distance walked: 0(N/A) - Wheelchair Same score based on distance traveled: 0(N/A) FUNCTIONAL STATUS: - Self-Care A. Eating Ind B. Grooming sup C. Bathing Isaías D. Dressing - Upper Ind E. Dressing - Lower modA F. Toileting modA - Sphincter Control G. Bladder control sup H. Bowel control sup - Transfers Control I. Bed/Chair/Wheelchair modA J. Toilet modA K. Tub/Shower modA - Locomotion L. Walk/Wheelchair (B) modA M. Stairs ADNO - Communication N. Comprehension (B) Elvia O. Expression (B) Elvia - Social Cognition P. Social Interaction Elvia Q. Problem Solving sup R. Memory sup - Endurance Fair - Balance Fair - Safety Awareness Fair QI SCORES: - Self-Care A. Eating 05-Setup or clean-up assistance B. Oral hygiene 05-Setup or clean-up assistance C. Toileting hygiene 03-Partial/moderate assistance E. Shower/bathe self 03-Partial/moderate assistance F. Upper body dressing 03-Partial/moderate assistance G. Lower body dressing 02-Substantial/maximal assistance H. Putting on/taking off footwear 02-Substantial/maximal assistance - Mobility A. Roll left and right 03-Partial/moderate assistance B. Sit to lying 03-Partial/moderate assistance C. Lying to sitting on side of bed 03-Partial/moderate assistance D. Sit to stand 03-Partial/moderate assistance E. Chair/[id number]-[id number] transfer 03-Partial/moderate assistance F. Toilet transfer 03-Partial/moderate assistance G. Car transfer 10-Not attempted due to environmental limitations I. Walk 10 feet 88-Not attempted due to medical condition or safety concerns J. Walk 50 feet with two turns 88-Not attempted due to medical condition or safety concerns K. Walk 150 feet 88-Not attempted due to medical condition or safety concerns L. Walking 10 feet on uneven surfaces 88-Not attempted due to medical condition or safety concerns M. 1 step (curb) 88-Not attempted due to medical condition or safety concerns N. 4 steps 09-Not applicable O. 12 steps 09-Not applicable P. Picking up object 88-Not attempted due to medical condition or safety concerns R. Wheel 50 feet with two turns 88-Not attempted due to medical condition or safety concerns S. Wheel 150 feet 88-Not attempted due to medical condition or safety concerns - Bladder and Bowel Bladder continence 0-Always continent Bowel continence 0-Always continent - Endurance Poor - Balance Poor - Safety Awareness Fair CURRENT FUNC. DEFICITS: Self-Care, Mobility, Endurance, Balance, and Safety Awareness SIGNATURE PANEL: (STAFF AIR TACTICAL OFFICER)
[2019-11-20] MEDS: clonazePAM 0.5 MG TAB PO PRN (19:10)
[2019-11-20] MEDS: AYR NASAL SALINE DROPS NAS PRN (19:10)
[2019-11-20] MEDS: TRAZODONE 50 MG TABLET PO PRN (19:10)
[2019-11-20] MEDS: INSULIN GLARGINE 100 UNITS/ML SQ SCH (19:11)
[2019-11-21] MEDS: PIPER/TAZO/NS 3.375gm 3.375 GM/100 ML BAG IVPB SCH ×3 (00:30→16:05)
[2019-11-21] MEDS: INSULIN -REGULAR HUMAN 50 UNIT/0.5 ML ML SQ SCH ×4 (07:30→20:13)
[2019-11-21] MEDS: DOCUSATE NA 100 MG CAP PO SCH ×2 (08:00→20:05)
[2019-11-21] MEDS: SODIUM CHLORIDE 0.9% 10ML INJ IV SCH ×2 (08:00→20:00)
[2019-11-21] MEDS: APIXABAN 2.5 MG TABLET PO SCH ×2 (08:12→20:05)
[2019-11-21] MEDS: LACTOBACILLUS/ACIDOPHILUS TAB PO SCH ×2 (08:12→20:00)
[2019-11-21] MEDS: FUROSEMIDE 20 MG TABLET PO SCH (08:13)
[2019-11-21] MEDS: METFORMIN HCL 500 MG TAB PO SCH ×2 (08:13→17:04)
[2019-11-21] MEDS: FERROUS SULFATE 325 MG TAB PO SCH (08:13)
[2019-11-21] MEDS: SERTRALINE HCL 100 MG TAB PO SCH (08:13)
[2019-11-21] MEDS: CLOPIDOGREL 75 MG TABLET PO SCH (08:13)
[2019-11-21] MEDS: FE SULF/FA/VIT B COMP & C TAB PO SCH (08:13)
[2019-11-21] MEDS: ASPIRIN EC 81 MG TAB PO SCH (08:13)
[2019-11-21] MEDS: CYANOCOBALAMIN 1,000 MCG TAB PO SCH (08:13)
[2019-11-21] MEDS: ENSURE HIGH PROTEIN 237 ML CAN PO SCH (12:22)
--- NOTE | 2019-11-21 14:59 | FAST ---
ENCOUNTER DATE AND TIME: 11/21/2019 08:00 (PULP BLEACHER) NAME CARLA FORBES DATE OF : 1945 DATE OF ADMISSION: 10/19/2019 15:48 (PULP BLEACHER) PHONE: AGE: 73 N# [id number] GENDER: Male ENCOUNTER PHYSICIAN: Dr. Celso Noonan M.D. 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 EATING: Not assessed/no information CODE: - ORAL HYGIENE: ORAL HYGIENE - STEP 1: Does the patient complete the activity by him/herself with no assistance (physical, verbal/nonverbal cueing, setup/clean-up)? Yes. 1. [id number] ADMISSION PERFORMANCE: Independent CODE: 06 TOILETING HYGIENE: Not assessed/no information CODE: - BATHING: SHOWER/BATHE SELF - STEP 1: Does the patient complete the activity by him/herself with no assistance (physical, verbal/nonverbal cueing, setup/clean-up)? Yes. 1. [id number] ADMISSION PERFORMANCE: Independent CODE: 06 DRESSING - UPPER BODY: DRESSING - UPPER BODY - STEP 1: Does the patient complete the activity by him/herself with no assistance (physical, verbal/nonverbal cueing, setup/clean-up)? Yes. 1. [id number] ADMISSION PERFORMANCE: Independent CODE: 06 DRESSING - LOWER BODY: DRESSING - LOWER BODY - STEP 1: Does the patient complete the activity by him/herself with no assistance (physical, verbal/nonverbal cueing, setup/clean-up)? Yes. 1. [id number] ADMISSION PERFORMANCE: Independent CODE: 06 PUTTING ON/TAKING OFF FOOTWEAR: FOOTWEAR - STEP 1: Does the patient complete the activity by him/herself with no assistance (physical, verbal/nonverbal cueing, setup/clean-up)? Yes. 1. [id number] ADMISSION PERFORMANCE: Independent CODE: 06 DOES THE PATIENT USE A WHEELCHAIR/SCOOTER? CODE: EXPR INDICATE THE TYPE OF WHEELCHAIR/SCOOTER USED: CODE: EXPR INDICATE THE TYPE OF WHEELCHAIR/SCOOTER USED: CODE: EXPR BLADDER AND BOWEL: CODE: EXPR CODE: EXPR SIGNATURE PANEL: The following modified sections: 1. [id number] Admission Performance, 1. [id number] Admission Performance, 1. [id number] Admission Performance, 1. [id number] Admission Performance, 1. [id number] Admission Performance were [electronically] signed by MARY ALICE Kelly on TueNov 21 2019 14:58:47 GMT-0600 (Central Standard Time)
--- NOTE | 2019-11-21 16:30 | FAST ---
SHIFT START DATE/TIME: 11/21/2019 07:00 (AD WRITER) SHIFT END DATE/TIME: 11/21/2019 19:00 (AD WRITER) NAME CARLA FORBES DATE OF : 1945 DATE OF ADMISSION: 10/19/2019 15:48 (AD WRITER) PHONE: AGE: 73 N# [id number] GENDER: Male ENCOUNTER PHYSICIAN: Dr. Celso Noonan M.D. 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 EATING: EATING - STEP 1: Does the patient complete the activity by him/herself with no assistance (physical, verbal/nonverbal cueing, setup/clean-up)? Yes. 1. [id number] ADMISSION PERFORMANCE: Independent CODE: 06 ORAL HYGIENE: ORAL HYGIENE - STEP 1: Does the patient complete the activity by him/herself with no assistance (physical, verbal/nonverbal cueing, setup/clean-up)? Yes. 1. [id number] ADMISSION PERFORMANCE: Independent CODE: 06 TOILETING HYGIENE: TOILETING HYGIENE - STEP 1: Does the patient complete the activity by him/herself with no assistance (physical, verbal/nonverbal cueing, setup/clean-up)? Yes. 1. [id number] ADMISSION PERFORMANCE: Independent CODE: 06 BATHING: Not assessed/no information CODE: - DRESSING - UPPER BODY: DRESSING - UPPER BODY - STEP 1: Does the patient complete the activity by him/herself with no assistance (physical, verbal/nonverbal cueing, setup/clean-up)? Yes. 1. [id number] ADMISSION PERFORMANCE: Independent CODE: 06 DRESSING - LOWER BODY: DRESSING - LOWER BODY - STEP 1: Does the patient complete the activity by him/herself with no assistance (physical, verbal/nonverbal cueing, setup/clean-up)? Yes. 1. [id number] ADMISSION PERFORMANCE: Independent CODE: 06 PUTTING ON/TAKING OFF FOOTWEAR: FOOTWEAR - STEP 1: Does the patient complete the activity by him/herself with no assistance (physical, verbal/nonverbal cueing, setup/clean-up)? Yes. 1. [id number] ADMISSION PERFORMANCE: Independent CODE: 06 DOES THE PATIENT USE A WHEELCHAIR/SCOOTER? CODE: EXPR INDICATE THE TYPE OF WHEELCHAIR/SCOOTER USED: CODE: EXPR INDICATE THE TYPE OF WHEELCHAIR/SCOOTER USED: CODE: EXPR BLADDER AND BOWEL: H350. BLADDER CONTINENCE (3-DAY ASSESSMENT PERIOD): Always continent (no documented incontinence) CODE: 0 H400. BOWEL CONTINENCE (3-DAY ASSESSMENT PERIOD): Always continent CODE: 0 SIGNATURE PANEL: The following modified sections: 1. [id number] Admission Performance, 1. [id number] Admission Performance, 1. [id number] Admission Performance, 1. [id number] Admission Performance, 1. [id number] Admission Performance, 1. AS2656a Admission Performance, H350. Bladder Continence (3-day assessment period), H400. Bowel Co ntinence (3-day assessment period) were [electronically] signed by Rogelio DiazNNathalia on TueNov 21 2019 16:29:50 GMT-0600 (Central Standard Time)
--- NOTE | 2019-11-21 17:39 | R.PN ---
ENCOUNTER DATE AND TIME: 11/21/2019 17:19 (SWAMPER) NAME CARLA FORBES DATE OF : 1945 DATE OF ADMISSION: 10/19/2019 15:48 (SWAMPER) Left BKACHIEF COMPLAINT: Left below the knee amputation SUBJECTIVE: Pt denied any Shortness of Breath. Pt denied any depression. Ambulated a total of 290' with independence using a rolling walker. Self-propelled wheelchair 500' to dante with independence. Up and down low and high grade ramps with bilateral upper and right lower extr emity. While he is ambulating well with the rolling walker, he fatigues easily and has a left below t he knee amputation. Therefore, he will benefit from a wheelchair until he is fitted and trained with a left lower extremity prosthesis. His Point [employer] Associate increased to 2.04. He is receiving IV fluids with vanc. His vanc trough is 15.9. He is on Zos yn 3.375 mg q 8 hours. Will also increase oral free water. He did surface to surface transfers without an assistive device. VITAL SIGNS Temperature: 97.6 F SBP/DBP: 101/60 Pulse: 90 Resp: 16 MEDICATION ALLERGIES: No Known Drug Allergies (NKDA) ENVIRONMENTAL ALLERGIES: None Known - Substance Allergies None Known - Other Allergies None Known CONSULT: Perform Consult Certified Prosthetic for prosthesis construction NURSING: - Shower allowing shower - Skin care per protocol PRECAUTIONS: - Weight Bearing Precaution NWB left LE ACTIVITIES OOB only with supervision THERAPIES: - Orthotics/Prosthetics Prosthetic Evaluation. - Dietary and Nutrition Adequate Nutrition. Nutritional Education. Nutritional Supplements. PHYSICAL EXAM - Gen Alert and awake Lying in bed No apparent distress Oriented to: person, time, and place - Skin LLE incisions intact Normacephalic - Eyes No abnormalities - ENMT No abnormalities - Neck No abnormalities - CVS RRR - Chest No abnormalities - Resp Clear to auscultation - Abd Soft - GI Non distended Deferred - No abnormalities - Ext Left BKA good hemostasis, dressing in place - MSK 4+/5 weakness in left lower extremity - Neuro 4/5 strength left lower extremity. - Psych No abnormalities ASSESSMENT: Pt. 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 was independent/mod-I in Locomotion, Balance , Safety Awareness, Social Cognition, Transfers Control, Sphincter Control, Self-Care, Communication, and Endurance; and he had good Locomotion, Balance, Safety Awareness, Social Cognition, Transfers Co ntrol, Sphincter Control, Self-Care, Communication, and Endurance.Currently, he has deficits of Locom otion, Balance, Safety Awareness, Transfers Control, Self-Care, Endurance, and Communication.Pt. is n ow referred to [facility] for acute in-patient rehabilitation in order to maxi manuel patient's functional independence in activities of daily living, strength, ROM, and mobility.- R ehab Goal Patient has realistic goal of being discharged at assistance level 6-Elvia to reside at Home with Fam bel/Relatives. MDM/PLAN: - Physical Therapy Gait dysfunction - to improve, our physical therapists will perform initial evaluation of pt's statu s upon admission and devise an individualized program for Gait Training, and Wheel Chair mobility Inability to transfer - to improve, our physical therapists will perform initial evaluation of pt's status upon admission and devise an individualized program for Bed mobility Need for home safety evaluation - to improve, our physical therapists will perform initial evaluatio n of pt's status upon admission and devise an individualized program for Home Evaluation Need in caregiver upon discharge - to improve, our physical therapists will perform initial evaluati on of pt's status upon admission and devise an individualized program for Caregiver Training New precaution - to improve, our physical therapists will perform initial evaluation of pt's status upon admission and devise an individualized program for Patient precaution education Poor balance - to improve, our physical therapists will perform initial evaluation of pt's status up on admission and devise an individualized program for Balance Training Poor endurance - to improve, our physical therapists will perform initial evaluation of pt's status upon admission and devise an individualized program for Endurance Training Weakness - to improve, our physical therapists will perform initial evaluation of pt's status upon a dmission and devise an individualized program for Aquatic Therapy, Neuromuscular Reeducation, and Str engthening Achieving independence - to improve, our physical therapists will perform initial evaluation of pt's status upon admission and devise an individualized program for Community Reintegration Activities - Occupational Therapy ADL deficits - to improve, our occupation therapists will perform initial evaluation of pt's status upon admission and devise an individualized program for Bathing, Bed mobility, Community Reintegratio n, Cooking, Dressing, Eating, Fine Motor Skills, Grooming, Homemaking, Kitchen Mobility, Laundry, Pat ient Education, Safety Awareness, Splinting - Positioning, Transfers(Toilet, Tub, Shower), and Wheel Chair Management Need for auto care center manager - to improve, our occupation therapists will perform initial evaluation of pt's status upon admission and devise an individualized program for Caregiver Training Weakness - to improve, our occupation therapists will perform initial evaluation of pt's status upon admission and devise an individualized program for Aquatic Therapy, Balance, Endurance, UE ROM, and UE strengthening - Other See attached MAR (Medication Administration Record) - Diet Type Continue Regular - Diet - Liquid Texture Continue Regular - Tube Feed Continue N/A - Weight Bearing Precaution NWB left LE - Skin care per protocol - N/A Perform Consult Certified Prosthetic for prosthesis construction - Diet - Solid Texture Continue Regular - Shower allowing shower FUNCTIONAL STATUS: UPDATED AT WEEKLY TEAM CONFERENCE - Bladder Same accident frequency: 7-Ind - No accidents in the past 7 days - Bowel Same accident frequency: 7-Ind - No accidents in the past 7 days - Walking Same score based on distance walked: 0(N/A) - Wheelchair Same score based on distance traveled: 0(N/A) FUNCTIONAL STATUS: - Self-Care A. Eating Ind B. Grooming sup C. Bathing Isaías D. Dressing - Upper Ind E. Dressing - Lower modA F. Toileting modA - Sphincter Control G. Bladder control sup H. Bowel control sup - Transfers Control I. Bed/Chair/Wheelchair modA J. Toilet modA K. Tub/Shower modA - Locomotion L. Walk/Wheelchair (B) modA M. Stairs ADNO - Communication N. Comprehension (B) Elvia O. Expression (B) Elvia - Social Cognition P. Social Interaction Elvia Q. Problem Solving sup R. Memory sup - Endurance Fair - Balance Fair - Safety Awareness Fair QI SCORES: - Self-Care A. Eating 05-Setup or clean-up assistance B. Oral hygiene 05-Setup or clean-up assistance C. Toileting hygiene 03-Partial/moderate assistance E. Shower/bathe self 03-Partial/moderate assistance F. Upper body dressing 03-Partial/moderate assistance G. Lower body dressing 02-Substantial/maximal assistance H. Putting on/taking off footwear 02-Substantial/maximal assistance - Mobility A. Roll left and right 03-Partial/moderate assistance B. Sit to lying 03-Partial/moderate assistance C. Lying to sitting on side of bed 03-Partial/moderate assistance D. Sit to stand 03-Partial/moderate assistance E. Chair/ljm-ee-iocha transfer 03-Partial/moderate assistance F. Toilet transfer 03-Partial/moderate assistance G. Car transfer 10-Not attempted due to environmental limitations I. Walk 10 feet 88-Not attempted due to medical condition or safety concerns J. Walk 50 feet with two turns 88-Not attempted due to medical condition or safety concerns K. Walk 150 feet 88-Not attempted due to medical condition or safety concerns L. Walking 10 feet on uneven surfaces 88-Not attempted due to medical condition or safety concerns M. 1 step (curb) 88-Not attempted due to medical condition or safety concerns N. 4 steps 09-Not applicable O. 12 steps 09-Not applicable P. Picking up object 88-Not attempted due to medical condition or safety concerns R. Wheel 50 feet with two turns 88-Not attempted due to medical condition or safety concerns S. Wheel 150 feet 88-Not attempted due to medical condition or safety concerns - Bladder and Bowel Bladder continence 0-Always continent Bowel continence 0-Always continent - Endurance Poor - Balance Poor - Safety Awareness Fair CURRENT FUNC. DEFICITS: Self-Care, Mobility, Endurance, Balance, and Safety Awareness SIGNATURE PANEL: (SWAMPER)
[2019-11-21] MEDS: clonazePAM 0.5 MG TAB PO PRN (20:05)
[2019-11-21] MEDS: TRAZODONE 50 MG TABLET PO PRN (20:05)
[2019-11-21] MEDS: AYR NASAL SALINE DROPS NAS PRN (20:06)
[2019-11-21] MEDS: INSULIN GLARGINE 100 UNITS/ML SQ SCH (20:12)
[2019-11-21] MEDS: VANCOMYCIN 2 GM in NA CHLORIDE 0.9% 500 ML IVPB SCH (23:34)
[2019-11-22] MEDS: PIPER/TAZO/NS 3.375gm 3.375 GM/100 ML BAG IVPB SCH ×3 (01:45→17:23)
[2019-11-22 06:31] LABS: Absolute Lymphocytes (CBC) 6.6 K/uL (0.7-4.9); Basophils % 0.9 % (0-1.3); Hematocrit 31.8 % (39.6-49.0); Lymphocytes % 58.2 % (15.3-44.8); MPV 7.5 fL (7.6-11.3); RBC Red Blood Cell Count 3.49 M/uL (4.33-5.43)
[2019-11-22 06:41] LABS: Albumin 3.6 g/dL (3.4-5.0); Magnesium 2.3 mg/dL (1.8-2.4); Potassium 4.1 mmol/L (3.5-5.1); Prealbumin 27.6 mg/dL (20-40)
[2019-11-22] MEDS: INSULIN -REGULAR HUMAN 50 UNIT/0.5 ML ML SQ SCH ×4 (07:30→21:00)
[2019-11-22] MEDS: SODIUM CHLORIDE 0.9% 10ML INJ IV SCH ×2 (08:00→20:00)
[2019-11-22] MEDS: DOCUSATE NA 100 MG CAP PO SCH ×2 (08:00→20:00)
[2019-11-22] MEDS: FUROSEMIDE 20 MG TABLET PO SCH (08:00)
[2019-11-22] MEDS: FE SULF/FA/VIT B COMP & C TAB PO SCH (08:04)
[2019-11-22] MEDS: CYANOCOBALAMIN 1,000 MCG TAB PO SCH (08:05)
[2019-11-22] MEDS: SERTRALINE HCL 100 MG TAB PO SCH (08:05)
[2019-11-22] MEDS: ASPIRIN EC 81 MG TAB PO SCH (08:05)
[2019-11-22] MEDS: FERROUS SULFATE 325 MG TAB PO SCH (08:05)
[2019-11-22] MEDS: LACTOBACILLUS/ACIDOPHILUS TAB PO SCH ×2 (08:05→21:47)
[2019-11-22] MEDS: METFORMIN HCL 500 MG TAB PO SCH ×2 (08:05→17:23)
[2019-11-22] MEDS: CLOPIDOGREL 75 MG TABLET PO SCH (08:05)
[2019-11-22] MEDS: APIXABAN 2.5 MG TABLET PO SCH ×2 (08:05→21:47)
[2019-11-22 11:28] LABS: Blood Morphology Comment NOT SEEN (NOT SEEN); Platelet Estimate ADEQ; White Blood Cell Scan OK
[2019-11-22] MEDS: ENSURE HIGH PROTEIN 237 ML CAN PO SCH (12:00)
--- NOTE | 2019-11-22 15:11 | FAST ---
ENCOUNTER DATE AND TIME: 11/22/2019 08:00 (MANPOWER DEVELOPMENT MANAGER) NAME CARLA FORBES DATE OF : 1945 DATE OF ADMISSION: 10/19/2019 15:48 (MANPOWER DEVELOPMENT MANAGER) PHONE: AGE: 73 N# [id number] GENDER: Male ENCOUNTER PHYSICIAN: Dr. Celso Noonan M.D. 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 ROLL LEFT AND RIGHT: ROLL LEFT AND RIGHT - STEP 1: Does the patient complete the activity by him/herself with no assistance (physical, verbal/nonverbal cueing, setup/clean-up)? Yes. 1. [id number] ADMISSION PERFORMANCE: Independent CODE: 06 SIT TO LYING: SIT TO LYING - STEP 1: Does the patient complete the activity by him/herself with no assistance (physical, verbal/nonverbal cueing, setup/clean-up)? Yes. 1. [id number] ADMISSION PERFORMANCE: Independent CODE: 06 LYING TO SITTING: LYING TO SITTING ON SIDE OF BED - STEP 1: Does the patient complete the activity by him/herself with no assistance (physical, verbal/nonverbal cueing, setup/clean-up)? Yes. 1. [id number] ADMISSION PERFORMANCE: Independent CODE: 06 SIT TO STAND: SIT TO STAND - STEP 1: Does the patient complete the activity by him/herself with no assistance (physical, verbal/nonverbal cueing, setup/clean-up)? Yes. 1. [id number] ADMISSION PERFORMANCE: Independent CODE: 06 TRANSFERS: BED, CHAIR: CHAIR/[id number] TRANSFER - STEP 1: Does the patient complete the activity by him/herself with no assistance (physical, verbal/nonverbal cueing, setup/clean-up)? Yes. 1. [id number] ADMISSION PERFORMANCE: Independent CODE: 06 TRANSFER TOILET: TOILET TRANSFER - STEP 1: Does the patient complete the activity by him/herself with no assistance (physical, verbal/nonverbal cueing, setup/clean-up)? Yes. 1. [id number] ADMISSION PERFORMANCE: Independent CODE: 06 TRANSFERS: CAR: Not attempted due to environmental limitations (e.g., lack of equipment, weather constraints) CODE: 10 WALK 10 FEET: WALK 10 FEET - STEP 1: Does the patient complete the activity by him/herself with no assistance (physical, verbal/nonverbal cueing, setup/clean-up)? Yes. 1. [id number] ADMISSION PERFORMANCE: Independent CODE: 06 WALK 50 FEET: WALK 50 FEET - STEP 1: Does the patient complete the activity by him/herself with no assistance (physical, verbal/nonverbal cueing, setup/clean-up)? Yes. 1. [id number] ADMISSION PERFORMANCE: Independent CODE: 06 WALK 150 FEET: WALK 150 FEET - STEP 1: Does the patient complete the activity by him/herself with no assistance (physical, verbal/nonverbal cueing, setup/clean-up)? Yes. 1. [id number] ADMISSION PERFORMANCE: Independent CODE: 06 WALK 10 FEET UNEVEN: Not attempted due to medical condition or safety concerns CODE: 88 1 STEP (CURB): Not attempted due to medical condition or safety concerns CODE: 88 PICKING UP OBJECT: Not attempted due to medical condition or safety concerns CODE: 88 DOES THE PATIENT USE A WHEELCHAIR/SCOOTER? Q1. DOES THE PATIENT USE A WHEELCHAIR/SCOOTER?: Yes CODE: 1 WHEEL 50 FEET WITH TWO TURNS: WHEEL 50 FEET WITH TWO TURNS - STEP 1: Does the patient complete the activity by him/herself with no assistance (physical, verbal/nonverbal cueing, setup/clean-up)? Yes. 1. [id number] ADMISSION PERFORMANCE: Independent CODE: 06 INDICATE THE TYPE OF WHEELCHAIR/SCOOTER USED: RR1. INDICATE THE TYPE OF WHEELCHAIR/SCOOTER USED.: Manual CODE: 1 WHEEL 150 FEET: WHEEL 150 FEET - STEP 1: Does the patient complete the activity by him/herself with no assistance (physical, verbal/nonverbal cueing, setup/clean-up)? Yes. 1. [id number] ADMISSION PERFORMANCE: Independent CODE: 06 INDICATE THE TYPE OF WHEELCHAIR/SCOOTER USED: SS1. INDICATE THE TYPE OF WHEELCHAIR/SCOOTER USED.: Manual CODE: 1 BLADDER AND BOWEL: CODE: EXPR CODE: EXPR SIGNATURE PANEL: The following modified sections: 1. [id number] Admission Performance, 1. [id number] Admission Performance, 1. [id number] Admission Performance, 1. [id number] Admission Performance, 1. [id number] Admission Performance, 1. [id number] Admission Performance, 1. [id number] Admission Performance, 1. [id number] Admission Performance , 1. [id number] Admission Performance, Q1. Does the patient use a wheelchair/scooter?, 1. [id number] Admiss ion Performance, RR1. Indicate the type of wheelchair/scooter used., 1. [id number] Admission Performance , Code, SS1. Indicate the type of wheelchair/scooter used. were [electronically] signed by Aubrey Chavez PTA on TueNov 22 2019 15:11:12 GMT-0600 (Central Standard Time)
--- NOTE | 2019-11-22 20:22 | R.PN ---
ENCOUNTER DATE AND TIME: 11/22/2019 20:18 (DECAY CONTROL OPERATOR) NAME CARLA FORBES DATE OF : 1945 DATE OF ADMISSION: 10/19/2019 15:48 (DECAY CONTROL OPERATOR) Left BKACHIEF COMPLAINT: Left below the knee amputation SUBJECTIVE: Pt denied any Shortness of Breath. Pt denied any depression. Ambulated a total of 290' with independence using a rolling walker. Self-propelled wheelchair 500' to dante with independence. Up and down low and high grade ramps with bilateral upper and right lower extr emity. While he is ambulating well with the rolling walker, he fatigues easily and has a left below t he knee amputation. Therefore, he will benefit from a wheelchair until he is fitted and trained with a left lower extremity prosthesis. His Account Resolution Specialist increased to 2.04. He is receiving IV fluids with vanc. His vanc trough is 15.9. He is on Zos yn 3.375 mg q 8 hours. Will also increase oral free water. He did surface to surface transfers without an assistive device. WBC 11.3, Hgb 10.3, glucose 96 to 157, prealbumin 27.6. Vanc trough 17.6. VITAL SIGNS Temperature: 97.2 F SBP/DBP: 99/54 Pulse: 74 Resp: 18 MEDICATION ALLERGIES: No Known Drug Allergies (NKDA) ENVIRONMENTAL ALLERGIES: None Known - Substance Allergies None Known - Other Allergies None Known CONSULT: Perform Consult Certified Prosthetic for prosthesis construction NURSING: - Shower allowing shower - Skin care per protocol PRECAUTIONS: - Weight Bearing Precaution NWB left LE ACTIVITIES OOB only with supervision THERAPIES: - Orthotics/Prosthetics Prosthetic Evaluation. - Dietary and Nutrition Adequate Nutrition. Nutritional Education. Nutritional Supplements. PHYSICAL EXAM - Gen Alert and awake Lying in bed No apparent distress Oriented to: person, time, and place - Skin LLE incisions intact Normacephalic - Eyes No abnormalities - ENMT No abnormalities - Neck No abnormalities - CVS RRR - Chest No abnormalities - Resp Clear to auscultation - Abd Soft - GI Non distended Deferred - No abnormalities - Ext Left BKA good hemostasis, dressing in place - MSK 4+/5 weakness in left lower extremity - Neuro 4/5 strength left lower extremity. - Psych No abnormalities ASSESSMENT: Pt. 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 was independent/mod-I in Locomotion, Balance , Safety Awareness, Social Cognition, Transfers Control, Sphincter Control, Self-Care, Communication, and Endurance; and he had good Locomotion, Balance, Safety Awareness, Social Cognition, Transfers Co ntrol, Sphincter Control, Self-Care, Communication, and Endurance.Currently, he has deficits of Locom otion, Balance, Safety Awareness, Transfers Control, Self-Care, Endurance, and Communication.Pt. is n ow referred to [facility] for acute in-patient rehabilitation in order to maxi manuel patient's functional independence in activities of daily living, strength, ROM, and mobility.- R ehab Goal Patient has realistic goal of being discharged at assistance level 6-Elvia to reside at Home with Fam bel/Relatives. MDM/PLAN: - Physical Therapy Gait dysfunction - to improve, our physical therapists will perform initial evaluation of pt's statu s upon admission and devise an individualized program for Gait Training, and Wheel Chair mobility Inability to transfer - to improve, our physical therapists will perform initial evaluation of pt's status upon admission and devise an individualized program for Bed mobility Need for home safety evaluation - to improve, our physical therapists will perform initial evaluatio n of pt's status upon admission and devise an individualized program for Home Evaluation Need in caregiver upon discharge - to improve, our physical therapists will perform initial evaluati on of pt's status upon admission and devise an individualized program for Caregiver Training New precaution - to improve, our physical therapists will perform initial evaluation of pt's status upon admission and devise an individualized program for Patient precaution education Poor balance - to improve, our physical therapists will perform initial evaluation of pt's status up on admission and devise an individualized program for Balance Training Poor endurance - to improve, our physical therapists will perform initial evaluation of pt's status upon admission and devise an individualized program for Endurance Training Weakness - to improve, our physical therapists will perform initial evaluation of pt's status upon a dmission and devise an individualized program for Aquatic Therapy, Neuromuscular Reeducation, and Str engthening Achieving independence - to improve, our physical therapists will perform initial evaluation of pt's status upon admission and devise an individualized program for Community Reintegration Activities - Occupational Therapy ADL deficits - to improve, our occupation therapists will perform initial evaluation of pt's status upon admission and devise an individualized program for Bathing, Bed mobility, Community Reintegratio n, Cooking, Dressing, Eating, Fine Motor Skills, Grooming, Homemaking, Kitchen Mobility, Laundry, Pat ient Education, Safety Awareness, Splinting - Positioning, Transfers(Toilet, Tub, Shower), and Wheel Chair Management Need for lead caregiver - to improve, our occupation therapists will perform initial evaluation of pt's status upon admission and devise an individualized program for Caregiver Training Weakness - to improve, our occupation therapists will perform initial evaluation of pt's status upon admission and devise an individualized program for Aquatic Therapy, Balance, Endurance, UE ROM, and UE strengthening - Other See attached MAR (Medication Administration Record) - Diet Type Continue Regular - Diet - Liquid Texture Continue Regular - Tube Feed Continue N/A - Weight Bearing Precaution NWB left LE - Skin care per protocol - N/A Perform Consult Certified Prosthetic for prosthesis construction - Diet - Solid Texture Continue Regular - Shower allowing shower FUNCTIONAL STATUS: UPDATED AT WEEKLY TEAM CONFERENCE - Bladder Same accident frequency: 7-Ind - No accidents in the past 7 days - Bowel Same accident frequency: 7-Ind - No accidents in the past 7 days - Walking Same score based on distance walked: 0(N/A) - Wheelchair Same score based on distance traveled: 0(N/A) FUNCTIONAL STATUS: - Self-Care A. Eating Ind B. Grooming sup C. Bathing Isaías D. Dressing - Upper Ind E. Dressing - Lower modA F. Toileting modA - Sphincter Control G. Bladder control sup H. Bowel control sup - Transfers Control I. Bed/Chair/Wheelchair modA J. Toilet modA K. Tub/Shower modA - Locomotion L. Walk/Wheelchair (B) modA M. Stairs ADNO - Communication N. Comprehension (B) Elvia O. Expression (B) Elvia - Social Cognition P. Social Interaction Elvia Q. Problem Solving sup R. Memory sup - Endurance Fair - Balance Fair - Safety Awareness Fair QI SCORES: - Self-Care A. Eating 05-Setup or clean-up assistance B. Oral hygiene 05-Setup or clean-up assistance C. Toileting hygiene 03-Partial/moderate assistance E. Shower/bathe self 03-Partial/moderate assistance F. Upper body dressing 03-Partial/moderate assistance G. Lower body dressing 02-Substantial/maximal assistance H. Putting on/taking off footwear 02-Substantial/maximal assistance - Mobility A. Roll left and right 03-Partial/moderate assistance B. Sit to lying 03-Partial/moderate assistance C. Lying to sitting on side of bed 03-Partial/moderate assistance D. Sit to stand 03-Partial/moderate assistance E. Chair/ulb-rb-bobxg transfer 03-Partial/moderate assistance F. Toilet transfer 03-Partial/moderate assistance G. Car transfer 10-Not attempted due to environmental limitations I. Walk 10 feet 88-Not attempted due to medical condition or safety concerns J. Walk 50 feet with two turns 88-Not attempted due to medical condition or safety concerns K. Walk 150 feet 88-Not attempted due to medical condition or safety concerns L. Walking 10 feet on uneven surfaces 88-Not attempted due to medical condition or safety concerns M. 1 step (curb) 88-Not attempted due to medical condition or safety concerns N. 4 steps 09-Not applicable O. 12 steps 09-Not applicable P. Picking up object 88-Not attempted due to medical condition or safety concerns R. Wheel 50 feet with two turns 88-Not attempted due to medical condition or safety concerns S. Wheel 150 feet 88-Not attempted due to medical condition or safety concerns - Bladder and Bowel Bladder continence 0-Always continent Bowel continence 0-Always continent - Endurance Poor - Balance Poor - Safety Awareness Fair CURRENT FUNC. DEFICITS: Self-Care, Mobility, Endurance, Balance, and Safety Awareness SIGNATURE PANEL: (DECAY CONTROL OPERATOR)
[2019-11-22] MEDS: clonazePAM 0.5 MG TAB PO PRN (21:47)
[2019-11-22] MEDS: TRAZODONE 50 MG TABLET PO PRN (21:47)
[2019-11-22] MEDS: INSULIN GLARGINE 100 UNITS/ML SQ SCH (21:47)
[2019-11-22] MEDS: AYR NASAL SALINE DROPS NAS PRN (21:51)
[2019-11-23] MEDS: PIPER/TAZO/NS 3.375gm 3.375 GM/100 ML BAG IVPB SCH ×2 (00:44→17:37)
[2019-11-23] MEDS: INSULIN -REGULAR HUMAN 50 UNIT/0.5 ML ML SQ SCH ×4 (07:30→20:53)
[2019-11-23 07:37] LABS: Absolute Lymphocytes (CBC) 6.8 K/uL (0.7-4.9); Basophils % 0.9 % (0-1.3); Hematocrit 33.3 % (39.6-49.0); Lymphocytes % 57.6 % (15.3-44.8); MPV 7.6 fL (7.6-11.3); RBC Red Blood Cell Count 3.68 M/uL (4.33-5.43)
[2019-11-23] MEDS: SODIUM CHLORIDE 0.9% 10ML INJ IV SCH ×3 (08:00→20:54)
[2019-11-23] MEDS: DOCUSATE NA 100 MG CAP PO SCH ×2 (08:00→20:52)
[2019-11-23] MEDS: ASPIRIN EC 81 MG TAB PO SCH (08:32)
[2019-11-23] MEDS: APIXABAN 2.5 MG TABLET PO SCH ×2 (08:32→20:52)
[2019-11-23] MEDS: CLOPIDOGREL 75 MG TABLET PO SCH (08:32)
[2019-11-23] MEDS: SERTRALINE HCL 100 MG TAB PO SCH (08:33)
[2019-11-23] MEDS: CYANOCOBALAMIN 1,000 MCG TAB PO SCH (08:33)
[2019-11-23] MEDS: FE SULF/FA/VIT B COMP & C TAB PO SCH (08:33)
[2019-11-23] MEDS: FERROUS SULFATE 325 MG TAB PO SCH (08:33)
[2019-11-23] MEDS: METFORMIN HCL 500 MG TAB PO SCH ×2 (08:33→17:37)
[2019-11-23] MEDS: LACTOBACILLUS/ACIDOPHILUS TAB PO SCH ×2 (08:34→20:52)
[2019-11-23] MEDS: FUROSEMIDE 20 MG TABLET PO SCH (08:34)
--- NOTE | 2019-11-23 10:12 | P.RH.PN ---
Estimated Length of Stay: 36 Expected Discharge Date: 11/23/19 Discharge Disposition Plan: Home Family Support: Yes Penitentiary Goal: Mobility, Transfers, Self Care Vital Signs: Last Vital Signs Temp 96.9 F 11/23/19 09:29 Pulse 82 11/23/19 09:29 Resp 18 11/23/19 09:29 BP 106/62 11/23/19 09:29 Pulse Ox 98 11/23/19 09:29 Laboratory: Laboratory Last Values WBC 11.8 K/uL (4.3-10.9) H 11/23/19 07:03 RBC 3.68 M/uL (4.33-5.43) L 11/23/19 07:03 Hgb 10.8 g/dL (13.6-17.9) L 11/23/19 07:03 Hct 33.3 % (39.6-49.0) L 11/23/19 07:03 MCV 90.6 fL (80-100) 11/23/19 07:03 MCH 29.3 pg (27.0-35.0) 11/23/19 07:03 MCHC 32.4 g/dL (32.0-36.0) 11/23/19 07:03 RDW 16.6 % (12.1-15.2) H 11/23/19 07:03 Plt Count 231 K/uL (152-406) 11/23/19 07:03 MPV 7.6 fL (7.6-11.3) 11/23/19 07:03 Neutrophils % 30.0 % (41.7-73.7) L 11/23/19 07:03 Lymphocytes % 57.6 % (15.3-44.8) H 11/23/19 07:03 Monocytes % 4.3 % (3.3-12.3) 11/23/19 07:03 Eosinophils % 7.2 % (0-4.4) H 11/23/19 07:03 Basophils % 0.9 % (0-1.3) 11/23/19 07:03 Absolute Neutrophils 3.5 K/uL (1.8-8.0) 11/23/19 07:03 Segmented Neutrophils 22 % (40-80) L 11/15/19 05:35 Absolute Lymphocytes 6.8 K/uL (0.7-4.9) H 11/23/19 07:03 Lymphocytes 63 % (15-42) H 11/15/19 05:35 Monocytes 4 % (0-10) 11/15/19 05:35 Absolute Monocytes 0.5 K/uL (0.1-1.3) 11/23/19 07:03 Eosinophils 2 % (0-3) 11/15/19 05:35 Absolute Eosinophils 0.9 K/uL (0-0.5) H 11/23/19 07:03 Basophils 2 % (0-1) H 10/31/19 05:40 Absolute Basophils 0.1 K/uL (0-0.5) 11/23/19 07:03 Nucleated RBCs 1 /100WBC 10/31/19 05:40 Atypical Lymphocytes 9 11/15/19 05:35 Morphology Comment Not seen (NOT SEEN) 11/22/19 06:00 Sodium 142 mmol/L (136-145) 11/22/19 06:00 Potassium 4.1 mmol/L (3.5-5.1) 11/22/19 06:00 Chloride 110 mmol/L (98-107) H 11/22/19 06:00 Carbon Dioxide 25 mmol/L (21-32) 11/22/19 06:00 BUN 21 mg/dL (7-18) H 11/22/19 06:00 Creatinine 2.06 mg/dL (0.55-1.3) H 11/22/19 06:00 Estimated GFR 32 mL/min (=/>90) L 11/22/19 06:00 Glucose 120 mg/dL (74-106) H 11/22/19 06:00 POC Glucose 133 mg/dl (65-120) H 11/23/19 08:04 Calcium 8.7 mg/dL (8.5-10.1) 11/22/19 06:00 Magnesium 2.3 mg/dL (1.8-2.4) 11/22/19 06:00 Albumin 3.6 g/dL (3.4-5.0) 11/22/19 06:00 Prealbumin 27.6 mg/dL (20-40) 11/22/19 06:00 Urine Color Yellow 10/19/19 19:50 Urine Appearance Clear 10/19/19 19:50 Urine pH 5.5 (5.0-7.0) 10/19/19 19:50 Ur Specific [place] 1.010 (1.005-1.030) 10/19/19 19:50 Glucose (UA)(Auto) Negative (NEG) 10/19/19 19:50 Urine Ketones Negative (NEG) 10/19/19 19:50 Urine Blood Negative (NEG) 10/19/19 19:50 Urine Nitrite Negative (NEG) 10/19/19 19:50 Urine Bilirubin Negative (NEG) 10/19/19 19:50 Urine Urobilinogen 0.2 mg/dL (0.2-1.0) 10/19/19 19:50 Ur Leukocyte Esterase Negative (NEG) 10/19/19 19:50 Urine RBC None seen /HPF (NONE SEEN) 10/19/19 19:50 Urine WBC <5 /HPF (<5) 10/19/19 19:50 Ur Squamous Epith Cells <5 /HPF (NONE SEEN) 10/19/19 19:50 Urine Bacteria <20 /HPF (NONE SEEN) 10/19/19 19:50 Urine Culture Reflexed Not needed 10/19/19 19:50 Urine Total Protein Negative (NEG) 10/19/19 19:50 Vancomycin Peak Cancelled 11/15/19 Unknown Vancomycin Trough 17.6 ug/mL (5.0-20.0) 11/21/19 22:57 Weight: 216 lb 14.4 oz Wound Present: Yes Closed Surgical Incision Present: Yes Negative Pressure Wound Therapy Present: No Physician Update: His WBC increased to 11.8. His PICC line tip grew Staph heamolyticus sensitive to Vanc. He is on day 510 of vanc with level 17. He has done very well with all therapy and is at modified independence with wheelchair and ambulating at least 150' with rolling walker. Will plan to continue antibiotics for 10 days. Medical Issues: Patient is always continent with bladder and bowel. Pain Issues: Patient is taking Tylenol 650mg Q6H PO PRN and [place] 7.5/325mg Q4H PO PRN for pain. Functional Improvement: Patient has met all short-term and long-term goals at this time, w/ the exception of a car transfer due to unavailablity. Patient completes tasks w/ good technique and overall safety awareness. Summary: Patient's care plan and lobsterman goals have been reviewed and revised as necessary. Please see the Rehabilitation Signature page for all necessary signatures.
--- NOTE | 2019-11-23 11:52 | P.PN ---
Date of Service: 11/23/19 Mr. Yoon will not be discharged today since his PICC line tip grew staph heamolyticus, sensitive to Vanc. He is on day 01/26 of Vanc. He is also on Zosyn. His discharge will be held until his IV antibiotics are complete on . He will be discharged home with home health on 11/29/19 and repeat WBC for the next day.
[2019-11-23] MEDS: ENSURE HIGH PROTEIN 237 ML CAN PO SCH (12:03)
[2019-11-23] MEDS: VANCOMYCIN 2 GM in NA CHLORIDE 0.9% 500 ML IVPB SCH (12:06)
[2019-11-23] MEDS: INSULIN GLARGINE 100 UNITS/ML SQ SCH (20:53)
[2019-11-23] MEDS: clonazePAM 0.5 MG TAB PO PRN (20:55)
[2019-11-23] MEDS: TRAZODONE 50 MG TABLET PO PRN (21:06)
[2019-11-24] MEDS: PIPER/TAZO/NS 3.375gm 3.375 GM/100 ML BAG IVPB SCH ×3 (01:32→17:30)
--- NOTE | 2019-11-24 02:54 | FAST ---
SHIFT START DATE/TIME: 11/23/2019 19:00 (GARMENT LOOPER) SHIFT END DATE/TIME: 11/24/2019 07:00 (GARMENT LOOPER) NAME CARLA FORBES DATE OF : 1945 DATE OF ADMISSION: 10/19/2019 15:48 (GARMENT LOOPER) PHONE: AGE: 73 N# [id number] GENDER: Male ENCOUNTER PHYSICIAN: Dr. Celso Noonan M.D. 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 EATING: Not assessed/no information CODE: - ORAL HYGIENE: Not assessed/no information CODE: - TOILETING HYGIENE: TOILETING HYGIENE - STEP 1: Does the patient complete the activity by him/herself with no assistance (physical, verbal/nonverbal cueing, setup/clean-up)? No. TOILETING HYGIENE - STEP 2: Does the patient need only setup/clean-up assistance from one helper? No. TOILETING HYGIENE - STEP 3: Does the patient need only verbal/nonverbal cueing or touching/steadying/contact guard assistance fro m one helper? Yes. 1. [id number] ADMISSION PERFORMANCE: Supervision or touching assistance CODE: 04 BATHING: Not assessed/no information CODE: - DRESSING - UPPER BODY: Not assessed/no information CODE: - DRESSING - LOWER BODY: Not assessed/no information CODE: - PUTTING ON/TAKING OFF FOOTWEAR: Not assessed/no information CODE: - ROLL LEFT AND RIGHT: ROLL LEFT AND RIGHT - STEP 1: Does the patient complete the activity by him/herself with no assistance (physical, verbal/nonverbal cueing, setup/clean-up)? No. ROLL LEFT AND RIGHT - STEP 2: Does the patient need only setup/clean-up assistance from one helper? No. ROLL LEFT AND RIGHT - STEP 3: Does the patient need only verbal/nonverbal cueing or touching/steadying/contact guard assistance fro m one helper? Yes. 1. [id number] ADMISSION PERFORMANCE: Supervision or touching assistance CODE: 04 SIT TO LYING: SIT TO LYING - STEP 1: Does the patient complete the activity by him/herself with no assistance (physical, verbal/nonverbal cueing, setup/clean-up)? No. SIT TO LYING - STEP 2: Does the patient need only setup/clean-up assistance from one helper? No. SIT TO LYING - STEP 3: Does the patient need only verbal/nonverbal cueing or touching/steadying/contact guard assistance fro m one helper? Yes. 1. [id number] ADMISSION PERFORMANCE: Supervision or touching assistance CODE: 04 LYING TO SITTING: LYING TO SITTING ON SIDE OF BED - STEP 1: Does the patient complete the activity by him/herself with no assistance (physical, verbal/nonverbal cueing, setup/clean-up)? No. LYING TO SITTING ON SIDE OF BED - STEP 2: Does the patient need only setup/clean-up assistance from one helper? No. LYING TO SITTING ON SIDE OF BED - STEP 3: Does the patient need only verbal/nonverbal cueing or touching/steadying/contact guard assistance fro m one helper? Yes. 1. [id number] ADMISSION PERFORMANCE: Supervision or touching assistance CODE: 04 SIT TO STAND: SIT TO STAND - STEP 1: Does the patient complete the activity by him/herself with no assistance (physical, verbal/nonverbal cueing, setup/clean-up)? No. SIT TO STAND - STEP 2: Does the patient need only setup/clean-up assistance from one helper? No. SIT TO STAND - STEP 3: Does the patient need only verbal/nonverbal cueing or touching/steadying/contact guard assistance fro m one helper? Yes. 1. [id number] ADMISSION PERFORMANCE: Supervision or touching assistance CODE: 04 TRANSFERS: BED, CHAIR: CHAIR/[id number] TRANSFER - STEP 1: Does the patient complete the activity by him/herself with no assistance (physical, verbal/nonverbal cueing, setup/clean-up)? No. CHAIR/[id number] TRANSFER - STEP 2: Does the patient need only setup/clean-up assistance from one helper? No. CHAIR/[id number] TRANSFER - STEP 3: Does the patient need only verbal/nonverbal cueing or touching/steadying/contact guard assistance fro m one helper? Yes. 1. [id number] ADMISSION PERFORMANCE: Supervision or touching assistance CODE: 04 TRANSFER TOILET: TOILET TRANSFER - STEP 1: Does the patient complete the activity by him/herself with no assistance (physical, verbal/nonverbal cueing, setup/clean-up)? No. TOILET TRANSFER - STEP 2: Does the patient need only setup/clean-up assistance from one helper? No. TOILET TRANSFER - STEP 3: Does the patient need only verbal/nonverbal cueing or touching/steadying/contact guard assistance fro m one helper? Yes. 1. [id number] ADMISSION PERFORMANCE: Supervision or touching assistance CODE: 04 TRANSFERS: CAR: Not assessed/no information CODE: - WALK 10 FEET: Not assessed/no information CODE: - 1 STEP (CURB): Not assessed/no information CODE: - PICKING UP OBJECT: Not assessed/no information CODE: - DOES THE PATIENT USE A WHEELCHAIR/SCOOTER? CODE: EXPR WHEEL 50 FEET WITH TWO TURNS: Not assessed/no information CODE: - INDICATE THE TYPE OF WHEELCHAIR/SCOOTER USED: CODE: EXPR WHEEL 150 FEET: Not assessed/no information CODE: - INDICATE THE TYPE OF WHEELCHAIR/SCOOTER USED: CODE: EXPR BLADDER AND BOWEL: H350. BLADDER CONTINENCE (3-DAY ASSESSMENT PERIOD): Always continent (no documented incontinence) CODE: 0 H400. BOWEL CONTINENCE (3-DAY ASSESSMENT PERIOD): Always continent CODE: 0
--- NOTE | 2019-11-24 06:44 | FAST ---
ENCOUNTER DATE AND TIME: 11/23/2019 08:00 (WAITER/WAITRESS HEAD) NAME CARLA FORBES DATE OF : 1945 DATE OF ADMISSION: 10/19/2019 15:48 (WAITER/WAITRESS HEAD) PHONE: AGE: 73 N# [id number] GENDER: Male ENCOUNTER PHYSICIAN: Dr. Celso Noonan M.D. 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 EATING: Not assessed/no information CODE: - ORAL HYGIENE: ORAL HYGIENE - STEP 1: Does the patient complete the activity by him/herself with no assistance (physical, verbal/nonverbal cueing, setup/clean-up)? Yes. 1. [id number] ADMISSION PERFORMANCE: Independent CODE: 06 TOILETING HYGIENE: Not assessed/no information CODE: - BATHING: SHOWER/BATHE SELF - STEP 1: Does the patient complete the activity by him/herself with no assistance (physical, verbal/nonverbal cueing, setup/clean-up)? Yes. 1. [id number] ADMISSION PERFORMANCE: Independent CODE: 06 DRESSING - UPPER BODY: DRESSING - UPPER BODY - STEP 1: Does the patient complete the activity by him/herself with no assistance (physical, verbal/nonverbal cueing, setup/clean-up)? Yes. 1. [id number] ADMISSION PERFORMANCE: Independent CODE: 06 DRESSING - LOWER BODY: DRESSING - LOWER BODY - STEP 1: Does the patient complete the activity by him/herself with no assistance (physical, verbal/nonverbal cueing, setup/clean-up)? Yes. 1. [id number] ADMISSION PERFORMANCE: Independent CODE: 06 PUTTING ON/TAKING OFF FOOTWEAR: FOOTWEAR - STEP 1: Does the patient complete the activity by him/herself with no assistance (physical, verbal/nonverbal cueing, setup/clean-up)? Yes. 1. [id number] ADMISSION PERFORMANCE: Independent CODE: 06 DOES THE PATIENT USE A WHEELCHAIR/SCOOTER? CODE: EXPR INDICATE THE TYPE OF WHEELCHAIR/SCOOTER USED: CODE: EXPR INDICATE THE TYPE OF WHEELCHAIR/SCOOTER USED: CODE: EXPR BLADDER AND BOWEL: CODE: EXPR CODE: EXPR SIGNATURE PANEL: The following modified sections: 1. [id number] Admission Performance, 1. UX0308s Admission Performance, 1. CN4375h Admission Performance, 1. WE5904n Admission Performance, 1. [id number] Admission Performance were [electronically] signed by MARY ALICE Kelly on Sat Nov 24 2019 06:43:37 GMT-0600 (Central Standard Time)
[2019-11-24] MEDS: INSULIN -REGULAR HUMAN 50 UNIT/0.5 ML ML SQ SCH ×4 (07:30→20:24)
[2019-11-24] MEDS: SERTRALINE HCL 100 MG TAB PO SCH (08:27)
[2019-11-24] MEDS: APIXABAN 2.5 MG TABLET PO SCH ×2 (08:27→20:23)
[2019-11-24] MEDS: SODIUM CHLORIDE 0.9% 10ML INJ IV SCH ×2 (08:28→20:24)
[2019-11-24] MEDS: FUROSEMIDE 20 MG TABLET PO SCH (08:28)
[2019-11-24] MEDS: ASPIRIN EC 81 MG TAB PO SCH (08:29)
[2019-11-24] MEDS: CYANOCOBALAMIN 1,000 MCG TAB PO SCH (08:29)
[2019-11-24] MEDS: METFORMIN HCL 500 MG TAB PO SCH ×2 (08:29→17:30)
[2019-11-24] MEDS: FERROUS SULFATE 325 MG TAB PO SCH (08:30)
[2019-11-24] MEDS: CLOPIDOGREL 75 MG TABLET PO SCH (08:30)
[2019-11-24] MEDS: FE SULF/FA/VIT B COMP & C TAB PO SCH (08:30)
[2019-11-24] MEDS: LACTOBACILLUS/ACIDOPHILUS TAB PO SCH ×2 (08:30→20:23)
[2019-11-24] MEDS: DOCUSATE NA 100 MG CAP PO SCH ×2 (08:31→20:24)
[2019-11-24] MEDS: ENSURE HIGH PROTEIN 237 ML CAN PO SCH (12:13)
--- NOTE | 2019-11-24 14:13 | PN ---
Date of Progress Note: 11/24/2019 Subjective: Yesterday afternoon, patient apparently fell on his stump and I was asked to look at it. There was minimal bleeding from the wound itself. Pressure dressing was applied. No further bleed ing was noted. Objective: Vital Signs: Stable. He is afebrile. H and H are stable. Wound: Examination of the left stump reveals minimal bleeding underneath the Steri-Strips, which is removed and there is no open wound. Bleeding occurred probably from the incision site; however, the wound remains intact and no sign of infection. Assessment: Status post left below-knee amputation. Recommendation: Replace the Steri-Strips and pressure dressing. Cnhlmx-rb-otezy stump blue print control clerk with in a week or so. Re-consult pyesenia WEBER/FREDI Voice ID: [id number] Report ID: [id number]
[2019-11-24] MEDS: INSULIN GLARGINE 100 UNITS/ML SQ SCH (20:23)
[2019-11-24] MEDS: AYR NASAL SALINE DROPS NAS PRN (20:23)
[2019-11-24] MEDS: clonazePAM 0.5 MG TAB PO PRN (20:23)
[2019-11-24] MEDS: TRAZODONE 50 MG TABLET PO PRN (20:24)
[2019-11-25] MEDS: VANCOMYCIN 2 GM in NA CHLORIDE 0.9% 500 ML IVPB SCH ×2
[2019-11-25] MEDS: PIPER/TAZO/NS 3.375gm 3.375 GM/100 ML BAG IVPB SCH ×3 (00:09→17:23)
[2019-11-25] MEDS: INSULIN -REGULAR HUMAN 50 UNIT/0.5 ML ML SQ SCH ×4 (07:30→20:53)
[2019-11-25] MEDS: AYR NASAL SALINE DROPS NAS PRN ×2 (07:56→20:53)
[2019-11-25] MEDS: DOCUSATE NA 100 MG CAP PO SCH ×2 (07:57→20:00)
[2019-11-25] MEDS: SODIUM CHLORIDE 0.9% 10ML INJ IV SCH ×2 (07:57→20:00)
[2019-11-25] MEDS: LACTOBACILLUS/ACIDOPHILUS TAB PO SCH ×2 (07:57→20:52)
[2019-11-25] MEDS: FUROSEMIDE 20 MG TABLET PO SCH (07:58)
[2019-11-25] MEDS: ASPIRIN EC 81 MG TAB PO SCH (07:58)
[2019-11-25] MEDS: SERTRALINE HCL 100 MG TAB PO SCH (07:58)
[2019-11-25] MEDS: METFORMIN HCL 500 MG TAB PO SCH ×2 (07:59→17:22)
[2019-11-25] MEDS: CYANOCOBALAMIN 1,000 MCG TAB PO SCH (07:59)
[2019-11-25] MEDS: CLOPIDOGREL 75 MG TABLET PO SCH (07:59)
[2019-11-25] MEDS: APIXABAN 2.5 MG TABLET PO SCH ×2 (07:59→20:52)
[2019-11-25] MEDS: ENSURE HIGH PROTEIN 237 ML CAN PO SCH (12:32)
[2019-11-25] MEDS: TRAZODONE 50 MG TABLET PO PRN (20:52)
[2019-11-25] MEDS: clonazePAM 0.5 MG TAB PO PRN (20:52)
[2019-11-25] MEDS: INSULIN GLARGINE 100 UNITS/ML SQ SCH (20:53)
[2019-11-26] MEDS: PIPER/TAZO/NS 3.375gm 3.375 GM/100 ML BAG IVPB SCH ×3 (00:01→16:30)
[2019-11-26] MEDS: INSULIN -REGULAR HUMAN 50 UNIT/0.5 ML ML SQ SCH ×4 (07:30→22:03)
[2019-11-26] MEDS: APIXABAN 2.5 MG TABLET PO SCH ×2 (08:00→22:02)
[2019-11-26] MEDS: SERTRALINE HCL 100 MG TAB PO SCH (08:00)
[2019-11-26] MEDS: ASPIRIN EC 81 MG TAB PO SCH (08:00)
[2019-11-26] MEDS: CYANOCOBALAMIN 1,000 MCG TAB PO SCH (08:00)
[2019-11-26] MEDS: SODIUM CHLORIDE 0.9% 10ML INJ IV SCH ×2 (08:00→20:00)
[2019-11-26] MEDS: DOCUSATE NA 100 MG CAP PO SCH ×2 (08:00→22:02)
[2019-11-26] MEDS: FUROSEMIDE 20 MG TABLET PO SCH (08:00)
[2019-11-26] MEDS: CLOPIDOGREL 75 MG TABLET PO SCH (08:00)
[2019-11-26] MEDS: METFORMIN HCL 500 MG TAB PO SCH ×2 (08:00→16:32)
[2019-11-26] MEDS: LACTOBACILLUS/ACIDOPHILUS TAB PO SCH ×2 (08:00→22:02)
[2019-11-26] MEDS ORDERED: NA CHLORIDE 0.9% 0 ML ONE (10:23)
[2019-11-26] MEDS ORDERED: NA CHLORIDE 0.9% 1,000 ML ONE (10:24)
[2019-11-26] MEDS ORDERED: propofoL 200 MG/20 ML VIAL IV ONE ×2 (10:30→11:16)
[2019-11-26] MEDS ORDERED: FENTANYL CITR 100 MCG/2 ML ONE (10:30)
[2019-11-26] MEDS ORDERED: LIDOCAINE 2% MPF 5 ML VIAL ONE (10:30)
[2019-11-26] MEDS ORDERED: NS 0.9% VIAL 20 ML ONE (10:30)
[2019-11-26] MEDS ORDERED: Phenylephrine HCl 10 MG/ML 1 ML VIAL ONE (10:30)
[2019-11-26] MEDS ORDERED: COLLAGENASE 30 GM OINTMENT TOP ONE (10:52)
--- NOTE | 2019-11-26 11:29 | P.OP ---
Preoperative diagnosis: Open wound L BKA Postoperative diagnosis: same Primary procedure: Debridement and Revision of L BKA Anesthesia: MAC Estimated blood loss: min Specimen: none Findings: as above Complications: None Transferred to: Recovery Room Condition: Good
[2019-11-26] MEDS ORDERED: VANCOMYCIN 1.75 GM in NA CHLORIDE 0.9% 500 ML IVPB SCH (12:00)
[2019-11-26] MEDS: ENSURE HIGH PROTEIN 237 ML CAN PO SCH (12:00)
--- NOTE | 2019-11-26 12:03 | PN ---
Date of Progress Note: 11/26/2019 Subjective: Patient hit his stump again when he was trying to go to the bathroom. He fell on it las t week. There was oozing noted and Steri-Strips were applied and that solved the problem; however, t his time he hit pretty hard and the wound has opened up. No fever or chills. Physical Examination: Vital Signs: Stable. Afebrile. Wound: Open approximately 1 cm in the anterior aspect. The length is approximately 4 cm. Assessment: Status post left below-knee amputation with open wound secondary to trauma. Recommendations: We will go ahead and pulse irrigate and revise the wound in the operating room. Johnny cheng understands the risks, benefits, and alternatives and agrees to procedure. Patient is already on antibiotics. /MODL Voice ID: [id number] Report ID: [id number]
[2019-11-26 12:04] VITALS: O2SAT 98
[2019-11-26] MEDS: VANCOMYCIN 1.75 GM in NA CHLORIDE 0.9% 500 ML IVPB SCH (13:00)
--- NOTE | 2019-11-26 16:04 | FAST ---
ENCOUNTER DATE AND TIME: 11/26/2019 08:00 (CDT) NAME CARLA FORBES DATE OF : 1945 DATE OF ADMISSION: 10/19/2019 15:48 (CHEMICAL LABORATORY TECHNICIAN) PHONE: AGE: 73 N# [id number] GENDER: Male ENCOUNTER PHYSICIAN: Dr. Celso Noonan M.D. 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 EATING: Not assessed/no information CODE: - ORAL HYGIENE: ORAL HYGIENE - STEP 1: Does the patient complete the activity by him/herself with no assistance (physical, verbal/nonverbal cueing, setup/clean-up)? Yes. 1. [id number] ADMISSION PERFORMANCE: Independent CODE: 06 TOILETING HYGIENE: Not assessed/no information CODE: - BATHING: SHOWER/BATHE SELF - STEP 1: Does the patient complete the activity by him/herself with no assistance (physical, verbal/nonverbal cueing, setup/clean-up)? Yes. 1. [id number] ADMISSION PERFORMANCE: Independent CODE: 06 DRESSING - UPPER BODY: DRESSING - UPPER BODY - STEP 1: Does the patient complete the activity by him/herself with no assistance (physical, verbal/nonverbal cueing, setup/clean-up)? Yes. 1. [id number] ADMISSION PERFORMANCE: Independent CODE: 06 DRESSING - LOWER BODY: DRESSING - LOWER BODY - STEP 1: Does the patient complete the activity by him/herself with no assistance (physical, verbal/nonverbal cueing, setup/clean-up)? Yes. 1. [id number] ADMISSION PERFORMANCE: Independent CODE: 06 PUTTING ON/TAKING OFF FOOTWEAR: FOOTWEAR - STEP 1: Does the patient complete the activity by him/herself with no assistance (physical, verbal/nonverbal cueing, setup/clean-up)? Yes. 1. [id number] ADMISSION PERFORMANCE: Independent CODE: 06 DOES THE PATIENT USE A WHEELCHAIR/SCOOTER? CODE: EXPR INDICATE THE TYPE OF WHEELCHAIR/SCOOTER USED: CODE: EXPR INDICATE THE TYPE OF WHEELCHAIR/SCOOTER USED: CODE: EXPR BLADDER AND BOWEL: CODE: EXPR CODE: EXPR SIGNATURE PANEL: The following modified sections: 1. [id number] Admission Performance, 1. [id number] Admission Performance, 1. BG2305u Admission Performance, 1. QN0126a Admission Performance, 1. OE1437b Admission Performance were [electronically] signed by MARY ALICE Kelly on TueNov 26 2019 16:03:26 GMT-0500 (Central Daylight Time)
--- NOTE | 2019-11-26 21:38 | OP ---
Date of Procedure: 11/26/2019 Surgeon: Thompson Willis MD Preoperative Diagnosis: Open wound, left bxiff-jlh-fcga amputation. Postoperative Diagnosis: Open wound, left jfuij-utz-iboe amputation. Procedure: Debridement of left mkfws-wiu-usvh amputation wound with revision of the stump. Estimated Blood Loss: Minimal. Specimen: None. Findings: As above. Anesthesia: MAC. Complications: None. Disposition: The patient tolerated the procedure in stable condition, taken to Recovery in good gene ral condition. Procedure In Detail: Patient was brought to the OR and placed in supine position. MAC anesthesia wa s began. Patient was prepped and draped in the usual sterile fashion. Wound irrigated and debrided of material down to the subcutaneous tissue and open wound approximately 5 x 1 cm and then some fibri nous material was debrided and good healthy tissue was obtained and then interrupted 2-0 nylon was us ed to close the wound and then sterile dressing was applied. Patient was awakened and taken to Recovery in good general condition. /MODL Voice ID: [id number] Report ID: [id number]
[2019-11-26] MEDS: INSULIN GLARGINE 100 UNITS/ML SQ SCH (22:02)
[2019-11-26] MEDS: TRAZODONE 50 MG TABLET PO PRN (22:02)
[2019-11-26] MEDS: clonazePAM 0.5 MG TAB PO PRN (22:02)
--- NOTE | 2019-11-26 23:34 | R.PN ---
ENCOUNTER DATE AND TIME: 11/26/2019 23:27 (CDT) NAME CARLA FORBES DATE OF : 1945 DATE OF ADMISSION: 10/19/2019 15:48 (RN WOUND CARE) Left BKACHIEF COMPLAINT: Left below the knee amputation SUBJECTIVE: Pt denied any Shortness of Breath. Pt denied any depression. He did surface to surface transfers without an assistive device. He fell out and bed and hit his left BKA stump on the bathroom wall causing his surgical wound to reo pen. Dr. Willis too him back to the OR today to reclose the wound. His immobilizer is in place. He is on vanc and Zosyn. Will repeat CBC with diff. in the AM. VITAL SIGNS Temperature: 97.5 F SBP/DBP: 108/51 Pulse: 66 Resp: 16 MEDICATION ALLERGIES: No Known Drug Allergies (NKDA) ENVIRONMENTAL ALLERGIES: None Known - Substance Allergies None Known - Other Allergies None Known CONSULT: Perform Consult Certified Prosthetic for prosthesis construction NURSING: - Shower allowing shower - Skin care per protocol PRECAUTIONS: - Weight Bearing Precaution NWB left LE ACTIVITIES OOB only with supervision THERAPIES: - Orthotics/Prosthetics Prosthetic Evaluation. - Dietary and Nutrition Adequate Nutrition. Nutritional Education. Nutritional Supplements. PHYSICAL EXAM - Gen Alert and awake Lying in bed No apparent distress Oriented to: person, time, and place - Skin LLE incisions intact Normacephalic - Eyes No abnormalities - ENMT No abnormalities - Neck No abnormalities - CVS RRR - Chest No abnormalities - Resp Clear to auscultation - Abd Soft - GI Non distended Deferred - No abnormalities - Ext Left BKA good hemostasis, dressing in place - MSK 4+/5 weakness in left lower extremity - Neuro 4/5 strength left lower extremity. - Psych No abnormalities ASSESSMENT: Pt. 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 was independent/mod-I in Locomotion, Balance , Safety Awareness, Social Cognition, Transfers Control, Sphincter Control, Self-Care, Communication, and Endurance; and he had good Locomotion, Balance, Safety Awareness, Social Cognition, Transfers Co ntrol, Sphincter Control, Self-Care, Communication, and Endurance.Currently, he has deficits of Locom otion, Balance, Safety Awareness, Transfers Control, Self-Care, Endurance, and Communication.Pt. is n ow referred to [facility] for acute in-patient rehabilitation in order to maxi manuel patient's functional independence in activities of daily living, strength, ROM, and mobility.- R ehab Goal Patient has realistic goal of being discharged at assistance level 6-Elvia to reside at Home with Fam bel/Relatives. MDM/PLAN: - Physical Therapy Gait dysfunction - to improve, our physical therapists will perform initial evaluation of pt's statu s upon admission and devise an individualized program for Gait Training, and Wheel Chair mobility Inability to transfer - to improve, our physical therapists will perform initial evaluation of pt's status upon admission and devise an individualized program for Bed mobility Need for home safety evaluation - to improve, our physical therapists will perform initial evaluatio n of pt's status upon admission and devise an individualized program for Home Evaluation Need in caregiver upon discharge - to improve, our physical therapists will perform initial evaluati on of pt's status upon admission and devise an individualized program for Caregiver Training New precaution - to improve, our physical therapists will perform initial evaluation of pt's status upon admission and devise an individualized program for Patient precaution education Poor balance - to improve, our physical therapists will perform initial evaluation of pt's status up on admission and devise an individualized program for Balance Training Poor endurance - to improve, our physical therapists will perform initial evaluation of pt's status upon admission and devise an individualized program for Endurance Training Weakness - to improve, our physical therapists will perform initial evaluation of pt's status upon a dmission and devise an individualized program for Aquatic Therapy, Neuromuscular Reeducation, and Str engthening Achieving independence - to improve, our physical therapists will perform initial evaluation of pt's status upon admission and devise an individualized program for Community Reintegration Activities - Occupational Therapy ADL deficits - to improve, our occupation therapists will perform initial evaluation of pt's status upon admission and devise an individualized program for Bathing, Bed mobility, Community Reintegratio n, Cooking, Dressing, Eating, Fine Motor Skills, Grooming, Homemaking, Kitchen Mobility, Laundry, Pat ient Education, Safety Awareness, Splinting - Positioning, Transfers(Toilet, Tub, Shower), and Wheel Chair Management Need for care process manager - to improve, our occupation therapists will perform initial evaluation of pt's status upon admission and devise an individualized program for Caregiver Training Weakness - to improve, our occupation therapists will perform initial evaluation of pt's status upon admission and devise an individualized program for Aquatic Therapy, Balance, Endurance, UE ROM, and UE strengthening - Other See attached MAR (Medication Administration Record) - Diet Type Continue Regular - Diet - Liquid Texture Continue Regular - Tube Feed Continue N/A - Weight Bearing Precaution NWB left LE - Skin care per protocol - N/A Perform Consult Certified Prosthetic for prosthesis construction - Diet - Solid Texture Continue Regular - Shower allowing shower FUNCTIONAL STATUS: UPDATED AT WEEKLY TEAM CONFERENCE - Bladder Same accident frequency: 7-Ind - No accidents in the past 7 days - Bowel Same accident frequency: 7-Ind - No accidents in the past 7 days - Walking Same score based on distance walked: 0(N/A) - Wheelchair Same score based on distance traveled: 0(N/A) FUNCTIONAL STATUS: - Self-Care A. Eating Ind B. Grooming sup C. Bathing Isaías D. Dressing - Upper Ind E. Dressing - Lower modA F. Toileting modA - Sphincter Control G. Bladder control sup H. Bowel control sup - Transfers Control I. Bed/Chair/Wheelchair modA J. Toilet modA K. Tub/Shower modA - Locomotion L. Walk/Wheelchair (B) modA M. Stairs ADNO - Communication N. Comprehension (B) Elvia O. Expression (B) Elvia - Social Cognition P. Social Interaction Elvia Q. Problem Solving sup R. Memory sup - Endurance Fair - Balance Fair - Safety Awareness Fair QI SCORES: - Self-Care A. Eating 05-Setup or clean-up assistance B. Oral hygiene 05-Setup or clean-up assistance C. Toileting hygiene 03-Partial/moderate assistance E. Shower/bathe self 03-Partial/moderate assistance F. Upper body dressing 03-Partial/moderate assistance G. Lower body dressing 02-Substantial/maximal assistance H. Putting on/taking off footwear 02-Substantial/maximal assistance - Mobility A. Roll left and right 03-Partial/moderate assistance B. Sit to lying 03-Partial/moderate assistance C. Lying to sitting on side of bed 03-Partial/moderate assistance D. Sit to stand 03-Partial/moderate assistance E. Chair/gxd-so-qvlqd transfer 03-Partial/moderate assistance F. Toilet transfer 03-Partial/moderate assistance G. Car transfer 10-Not attempted due to environmental limitations I. Walk 10 feet 88-Not attempted due to medical condition or safety concerns J. Walk 50 feet with two turns 88-Not attempted due to medical condition or safety concerns K. Walk 150 feet 88-Not attempted due to medical condition or safety concerns L. Walking 10 feet on uneven surfaces 88-Not attempted due to medical condition or safety concerns M. 1 step (curb) 88-Not attempted due to medical condition or safety concerns N. 4 steps 09-Not applicable O. 12 steps 09-Not applicable P. Picking up object 88-Not attempted due to medical condition or safety concerns R. Wheel 50 feet with two turns 88-Not attempted due to medical condition or safety concerns S. Wheel 150 feet 88-Not attempted due to medical condition or safety concerns - Bladder and Bowel Bladder continence 0-Always continent Bowel continence 0-Always continent - Endurance Poor - Balance Poor - Safety Awareness Fair [facility] DEFICITS: Self-Care, Mobility, Endurance, Balance, and Safety Awareness SIGNATURE PANEL: (CDT)
[2019-11-27] MEDS: PIPER/TAZO/NS 3.375gm 3.375 GM/100 ML BAG IVPB SCH ×3 (00:38→16:05)
[2019-11-27 07:20] LABS: Absolute Lymphocytes (CBC) 8.4 K/uL (0.7-4.9); Basophils % 1.1 % (0-1.3); Hematocrit 35.2 % (39.6-49.0); Lymphocytes % 58.3 % (15.3-44.8); MPV 7.4 fL (7.6-11.3); RBC Red Blood Cell Count 3.78 M/uL (4.33-5.43)
[2019-11-27] MEDS: INSULIN -REGULAR HUMAN 50 UNIT/0.5 ML ML SQ SCH ×4 (07:30→21:00)
[2019-11-27] MEDS: SODIUM CHLORIDE 0.9% 10ML INJ IV SCH ×2 (08:00→20:00)
[2019-11-27] MEDS: METFORMIN HCL 500 MG TAB PO SCH ×2 (08:50→16:05)
[2019-11-27] MEDS: FUROSEMIDE 20 MG TABLET PO SCH (08:50)
[2019-11-27] MEDS: LACTOBACILLUS/ACIDOPHILUS TAB PO SCH ×2 (08:50→20:19)
[2019-11-27] MEDS: SERTRALINE HCL 100 MG TAB PO SCH (08:50)
[2019-11-27] MEDS: ASPIRIN EC 81 MG TAB PO SCH (08:50)
[2019-11-27] MEDS: CYANOCOBALAMIN 1,000 MCG TAB PO SCH (08:50)
[2019-11-27] MEDS: APIXABAN 2.5 MG TABLET PO SCH ×2 (08:50→20:19)
[2019-11-27] MEDS: DOCUSATE NA 100 MG CAP PO SCH ×2 (08:50→20:00)
[2019-11-27] MEDS: CLOPIDOGREL 75 MG TABLET PO SCH (08:50)
[2019-11-27 09:04] LABS: Blood Morphology Comment NOT SEEN (NOT SEEN); Platelet Estimate ADEQ
[2019-11-27] MEDS: ENSURE HIGH PROTEIN 237 ML CAN PO SCH (12:00)
--- NOTE | 2019-11-27 15:56 | FAST ---
SHIFT START DATE/TIME: 11/27/2019 07:00 (CDT) SHIFT END DATE/TIME: 11/27/2019 19:00 (CDT) NAME CARLA FORBES DATE OF : 1945 DATE OF ADMISSION: 10/19/2019 15:48 (SCIENTIFIC DIRECTOR) PHONE: AGE: 73 N# [id number] GENDER: Male ENCOUNTER PHYSICIAN: Dr. Celso Noonan M.D. 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 EATING: EATING - STEP 1: Does the patient complete the activity by him/herself with no assistance (physical, verbal/nonverbal cueing, setup/clean-up)? Yes. 1. [id number] ADMISSION PERFORMANCE: Independent CODE: 06 ORAL HYGIENE: ORAL HYGIENE - STEP 1: Does the patient complete the activity by him/herself with no assistance (physical, verbal/nonverbal cueing, setup/clean-up)? Yes. 1. [id number] ADMISSION PERFORMANCE: Independent CODE: 06 TOILETING HYGIENE: TOILETING HYGIENE - STEP 1: Does the patient complete the activity by him/herself with no assistance (physical, verbal/nonverbal cueing, setup/clean-up)? No. TOILETING HYGIENE - STEP 2: Does the patient need only setup/clean-up assistance from one helper? Yes. 1. [id number] ADMISSION PERFORMANCE: Setup or clean-up assistance CODE: 05 BATHING: Not assessed/no information CODE: - DRESSING - UPPER BODY: DRESSING - UPPER BODY - STEP 1: Does the patient complete the activity by him/herself with no assistance (physical, verbal/nonverbal cueing, setup/clean-up)? Yes. 1. [id number] ADMISSION PERFORMANCE: Independent CODE: 06 DRESSING - LOWER BODY: DRESSING - LOWER BODY - STEP 1: Does the patient complete the activity by him/herself with no assistance (physical, verbal/nonverbal cueing, setup/clean-up)? Yes. 1. [id number] ADMISSION PERFORMANCE: Independent CODE: 06 PUTTING ON/TAKING OFF FOOTWEAR: FOOTWEAR - STEP 1: Does the patient complete the activity by him/herself with no assistance (physical, verbal/nonverbal cueing, setup/clean-up)? Yes. 1. [id number] ADMISSION PERFORMANCE: Independent CODE: 06 DOES THE PATIENT USE A WHEELCHAIR/SCOOTER? CODE: EXPR INDICATE THE TYPE OF WHEELCHAIR/SCOOTER USED: CODE: EXPR INDICATE THE TYPE OF WHEELCHAIR/SCOOTER USED: CODE: EXPR BLADDER AND BOWEL: H350. BLADDER CONTINENCE (3-DAY ASSESSMENT PERIOD): Always continent (no documented incontinence) CODE: 0 H400. BOWEL CONTINENCE (3-DAY ASSESSMENT PERIOD): Always continent CODE: 0 SIGNATURE PANEL: The following modified sections: 1. [id number] Admission Performance, 1. GW9542Q Admission Performance, 1. GG1578N Admission Performance, 1. RY8233t Admission Performance, 1. OH7682u Admission Performance, 1. IN8473o Admission Performance, 1. CD0176k Admission Performance, H350. Bladder Continence (3-day assessment period), H400. Bowel Continence (3-day assessment period) were [electronically] signed by Rogelio [email or web address].Lois on TueNov 27 2019 15:55:33 T-0500 (Central Daylight Time)
--- NOTE | 2019-11-27 17:56 | R.PN ---
ENCOUNTER DATE AND TIME: 11/27/2019 17:52 (CDT) NAME CARLA FORBES DATE OF : 1945 DATE OF ADMISSION: 10/19/2019 15:48 (PERFUMER) Left BKACHIEF COMPLAINT: Left below the knee amputation SUBJECTIVE: Pt denied any Shortness of Breath. Pt denied any depression. He did surface to surface transfers without an assistive device. He fell out and bed and hit his left BKA stump on the bathroom wall causing his surgical wound to reo pen. Dr. iWllis too him back to the OR today to reclose the wound. His immobilizer is in place. He is on vanc and Zosyn. Will repeat CBC with diff. in the AM. Repeat WBC is elevated to 14.5 from 11.8 on 11/23/19. Glucose 134 to 166. Vanc level on 11/26/19 was 12.3 . Ambulated 100' x 2 with a rolling walker and standby assistance. VITAL SIGNS Temperature: 97.4 F SBP/DBP: 105/62 Pulse: 85 Resp: 16 MEDICATION ALLERGIES: No Known Drug Allergies (NKDA) ENVIRONMENTAL ALLERGIES: None Known - Substance Allergies None Known - Other Allergies None Known CONSULT: Perform Consult Certified Prosthetic for prosthesis construction NURSING: - Shower allowing shower - Skin care per protocol PRECAUTIONS: - Weight Bearing Precaution NWB left LE ACTIVITIES OOB only with supervision THERAPIES: - Orthotics/Prosthetics Prosthetic Evaluation. - Dietary and Nutrition Adequate Nutrition. Nutritional Education. Nutritional Supplements. PHYSICAL EXAM - Gen Alert and awake Lying in bed No apparent distress Oriented to: person, time, and place - Skin LLE incisions intact Normacephalic - Eyes No abnormalities - ENMT No abnormalities - Neck No abnormalities - CVS RRR - Chest No abnormalities - Resp Clear to auscultation - Abd Soft - GI Non distended Deferred - No abnormalities - Ext Left BKA good hemostasis, dressing in place - MSK 4+/5 weakness in left lower extremity - Neuro 4/5 strength left lower extremity. - Psych No abnormalities ASSESSMENT: Pt. 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 was independent/mod-I in Locomotion, Balance , Safety Awareness, Social Cognition, Transfers Control, Sphincter Control, Self-Care, Communication, and Endurance; and he had good Locomotion, Balance, Safety Awareness, Social Cognition, Transfers Co ntrol, Sphincter Control, Self-Care, Communication, and Endurance.Currently, he has deficits of Locom otion, Balance, Safety Awareness, Transfers Control, Self-Care, Endurance, and Communication.Pt. is n ow referred to [facility] for acute in-patient rehabilitation in order to maxi manuel patient's functional independence in activities of daily living, strength, ROM, and mobility.- R ehab Goal Patient has realistic goal of being discharged at assistance level 6-Elvia to reside at Home with Fam bel/Relatives. MDM/PLAN: - Physical Therapy Gait dysfunction - to improve, our physical therapists will perform initial evaluation of pt's statu s upon admission and devise an individualized program for Gait Training, and Wheel Chair mobility Inability to transfer - to improve, our physical therapists will perform initial evaluation of pt's status upon admission and devise an individualized program for Bed mobility Need for home safety evaluation - to improve, our physical therapists will perform initial evaluatio n of pt's status upon admission and devise an individualized program for Home Evaluation Need in caregiver upon discharge - to improve, our physical therapists will perform initial evaluati on of pt's status upon admission and devise an individualized program for Caregiver Training New precaution - to improve, our physical therapists will perform initial evaluation of pt's status upon admission and devise an individualized program for Patient precaution education Poor balance - to improve, our physical therapists will perform initial evaluation of pt's status up on admission and devise an individualized program for Balance Training Poor endurance - to improve, our physical therapists will perform initial evaluation of pt's status upon admission and devise an individualized program for Endurance Training Weakness - to improve, our physical therapists will perform initial evaluation of pt's status upon a dmission and devise an individualized program for Aquatic Therapy, Neuromuscular Reeducation, and Str engthening Achieving independence - to improve, our physical therapists will perform initial evaluation of pt's status upon admission and devise an individualized program for Community Reintegration Activities - Occupational Therapy ADL deficits - to improve, our occupation therapists will perform initial evaluation of pt's status upon admission and devise an individualized program for Bathing, Bed mobility, Community Reintegratio n, Cooking, Dressing, Eating, Fine Motor Skills, Grooming, Homemaking, Kitchen Mobility, Laundry, Pat ient Education, Safety Awareness, Splinting - Positioning, Transfers(Toilet, Tub, Shower), and Wheel Chair Management Need for youth career specialist - to improve, our occupation therapists will perform initial evaluation of pt's status upon admission and devise an individualized program for Caregiver Training Weakness - to improve, our occupation therapists will perform initial evaluation of pt's status upon admission and devise an individualized program for Aquatic Therapy, Balance, Endurance, UE ROM, and UE strengthening - Other See attached MAR (Medication Administration Record) - Diet Type Continue Regular - Diet - Liquid Texture Continue Regular - Tube Feed Continue N/A - Weight Bearing Precaution NWB left LE - Skin care per protocol - N/A Perform Consult Certified Prosthetic for prosthesis construction - Diet - Solid Texture Continue Regular - Shower allowing shower FUNCTIONAL STATUS: UPDATED AT WEEKLY TEAM CONFERENCE - Bladder Same accident frequency: 7-Ind - No accidents in the past 7 days - Bowel Same accident frequency: 7-Ind - No accidents in the past 7 days - Walking Same score based on distance walked: 0(N/A) - Wheelchair Same score based on distance traveled: 0(N/A) FUNCTIONAL STATUS: - Self-Care A. Eating Ind B. Grooming sup C. Bathing Isaías D. Dressing - Upper Ind E. Dressing - Lower modA F. Toileting modA - Sphincter Control G. Bladder control sup H. Bowel control sup - Transfers Control I. Bed/Chair/Wheelchair modA J. Toilet modA K. Tub/Shower modA - Locomotion L. Walk/Wheelchair (B) modA M. Stairs ADNO - Communication N. Comprehension (B) Elvia O. Expression (B) Elvia - Social Cognition P. Social Interaction Elvia Q. Problem Solving sup R. Memory sup - Endurance Fair - Balance Fair - Safety Awareness Fair QI SCORES: - Self-Care A. Eating 05-Setup or clean-up assistance B. Oral hygiene 05-Setup or clean-up assistance C. Toileting hygiene 03-Partial/moderate assistance E. Shower/bathe self 03-Partial/moderate assistance F. Upper body dressing 03-Partial/moderate assistance G. Lower body dressing 02-Substantial/maximal assistance H. Putting on/taking off footwear 02-Substantial/maximal assistance - Mobility A. Roll left and right 03-Partial/moderate assistance B. Sit to lying 03-Partial/moderate assistance C. Lying to sitting on side of bed 03-Partial/moderate assistance D. Sit to stand 03-Partial/moderate assistance E. Chair/vis-nh-[id number] transfer 03-Partial/moderate assistance F. Toilet transfer 03-Partial/moderate assistance G. Car transfer 10-Not attempted due to environmental limitations I. Walk 10 feet 88-Not attempted due to medical condition or safety concerns J. Walk 50 feet with two turns 88-Not attempted due to medical condition or safety concerns K. Walk 150 feet 88-Not attempted due to medical condition or safety concerns L. Walking 10 feet on uneven surfaces 88-Not attempted due to medical condition or safety concerns M. 1 step (curb) 88-Not attempted due to medical condition or safety concerns N. 4 steps 09-Not applicable O. 12 steps 09-Not applicable P. Picking up object 88-Not attempted due to medical condition or safety concerns R. Wheel 50 feet with two turns 88-Not attempted due to medical condition or safety concerns S. Wheel 150 feet 88-Not attempted due to medical condition or safety concerns - Bladder and Bowel Bladder continence 0-Always continent Bowel continence 0-Always continent - Endurance Poor - Balance Poor - Safety Awareness Fair [facility]RENT [facility] DEFICITS: Self-Care, Mobility, Endurance, Balance, and Safety Awareness SIGNATURE PANEL: (CDT)
[2019-11-27] MEDS: TRAZODONE 50 MG TABLET PO PRN (20:19)
[2019-11-27] MEDS: clonazePAM 0.5 MG TAB PO PRN (20:19)
[2019-11-27] MEDS: AYR NASAL SALINE DROPS NAS PRN (20:24)
[2019-11-27] MEDS: INSULIN GLARGINE 100 UNITS/ML SQ SCH (21:17)
[2019-11-28] MEDS: PIPER/TAZO/NS 3.375gm 3.375 GM/100 ML BAG IVPB SCH ×3 (00:25→17:30)
[2019-11-28] MEDS: INSULIN -REGULAR HUMAN 50 UNIT/0.5 ML ML SQ SCH ×4 (07:30→20:26)
[2019-11-28] MEDS: FUROSEMIDE 20 MG TABLET PO SCH (08:16)
[2019-11-28] MEDS: CYANOCOBALAMIN 1,000 MCG TAB PO SCH (08:16)
[2019-11-28] MEDS: ASPIRIN EC 81 MG TAB PO SCH (08:16)
[2019-11-28] MEDS: APIXABAN 2.5 MG TABLET PO SCH ×2 (08:16→20:26)
[2019-11-28] MEDS: SERTRALINE HCL 100 MG TAB PO SCH (08:16)
[2019-11-28] MEDS: METFORMIN HCL 500 MG TAB PO SCH ×2 (08:17→17:30)
[2019-11-28] MEDS: SODIUM CHLORIDE 0.9% 10ML INJ IV SCH ×2 (08:17→20:26)
[2019-11-28] MEDS: DOCUSATE NA 100 MG CAP PO SCH ×2 (08:17→20:00)
[2019-11-28] MEDS: CLOPIDOGREL 75 MG TABLET PO SCH (08:17)
[2019-11-28] MEDS: LACTOBACILLUS/ACIDOPHILUS TAB PO SCH ×2 (08:17→20:26)
--- NOTE | 2019-11-28 10:08 | PN ---
Date of Progress Note: 11/28/2019 Subjective: Patient is awake, alert, no complaints. Vital signs are stable, afebrile. His white co unt yesterday was 14.5. He however does not have a left shift. Examination of the wound reveals it to be clean, dry and intact. No evidence of any infection. Assessment: Status post left below-knee amputation with recent revision of the wound. Recommendations: Continue antibiotics as ordered. Dressing as ordered and sutures to remain at leas t 2 weeks. We will follow patient next week. /MODL Voice ID: [id number] Report ID: [id number]
[2019-11-28] MEDS: ENSURE HIGH PROTEIN 237 ML CAN PO SCH (11:50)
[2019-11-28] MEDS: VANCOMYCIN 1.75 GM in NA CHLORIDE 0.9% 500 ML IVPB SCH (12:40)
--- NOTE | 2019-11-28 18:20 | R.PN ---
ENCOUNTER DATE AND TIME: 11/28/2019 18:17 (CDT) NAME CARLA FORBES DATE OF : 1945 DATE OF ADMISSION: 10/19/2019 15:48 (MANAGER CASE MANAGEMENT) Left BKACHIEF COMPLAINT: Left below the knee amputation SUBJECTIVE: Pt denied any Shortness of Breath. Pt denied any depression. He did surface to surface transfers without an assistive device. He fell out and bed and hit his left BKA stump on the bathroom wall causing his surgical wound to reo pen. Dr. Willis too him back to the OR today to reclose the wound. His immobilizer is in place. He is on vanc and Zosyn. Will repeat CBC with diff. in the AM. Repeat WBC is elevated to 14.5 from 11.8 on 11/23/19. Glucose 136 to 163. Vanc level on 11/26/19 was 12.3 , today Vanc 12.4. Ambulated 100' x 2 with a rolling walker and standby assistance. VITAL SIGNS Temperature: 97.4 F SBP/DBP: 110/76 Pulse: 84 Resp: 16 MEDICATION ALLERGIES: No Known Drug Allergies (NKDA) ENVIRONMENTAL ALLERGIES: None Known - Substance Allergies None Known - Other Allergies None Known CONSULT: Perform Consult Certified Prosthetic for prosthesis construction NURSING: - Shower allowing shower - Skin care per protocol PRECAUTIONS: - Weight Bearing Precaution NWB left LE ACTIVITIES OOB only with supervision THERAPIES: - Orthotics/Prosthetics Prosthetic Evaluation. - Dietary and Nutrition Adequate Nutrition. Nutritional Education. Nutritional Supplements. PHYSICAL EXAM - Gen Alert and awake Lying in bed No apparent distress Oriented to: person, time, and place - Skin LLE incisions intact Normacephalic - Eyes No abnormalities - ENMT No abnormalities - Neck No abnormalities - CVS RRR - Chest No abnormalities - Resp Clear to auscultation - Abd Soft - GI Non distended Deferred - No abnormalities - Ext Left BKA good hemostasis, dressing in place - MSK 4+/5 weakness in left lower extremity - Neuro 4/5 strength left lower extremity. - Psych No abnormalities ASSESSMENT: Pt. 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 was independent/mod-I in Locomotion, Balance , Safety Awareness, Social Cognition, Transfers Control, Sphincter Control, Self-Care, Communication, and Endurance; and he had good Locomotion, Balance, Safety Awareness, Social Cognition, Transfers Co ntrol, Sphincter Control, Self-Care, Communication, and Endurance.Currently, he has deficits of Locom otion, Balance, Safety Awareness, Transfers Control, Self-Care, Endurance, and Communication.Pt. is n ow referred to [facility] for acute in-patient rehabilitation in order to maxi manuel patient's functional independence in activities of daily living, strength, ROM, and mobility.- R ehab Goal Patient has realistic goal of being discharged at assistance level 6-Elvia to reside at Home with Fam bel/Relatives. MDM/PLAN: - Physical Therapy Gait dysfunction - to improve, our physical therapists will perform initial evaluation of pt's statu s upon admission and devise an individualized program for Gait Training, and Wheel Chair mobility Inability to transfer - to improve, our physical therapists will perform initial evaluation of pt's status upon admission and devise an individualized program for Bed mobility Need for home safety evaluation - to improve, our physical therapists will perform initial evaluatio n of pt's status upon admission and devise an individualized program for Home Evaluation Need in caregiver upon discharge - to improve, our physical therapists will perform initial evaluati on of pt's status upon admission and devise an individualized program for Caregiver Training New precaution - to improve, our physical therapists will perform initial evaluation of pt's status upon admission and devise an individualized program for Patient precaution education Poor balance - to improve, our physical therapists will perform initial evaluation of pt's status up on admission and devise an individualized program for Balance Training Poor endurance - to improve, our physical therapists will perform initial evaluation of pt's status upon admission and devise an individualized program for Endurance Training Weakness - to improve, our physical therapists will perform initial evaluation of pt's status upon a dmission and devise an individualized program for Aquatic Therapy, Neuromuscular Reeducation, and Str engthening Achieving independence - to improve, our physical therapists will perform initial evaluation of pt's status upon admission and devise an individualized program for Community Reintegration Activities - Occupational Therapy ADL deficits - to improve, our occupation therapists will perform initial evaluation of pt's status upon admission and devise an individualized program for Bathing, Bed mobility, Community Reintegratio n, Cooking, Dressing, Eating, Fine Motor Skills, Grooming, Homemaking, Kitchen Mobility, Laundry, Pat ient Education, Safety Awareness, Splinting - Positioning, Transfers(Toilet, Tub, Shower), and Wheel Chair Management Need for care assistant - to improve, our occupation therapists will perform initial evaluation of pt's status upon admission and devise an individualized program for Caregiver Training Weakness - to improve, our occupation therapists will perform initial evaluation of pt's status upon admission and devise an individualized program for Aquatic Therapy, Balance, Endurance, UE ROM, and UE strengthening - Other See attached MAR (Medication Administration Record) - Diet Type Continue Regular - Diet - Liquid Texture Continue Regular - Tube Feed Continue N/A - Weight Bearing Precaution NWB left LE - Skin care per protocol - N/A Perform Consult Certified Prosthetic for prosthesis construction - Diet - Solid Texture Continue Regular - Shower allowing shower FUNCTIONAL STATUS: UPDATED AT WEEKLY TEAM CONFERENCE - Bladder Same accident frequency: 7-Ind - No accidents in the past 7 days - Bowel Same accident frequency: 7-Ind - No accidents in the past 7 days - Walking Same score based on distance walked: 0(N/A) - Wheelchair Same score based on distance traveled: 0(N/A) FUNCTIONAL STATUS: - Self-Care A. Eating Ind B. Grooming sup C. Bathing Isaías D. Dressing - Upper Ind E. Dressing - Lower modA F. Toileting modA - Sphincter Control G. Bladder control sup H. Bowel control sup - Transfers Control I. Bed/Chair/Wheelchair modA J. Toilet modA K. Tub/Shower modA - Locomotion L. Walk/Wheelchair (B) modA M. Stairs ADNO - Communication N. Comprehension (B) Elvia O. Expression (B) Elvia - Social Cognition P. Social Interaction Elvia Q. Problem Solving sup R. Memory sup - Endurance Fair - Balance Fair - Safety Awareness Fair QI SCORES: - Self-Care A. Eating 05-Setup or clean-up assistance B. Oral hygiene 05-Setup or clean-up assistance C. Toileting hygiene 03-Partial/moderate assistance E. Shower/bathe self 03-Partial/moderate assistance F. Upper body dressing 03-Partial/moderate assistance G. Lower body dressing 02-Substantial/maximal assistance H. Putting on/taking off footwear 02-Substantial/maximal assistance - Mobility A. Roll left and right 03-Partial/moderate assistance B. Sit to lying 03-Partial/moderate assistance C. Lying to sitting on side of bed 03-Partial/moderate assistance D. Sit to stand 03-Partial/moderate assistance E. Chair/ban-se-euspl transfer 03-Partial/moderate assistance F. Toilet transfer 03-Partial/moderate assistance G. Car transfer 10-Not attempted due to environmental limitations I. Walk 10 feet 88-Not attempted due to medical condition or safety concerns J. Walk 50 feet with two turns 88-Not attempted due to medical condition or safety concerns K. Walk 150 feet 88-Not attempted due to medical condition or safety concerns L. Walking 10 feet on uneven surfaces 88-Not attempted due to medical condition or safety concerns M. 1 step (curb) 88-Not attempted due to medical condition or safety concerns N. 4 steps 09-Not applicable O. 12 steps 09-Not applicable P. Picking up object 88-Not attempted due to medical condition or safety concerns R. Wheel 50 feet with two turns 88-Not attempted due to medical condition or safety concerns S. Wheel 150 feet 88-Not attempted due to medical condition or safety concerns - Bladder and Bowel Bladder continence 0-Always continent Bowel continence 0-Always continent - Endurance Poor - Balance Poor - Safety Awareness Fair [facility]. DEFICITS: Self-Care, Mobility, Endurance, Balance, and Safety Awareness SIGNATURE PANEL: (CDT)
[2019-11-28] MEDS: AYR NASAL SALINE DROPS NAS PRN (20:24)
[2019-11-28] MEDS: INSULIN GLARGINE 100 UNITS/ML SQ SCH (20:25)
[2019-11-28] MEDS: clonazePAM 0.5 MG TAB PO PRN (20:25)
[2019-11-28] MEDS: TRAZODONE 50 MG TABLET PO PRN (20:26)
[2019-11-29 06:57] LABS: Absolute Lymphocytes (CBC) 9.5 K/uL (0.7-4.9); Basophils % 0.7 % (0-1.3); Lymphocytes % 67.8 % (15.3-44.8); MPV 7.4 fL (7.6-11.3); RBC Red Blood Cell Count 3.49 M/uL (4.33-5.43)
[2019-11-29 07:30] LABS: Albumin 3.5 g/dL (3.4-5.0); Magnesium 2.4 mg/dL (1.8-2.4); Potassium 4.3 mmol/L (3.5-5.1); Prealbumin 24.9 mg/dL (20-40)
[2019-11-29] MEDS: INSULIN -REGULAR HUMAN 50 UNIT/0.5 ML ML SQ SCH ×4 (07:30→20:41)
[2019-11-29] MEDS: ASPIRIN EC 81 MG TAB PO SCH (08:21)
[2019-11-29] MEDS: CLOPIDOGREL 75 MG TABLET PO SCH (08:21)
[2019-11-29] MEDS: LACTOBACILLUS/ACIDOPHILUS TAB PO SCH ×2 (08:21→20:46)
[2019-11-29] MEDS: APIXABAN 2.5 MG TABLET PO SCH ×2 (08:21→20:46)
[2019-11-29] MEDS: CYANOCOBALAMIN 1,000 MCG TAB PO SCH (08:21)
[2019-11-29] MEDS: FUROSEMIDE 20 MG TABLET PO SCH (08:22)
[2019-11-29] MEDS: METFORMIN HCL 500 MG TAB PO SCH ×2 (08:22→17:13)
[2019-11-29] MEDS: DOCUSATE NA 100 MG CAP PO SCH ×2 (08:22→20:47)
[2019-11-29] MEDS: SERTRALINE HCL 100 MG TAB PO SCH (08:22)
--- NOTE | 2019-11-29 10:18 | P.RH.PN ---
Estimated Length of Stay: 50 Expected Discharge Date: 12/07/19 Discharge Disposition Plan: Home Family Support: Yes Senior Living Goal: Mobility, Transfers, Self Care Vital Signs: Last Vital Signs Temp 97.2 F 11/29/19 08:00 Pulse 81 11/29/19 08:22 Resp 16 11/29/19 08:00 BP 115/69 11/29/19 08:22 Pulse Ox 99 11/29/19 08:00 Laboratory: Laboratory Last Values WBC 14.0 K/uL (4.3-10.9) H 11/29/19 06:27 RBC 3.49 M/uL (4.33-5.43) L 11/29/19 06:27 Hgb 10.5 g/dL (13.6-17.9) L 11/29/19 06:27 Hct 32.0 % (39.6-49.0) L 11/29/19 06:27 MCV 91.8 fL (80-100) 11/29/19 06:27 MCH 30.0 pg (27.0-35.0) 11/29/19 06:27 MCHC 32.7 g/dL (32.0-36.0) 11/29/19 06:27 RDW 17.4 % (12.1-15.2) H 11/29/19 06:27 Plt Count 275 K/uL (152-406) 11/29/19 06:27 MPV 7.4 fL (7.6-11.3) L 11/29/19 06:27 Neutrophils % 22.0 % (41.7-73.7) L 11/29/19 06:27 Lymphocytes % 67.8 % (15.3-44.8) H 11/29/19 06:27 Monocytes % 3.6 % (3.3-12.3) 11/29/19 06:27 Eosinophils % 5.9 % (0-4.4) H 11/29/19 06:27 Basophils % 0.7 % (0-1.3) 11/29/19 06:27 Absolute Neutrophils 3.1 K/uL (1.8-8.0) 11/29/19 06:27 Segmented Neutrophils 21 % (40-80) L 11/27/19 07:03 Absolute Lymphocytes 9.5 K/uL (0.7-4.9) H 11/29/19 06:27 Lymphocytes 66 % (15-42) H 11/27/19 07:03 Monocytes 8 % (0-10) 11/27/19 07:03 Absolute Monocytes 0.5 K/uL (0.1-1.3) 11/29/19 06:27 Eosinophils 5 % (0-3) H 11/27/19 07:03 Absolute Eosinophils 0.8 K/uL (0-0.5) H 11/29/19 06:27 Basophils 2 % (0-1) H 10/31/19 05:40 Absolute Basophils 0.1 K/uL (0-0.5) 11/29/19 06:27 Nucleated RBCs 1 /100WBC 10/31/19 05:40 Atypical Lymphocytes 9 11/15/19 05:35 Morphology Comment Not seen (NOT SEEN) 11/27/19 07:03 Sodium 142 mmol/L (136-145) 11/29/19 06:27 Potassium 4.3 mmol/L (3.5-5.1) 11/29/19 06:27 Chloride 112 mmol/L (98-107) H 11/29/19 06:27 Carbon Dioxide 24 mmol/L (21-32) 11/29/19 06:27 BUN 24 mg/dL (7-18) H 11/29/19 06:27 Creatinine 2.06 mg/dL (0.55-1.3) H 11/29/19 06:27 Estimated GFR 32 mL/min (=/>90) L 11/29/19 06:27 Glucose 104 mg/dL (74-106) 11/29/19 06:27 POC Glucose 99 mg/dl (65-120) 11/29/19 07:22 Calcium 9.0 mg/dL (8.5-10.1) 11/29/19 06:27 Magnesium 2.4 mg/dL (1.8-2.4) 11/29/19 06:27 Albumin 3.5 g/dL (3.4-5.0) 11/29/19 06:27 Prealbumin 24.9 mg/dL (20-40) 11/29/19 06:27 Urine Color Yellow 10/19/19 19:50 Urine Appearance Clear 10/19/19 19:50 Urine pH 5.5 (5.0-7.0) 10/19/19 19:50 Ur Specific [place] 1.010 (1.005-1.030) 10/19/19 19:50 Glucose (UA)(Auto) Negative (NEG) 10/19/19 19:50 Urine Ketones Negative (NEG) 10/19/19 19:50 Urine Blood Negative (NEG) 10/19/19 19:50 Urine Nitrite Negative (NEG) 10/19/19 19:50 Urine Bilirubin Negative (NEG) 10/19/19 19:50 Urine Urobilinogen 0.2 mg/dL (0.2-1.0) 10/19/19 19:50 Ur Leukocyte Esterase Negative (NEG) 10/19/19 19:50 Urine RBC None seen /HPF (NONE SEEN) 10/19/19 19:50 Urine WBC <5 /HPF (<5) 10/19/19 19:50 Ur Squamous Epith Cells <5 /HPF (NONE SEEN) 10/19/19 19:50 Urine Bacteria <20 /HPF (NONE SEEN) 10/19/19 19:50 Urine Culture Reflexed Not needed 10/19/19 19:50 Urine Total Protein Negative (NEG) 10/19/19 19:50 Vancomycin Peak Cancelled 11/15/19 Unknown Vancomycin Trough 12.4 ug/mL (5.0-20.0) 11/28/19 12:05 Weight: 222 lb 9.6 oz Wound Present: Yes Closed Surgical Incision Present: Yes Negative Pressure Wound Therapy Present: No Physician Update: His WBCs are still elevated and ID will be consulted. He may require extra help at home. He is walked up to 250' last week. He only walked 50 ' yesterday since coming back from surgery. Medical Issues: Patient is always continent with bladder and bowel. Pain Issues: Patient is taking Tylenol 650mg Q6H PO PRN and [place] 7.5/325mg Q4H PO PRN for pain. Functional Improvement: Patient has met all short-term and long-term goals at this time, w/ the exception of a car transfer due to unavailablity. Patient completes tasks w/ good technique and overall safety awareness. Summary: Patient's care plan and superintendent terminal goals have been reviewed and revised as necessary. Please see the Rehabilitation Signature page for all necessary signatures.
--- NOTE | 2019-11-29 10:45 | FAST ---
SHIFT START DATE/TIME: 11/29/2019 07:00 (CDT) SHIFT END DATE/TIME: 11/29/2019 19:00 (CDT) NAME CARLA FORBES DATE OF : 1945 DATE OF ADMISSION: 10/19/2019 15:48 (LAUNCH MANAGER) PHONE: AGE: 73 SSN# [id number] GENDER: Male ENCOUNTER PHYSICIAN: Dr. Celso Noonan M.D. 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 EATING: EATING - STEP 1: Does the patient complete the activity by him/herself with no assistance (physical, verbal/nonverbal cueing, setup/clean-up)? No. EATING - STEP 2: Does the patient need only setup/clean-up assistance from one helper? No. EATING - STEP 3: Does the patient need only verbal/nonverbal cueing or touching/steadying/contact guard assistance fro m one helper? Yes. 1. [id number] ADMISSION PERFORMANCE: Supervision or touching assistance CODE: 04 ORAL HYGIENE: ORAL HYGIENE - STEP 1: Does the patient complete the activity by him/herself with no assistance (physical, verbal/nonverbal cueing, setup/clean-up)? No. ORAL HYGIENE - STEP 2: Does the patient need only setup/clean-up assistance from one helper? Yes. 1. [id number] ADMISSION PERFORMANCE: Setup or clean-up assistance CODE: 05 TOILETING HYGIENE: TOILETING HYGIENE - STEP 1: Does the patient complete the activity by him/herself with no assistance (physical, verbal/nonverbal cueing, setup/clean-up)? No. TOILETING HYGIENE - STEP 2: Does the patient need only setup/clean-up assistance from one helper? Yes. 1. [id number] ADMISSION PERFORMANCE: Setup or clean-up assistance CODE: 05 BATHING: Not assessed/no information CODE: - DRESSING - UPPER BODY: Not assessed/no information CODE: - DRESSING - LOWER BODY: Not assessed/no information CODE: - PUTTING ON/TAKING OFF FOOTWEAR: Not assessed/no information CODE: - ROLL LEFT AND RIGHT: ROLL LEFT AND RIGHT - STEP 1: Does the patient complete the activity by him/herself with no assistance (physical, verbal/nonverbal cueing, setup/clean-up)? No. ROLL LEFT AND RIGHT - STEP 2: Does the patient need only setup/clean-up assistance from one helper? Yes. 1. [id number] ADMISSION PERFORMANCE: Setup or clean-up assistance CODE: 05 SIT TO LYING: SIT TO LYING - STEP 1: Does the patient complete the activity by him/herself with no assistance (physical, verbal/nonverbal cueing, setup/clean-up)? No. SIT TO LYING - STEP 2: Does the patient need only setup/clean-up assistance from one helper? No. SIT TO LYING - STEP 3: Does the patient need only verbal/nonverbal cueing or touching/steadying/contact guard assistance fro m one helper? Yes. 1. [id number] ADMISSION PERFORMANCE: Supervision or touching assistance CODE: 04 LYING TO SITTING: LYING TO SITTING ON SIDE OF BED - STEP 1: Does the patient complete the activity by him/herself with no assistance (physical, verbal/nonverbal cueing, setup/clean-up)? No. LYING TO SITTING ON SIDE OF BED - STEP 2: Does the patient need only setup/clean-up assistance from one helper? No. LYING TO SITTING ON SIDE OF BED - STEP 3: Does the patient need only verbal/nonverbal cueing or touching/steadying/contact guard assistance fro m one helper? Yes. 1. [id number] ADMISSION PERFORMANCE: Supervision or touching assistance CODE: 04 SIT TO STAND: SIT TO STAND - STEP 1: Does the patient complete the activity by him/herself with no assistance (physical, verbal/nonverbal cueing, setup/clean-up)? No. SIT TO STAND - STEP 2: Does the patient need only setup/clean-up assistance from one helper? No. SIT TO STAND - STEP 3: Does the patient need only verbal/nonverbal cueing or touching/steadying/contact guard assistance fro m one helper? Yes. 1. [id number] ADMISSION PERFORMANCE: Supervision or touching assistance CODE: 04 TRANSFERS: BED, CHAIR: CHAIR/ROI-MU-ULREX TRANSFER - STEP 1: Does the patient complete the activity by him/herself with no assistance (physical, verbal/nonverbal cueing, setup/clean-up)? No. CHAIR/[id number]-AUZEE TRANSFER - STEP 2: Does the patient need only setup/clean-up assistance from one helper? No. CHAIR/ION-ZZ-[id number] TRANSFER - STEP 3: Does the patient need only verbal/nonverbal cueing or touching/steadying/contact guard assistance fro m one helper? Yes. 1. [id number] ADMISSION PERFORMANCE: Supervision or touching assistance CODE: 04 TRANSFER TOILET: TOILET TRANSFER - STEP 1: Does the patient complete the activity by him/herself with no assistance (physical, verbal/nonverbal cueing, setup/clean-up)? No. TOILET TRANSFER - STEP 2: Does the patient need only setup/clean-up assistance from one helper? No. TOILET TRANSFER - STEP 3: Does the patient need only verbal/nonverbal cueing or touching/steadying/contact guard assistance fro m one helper? Yes. 1. [id number] ADMISSION PERFORMANCE: Supervision or touching assistance CODE: 04 TRANSFERS: CAR: Not assessed/no information CODE: - WALK 10 FEET: Not assessed/no information CODE: - 1 STEP (CURB): Not assessed/no information CODE: - PICKING UP OBJECT: Not assessed/no information CODE: - DOES THE PATIENT USE A WHEELCHAIR/SCOOTER? CODE: EXPR WHEEL 50 FEET WITH TWO TURNS: Not assessed/no information CODE: - INDICATE THE TYPE OF WHEELCHAIR/SCOOTER USED: CODE: EXPR WHEEL 150 FEET: Not assessed/no information CODE: - INDICATE THE TYPE OF WHEELCHAIR/SCOOTER USED: CODE: EXPR BLADDER AND BOWEL: H350. BLADDER CONTINENCE (3-DAY ASSESSMENT PERIOD): Always continent (no documented incontinence) CODE: 0 H400. BOWEL CONTINENCE (3-DAY ASSESSMENT PERIOD): Always continent CODE: 0 SIGNATURE PANEL: The following modified sections: 1. [id number] Admission Performance, 1. [id number] Admission Performance, 1. [id number] Admission Performance, 1. IL3011O Admission Performance, 1. WH8807A Admission Performance, 1. HV0759T Admission Performance, 1. FL9049A Admission Performance, 1. GU6483S Admission Performance , 1. [id number] Admission Performance, Code, H350. Bladder Continence (3-day assessment period), H400. B owel Continence (3-day assessment period) were [electronically] signed by Guillermo Elias on TueNov 28 10:43:47 [facility]-0500 (Central Daylight Time)
[2019-11-29] MEDS: ENSURE HIGH PROTEIN 237 ML CAN PO SCH (11:54)
--- NOTE | 2019-11-29 14:45 | FAST ---
ENCOUNTER DATE AND TIME: 11/29/2019 08:00 (CDT) NAME CARLA FORBES DATE OF : 1945 DATE OF ADMISSION: 10/19/2019 15:48 (PROPERTY MANAGEMENT SPECIALIST) PHONE: AGE: 73 N# [id number] GENDER: Male ENCOUNTER PHYSICIAN: Dr. Celso Noonan M.D. 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 ROLL LEFT AND RIGHT: ROLL LEFT AND RIGHT - STEP 1: Does the patient complete the activity by him/herself with no assistance (physical, verbal/nonverbal cueing, setup/clean-up)? Yes. 1. [id number] ADMISSION PERFORMANCE: Independent CODE: 06 SIT TO LYING: SIT TO LYING - STEP 1: Does the patient complete the activity by him/herself with no assistance (physical, verbal/nonverbal cueing, setup/clean-up)? Yes. 1. [id number] ADMISSION PERFORMANCE: Independent CODE: 06 LYING TO SITTING: LYING TO SITTING ON SIDE OF BED - STEP 1: Does the patient complete the activity by him/herself with no assistance (physical, verbal/nonverbal cueing, setup/clean-up)? Yes. 1. [id number] ADMISSION PERFORMANCE: Independent CODE: 06 SIT TO STAND: SIT TO STAND - STEP 1: Does the patient complete the activity by him/herself with no assistance (physical, verbal/nonverbal cueing, setup/clean-up)? Yes. 1. [id number] ADMISSION PERFORMANCE: Independent CODE: 06 TRANSFERS: BED, CHAIR: CHAIR/JXC-FS-SRRSY TRANSFER - STEP 1: Does the patient complete the activity by him/herself with no assistance (physical, verbal/nonverbal cueing, setup/clean-up)? Yes. 1. [id number] ADMISSION PERFORMANCE: Independent CODE: 06 TRANSFER TOILET: TOILET TRANSFER - STEP 1: Does the patient complete the activity by him/herself with no assistance (physical, verbal/nonverbal cueing, setup/clean-up)? Yes. 1. [id number] ADMISSION PERFORMANCE: Independent CODE: 06 TRANSFERS: CAR: Not attempted due to environmental limitations (e.g., lack of equipment, weather constraints) CODE: 10 WALK 10 FEET: WALK 10 FEET - STEP 1: Does the patient complete the activity by him/herself with no assistance (physical, verbal/nonverbal cueing, setup/clean-up)? No. WALK 10 FEET - STEP 2: Does the patient need only setup/clean-up assistance from one helper? Yes. 1. [id number] ADMISSION PERFORMANCE: Setup or clean-up assistance CODE: 05 WALK 50 FEET: WALK 50 FEET - STEP 1: Does the patient complete the activity by him/herself with no assistance (physical, verbal/nonverbal cueing, setup/clean-up)? No. WALK 50 FEET - STEP 2: Does the patient need only setup/clean-up assistance from one helper? Yes. 1. [id number] ADMISSION PERFORMANCE: Setup or clean-up assistance CODE: 05 WALK 150 FEET: Not attempted due to medical condition or safety concerns CODE: 88 WALK 10 FEET UNEVEN: Not attempted due to medical condition or safety concerns CODE: 88 1 STEP (CURB): Not attempted due to medical condition or safety concerns CODE: 88 PICKING UP OBJECT: Not attempted due to medical condition or safety concerns CODE: 88 DOES THE PATIENT USE A WHEELCHAIR/SCOOTER? Q1. DOES THE PATIENT USE A WHEELCHAIR/SCOOTER?: Yes CODE: 1 WHEEL 50 FEET WITH TWO TURNS: WHEEL 50 FEET WITH TWO TURNS - STEP 1: Does the patient complete the activity by him/herself with no assistance (physical, verbal/nonverbal cueing, setup/clean-up)? Yes. 1. [id number] ADMISSION PERFORMANCE: Independent CODE: 06 INDICATE THE TYPE OF WHEELCHAIR/SCOOTER USED: RR1. INDICATE THE TYPE OF WHEELCHAIR/SCOOTER USED.: Manual CODE: 1 WHEEL 150 FEET: WHEEL 150 FEET - STEP 1: Does the patient complete the activity by him/herself with no assistance (physical, verbal/nonverbal cueing, setup/clean-up)? Yes. 1. [id number] ADMISSION PERFORMANCE: Independent CODE: 06 INDICATE THE TYPE OF WHEELCHAIR/SCOOTER USED: SS1. INDICATE THE TYPE OF WHEELCHAIR/SCOOTER USED.: Manual CODE: 1 BLADDER AND BOWEL: CODE: EXPR CODE: EXPR SIGNATURE PANEL: The following modified sections: 1. AJ2061K Admission Performance, 1. PH7677L Admission Performance, 1. UZ8024U Admission Performance, 1. CD4749Z Admission Performance, 1. MJ0278B Admission Performance, 1. CM8068I Admission Performance, 1. MN0810M Admission Performance, 1. WM0523E Admission Performance , Q1. Does the patient use a wheelchair/scooter?, 1. RO1636G Admission Performance, RR1. Indicate the type of wheelchair/scooter used., 1. TE0998R Admission Performance, Code, SS1. Indicate the type of wheelchair/scooter used. were [electronically] signed by Aubrey Chavez PTA on TueNov 29 2019 14:44:45 GMT-0500 (Central Daylight Time)
[2019-11-29] MEDS: SODIUM CHLORIDE 0.9% 10ML INJ IV SCH (20:44)
[2019-11-29] MEDS: TRAZODONE 50 MG TABLET PO PRN (20:46)
[2019-11-29] MEDS: clonazePAM 0.5 MG TAB PO PRN (20:46)
[2019-11-29] MEDS: INSULIN GLARGINE 100 UNITS/ML SQ SCH (20:49)
[2019-11-29] MEDS: AYR NASAL SALINE DROPS NAS PRN (20:49)
[2019-11-30] MEDS: INSULIN -REGULAR HUMAN 50 UNIT/0.5 ML ML SQ SCH ×4 (07:25→21:00)
[2019-11-30] MEDS: DOCUSATE NA 100 MG CAP PO SCH ×2 (08:00→19:53)
[2019-11-30] MEDS: SODIUM CHLORIDE 0.9% 10ML INJ IV SCH ×2 (08:00→19:54)
[2019-11-30] MEDS: ASPIRIN EC 81 MG TAB PO SCH (08:39)
[2019-11-30] MEDS: APIXABAN 2.5 MG TABLET PO SCH ×2 (08:39→19:53)
[2019-11-30] MEDS: LACTOBACILLUS/ACIDOPHILUS TAB PO SCH ×2 (08:39→19:53)
[2019-11-30] MEDS: CLOPIDOGREL 75 MG TABLET PO SCH (08:39)
[2019-11-30] MEDS: SERTRALINE HCL 100 MG TAB PO SCH (08:40)
[2019-11-30] MEDS: CYANOCOBALAMIN 1,000 MCG TAB PO SCH (08:40)
[2019-11-30] MEDS: FUROSEMIDE 20 MG TABLET PO SCH (08:40)
[2019-11-30] MEDS: METFORMIN HCL 500 MG TAB PO SCH ×2 (08:40→17:29)
[2019-11-30] MEDS: ENSURE HIGH PROTEIN 237 ML CAN PO SCH (12:00)
--- NOTE | 2019-11-30 13:16 | CON ---
History Of Present Illness: Patient is a 74-year-old male, was consulted for leukocytosis of 14,000 yesterday. Patient had a recent BKA with significant history of diabetes mellitus, right now admitte d to rehab for mobility. Patient also had a PICC line, which grew Staph hominis sensitive to vancomy marianna only. Patient is getting currently vancomycin 1.75 g every 48 hours. Patient denies any headach e, nausea, vomiting, chest pain, abdominal pain, constipation, or diarrhea. Past Medical History: Diabetes mellitus, left BKA, coronary artery disease. Social History: Nonsmoker, nondrinker. Family History: Noncontributory. Medications: Vancomycin. See MAR for other medications. Allergies: NO KNOWN DRUG ALLERGIES. Review of Systems: A 10-point review was performed. Physical Examination: General: This is a 74-year-old male, sitting in wheelchair, not in any acute cardiopulmonary distres s. Vital Signs: Temperature 97, pulse 87, respirations 16, blood pressure 118/68. HEENT: Unremarkable. Neck: Supple. Lungs: Clear to auscultation. Heart: S1, S2. Regular. Abdomen: Soft. Bowel sounds present. Extremities: Left BKA wound site shows surgical wound with a few stitches in place. No redness. No swelling noted. Has Xeroform dressing with minimal discharge on it. The right arm PICC line site h as a small spot, but without any swelling or tenderness. Laboratory Data: Shows WBC 14,000, hemoglobin 10.5, platelets 275. Chemistry shows sodium 142, pota ssium 4.3, chloride 112, bicarb 24, BUN 2.06, glucose is 104, albumin is 3.5. Micro data Staph haemo lyticus obtained on November 15, 2019. Assessment And Plan: Peripherally inserted central catheter line infection, leukocytosis, renal fail ure in a 74-year-old male mellitus and recent below-knee amputation. We will recommend to repeat cul tures if leukocytosis persists. Continue treatment for 10 more days with vancomycin and after that, stop antibiotic and repeat cultures and CBC, BMP on Mondays and while the patient is on anti biotics. We will follow the patient closely. Thank you Dr. Noonan for consult. NARENDRA/FREDI Voice ID: [id number] Report ID: [id number]
[2019-11-30] MEDS: VANCOMYCIN 1.75 GM in NA CHLORIDE 0.9% 500 ML IVPB SCH (14:43)
--- NOTE | 2019-11-30 15:10 | FAST ---
SHIFT START DATE/TIME: 11/30/2019 07:00 (CDT) SHIFT END DATE/TIME: 11/30/2019 19:00 (CDT) NAME CARLA FORBES DATE OF : 1945 DATE OF ADMISSION: 10/19/2019 15:48 (COLORER MACHINE) PHONE: AGE: 73 N# [id number] GENDER: Male ENCOUNTER PHYSICIAN: Dr. Celso Noonan M.D. 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 EATING: EATING - STEP 1: Does the patient complete the activity by him/herself with no assistance (physical, verbal/nonverbal cueing, setup/clean-up)? No. EATING - STEP 2: Does the patient need only setup/clean-up assistance from one helper? Yes. 1. [id number] ADMISSION PERFORMANCE: Setup or clean-up assistance CODE: 05 ORAL HYGIENE: ORAL HYGIENE - STEP 1: Does the patient complete the activity by him/herself with no assistance (physical, verbal/nonverbal cueing, setup/clean-up)? No. ORAL HYGIENE - STEP 2: Does the patient need only setup/clean-up assistance from one helper? Yes. 1. [id number] ADMISSION PERFORMANCE: Setup or clean-up assistance CODE: 05 TOILETING HYGIENE: TOILETING HYGIENE - STEP 1: Does the patient complete the activity by him/herself with no assistance (physical, verbal/nonverbal cueing, setup/clean-up)? No. TOILETING HYGIENE - STEP 2: Does the patient need only setup/clean-up assistance from one helper? Yes. 1. [id number] ADMISSION PERFORMANCE: Setup or clean-up assistance CODE: 05 BATHING: Not assessed/no information CODE: - DRESSING - UPPER BODY: DRESSING - UPPER BODY - STEP 1: Does the patient complete the activity by him/herself with no assistance (physical, verbal/nonverbal cueing, setup/clean-up)? No. DRESSING - UPPER BODY - STEP 2: Does the patient need only setup/clean-up assistance from one helper? Yes. 1. [id number] ADMISSION PERFORMANCE: Setup or clean-up assistance CODE: 05 DRESSING - LOWER BODY: DRESSING - LOWER BODY - STEP 1: Does the patient complete the activity by him/herself with no assistance (physical, verbal/nonverbal cueing, setup/clean-up)? No. DRESSING - LOWER BODY - STEP 2: Does the patient need only setup/clean-up assistance from one helper? Yes. 1. [id number] ADMISSION PERFORMANCE: Setup or clean-up assistance CODE: 05 PUTTING ON/TAKING OFF FOOTWEAR: FOOTWEAR - STEP 1: Does the patient complete the activity by him/herself with no assistance (physical, verbal/nonverbal cueing, setup/clean-up)? Yes. 1. [id number] ADMISSION PERFORMANCE: Independent CODE: 06 DOES THE PATIENT USE A WHEELCHAIR/SCOOTER? CODE: EXPR INDICATE THE TYPE OF WHEELCHAIR/SCOOTER USED: CODE: EXPR INDICATE THE TYPE OF WHEELCHAIR/SCOOTER USED: CODE: EXPR BLADDER AND BOWEL: H350. BLADDER CONTINENCE (3-DAY ASSESSMENT PERIOD): Always continent (no documented incontinence) CODE: 0 H400. BOWEL CONTINENCE (3-DAY ASSESSMENT PERIOD): Always continent CODE: 0 SIGNATURE PANEL: The following modified sections: 1. [id number] Admission Performance, 1. [id number] Admission Performance, 1. VR1794P Admission Performance, 1. OF5203x Admission Performance, 1. RC8115m Admission Performance, 1. MQ9421r Admission Performance, H350. Bladder Continence (3-day assessment period), H400. Bowel Co ntinence (3-day assessment period) were [electronically] signed by Rogelio DiazNNathalia on TueNov 30 2019 15:09:56 T-0500 (Central Daylight Time)
--- NOTE | 2019-11-30 15:21 | FAST ---
ENCOUNTER DATE AND TIME: 11/30/2019 08:00 (CDT) NAME CARLA FORBES DATE OF : 1945 DATE OF ADMISSION: 10/19/2019 15:48 (PUBLIC SERVICE ADMINISTRATOR) PHONE: AGE: 73 N# [id number] GENDER: Male ENCOUNTER PHYSICIAN: Dr. Celso Noonan M.D. 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 EATING: Not assessed/no information CODE: - ORAL HYGIENE: ORAL HYGIENE - STEP 1: Does the patient complete the activity by him/herself with no assistance (physical, verbal/nonverbal cueing, setup/clean-up)? Yes. 1. [id number] ADMISSION PERFORMANCE: Independent CODE: 06 TOILETING HYGIENE: Not assessed/no information CODE: - BATHING: SHOWER/BATHE SELF - STEP 1: Does the patient complete the activity by him/herself with no assistance (physical, verbal/nonverbal cueing, setup/clean-up)? Yes. 1. [id number] ADMISSION PERFORMANCE: Independent CODE: 06 DRESSING - UPPER BODY: DRESSING - UPPER BODY - STEP 1: Does the patient complete the activity by him/herself with no assistance (physical, verbal/nonverbal cueing, setup/clean-up)? Yes. 1. [id number] ADMISSION PERFORMANCE: Independent CODE: 06 DRESSING - LOWER BODY: DRESSING - LOWER BODY - STEP 1: Does the patient complete the activity by him/herself with no assistance (physical, verbal/nonverbal cueing, setup/clean-up)? Yes. 1. [id number] ADMISSION PERFORMANCE: Independent CODE: 06 PUTTING ON/TAKING OFF FOOTWEAR: FOOTWEAR - STEP 1: Does the patient complete the activity by him/herself with no assistance (physical, verbal/nonverbal cueing, setup/clean-up)? Yes. 1. [id number] ADMISSION PERFORMANCE: Independent CODE: 06 DOES THE PATIENT USE A WHEELCHAIR/SCOOTER? CODE: EXPR INDICATE THE TYPE OF WHEELCHAIR/SCOOTER USED: CODE: EXPR INDICATE THE TYPE OF WHEELCHAIR/SCOOTER USED: CODE: EXPR BLADDER AND BOWEL: CODE: EXPR CODE: EXPR SIGNATURE PANEL: The following modified sections: 1. [id number] Admission Performance, 1. NL3204m Admission Performance, 1. CW8825i Admission Performance, 1. EO5819u Admission Performance, 1. ZF1779w Admission Performance were [electronically] signed by MARY ALICE Kelly on TueNov 30 2019 15:19:51 GMT-0500 (Central Daylight Time)
[2019-11-30] MEDS: clonazePAM 0.5 MG TAB PO PRN (19:53)
[2019-11-30] MEDS: TRAZODONE 50 MG TABLET PO PRN (19:54)
[2019-11-30] MEDS: AYR NASAL SALINE DROPS NAS PRN (19:54)
[2019-11-30] MEDS: INSULIN GLARGINE 100 UNITS/ML SQ SCH (21:10)
--- NOTE | 2019-12-01 02:43 | FAST ---
SHIFT START DATE/TIME: 11/30/2019 19:00 (CDT) SHIFT END DATE/TIME: 12/01/2019 07:00 (CDT) NAME CARLA FORBES DATE OF : 1945 DATE OF ADMISSION: 10/19/2019 15:48 (INFANTRY UNIT LEADER) PHONE: AGE: 73 N# [id number] GENDER: Male ENCOUNTER PHYSICIAN: Dr. Celso Noonan M.D. 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 EATING: Not assessed/no information CODE: - ORAL HYGIENE: ORAL HYGIENE - STEP 1: Does the patient complete the activity by him/herself with no assistance (physical, verbal/nonverbal cueing, setup/clean-up)? No. ORAL HYGIENE - STEP 2: Does the patient need only setup/clean-up assistance from one helper? Yes. 1. [id number] ADMISSION PERFORMANCE: Setup or clean-up assistance CODE: 05 TOILETING HYGIENE: TOILETING HYGIENE - STEP 1: Does the patient complete the activity by him/herself with no assistance (physical, verbal/nonverbal cueing, setup/clean-up)? No. TOILETING HYGIENE - STEP 2: Does the patient need only setup/clean-up assistance from one helper? No. TOILETING HYGIENE - STEP 3: Does the patient need only verbal/nonverbal cueing or touching/steadying/contact guard assistance fro m one helper? Yes. 1. [id number] ADMISSION PERFORMANCE: Supervision or touching assistance CODE: 04 BATHING: Not assessed/no information CODE: - DRESSING - UPPER BODY: Not assessed/no information CODE: - DRESSING - LOWER BODY: Not assessed/no information CODE: - PUTTING ON/TAKING OFF FOOTWEAR: Not assessed/no information CODE: - ROLL LEFT AND RIGHT: ROLL LEFT AND RIGHT - STEP 1: Does the patient complete the activity by him/herself with no assistance (physical, verbal/nonverbal cueing, setup/clean-up)? No. ROLL LEFT AND RIGHT - STEP 2: Does the patient need only setup/clean-up assistance from one helper? No. ROLL LEFT AND RIGHT - STEP 3: Does the patient need only verbal/nonverbal cueing or touching/steadying/contact guard assistance fro m one helper? Yes. 1. [id number] ADMISSION PERFORMANCE: Supervision or touching assistance CODE: 04 SIT TO LYING: SIT TO LYING - STEP 1: Does the patient complete the activity by him/herself with no assistance (physical, verbal/nonverbal cueing, setup/clean-up)? No. SIT TO LYING - STEP 2: Does the patient need only setup/clean-up assistance from one helper? No. SIT TO LYING - STEP 3: Does the patient need only verbal/nonverbal cueing or touching/steadying/contact guard assistance fro m one helper? Yes. 1. [id number] ADMISSION PERFORMANCE: Supervision or touching assistance CODE: 04 LYING TO SITTING: LYING TO SITTING ON SIDE OF BED - STEP 1: Does the patient complete the activity by him/herself with no assistance (physical, verbal/nonverbal cueing, setup/clean-up)? No. LYING TO SITTING ON SIDE OF BED - STEP 2: Does the patient need only setup/clean-up assistance from one helper? No. LYING TO SITTING ON SIDE OF BED - STEP 3: Does the patient need only verbal/nonverbal cueing or touching/steadying/contact guard assistance fro m one helper? Yes. 1. [id number] ADMISSION PERFORMANCE: Supervision or touching assistance CODE: 04 SIT TO STAND: SIT TO STAND - STEP 1: Does the patient complete the activity by him/herself with no assistance (physical, verbal/nonverbal cueing, setup/clean-up)? No. SIT TO STAND - STEP 2: Does the patient need only setup/clean-up assistance from one helper? No. SIT TO STAND - STEP 3: Does the patient need only verbal/nonverbal cueing or touching/steadying/contact guard assistance fro m one helper? Yes. 1. [id number] ADMISSION PERFORMANCE: Supervision or touching assistance CODE: 04 TRANSFERS: BED, CHAIR: CHAIR/[id number]-LNSEE TRANSFER - STEP 1: Does the patient complete the activity by him/herself with no assistance (physical, verbal/nonverbal cueing, setup/clean-up)? No. CHAIR/KGX-UJ-ECFGP TRANSFER - STEP 2: Does the patient need only setup/clean-up assistance from one helper? No. CHAIR/HYY-UL-VJAPY TRANSFER - STEP 3: Does the patient need only verbal/nonverbal cueing or touching/steadying/contact guard assistance fro m one helper? Yes. 1. [id number] ADMISSION PERFORMANCE: Supervision or touching assistance CODE: 04 TRANSFER TOILET: TOILET TRANSFER - STEP 1: Does the patient complete the activity by him/herself with no assistance (physical, verbal/nonverbal cueing, setup/clean-up)? No. TOILET TRANSFER - STEP 2: Does the patient need only setup/clean-up assistance from one helper? No. TOILET TRANSFER - STEP 3: Does the patient need only verbal/nonverbal cueing or touching/steadying/contact guard assistance fro m one helper? Yes. 1. [id number] ADMISSION PERFORMANCE: Supervision or touching assistance CODE: 04 TRANSFERS: CAR: Not assessed/no information CODE: - WALK 10 FEET: Not assessed/no information CODE: - 1 STEP (CURB): Not assessed/no information CODE: - PICKING UP OBJECT: Not assessed/no information CODE: - DOES THE PATIENT USE A WHEELCHAIR/SCOOTER? CODE: EXPR WHEEL 50 FEET WITH TWO TURNS: Not assessed/no information CODE: - INDICATE THE TYPE OF WHEELCHAIR/SCOOTER USED: CODE: EXPR WHEEL 150 FEET: Not assessed/no information CODE: - INDICATE THE TYPE OF WHEELCHAIR/SCOOTER USED: CODE: EXPR BLADDER AND BOWEL: H350. BLADDER CONTINENCE (3-DAY ASSESSMENT PERIOD): Always continent (no documented incontinence) CODE: 0 H400. BOWEL CONTINENCE (3-DAY ASSESSMENT PERIOD): Always continent CODE: 0
[2019-12-01 05:36] VITALS: BMI 32.1
[2019-12-01] MEDS: INSULIN -REGULAR HUMAN 50 UNIT/0.5 ML ML SQ SCH ×4 (07:30→21:00)
[2019-12-01] MEDS: SODIUM CHLORIDE 0.9% 10ML INJ IV SCH ×2 (08:00→20:00)
[2019-12-01] MEDS: FUROSEMIDE 20 MG TABLET PO SCH (08:31)
[2019-12-01] MEDS: LACTOBACILLUS/ACIDOPHILUS TAB PO SCH ×2 (08:31→21:37)
[2019-12-01] MEDS: CLOPIDOGREL 75 MG TABLET PO SCH (08:32)
[2019-12-01] MEDS: SERTRALINE HCL 100 MG TAB PO SCH (08:32)
[2019-12-01] MEDS: ASPIRIN EC 81 MG TAB PO SCH (08:32)
[2019-12-01] MEDS: CYANOCOBALAMIN 1,000 MCG TAB PO SCH (08:32)
[2019-12-01] MEDS: DOCUSATE NA 100 MG CAP PO SCH ×3 (08:32→21:38)
[2019-12-01] MEDS: APIXABAN 2.5 MG TABLET PO SCH ×2 (08:32→21:38)
[2019-12-01] MEDS: METFORMIN HCL 500 MG TAB PO SCH ×2 (08:32→16:23)
[2019-12-01] MEDS: ENSURE HIGH PROTEIN 237 ML CAN PO SCH (12:00)
[2019-12-01] MEDS: clonazePAM 0.5 MG TAB PO PRN (21:37)
[2019-12-01] MEDS: INSULIN GLARGINE 100 UNITS/ML SQ SCH (21:38)
[2019-12-01] MEDS: AYR NASAL SALINE DROPS NAS PRN (21:38)
[2019-12-02] MEDS: INSULIN -REGULAR HUMAN 50 UNIT/0.5 ML ML SQ SCH ×4 (07:30→21:00)
[2019-12-02] MEDS: ASPIRIN EC 81 MG TAB PO SCH (08:26)
[2019-12-02] MEDS: SERTRALINE HCL 100 MG TAB PO SCH (08:26)
[2019-12-02] MEDS: APIXABAN 2.5 MG TABLET PO SCH ×2 (08:26→21:30)
[2019-12-02] MEDS: CLOPIDOGREL 75 MG TABLET PO SCH (08:26)
[2019-12-02] MEDS: SODIUM CHLORIDE 0.9% 10ML INJ IV SCH ×2 (08:26→20:00)
[2019-12-02] MEDS: METFORMIN HCL 500 MG TAB PO SCH ×2 (08:26→18:30)
[2019-12-02] MEDS: FUROSEMIDE 20 MG TABLET PO SCH (08:27)
[2019-12-02] MEDS: CYANOCOBALAMIN 1,000 MCG TAB PO SCH (08:27)
[2019-12-02] MEDS: DOCUSATE NA 100 MG CAP PO SCH ×2 (08:27→20:00)
[2019-12-02] MEDS: LACTOBACILLUS/ACIDOPHILUS TAB PO SCH ×2 (08:27→21:30)
[2019-12-02] MEDS ORDERED: PIPER/TAZO/NS 3.375gm 3.375 GM/100 ML BAG IVPB SCH (09:00)
[2019-12-02] MEDS: ENSURE HIGH PROTEIN 237 ML CAN PO SCH (11:43)
[2019-12-02 12:00] LABS: Absolute Lymphocytes (CBC) 6.9 K/uL (0.7-4.9); Basophils % 0.5 % (0-1.3); Hematocrit 34.9 % (39.6-49.0); Lymphocytes % 66.2 % (15.3-44.8); MPV 6.9 fL (7.6-11.3); RBC Red Blood Cell Count 3.76 M/uL (4.33-5.43)
[2019-12-02 12:41] LABS: Anisocytosis SLIGHT; Blood Morphology Comment NOTED (NOT SEEN); Platelet Estimate ADEQ
[2019-12-02] MEDS: VANCOMYCIN 1.75 GM in NA CHLORIDE 0.9% 500 ML IVPB SCH (12:58)
[2019-12-02] MEDS: TRAZODONE 50 MG TABLET PO PRN (21:29)
[2019-12-02] MEDS: clonazePAM 0.5 MG TAB PO PRN (21:30)
[2019-12-02] MEDS: INSULIN GLARGINE 100 UNITS/ML SQ SCH (21:31)
[2019-12-02] MEDS: AYR NASAL SALINE DROPS NAS PRN (21:31)
[2019-12-03] MEDS: INSULIN -REGULAR HUMAN 50 UNIT/0.5 ML ML SQ SCH ×4 (07:30→21:00)
[2019-12-03] MEDS: SODIUM CHLORIDE 0.9% 10ML INJ IV SCH ×2 (08:20→21:16)
[2019-12-03] MEDS: APIXABAN 2.5 MG TABLET PO SCH ×2 (08:20→21:17)
[2019-12-03] MEDS: CLOPIDOGREL 75 MG TABLET PO SCH (08:20)
[2019-12-03] MEDS: CYANOCOBALAMIN 1,000 MCG TAB PO SCH (08:20)
[2019-12-03] MEDS: METFORMIN HCL 500 MG TAB PO SCH ×2 (08:21→17:23)
[2019-12-03] MEDS: SERTRALINE HCL 100 MG TAB PO SCH (08:21)
[2019-12-03] MEDS: LACTOBACILLUS/ACIDOPHILUS TAB PO SCH ×2 (08:21→21:17)
[2019-12-03] MEDS: DOCUSATE NA 100 MG CAP PO SCH ×2 (08:21→20:00)
[2019-12-03] MEDS: ASPIRIN EC 81 MG TAB PO SCH (08:21)
[2019-12-03] MEDS: FUROSEMIDE 20 MG TABLET PO SCH (08:23)
[2019-12-03] MEDS: ENSURE HIGH PROTEIN 237 ML CAN PO SCH (12:31)
--- NOTE | 2019-12-03 14:56 | FAST ---
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 Celso Noonan M.D. 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 EATING: Not assessed/no information CODE: - ORAL HYGIENE: ORAL HYGIENE - STEP 1: Does the patient complete the activity by him/herself with no assistance (physical, verbal/nonverbal cueing, setup/clean-up)? Yes. 1. [id number] ADMISSION PERFORMANCE: Independent CODE: 06 TOILETING HYGIENE: Not assessed/no information CODE: - BATHING: SHOWER/BATHE SELF - STEP 1: Does the patient complete the activity by him/herself with no assistance (physical, verbal/nonverbal cueing, setup/clean-up)? Yes. 1. [id number] ADMISSION PERFORMANCE: Independent CODE: 06 DRESSING - UPPER BODY: DRESSING - UPPER BODY - STEP 1: Does the patient complete the activity by him/herself with no assistance (physical, verbal/nonverbal cueing, setup/clean-up)? Yes. 1. [id number] ADMISSION PERFORMANCE: Independent CODE: 06 DRESSING - LOWER BODY: DRESSING - LOWER BODY - STEP 1: Does the patient complete the activity by him/herself with no assistance (physical, verbal/nonverbal cueing, setup/clean-up)? Yes. 1. [id number] ADMISSION PERFORMANCE: Independent CODE: 06 PUTTING ON/TAKING OFF FOOTWEAR: FOOTWEAR - STEP 1: Does the patient complete the activity by him/herself with no assistance (physical, verbal/nonverbal cueing, setup/clean-up)? Yes. 1. [id number] ADMISSION PERFORMANCE: Independent CODE: 06 DOES THE PATIENT USE A WHEELCHAIR/SCOOTER? CODE: EXPR INDICATE THE TYPE OF WHEELCHAIR/SCOOTER USED: CODE: EXPR INDICATE THE TYPE OF WHEELCHAIR/SCOOTER USED: CODE: EXPR BLADDER AND BOWEL: CODE: EXPR CODE: EXPR SIGNATURE PANEL: The following modified sections: 1. [id number] Admission Performance, 1. [id number] Admission Performance, 1. [id number] Admission Performance, 1. [id number] Admission Performance, 1. [id number] Admission Performance were [electronically] signed by MARY ALCIE Kelly on TueDec 03 2019 14:55:34 GMT-0500 (Central Daylight Time)
--- NOTE | 2019-12-03 18:17 | R.PN ---
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 Pt denied any depression. He did surface to surface transfers without an assistive device. He is on vanc and Zosyn. Will repeat CBC with diff. in the AM. Repeat WBC is now normal at 10.5. Hgb 11.2, glucose 122 to 139. Vanc level on 11/26/19 was 13.5 yesterd ay. Self-propelled wheelchair 500' with independence. VITAL SIGNS Temperature: 97.4 F SBP/DBP: 126/69 Pulse: 79 Resp: 14 MEDICATION ALLERGIES: No Known Drug Allergies (NKDA) ENVIRONMENTAL ALLERGIES: None Known - Substance Allergies None Known - Other Allergies None Known CONSULT: Perform Consult Certified Prosthetic for prosthesis construction NURSING: - Shower allowing shower - Skin care per protocol PRECAUTIONS: - Weight Bearing Precaution NWB left LE ACTIVITIES OOB only with supervision THERAPIES: - Orthotics/Prosthetics Prosthetic Evaluation. - Dietary and Nutrition Adequate Nutrition. Nutritional Education. Nutritional Supplements. PHYSICAL EXAM - Gen Alert and awake Lying in bed No apparent distress Oriented to: person, time, and place - Skin LLE incisions intact Normacephalic - Eyes No abnormalities - ENMT No abnormalities - Neck No abnormalities - CVS RRR - Chest No abnormalities - Resp Clear to auscultation - Abd Soft - GI Non distended Deferred - No abnormalities - Ext Left BKA good hemostasis, dressing in place - MSK 4+/5 weakness in left lower extremity - Neuro 4/5 strength left lower extremity. - Psych No abnormalities ASSESSMENT: Pt. 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 was independent/mod-I in Locomotion, Balance , Safety Awareness, Social Cognition, Transfers Control, Sphincter Control, Self-Care, Communication, and Endurance; and he had good Locomotion, Balance, Safety Awareness, Social Cognition, Transfers Co ntrol, Sphincter Control, Self-Care, Communication, and Endurance.Currently, he has deficits of Locom otion, Balance, Safety Awareness, Transfers Control, Self-Care, Endurance, and Communication.Pt. is n ow referred to [facility] for acute in-patient rehabilitation in order to maxi manuel patient's functional independence in activities of daily living, strength, ROM, and mobility.- R ehab Goal Patient has realistic goal of being discharged at assistance level 6-Elvia to reside at Home with Fam bel/Relatives. MDM/PLAN: - Physical Therapy Gait dysfunction - to improve, our physical therapists will perform initial evaluation of pt's statu s upon admission and devise an individualized program for Gait Training, and Wheel Chair mobility Inability to transfer - to improve, our physical therapists will perform initial evaluation of pt's status upon admission and devise an individualized program for Bed mobility Need for home safety evaluation - to improve, our physical therapists will perform initial evaluatio n of pt's status upon admission and devise an individualized program for Home Evaluation Need in caregiver upon discharge - to improve, our physical therapists will perform initial evaluati on of pt's status upon admission and devise an individualized program for Caregiver Training New precaution - to improve, our physical therapists will perform initial evaluation of pt's status upon admission and devise an individualized program for Patient precaution education Poor balance - to improve, our physical therapists will perform initial evaluation of pt's status up on admission and devise an individualized program for Balance Training Poor endurance - to improve, our physical therapists will perform initial evaluation of pt's status upon admission and devise an individualized program for Endurance Training Weakness - to improve, our physical therapists will perform initial evaluation of pt's status upon a dmission and devise an individualized program for Aquatic Therapy, Neuromuscular Reeducation, and Str engthening Achieving independence - to improve, our physical therapists will perform initial evaluation of pt's status upon admission and devise an individualized program for Community Reintegration Activities - Occupational Therapy ADL deficits - to improve, our occupation therapists will perform initial evaluation of pt's status upon admission and devise an individualized program for Bathing, Bed mobility, Community Reintegratio n, Cooking, Dressing, Eating, Fine Motor Skills, Grooming, Homemaking, Kitchen Mobility, Laundry, Pat ient Education, Safety Awareness, Splinting - Positioning, Transfers(Toilet, Tub, Shower), and Wheel Chair Management Need for care provider - to improve, our occupation therapists will perform initial evaluation of pt's status upon admission and devise an individualized program for Caregiver Training Weakness - to improve, our occupation therapists will perform initial evaluation of pt's status upon admission and devise an individualized program for Aquatic Therapy, Balance, Endurance, UE ROM, and UE strengthening - Other See attached MAR (Medication Administration Record) - Diet Type Continue Regular - Diet - Liquid Texture Continue Regular - Tube Feed Continue N/A - Weight Bearing Precaution NWB left LE - Skin care per protocol - N/A Perform Consult Certified Prosthetic for prosthesis construction - Diet - Solid Texture Continue Regular - Shower allowing shower FUNCTIONAL STATUS: UPDATED AT WEEKLY TEAM CONFERENCE - Bladder Same accident frequency: 7-Ind - No accidents in the past 7 days - Bowel Same accident frequency: 7-Ind - No accidents in the past 7 days - Walking Same score based on distance walked: 0(N/A) - Wheelchair Same score based on distance traveled: 0(N/A) FUNCTIONAL STATUS: - Self-Care A. Eating Ind B. Grooming sup C. Bathing Isaías D. Dressing - Upper Ind E. Dressing - Lower modA F. Toileting modA - Sphincter Control G. Bladder control sup H. Bowel control sup - Transfers Control I. Bed/Chair/Wheelchair modA J. Toilet modA K. Tub/Shower modA - Locomotion L. Walk/Wheelchair (B) modA M. Stairs ADNO - Communication N. Comprehension (B) Elvia O. Expression (B) Elvia - Social Cognition P. Social Interaction Elvia Q. Problem Solving sup R. Memory sup - Endurance Fair - Balance Fair - Safety Awareness Fair QI SCORES: - Self-Care A. Eating 05-Setup or clean-up assistance B. Oral hygiene 05-Setup or clean-up assistance C. Toileting hygiene 03-Partial/moderate assistance E. Shower/bathe self 03-Partial/moderate assistance F. Upper body dressing 03-Partial/moderate assistance G. Lower body dressing 02-Substantial/maximal assistance H. Putting on/taking off footwear 02-Substantial/maximal assistance - Mobility A. Roll left and right 03-Partial/moderate assistance B. Sit to lying 03-Partial/moderate assistance C. Lying to sitting on side of bed 03-Partial/moderate assistance D. Sit to stand 03-Partial/moderate assistance E. Chair/akd-ir-[id number] transfer 03-Partial/moderate assistance F. Toilet transfer 03-Partial/moderate assistance G. Car transfer 10-Not attempted due to environmental limitations I. Walk 10 feet 88-Not attempted due to medical condition or safety concerns J. Walk 50 feet with two turns 88-Not attempted due to medical condition or safety concerns K. Walk 150 feet 88-Not attempted due to medical condition or safety concerns L. Walking 10 feet on uneven surfaces 88-Not attempted due to medical condition or safety concerns M. 1 step (curb) 88-Not attempted due to medical condition or safety concerns N. 4 steps 09-Not applicable O. 12 steps 09-Not applicable P. Picking up object 88-Not attempted due to medical condition or safety concerns R. Wheel 50 feet with two turns 88-Not attempted due to medical condition or safety concerns S. Wheel 150 feet 88-Not attempted due to medical condition or safety concerns - Bladder and Bowel Bladder continence 0-Always continent Bowel continence 0-Always continent - Endurance Poor - Balance Poor - Safety Awareness Fair [facility] DEFICITS: Self-Care, Mobility, Endurance, Balance, and Safety Awareness SIGNATURE PANEL: (CDT)
[2019-12-03] MEDS: INSULIN GLARGINE 100 UNITS/ML SQ SCH (21:16)
[2019-12-03] MEDS: AYR NASAL SALINE DROPS NAS PRN (21:16)
[2019-12-03] MEDS: clonazePAM 0.5 MG TAB PO PRN (21:17)
[2019-12-03] MEDS: TRAZODONE 50 MG TABLET PO PRN (21:17)
[2019-12-04 07:14] LABS: Absolute Lymphocytes (CBC) 7.7 K/uL (0.7-4.9); Basophils % 0.5 % (0-1.3); Hematocrit 33.3 % (39.6-49.0); Lymphocytes % 69.7 % (15.3-44.8); RBC Red Blood Cell Count 3.59 M/uL (4.33-5.43)
[2019-12-04] MEDS: INSULIN -REGULAR HUMAN 50 UNIT/0.5 ML ML SQ SCH ×4 (07:30→20:08)
[2019-12-04] MEDS: DOCUSATE NA 100 MG CAP PO SCH ×2 (08:00→20:00)
[2019-12-04] MEDS: SODIUM CHLORIDE 0.9% 10ML INJ IV SCH ×2 (08:00→20:08)
[2019-12-04] MEDS: ASPIRIN EC 81 MG TAB PO SCH (08:29)
[2019-12-04] MEDS: LACTOBACILLUS/ACIDOPHILUS TAB PO SCH ×2 (08:29→20:07)
[2019-12-04] MEDS: SERTRALINE HCL 100 MG TAB PO SCH (08:30)
[2019-12-04] MEDS: FUROSEMIDE 20 MG TABLET PO SCH (08:30)
[2019-12-04] MEDS: APIXABAN 2.5 MG TABLET PO SCH ×2 (08:30→20:07)
[2019-12-04] MEDS: CLOPIDOGREL 75 MG TABLET PO SCH (08:31)
[2019-12-04] MEDS: CYANOCOBALAMIN 1,000 MCG TAB PO SCH (08:31)
[2019-12-04] MEDS: METFORMIN HCL 500 MG TAB PO SCH ×2 (08:31→17:22)
[2019-12-04] MEDS: ENSURE HIGH PROTEIN 237 ML CAN PO SCH (12:00)
[2019-12-04] MEDS: VANCOMYCIN 1.75 GM in NA CHLORIDE 0.9% 500 ML IVPB SCH (14:26)
[2019-12-04] MEDS: INSULIN GLARGINE 100 UNITS/ML SQ SCH (20:07)
[2019-12-04] MEDS: clonazePAM 0.5 MG TAB PO PRN (20:07)
[2019-12-04] MEDS: TRAZODONE 50 MG TABLET PO PRN (20:07)
[2019-12-04] MEDS: AYR NASAL SALINE DROPS NAS PRN (20:08)
--- NOTE | 2019-12-04 20:29 | PN ---
Subjective: Patient lying in bed. No new complaints. Objective: Vital Signs: Temperature 97, pulse 67, respirations 16, blood pressure 102/60. Lungs: Clear to auscultation. Heart: S1, S2. Regular. Abdomen: Soft, nontender. Bowel sounds present. Extremities: No edema. Wound noted . Laboratory Data: Shows WBC 11, hemoglobin 11.1, platelets 257. Chemistry shows creatinine 2.1. Assessment And Plan: Left below-knee amputation, wound healing well. Patient is currently being vicente ated with vancomycin for bacteremia secondary to staph. We will follow the patient closely. Repeat blood cultures and monitor patient for signs of infection. NF/MODL Voice ID: [id number] Report ID: [id number]
[2019-12-05] MEDS: INSULIN -REGULAR HUMAN 50 UNIT/0.5 ML ML SQ SCH ×4 (07:30→20:37)
[2019-12-05] MEDS: SODIUM CHLORIDE 0.9% 10ML INJ IV SCH ×2 (08:00→20:00)
[2019-12-05] MEDS: LACTOBACILLUS/ACIDOPHILUS TAB PO SCH ×2 (08:09→20:36)
[2019-12-05] MEDS: METFORMIN HCL 500 MG TAB PO SCH ×2 (08:09→17:19)
[2019-12-05] MEDS: ASPIRIN EC 81 MG TAB PO SCH (08:09)
[2019-12-05] MEDS: CYANOCOBALAMIN 1,000 MCG TAB PO SCH (08:09)
[2019-12-05] MEDS: DOCUSATE NA 100 MG CAP PO SCH ×2 (08:09→20:00)
[2019-12-05] MEDS: APIXABAN 2.5 MG TABLET PO SCH ×2 (08:09→20:36)
[2019-12-05] MEDS: CLOPIDOGREL 75 MG TABLET PO SCH (08:09)
[2019-12-05] MEDS: FUROSEMIDE 20 MG TABLET PO SCH (08:10)
[2019-12-05] MEDS: SERTRALINE HCL 100 MG TAB PO SCH (08:10)
[2019-12-05] MEDS: ENSURE HIGH PROTEIN 237 ML CAN PO SCH (12:00)
[2019-12-05 12:51] LABS: Basophils % 0.8 % (0-1.3); Lymphocytes % 63.7 % (15.3-44.8); MPV 7.2 fL (7.6-11.3)
--- NOTE | 2019-12-05 14:18 | FAST ---
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 Celso Noonan M.D. 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 EATING: Not assessed/no information CODE: - ORAL HYGIENE: ORAL HYGIENE - STEP 1: Does the patient complete the activity by him/herself with no assistance (physical, verbal/nonverbal cueing, setup/clean-up)? Yes. 1. [id number] ADMISSION PERFORMANCE: Independent CODE: 06 TOILETING HYGIENE: Not assessed/no information CODE: - BATHING: SHOWER/BATHE SELF - STEP 1: Does the patient complete the activity by him/herself with no assistance (physical, verbal/nonverbal cueing, setup/clean-up)? Yes. 1. [id number] ADMISSION PERFORMANCE: Independent CODE: 06 DRESSING - UPPER BODY: DRESSING - UPPER BODY - STEP 1: Does the patient complete the activity by him/herself with no assistance (physical, verbal/nonverbal cueing, setup/clean-up)? Yes. 1. [id number] ADMISSION PERFORMANCE: Independent CODE: 06 DRESSING - LOWER BODY: DRESSING - LOWER BODY - STEP 1: Does the patient complete the activity by him/herself with no assistance (physical, verbal/nonverbal cueing, setup/clean-up)? Yes. 1. [id number] ADMISSION PERFORMANCE: Independent CODE: 06 PUTTING ON/TAKING OFF FOOTWEAR: FOOTWEAR - STEP 1: Does the patient complete the activity by him/herself with no assistance (physical, verbal/nonverbal cueing, setup/clean-up)? Yes. 1. [id number] ADMISSION PERFORMANCE: Independent CODE: 06 DOES THE PATIENT USE A WHEELCHAIR/SCOOTER? CODE: EXPR INDICATE THE TYPE OF WHEELCHAIR/SCOOTER USED: CODE: EXPR INDICATE THE TYPE OF WHEELCHAIR/SCOOTER USED: CODE: EXPR BLADDER AND BOWEL: CODE: EXPR CODE: EXPR SIGNATURE PANEL: The following modified sections: 1. [id number] Admission Performance, 1. [id number] Admission Performance, 1. [id number] Admission Performance, 1. [id number] Admission Performance, 1. [id number] Admission Performance were [electronically] signed by MARY ALICE Kelly on TueDec 05 2019 14:18:12 GMT-0500 (Central Daylight Time)
--- NOTE | 2019-12-05 16:59 | R.PN ---
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 Pt denied any depression. He did surface to surface transfers without an assistive device. He is on vanc. Will repeat CBC with diff. in the AM. Repeat WBC is slightly elevated to 11.0. Hgb 11.3, glucose 123 to 139. Vanc level on 12/04/19 was 12.8 . Self-propelled wheelchair 500' with independence. He ambulated 75' with a rolling walker and standby assistance. VITAL SIGNS Temperature: 97.4 F SBP/DBP: 128/60 Pulse: 78 Resp: 14 MEDICATION ALLERGIES: No Known Drug Allergies (NKDA) ENVIRONMENTAL ALLERGIES: None Known - Substance Allergies None Known - Other Allergies None Known CONSULT: Perform Consult Certified Prosthetic for prosthesis construction NURSING: - Shower allowing shower - Skin care per protocol PRECAUTIONS: - Weight Bearing Precaution NWB left LE ACTIVITIES OOB only with supervision THERAPIES: - Orthotics/Prosthetics Prosthetic Evaluation. - Dietary and Nutrition Adequate Nutrition. Nutritional Education. Nutritional Supplements. PHYSICAL EXAM - Gen Alert and awake Lying in bed No apparent distress Oriented to: person, time, and place - Skin LLE incisions intact Normacephalic - Eyes No abnormalities - ENMT No abnormalities - Neck No abnormalities - CVS RRR - Chest No abnormalities - Resp Clear to auscultation - Abd Soft - GI Non distended Deferred - No abnormalities - Ext Left BKA good hemostasis, dressing in place - MSK 4+/5 weakness in left lower extremity - Neuro 4/5 strength left lower extremity. - Psych No abnormalities ASSESSMENT: Pt. 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 was independent/mod-I in Locomotion, Balance , Safety Awareness, Social Cognition, Transfers Control, Sphincter Control, Self-Care, Communication, and Endurance; and he had good Locomotion, Balance, Safety Awareness, Social Cognition, Transfers Co ntrol, Sphincter Control, Self-Care, Communication, and Endurance.Currently, he has deficits of Locom otion, Balance, Safety Awareness, Transfers Control, Self-Care, Endurance, and Communication.Pt. is n ow referred to [facility] for acute in-patient rehabilitation in order to maxi manuel patient's functional independence in activities of daily living, strength, ROM, and mobility.- R ehab Goal Patient has realistic goal of being discharged at assistance level 6-Elvia to reside at Home with Fam bel/Relatives. MDM/PLAN: - Physical Therapy Gait dysfunction - to improve, our physical therapists will perform initial evaluation of pt's statu s upon admission and devise an individualized program for Gait Training, and Wheel Chair mobility Inability to transfer - to improve, our physical therapists will perform initial evaluation of pt's status upon admission and devise an individualized program for Bed mobility Need for home safety evaluation - to improve, our physical therapists will perform initial evaluatio n of pt's status upon admission and devise an individualized program for Home Evaluation Need in caregiver upon discharge - to improve, our physical therapists will perform initial evaluati on of pt's status upon admission and devise an individualized program for Caregiver Training New precaution - to improve, our physical therapists will perform initial evaluation of pt's status upon admission and devise an individualized program for Patient precaution education Poor balance - to improve, our physical therapists will perform initial evaluation of pt's status up on admission and devise an individualized program for Balance Training Poor endurance - to improve, our physical therapists will perform initial evaluation of pt's status upon admission and devise an individualized program for Endurance Training Weakness - to improve, our physical therapists will perform initial evaluation of pt's status upon a dmission and devise an individualized program for Aquatic Therapy, Neuromuscular Reeducation, and Str engthening Achieving independence - to improve, our physical therapists will perform initial evaluation of pt's status upon admission and devise an individualized program for Community Reintegration Activities - Occupational Therapy ADL deficits - to improve, our occupation therapists will perform initial evaluation of pt's status upon admission and devise an individualized program for Bathing, Bed mobility, Community Reintegratio n, Cooking, Dressing, Eating, Fine Motor Skills, Grooming, Homemaking, Kitchen Mobility, Laundry, Pat ient Education, Safety Awareness, Splinting - Positioning, Transfers(Toilet, Tub, Shower), and Wheel Chair Management Need for wound care technician - to improve, our occupation therapists will perform initial evaluation of pt's status upon admission and devise an individualized program for Caregiver Training Weakness - to improve, our occupation therapists will perform initial evaluation of pt's status upon admission and devise an individualized program for Aquatic Therapy, Balance, Endurance, UE ROM, and UE strengthening - Other See attached MAR (Medication Administration Record) - Diet Type Continue Regular - Diet - Liquid Texture Continue Regular - Tube Feed Continue N/A - Weight Bearing Precaution NWB left LE - Skin care per protocol - N/A Perform Consult Certified Prosthetic for prosthesis construction - Diet - Solid Texture Continue Regular - Shower allowing shower FUNCTIONAL STATUS: UPDATED AT WEEKLY TEAM CONFERENCE - Bladder Same accident frequency: 7-Ind - No accidents in the past 7 days - Bowel Same accident frequency: 7-Ind - No accidents in the past 7 days - Walking Same score based on distance walked: 0(N/A) - Wheelchair Same score based on distance traveled: 0(N/A) FUNCTIONAL STATUS: - Self-Care A. Eating Ind B. Grooming sup C. Bathing Isaías D. Dressing - Upper Ind E. Dressing - Lower modA F. Toileting modA - Sphincter Control G. Bladder control sup H. Bowel control sup - Transfers Control I. Bed/Chair/Wheelchair modA J. Toilet modA K. Tub/Shower modA - Locomotion L. Walk/Wheelchair (B) modA M. Stairs ADNO - Communication N. Comprehension (B) Elvia O. Expression (B) Elvia - Social Cognition P. Social Interaction Elvia Q. Problem Solving sup R. Memory sup - Endurance Fair - Balance Fair - Safety Awareness Fair QI SCORES: - Self-Care A. Eating 05-Setup or clean-up assistance B. Oral hygiene 05-Setup or clean-up assistance C. Toileting hygiene 03-Partial/moderate assistance E. Shower/bathe self 03-Partial/moderate assistance F. Upper body dressing 03-Partial/moderate assistance G. Lower body dressing 02-Substantial/maximal assistance H. Putting on/taking off footwear 02-Substantial/maximal assistance - Mobility A. Roll left and right 03-Partial/moderate assistance B. Sit to lying 03-Partial/moderate assistance C. Lying to sitting on side of bed 03-Partial/moderate assistance D. Sit to stand 03-Partial/moderate assistance E. Chair/uza-zu-gejgm transfer 03-Partial/moderate assistance F. Toilet transfer 03-Partial/moderate assistance G. Car transfer 10-Not attempted due to environmental limitations I. Walk 10 feet 88-Not attempted due to medical condition or safety concerns J. Walk 50 feet with two turns 88-Not attempted due to medical condition or safety concerns K. Walk 150 feet 88-Not attempted due to medical condition or safety concerns L. Walking 10 feet on uneven surfaces 88-Not attempted due to medical condition or safety concerns M. 1 step (curb) 88-Not attempted due to medical condition or safety concerns N. 4 steps 09-Not applicable O. 12 steps 09-Not applicable P. Picking up object 88-Not attempted due to medical condition or safety concerns R. Wheel 50 feet with two turns 88-Not attempted due to medical condition or safety concerns S. Wheel 150 feet 88-Not attempted due to medical condition or safety concerns - Bladder and Bowel Bladder continence 0-Always continent Bowel continence 0-Always continent - Endurance Poor - Balance Poor - Safety Awareness Fair [facility] DEFICITS: Self-Care, Mobility, Endurance, Balance, and Safety Awareness SIGNATURE PANEL: (CDT)
[2019-12-05] MEDS: clonazePAM 0.5 MG TAB PO PRN (20:37)
[2019-12-05] MEDS: TRAZODONE 50 MG TABLET PO PRN (20:37)
[2019-12-05] MEDS: AYR NASAL SALINE DROPS NAS PRN (20:38)
[2019-12-05] MEDS: INSULIN GLARGINE 100 UNITS/ML SQ SCH (20:38)
[2019-12-06 06:28] LABS: Basophils % 0.7 % (0-1.3); Hematocrit 33.5 % (39.6-49.0); Lymphocytes % 71.4 % (15.3-44.8); MPV 7.3 fL (7.6-11.3); RBC Red Blood Cell Count 3.65 M/uL (4.33-5.43)
[2019-12-06 06:48] LABS: Albumin 3.7 g/dL (3.4-5.0); Magnesium 2.3 mg/dL (1.8-2.4); Potassium 4.2 mmol/L (3.5-5.1); Prealbumin 27.5 mg/dL (20-40)
[2019-12-06] MEDS: INSULIN -REGULAR HUMAN 50 UNIT/0.5 ML ML SQ SCH ×4 (07:30→21:30)
[2019-12-06] MEDS: CYANOCOBALAMIN 1,000 MCG TAB PO SCH (07:50)
[2019-12-06] MEDS: CLOPIDOGREL 75 MG TABLET PO SCH (07:50)
[2019-12-06] MEDS: METFORMIN HCL 500 MG TAB PO SCH ×2 (07:50→17:00)
[2019-12-06] MEDS: DOCUSATE NA 100 MG CAP PO SCH ×2 (07:50→20:00)
[2019-12-06] MEDS: ASPIRIN EC 81 MG TAB PO SCH (07:50)
[2019-12-06] MEDS: LACTOBACILLUS/ACIDOPHILUS TAB PO SCH ×2 (07:50→20:40)
[2019-12-06] MEDS: APIXABAN 2.5 MG TABLET PO SCH ×2 (07:50→20:40)
[2019-12-06] MEDS: SERTRALINE HCL 100 MG TAB PO SCH (07:50)
[2019-12-06] MEDS: FUROSEMIDE 20 MG TABLET PO SCH (07:51)
[2019-12-06] MEDS: SODIUM CHLORIDE 0.9% 10ML INJ IV SCH ×2 (07:51→20:00)
--- NOTE | 2019-12-06 08:18 | PN ---
Subjective: Patient is lying in bed. No new acute event. Chart reviewed. Objective: Vital Signs: Temperature 97.4, pulse 76, respirations 18, blood pressure 100/52. No changes in examination. The patient continues to have splint on his leg. Laboratory Data: Shows no new labs available for today. Assessment And Plan: 1.Status post left below-knee amputation. Patient with wound to the stump site, status post fall. 2.Leukocytosis. Pending cultures. Pending WBC. We will continue current antibiotic, total course of 2 weeks. We will follow the patient closely. NF/MODL Voice ID: [id number] Report ID: [id number]
--- NOTE | 2019-12-06 10:37 | FAST ---
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 Celso Noonan M.D. 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 ROLL LEFT AND RIGHT: ROLL LEFT AND RIGHT - STEP 1: Does the patient complete the activity by him/herself with no assistance (physical, verbal/nonverbal cueing, setup/clean-up)? Yes. 1. [id number] ADMISSION PERFORMANCE: Independent CODE: 06 SIT TO LYING: SIT TO LYING - STEP 1: Does the patient complete the activity by him/herself with no assistance (physical, verbal/nonverbal cueing, setup/clean-up)? Yes. 1. [id number] ADMISSION PERFORMANCE: Independent CODE: 06 LYING TO SITTING: LYING TO SITTING ON SIDE OF BED - STEP 1: Does the patient complete the activity by him/herself with no assistance (physical, verbal/nonverbal cueing, setup/clean-up)? Yes. 1. [id number] ADMISSION PERFORMANCE: Independent CODE: 06 SIT TO STAND: SIT TO STAND - STEP 1: Does the patient complete the activity by him/herself with no assistance (physical, verbal/nonverbal cueing, setup/clean-up)? Yes. 1. [id number] ADMISSION PERFORMANCE: Independent CODE: 06 TRANSFERS: BED, CHAIR: CHAIR/HJU-OF-ROIXN TRANSFER - STEP 1: Does the patient complete the activity by him/herself with no assistance (physical, verbal/nonverbal cueing, setup/clean-up)? Yes. 1. [id number] ADMISSION PERFORMANCE: Independent CODE: 06 TRANSFER TOILET: TOILET TRANSFER - STEP 1: Does the patient complete the activity by him/herself with no assistance (physical, verbal/nonverbal cueing, setup/clean-up)? Yes. 1. [id number] ADMISSION PERFORMANCE: Independent CODE: 06 TRANSFERS: CAR: CAR TRANSFER - STEP 1: Does the patient complete the activity by him/herself with no assistance (physical, verbal/nonverbal cueing, setup/clean-up)? Yes. 1. [id number] ADMISSION PERFORMANCE: Independent CODE: 06 WALK 10 FEET: WALK 10 FEET - STEP 1: Does the patient complete the activity by him/herself with no assistance (physical, verbal/nonverbal cueing, setup/clean-up)? No. WALK 10 FEET - STEP 2: Does the patient need only setup/clean-up assistance from one helper? Yes. 1. [id number] ADMISSION PERFORMANCE: Setup or clean-up assistance CODE: 05 WALK 50 FEET: WALK 50 FEET - STEP 1: Does the patient complete the activity by him/herself with no assistance (physical, verbal/nonverbal cueing, setup/clean-up)? No. WALK 50 FEET - STEP 2: Does the patient need only setup/clean-up assistance from one helper? Yes. 1. [id number] ADMISSION PERFORMANCE: Setup or clean-up assistance CODE: 05 WALK 150 FEET: WALK 150 FEET - STEP 1: Does the patient complete the activity by him/herself with no assistance (physical, verbal/nonverbal cueing, setup/clean-up)? No. WALK 150 FEET - STEP 2: Does the patient need only setup/clean-up assistance from one helper? Yes. 1. [id number] ADMISSION PERFORMANCE: Setup or clean-up assistance CODE: 05 WALK 10 FEET UNEVEN: Not attempted due to medical condition or safety concerns CODE: 88 1 STEP (CURB): Not attempted due to medical condition or safety concerns CODE: 88 PICKING UP OBJECT: Not attempted due to medical condition or safety concerns CODE: 88 DOES THE PATIENT USE A WHEELCHAIR/SCOOTER? Q1. DOES THE PATIENT USE A WHEELCHAIR/SCOOTER?: Yes CODE: 1 WHEEL 50 FEET WITH TWO TURNS: WHEEL 50 FEET WITH TWO TURNS - STEP 1: Does the patient complete the activity by him/herself with no assistance (physical, verbal/nonverbal cueing, setup/clean-up)? Yes. 1. [id number] ADMISSION PERFORMANCE: Independent CODE: 06 INDICATE THE TYPE OF WHEELCHAIR/SCOOTER USED: RR1. INDICATE THE TYPE OF WHEELCHAIR/SCOOTER USED.: Manual CODE: 1 WHEEL 150 FEET: WHEEL 150 FEET - STEP 1: Does the patient complete the activity by him/herself with no assistance (physical, verbal/nonverbal cueing, setup/clean-up)? Yes. 1. [id number] ADMISSION PERFORMANCE: Independent CODE: 06 INDICATE THE TYPE OF WHEELCHAIR/SCOOTER USED: SS1. INDICATE THE TYPE OF WHEELCHAIR/SCOOTER USED.: Manual CODE: 1 BLADDER AND BOWEL: CODE: EXPR CODE: EXPR SIGNATURE PANEL: The following modified sections: 1. [id number] Admission Performance, 1. [id number] Admission Performance, 1. [id number] Admission Performance, 1. [id number] Admission Performance, 1. [id number] Admission Performance, 1. [id number] Admission Performance, 1. [id number] Admission Performance, 1. [id number] Admission Performance , 1. [id number] Admission Performance, 1. [id number] Admission Performance, 1. [id number] Admission Performanc e, Q1. Does the patient use a wheelchair/scooter?, 1. [id number] Admission Performance, RR1. Indicate th e type of wheelchair/scooter used., 1. [id number] Admission Performance, Code, SS1. Indicate the type of wheelchair/scooter used. were [electronically] signed by Yamilka Benz PTA on TueDec 06 2019 1 0:36:46 T-0500 (Central Daylight Time)
[2019-12-06] MEDS: ENSURE HIGH PROTEIN 237 ML CAN PO SCH (11:43)
[2019-12-06] MEDS: VANCOMYCIN 1.75 GM in NA CHLORIDE 0.9% 500 ML IVPB SCH (13:53)
--- NOTE | 2019-12-06 18:22 | R.PN ---
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 Pt denied any depression. He did surface to surface transfers without an assistive device. He is on vanc. Will repeat CBC with diff. in the AM. Repeat WBC is slightly elevated to 11.2. Hgb 11.0, glucose 121 to 163. Vanc level on 12/06/19 was 14.3 , prealbumin 27.5. Self-propelled wheelchair 500' with independence. He ambulated 75' with a rolling walker and standby assistance. Wheelchair mobility is independent over 1000'. Ambulated 150' with standby assistance using a rolling walker. VITAL SIGNS Temperature: 97.4 F SBP/DBP: 128/60 Pulse: 78 Resp: 14 MEDICATION ALLERGIES: No Known Drug Allergies (NKDA) ENVIRONMENTAL ALLERGIES: None Known - Substance Allergies None Known - Other Allergies None Known CONSULT: Perform Consult Certified Prosthetic for prosthesis construction NURSING: - Shower allowing shower - Skin care per protocol PRECAUTIONS: - Weight Bearing Precaution NWB left LE ACTIVITIES OOB only with supervision THERAPIES: - Orthotics/Prosthetics Prosthetic Evaluation. - Dietary and Nutrition Adequate Nutrition. Nutritional Education. Nutritional Supplements. PHYSICAL EXAM - Gen Alert and awake Lying in bed No apparent distress Oriented to: person, time, and place - Skin LLE incisions intact Normacephalic - Eyes No abnormalities - ENMT No abnormalities - Neck No abnormalities - CVS RRR - Chest No abnormalities - Resp Clear to auscultation - Abd Soft - GI Non distended Deferred - No abnormalities - Ext Left BKA good hemostasis, dressing in place - MSK 4+/5 weakness in left lower extremity - Neuro 4/5 strength left lower extremity. - Psych No abnormalities ASSESSMENT: Pt. 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 was independent/mod-I in Locomotion, Balance , Safety Awareness, Social Cognition, Transfers Control, Sphincter Control, Self-Care, Communication, and Endurance; and he had good Locomotion, Balance, Safety Awareness, Social Cognition, Transfers Co ntrol, Sphincter Control, Self-Care, Communication, and Endurance.Currently, he has deficits of Locom otion, Balance, Safety Awareness, Transfers Control, Self-Care, Endurance, and Communication.Pt. is n ow referred to [facility] for acute in-patient rehabilitation in order to maxi manuel patient's functional independence in activities of daily living, strength, ROM, and mobility.- R ehab Goal Patient has realistic goal of being discharged at assistance level 6-Elvia to reside at Home with Fam bel/Relatives. MDM/PLAN: - Physical Therapy Gait dysfunction - to improve, our physical therapists will perform initial evaluation of pt's statu s upon admission and devise an individualized program for Gait Training, and Wheel Chair mobility Inability to transfer - to improve, our physical therapists will perform initial evaluation of pt's status upon admission and devise an individualized program for Bed mobility Need for home safety evaluation - to improve, our physical therapists will perform initial evaluatio n of pt's status upon admission and devise an individualized program for Home Evaluation Need in caregiver upon discharge - to improve, our physical therapists will perform initial evaluati on of pt's status upon admission and devise an individualized program for Caregiver Training New precaution - to improve, our physical therapists will perform initial evaluation of pt's status upon admission and devise an individualized program for Patient precaution education Poor balance - to improve, our physical therapists will perform initial evaluation of pt's status up on admission and devise an individualized program for Balance Training Poor endurance - to improve, our physical therapists will perform initial evaluation of pt's status upon admission and devise an individualized program for Endurance Training Weakness - to improve, our physical therapists will perform initial evaluation of pt's status upon a dmission and devise an individualized program for Aquatic Therapy, Neuromuscular Reeducation, and Str engthening Achieving independence - to improve, our physical therapists will perform initial evaluation of pt's status upon admission and devise an individualized program for Community Reintegration Activities - Occupational Therapy ADL deficits - to improve, our occupation therapists will perform initial evaluation of pt's status upon admission and devise an individualized program for Bathing, Bed mobility, Community Reintegratio n, Cooking, Dressing, Eating, Fine Motor Skills, Grooming, Homemaking, Kitchen Mobility, Laundry, Pat ient Education, Safety Awareness, Splinting - Positioning, Transfers(Toilet, Tub, Shower), and Wheel Chair Management Need for care management specialist - to improve, our occupation therapists will perform initial evaluation of pt's status upon admission and devise an individualized program for Caregiver Training Weakness - to improve, our occupation therapists will perform initial evaluation of pt's status upon admission and devise an individualized program for Aquatic Therapy, Balance, Endurance, UE ROM, and UE strengthening - Other See attached MAR (Medication Administration Record) - Diet Type Continue Regular - Diet - Liquid Texture Continue Regular - Tube Feed Continue N/A - Weight Bearing Precaution NWB left LE - Skin care per protocol - N/A Perform Consult Certified Prosthetic for prosthesis construction - Diet - Solid Texture Continue Regular - Shower allowing shower FUNCTIONAL STATUS: UPDATED AT WEEKLY TEAM CONFERENCE - Bladder Same accident frequency: 7-Ind - No accidents in the past 7 days - Bowel Same accident frequency: 7-Ind - No accidents in the past 7 days - Walking Same score based on distance walked: 0(N/A) - Wheelchair Same score based on distance traveled: 0(N/A) FUNCTIONAL STATUS: - Self-Care A. Eating Ind B. Grooming sup C. Bathing Isaías D. Dressing - Upper Ind E. Dressing - Lower modA F. Toileting modA - Sphincter Control G. Bladder control sup H. Bowel control sup - Transfers Control I. Bed/Chair/Wheelchair modA J. Toilet modA K. Tub/Shower modA - Locomotion L. Walk/Wheelchair (B) modA M. Stairs ADNO - Communication N. Comprehension (B) Elvia O. Expression (B) Elvia - Social Cognition P. Social Interaction Elvia Q. Problem Solving sup R. Memory sup - Endurance Fair - Balance Fair - Safety Awareness Fair QI SCORES: - Self-Care A. Eating 05-Setup or clean-up assistance B. Oral hygiene 05-Setup or clean-up assistance C. Toileting hygiene 03-Partial/moderate assistance E. Shower/bathe self 03-Partial/moderate assistance F. Upper body dressing 03-Partial/moderate assistance G. Lower body dressing 02-Substantial/maximal assistance H. Putting on/taking off footwear 02-Substantial/maximal assistance - Mobility A. Roll left and right 03-Partial/moderate assistance B. Sit to lying 03-Partial/moderate assistance C. Lying to sitting on side of bed 03-Partial/moderate assistance D. Sit to stand 03-Partial/moderate assistance E. Chair/[id number] transfer 03-Partial/moderate assistance F. Toilet transfer 03-Partial/moderate assistance G. Car transfer 10-Not attempted due to environmental limitations I. Walk 10 feet 88-Not attempted due to medical condition or safety concerns J. Walk 50 feet with two turns 88-Not attempted due to medical condition or safety concerns K. Walk 150 feet 88-Not attempted due to medical condition or safety concerns L. Walking 10 feet on uneven surfaces 88-Not attempted due to medical condition or safety concerns M. 1 step (curb) 88-Not attempted due to medical condition or safety concerns N. 4 steps 09-Not applicable O. 12 steps 09-Not applicable P. Picking up object 88-Not attempted due to medical condition or safety concerns R. Wheel 50 feet with two turns 88-Not attempted due to medical condition or safety concerns S. Wheel 150 feet 88-Not attempted due to medical condition or safety concerns - Bladder and Bowel Bladder continence 0-Always continent Bowel continence 0-Always continent - Endurance Poor - Balance Poor - Safety Awareness Fair [facility] DEFICITS: Self-Care, Mobility, Endurance, Balance, and Safety Awareness SIGNATURE PANEL: (CDT)
[2019-12-06] MEDS: clonazePAM 0.5 MG TAB PO PRN (20:39)
[2019-12-06] MEDS: INSULIN GLARGINE 100 UNITS/ML SQ SCH (20:40)
[2019-12-06] MEDS: TRAZODONE 50 MG TABLET PO PRN (20:40)
[2019-12-06] MEDS: AYR NASAL SALINE DROPS NAS PRN (20:42)
[2019-12-06] MEDS ORDERED: INSULIN -REGULAR HUMAN 50 UNIT/0.5 ML ML ONE (21:27)
[2019-12-07] MEDS: INSULIN -REGULAR HUMAN 50 UNIT/0.5 ML ML SQ SCH ×2 (07:07→11:30)
[2019-12-07 07:12] VITALS: BP 109/66; TEMP 97.2
[2019-12-07] MEDS: SODIUM CHLORIDE 0.9% 10ML INJ IV SCH (08:00)
[2019-12-07] MEDS: FUROSEMIDE 20 MG TABLET PO SCH (08:28)
[2019-12-07] MEDS: SERTRALINE HCL 100 MG TAB PO SCH (08:28)
[2019-12-07] MEDS: LACTOBACILLUS/ACIDOPHILUS TAB PO SCH (08:28)
[2019-12-07] MEDS: METFORMIN HCL 500 MG TAB PO SCH (08:29)
[2019-12-07] MEDS: CYANOCOBALAMIN 1,000 MCG TAB PO SCH (08:29)
[2019-12-07] MEDS: CLOPIDOGREL 75 MG TABLET PO SCH (08:29)
[2019-12-07] MEDS: APIXABAN 2.5 MG TABLET PO SCH (08:29)
[2019-12-07] MEDS: DOCUSATE NA 100 MG CAP PO SCH (08:29)
[2019-12-07] MEDS: ASPIRIN EC 81 MG TAB PO SCH (08:29)
--- NOTE | 2019-12-07 10:19 | P.RH.PN ---
Estimated Length of Stay: 50 Expected Discharge Date: 12/07/19 Discharge Disposition Plan: Home Family Support: Yes Group Home Goal: Mobility, Transfers, Self Care Vital Signs: Last Vital Signs Temp 97.2 F 12/07/19 07:10 Pulse 73 12/07/19 08:28 Resp 16 12/07/19 07:10 BP 109/66 12/07/19 08:28 Pulse Ox 96 12/07/19 07:10 Laboratory: Laboratory Last Values WBC 11.2 K/uL (4.3-10.9) H 12/06/19 06:08 RBC 3.65 M/uL (4.33-5.43) L 12/06/19 06:08 Hgb 11.0 g/dL (13.6-17.9) L 12/06/19 06:08 Hct 33.5 % (39.6-49.0) L 12/06/19 06:08 MCV 91.7 fL (80-100) 12/06/19 06:08 MCH 30.2 pg (27.0-35.0) 12/06/19 06:08 MCHC 32.9 g/dL (32.0-36.0) 12/06/19 06:08 RDW 17.5 % (12.1-15.2) H 12/06/19 06:08 Plt Count 255 K/uL (152-406) 12/06/19 06:08 MPV 7.3 fL (7.6-11.3) L 12/06/19 06:08 Neutrophils % 20.4 % (41.7-73.7) L 12/06/19 06:08 Lymphocytes % 71.4 % (15.3-44.8) H 12/06/19 06:08 Monocytes % 3.2 % (3.3-12.3) L 12/06/19 06:08 Eosinophils % 4.3 % (0-4.4) 12/06/19 06:08 Basophils % 0.7 % (0-1.3) 12/06/19 06:08 Absolute Neutrophils 2.3 K/uL (1.8-8.0) 12/06/19 06:08 Segmented Neutrophils 29 % (40-80) L 12/02/19 11:54 Absolute Lymphocytes 8.0 K/uL (0.7-4.9) H 12/06/19 06:08 Lymphocytes 59 % (15-42) H 12/02/19 11:54 Monocytes 3 % (0-10) 12/02/19 11:54 Absolute Monocytes 0.4 K/uL (0.1-1.3) 12/06/19 06:08 Eosinophils 2 % (0-3) 12/02/19 11:54 Absolute Eosinophils 0.5 K/uL (0-0.5) 12/06/19 06:08 Basophils 2 % (0-1) H 10/31/19 05:40 Absolute Basophils 0.1 K/uL (0-0.5) 12/06/19 06:08 Nucleated RBCs 1 /100WBC 10/31/19 05:40 Atypical Lymphocytes 7 12/02/19 11:54 Anisocytosis Slight 12/02/19 11:54 Morphology Comment Noted (NOT SEEN) 12/02/19 11:54 Sodium 141 mmol/L (136-145) 12/06/19 06:08 Potassium 4.2 mmol/L (3.5-5.1) 12/06/19 06:08 Chloride 110 mmol/L (98-107) H 12/06/19 06:08 Carbon Dioxide 25 mmol/L (21-32) 12/06/19 06:08 BUN 32 mg/dL (7-18) H 12/06/19 06:08 Creatinine 1.98 mg/dL (0.55-1.3) H 12/06/19 06:08 Estimated GFR 33 mL/min (=/>90) L 12/06/19 06:08 Glucose 121 mg/dL (74-106) H 12/06/19 06:08 POC Glucose 116 mg/dl (65-120) 12/07/19 07:01 Calcium 8.9 mg/dL (8.5-10.1) 12/06/19 06:08 Magnesium 2.3 mg/dL (1.8-2.4) 12/06/19 06:08 Albumin 3.7 g/dL (3.4-5.0) 12/06/19 06:08 Prealbumin 27.5 mg/dL (20-40) 12/06/19 06:08 Urine Color Yellow 10/19/19 19:50 Urine Appearance Clear 10/19/19 19:50 Urine pH 5.5 (5.0-7.0) 10/19/19 19:50 Ur Specific [place] 1.010 (1.005-1.030) 10/19/19 19:50 Glucose (UA)(Auto) Negative (NEG) 10/19/19 19:50 Urine Ketones Negative (NEG) 10/19/19 19:50 Urine Blood Negative (NEG) 10/19/19 19:50 Urine Nitrite Negative (NEG) 10/19/19 19:50 Urine Bilirubin Negative (NEG) 10/19/19 19:50 Urine Urobilinogen 0.2 mg/dL (0.2-1.0) 10/19/19 19:50 Ur Leukocyte Esterase Negative (NEG) 10/19/19 19:50 Urine RBC None seen /HPF (NONE SEEN) 10/19/19 19:50 Urine WBC <5 /HPF (<5) 10/19/19 19:50 Ur Squamous Epith Cells <5 /HPF (NONE SEEN) 10/19/19 19:50 Urine Bacteria <20 /HPF (NONE SEEN) 10/19/19 19:50 Urine Culture Reflexed Not needed 10/19/19 19:50 Urine Total Protein Negative (NEG) 10/19/19 19:50 Vancomycin Peak Cancelled 11/15/19 Unknown Vancomycin Trough 14.3 ug/mL (5.0-20.0) 12/06/19 11:53 Weight: 216 lb Wound Present: Yes Closed Surgical Incision Present: Yes Negative Pressure Wound Therapy Present: No Physician Update: WBC from 12/06/19 was 11.2 which is stable over the last 5 days. The ID doc instructed that he may d/c Vanc. Will call Dr. Willis and ask about removing sutures next Tuesday via home health. He is walking fairly well with physical 150' independently with standing rests. He does lateral transfers well. He will be discharged home today with home health. Medical Issues: Patient is always continent with bladder and bowel. Pain Issues: Patient is taking Tylenol 650mg Q6H PO PRN and [place] 7.5/325mg Q4H PO PRN for pain. Functional Improvement: Patient has met all short-term goals at this time and has completed most of the long-term goals. Patient presents w/ good work ethic and safety awareness. Summary: Patient's care plan and custodial goals have been reviewed and revised as necessary. Please see the Rehabilitation Signature page for all necessary signatures.
[2019-12-07] MEDS: ENSURE HIGH PROTEIN 237 ML CAN PO SCH (12:00)
--- NOTE | 2019-12-07 14:26 | FAST ---
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 Celso Noonan M.D. 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 EATING: Not assessed/no information CODE: - ORAL HYGIENE: ORAL HYGIENE - STEP 1: Does the patient complete the activity by him/herself with no assistance (physical, verbal/nonverbal cueing, setup/clean-up)? Yes. 1. [id number] ADMISSION PERFORMANCE: Independent CODE: 06 TOILETING HYGIENE: Not assessed/no information CODE: - BATHING: SHOWER/BATHE SELF - STEP 1: Does the patient complete the activity by him/herself with no assistance (physical, verbal/nonverbal cueing, setup/clean-up)? Yes. 1. [id number] ADMISSION PERFORMANCE: Independent CODE: 06 DRESSING - UPPER BODY: DRESSING - UPPER BODY - STEP 1: Does the patient complete the activity by him/herself with no assistance (physical, verbal/nonverbal cueing, setup/clean-up)? Yes. 1. [id number] ADMISSION PERFORMANCE: Independent CODE: 06 DRESSING - LOWER BODY: DRESSING - LOWER BODY - STEP 1: Does the patient complete the activity by him/herself with no assistance (physical, verbal/nonverbal cueing, setup/clean-up)? Yes. 1. [id number] ADMISSION PERFORMANCE: Independent CODE: 06 PUTTING ON/TAKING OFF FOOTWEAR: FOOTWEAR - STEP 1: Does the patient complete the activity by him/herself with no assistance (physical, verbal/nonverbal cueing, setup/clean-up)? Yes. 1. [id number] ADMISSION PERFORMANCE: Independent CODE: 06 DOES THE PATIENT USE A WHEELCHAIR/SCOOTER? CODE: EXPR INDICATE THE TYPE OF WHEELCHAIR/SCOOTER USED: CODE: EXPR INDICATE THE TYPE OF WHEELCHAIR/SCOOTER USED: CODE: EXPR BLADDER AND BOWEL: CODE: EXPR CODE: EXPR SIGNATURE PANEL: The following modified sections: 1. [id number] Admission Performance, 1. [id number] Admission Performance, 1. [id number] Admission Performance, 1. [id number] Admission Performance, 1. [id number] Admission Performance were [electronically] signed by MARY ALICE Kelly on TueDec 07 2019 14:25:36 GMT-0500 (Central Daylight Time)
--- NOTE | 2019-12-14 16:31 | R.DS ---
FACILITY [facility] MR# [id number] NAME CARLA FORBES ADDRESS [address] [place] [address] [address]IP [address] PHONE DATE OF 1945 AGE 73 SSN# [id number] GENDER Male DEXTERITY Right-handed MARITAL STATUS RACE White ENCOUNTER PHYSICIAN Dr. Celso Noonan M.D. 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 CONSULT: Perform Consult Certified Prosthetic for prosthesis construction NURSING: - Shower allowing shower - Skin care per protocol PRECAUTIONS: - Weight Bearing Precaution NWB left LE ACTIVITIES OOB only with supervision THERAPIES: - Orthotics/Prosthetics Prosthetic Evaluation - Dietary and Nutrition Adequate Nutrition Nutritional Education Nutritional Supplements HISTORY OF PRESENT ILLNESS: Pt. 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 was independent/mod-I in Locomotion, Balance , Safety Awareness, Social Cognition, Transfers Control, Sphincter Control, Self-Care, Communication, and Endurance; and he had good Locomotion, Balance, Safety Awareness, Social Cognition, Transfers Co ntrol, Sphincter Control, Self-Care, Communication, and Endurance.Currently, he has deficits of Locom otion, Balance, Safety Awareness, Transfers Control, Self-Care, Endurance, and Communication.Pt. is n ow referred to [facility] for acute in-patient rehabilitation in order to maxi manuel patient's functional independence in activities of daily living, strength, ROM, and mobility.- R ehab Goal Patient has realistic goal of being discharged at assistance level 6-Elvia to reside at Home with Fam bel/Relatives. Carla Forbes is a 73 year old male that lives alone in a single jhonny home. He was ambulating independently without assistive device. 3 days before the admission he saw his PCP and was given oral antibiotics but with no improvement. On 10/06/2019, he went to ER with complaints of generalized weakness and left lower extremity redness and swelling. He was diagnosed with severe sepsis secondary to severe cellulitis and admitted at [facility]. He was S/P Excisional debridement, infected wound, left foot at 12 x 6cm to subcutaneous tissue and Incision, drainage and debridement of left foot abscess, removal of foreign body and interpretation of fluoroscoy. On 10/15/2019, examination of the left foot revealed worsening of the redness and increase in the fibrin and nonviability of the second and third toe completely now and after careful thought surgeon planned to do Left BKA. He is now medically stable but in need of 24-hour nursing, doctor supervision and oversight is reasonably expected to participate in 3 hours of therapy a day/15 hours per week and receive care with an intensive interdisciplinary approach.HOSPITAL COURSE: DIET - LIQUID TEXTURE: On 10/19/2019 Pt was upgraded to Regular Diet - Liquid Texture. DIET - SOLID TEXTURE: On 10/19/2019 Pt was upgraded to Regular Diet - Solid Texture. DIET TYPE: On 10/19/2019 Pt was upgraded to Regular Diet Type. TUBE FEED: On 10/19/2019 Pt was changed to N/A Tube Feed. WEIGHT BEARING PRECAUTION: On 10/19/2019 the following precautions were added for the patient: Weight Bearing Precaution - NWB l eft LE. On 10/19/2019 the following precautions were added for the patient: Weight Bearing Precaution - NWB left LE. On 10/22/2019 the following precautions were removed for the patient: Weight Bearing Precaution - NW B left LE. On 10/23/2019 the following precautions were added for the patient: Weight Bearing Precaution - NWB left LE. DISCHARGE PHYSICAL EXAM - Gen Alert and awake Lying in bed No apparent distress Oriented to: person, time, and place - Skin LLE incisions intact Normacephalic - Eyes No abnormalities - ENMT No abnormalities - Neck No abnormalities - CVS RRR - Chest No abnormalities - Resp Clear to auscultation - Abd Soft - GI Non distended Deferred - No abnormalities - Ext Left BKA good hemostasis, dressing in place - MSK 4+/5 weakness in left lower extremity - Neuro 4/5 strength left lower extremity. - Psych No abnormalities FUNCTIONAL STATUS: - Self-Care A. Eating 7-Ind B. Grooming 5-sup C. Bathing 5-sup D. Dressing - Upper 7-Ind E. Dressing - Lower 5-sup F. Toileting 6-Elvia - Sphincter Control G. Bladder control 5-sup H. Bowel control 5-sup - Transfers Control I. Bed/Chair/Wheelchair 5-sup J. Toilet 5-sup K. Tub/Shower 5-sup - Locomotion L. Walk/Wheelchair (B) 5-sup M. Stairs 5-sup - Communication N. Comprehension (B) 6-Elvia O. Expression (B) 6-Elvia - Social Cognition P. Social Interaction 6-Elvia Q. Problem Solving 5-sup R. Memory 5-sup - Endurance Fair - Balance Fair - Safety Awareness Fair QI SCORES: - Self-Care A. Eating 05-Setup or clean-up assistance B. Oral hygiene 05-Setup or clean-up assistance C. Toileting hygiene 03-Partial/moderate assistance E. Shower/bathe self 03-Partial/moderate assistance F. Upper body dressing 03-Partial/moderate assistance G. Lower body dressing 02-Substantial/maximal assistance H. Putting on/taking off footwear 02-Substantial/maximal assistance - Mobility A. Roll left and right 03-Partial/moderate assistance B. Sit to lying 03-Partial/moderate assistance C. Lying to sitting on side of bed 03-Partial/moderate assistance D. Sit to stand 03-Partial/moderate assistance E. Chair/pru-qk-uylkk transfer 03-Partial/moderate assistance F. Toilet transfer 03-Partial/moderate assistance G. Car transfer 10-Not attempted due to environmental limitations I. Walk 10 feet 88-Not attempted due to medical condition or safety concerns J. Walk 50 feet with two turns 88-Not attempted due to medical condition or safety concerns K. Walk 150 feet 88-Not attempted due to medical condition or safety concerns L. Walking 10 feet on uneven surfaces 88-Not attempted due to medical condition or safety concerns M. 1 step (curb) 88-Not attempted due to medical condition or safety concerns N. 4 steps 09-Not applicable O. 12 steps 09-Not applicable P. Picking up object 88-Not attempted due to medical condition or safety concerns R. Wheel 50 feet with two turns 88-Not attempted due to medical condition or safety concerns S. Wheel 150 feet 88-Not attempted due to medical condition or safety concerns - Bladder and Bowel Bladder continence 0-Always continent Bowel continence 0-Always continent - Endurance Poor - Balance Poor - Safety Awareness Fair DISCHARGE INSTRUCTIONS: - N/A Eliquis 2.5 mg twice daily, Aspirin 81 mg daily. DISCHARGE PLAN, FOLLOW UP CARE PROVISIONS: - Estimated Length of Stay (days) 11. - Consensus on plan Discharge plan has been discussed with primary caregiver. Patient/Family is in agreement with the fartun n. Primary caregiver is in agreement with the plan. - Patient/Family Goals Return home with assistance. - Planned Living Setting Upon Discharge Home, to live alone. Transitional Living. SIGNATURE PANEL: (CDT)
== END 2019-12-07 14:00 | disposition home health service (06) | DRG 559 ==
LOC: 5TH 15:21
PROVIDERS: ADMIT Psychiatry & Neurology Neurology with Special Qualifications in Child Neurology; ATTEND Psychiatry & Neurology Neurology with Special Qualifications in Child Neurology
PROC: 0HBLXZZ Excision of Left Lower Leg Skin, External Approach (ICD-10-PCS; principal; 2019-11-26 09:30)
DX: Z47.81 Encounter for orthopedic aftercare following surgical amputation (principal); A41.9 Sepsis, unspecified organism; T80.211A Bloodstream infection due to central venous catheter, initial encounter; N17.9 Acute kidney failure, unspecified; E87.1 Hypo-osmolality and hyponatremia; B95.7 Other staphylococcus as the cause of diseases classified elsewhere; N18.9 Chronic kidney disease, unspecified; I50.9 Heart failure, unspecified; G47.30 Sleep apnea, unspecified; F32.9 Major depressive disorder, single episode, unspecified; D64.9 Anemia, unspecified; E11.9 Type 2 diabetes mellitus without complications; I25.2 Old myocardial infarction; Z99.81 Dependence on supplemental oxygen
CPT/HCPCS: 36415; 71045; 80048; 80202; 81001; 82040; 82565; 82947; 83735; 84134; 85025; 87070; 87077; 87086; 87088; 87186; 90471; 90670; 92523; 97110; 97112; 97116; 97161; 97167; 97530; 97542; J1650; J1815; J2370; J2543; J2704; J2997; J3010; J3590; J7030; J7040

== ENCOUNTER 2020-05-16 16:05 | Inpatient (IN) | payer OTHER ==
--- OUTSIDE RECORDS SUMMARY | 2020-05-16 16:07 | XMS REPORT | Continuity of Care Document ---
:1945 Author Organization [facility] t Address [address] [place] [address] Care Team Providers Name Role Phone Unavailable Unavailable Unavailable Payers Payer Name Policy Type Policy Number Effective Date Expiration Date S ource Problems This patient has no known problems. Allergies, Adverse Reactions, Alerts Allergy Allergy Status Severity Reaction(s) Onset Inactive Treating Comm ents Source Name Type Date Date Clinician No Known DA Active U [facility] Allergie 05-31 s 00:00: [address] Medications This patient has no known medications. Procedures This patient has no known procedures. Results Test Description Test Time Test Comments Results Result Comments Source GLUCOSE BEDSIDE TESTING 2019-01-12 07:32:00 Test Item Value Reference Range Interpretation Comme nts GLUCOSE BEDSIDE TESTING (test code = GLUBED) 232 MG/DL 60-99 H BASIC METABOLIC [id number] 07:01:00 Test Item Value Reference Range Interpretation Comments SODIUM (test code = 138 MMOL/L 137-145 N NA) POTASSIUM (test code = 4.8 MMOL/L 3.5-5.1 N K) CHLORIDE (test code = 103 MMOL/L 98-107 N CL) CARBON DIOXIDE (test 24 MMOL/L 22-30 N code = CO2) ANION GAP (test code = 16 MMOL/L 14-24 N GAP) GLUCOSE (test code = 241 MG/DL 74-106 H GLU) BLOOD UREA NITROGEN 33 MG/DL 9-20 H (test code = BUN) GLOMERULAR FILTRATION 46 Report ing units: RATE (test code = GFR) ml/mi n/1.73 m2 (Modified MDRD Formula)Referen ce Range: > or = 6 0 ml/min/1.73 m2 CREATININE (test code 1.50 MG/DL 0.66-1.25 H = CREAT) CALCIUM (test code = 9.2 MG/DL 8.4-10.2 N CA) [id number] 07:01:00 Test Item Value Reference Range Interpretation Comments MAGNESIUM (test code = MAG) 2.2 MG/DL 1.6-2.3 N CBC W/AUTO [id number] 06:33:00 Test Item Value Reference Range Interpretation Comments WHITE BLOOD CELL (test code = 12.4 K/MM3 3.8-9.8 H WBC) RED BLOOD CELL (test code = 4.62 M/MM3 3.95-5.67 N RBC) HEMOGLOBIN (test code = HGB) 13.8 G/DL 12.4-16.7 N HEMATOCRIT (test code = HCT) 43.0 % 35.9-49.5 N MEAN CELL VOLUME (test code = 93 fL 81.7-96.1 N MCV) MEAN CELL HGB (test code = MCH) 29.9 pg 27.6-33.2 N MEAN CELL HGB CONCETRATION 32.1 % 32.9-35.5 L (test code = MCHC) RED CELL DISTRIBUTION WIDTH 13.2 % 12.1-15.2 N (test code = RDW) PLATELET COUNT (test code = 225 K/MM3 129-368 N PLT) MEAN PLATELET VOLUME (test code 9.4 fl 7.4-10.4 N = MPV) NEUTROPHIL % (test code = NT%) 61.7 % 43-75 N IMMATURE GRANULOCYTE % (test 0.4 % 0.0-2.0 N code = IG%) LYMPHOCYTE % (test code = LY%) 30.0 % 14-44 N MONOCYTE % (test code = MO%) 5.6 % 4-13 N EOSINOPHIL % (test code = EO%) 2.1 % 0-6 N BASOPHIL % (test code = BA%) 0.2 % 0-2 N NUCLEATED RBC % (test code = 0.0 % 0-1.0 N NRBC%) NEUTROPHIL # (test code = NT#) 7.64 K/mm3 2.0-7.6 H IMMATURE GRANULOCYTE # (test 0.05 x10 3/uL 0-0.03 H code = IG#) LYMPHOCYTE # (test code = LY#) 3.72 K/mm3 1.0-3.8 N MONOCYTE # (test code = MO#) 0.70 K/mm3 0.1-0.8 N EOSINOPHIL # (test code = EO#) 0.26 K/mm3 0.0-0.2 H BASOPHIL # (test code = BA#) 0.03 K/mm3 0.0-0.2 N NUCLEATED RBC # (test code = 0.00 K/mm3 0.0-0.1 N NRBC#) GLUCOSE BEDSIDE [id number] 19:42:00 Test Item Value Reference Range Interpretation Comments GLUCOSE BEDSIDE TESTING (test code 174 MG/DL 60-99 H = GLUBED) - XR CHEST [id number] 17:30:00 Patient Name: CARLA FORBES Unit No: [id number] EXAMS: CPT CODE: [id number] XR CHEST 1V [id number] Location of dictation: B2 Portable chest one view. HISTORY: S/P ICD COMMENT: No recent comparisons. The heart [...] Belen Ingram RT(R) Transcrpt Date/Tm/Trnsp: 01/11/2019 (1730) JacquelinPXYasmine Orig Print D/T: S: 01/11/2019 (1472) [facility] NAME: CARLA FORBES [id number] PHYS: [place] [address] : 1945 AGE: 73 SEX: M LOC: ANTHONY PHONE #: [phone] EXAM DATE: 01/11/2019 [place] [facility] [place] #: [phone] RADIOLOGY NO: PAGE 1 Signed ReportPROTHROMBIN [id number] 11:43:00 Test Item Value Reference Range Interpretation Comments PROTHROMBIN TIME 10.1 SECONDS 9.6-11.6 N PATIENT (test code = PTP) INTERNATIONAL NORMAL 1.0 0.8-1.1 N The INR is to be RATIO (test code = used only for INR) monitoring oral anticoagulantth erap y. INDICATION I NR VALUE ---- ---- ---- -------1. Prophylaxis, de ep venous thrombos is, including hig h risk surgery. 2.0 - 3.0 2. Prophylaxis, de ep venous thrombos is, hip surgery, treatment for d eep venous thrombosis or pulmonary prevention of systemic emboli sm in patients wit h valvular heart disease, atrial fibrillation, tissue heart va lve, or acute myocar dial infarction. 2.0 - 3 .0 3. Mechanical prosthesis hear t valves, recurrent syste be embolism. 3.0 - 4.5 PTT [id number] 11:43:00 Test Item Value Reference Range Interpretation Comments PTT ACTIVATED (test code = APTT) 25.8 SECONDS 22.0-33.0 N BASIC METABOLIC [id number] 11:41:00 Test Item Value Reference Range Interpretation Comments SODIUM (test code = 143 MMOL/L 137-145 N NA) POTASSIUM (test code = 5.3 MMOL/L 3.5-5.1 H K) CHLORIDE (test code = 104 MMOL/L 98-107 N CL) CARBON DIOXIDE (test 27 MMOL/L 22-30 N code = CO2) GLUCOSE (test code = 214 MG/DL 74-106 H GLU) BLOOD UREA NITROGEN 29 MG/DL 9-20 H (test code = BUN) GLOMERULAR FILTRATION 46 Report ing units: RATE (test code = GFR) ml/mi n/1.73 m2 (Modified MDRD Formula)Referen ce Range: > or = 6 0 ml/min/1.73 m2 CREATININE (test code 1.50 MG/DL 0.66-1.25 H = CREAT) CALCIUM (test code = 9.9 MG/DL 8.4-10.2 N CA) [id number] 11:41:00 Test Item Value Reference Range Interpretation Comments MAGNESIUM (test code = MAG) 2.3 MG/DL 1.6-2.3 N CBC W/AUTO [id number] 11:27:00 Test Item Value Reference Range Interpretation Comments WHITE BLOOD CELL (test code = 10.6 K/MM3 3.8-9.8 H WBC) RED BLOOD CELL (test code = 5.06 M/MM3 3.95-5.67 N RBC) HEMOGLOBIN (test code = HGB) 15.0 G/DL 12.4-16.7 N HEMATOCRIT (test code = HCT) 46.2 % 35.9-49.5 N MEAN CELL VOLUME (test code = 91 fL 81.7-96.1 N MCV) MEAN CELL HGB (test code = MCH) 29.6 pg 27.6-33.2 N MEAN CELL HGB CONCETRATION 32.5 % 32.9-35.5 L (test code = MCHC) RED CELL DISTRIBUTION WIDTH 13.3 % 12.1-15.2 N (test code = RDW) PLATELET COUNT (test code = 263 K/MM3 129-368 N PLT) MEAN PLATELET VOLUME (test code 9.3 fl 7.4-10.4 N = MPV) NEUTROPHIL % (test code = NT%) 52.8 % 43-75 N IMMATURE GRANULOCYTE % (test 0.6 % 0.0-2.0 N code = IG%) LYMPHOCYTE % (test code = LY%) 38.4 % 14-44 N MONOCYTE % (test code = MO%) 5.3 % 4-13 N EOSINOPHIL % (test code = EO%) 2.6 % 0-6 N BASOPHIL % (test code = BA%) 0.3 % 0-2 N NUCLEATED RBC % (test code = 0.0 % 0-1.0 N NRBC%) NEUTROPHIL # (test code = NT#) 5.58 K/mm3 2.0-7.6 N IMMATURE GRANULOCYTE # (test 0.06 x10 3/uL 0-0.03 H code = IG#) LYMPHOCYTE # (test code = LY#) 4.05 K/mm3 1.0-3.8 H MONOCYTE # (test code = MO#) 0.56 K/mm3 0.1-0.8 N EOSINOPHIL # (test code = EO#) 0.27 K/mm3 0.0-0.2 H BASOPHIL # (test code = BA#) 0.03 K/mm3 0.0-0.2 N NUCLEATED RBC # (test code = 0.00 K/mm3 0.0-0.1 N NRBC#)
[2020-05-16] MEDS ORDERED: VANCOMYCIN 1 GM/VIAL ONE (16:54)
[2020-05-16] MEDS ORDERED: NA CHLORIDE 0.9% 250 ML ONE (16:54)
[2020-05-16 17:13] LABS: Absolute Lymphocytes (CBC) 16.3 K/uL (0.7-4.9); Basophils % 0.5 % (0-1.3); Hematocrit 37.3 % (39.6-49.0); Lymphocytes % 77.8 % (15.3-44.8); MPV 7.6 fL (7.6-11.3); RBC Red Blood Cell Count 3.92 M/uL (4.33-5.43)
[2020-05-16 17:37] LABS: Potassium 4.8 mmol/L (3.5-5.1)
[2020-05-16 17:40] LABS: Blood Morphology Comment NOT SEEN (NOT SEEN); Platelet Estimate ADEQ
--- NOTE | 2020-05-16 18:18 | EDPHYS ---
Physician Documentation [facility] Name: Carlos Yoon Age: 74 yrs Sex: Male : 1945 Arrival Date: 05/16/2020 Time: 16:08 Bed 8 Private MD: Arvind Collado ED Physician Frankie Royal HPI: 05/16 17:18 This 74 yrs old Male presents to ER via Ambulatory with complaints of Leg kb Infection. 17:18 the patient presents with a swollen area of the right hendrix. Description: draining, kb erythematous, swollen, warm. Onset: The symptoms/episode began/occurred 1 week(s) ago, and became worse today. Possible cause(s): scratch . Associated signs and symptoms: Pertinent positives: drainage, erythema, fever, swelling. Modifying factors: the symptoms are alleviated by nothing, the symptoms are aggravated by nothing. Severity of symptoms: At their worst the symptoms were moderate, in the emergency department the symptoms are unchanged. The patient has experienced a previous episode. The patient has not recently seen a physician. Pt reports he scratched his right hendrix last week that was scabbed. States he went outside today and noticed a yellow/green drainage to area so he came in. States he got an infection in his left foot in September and ended up getting a BKA so he wanted to get this addressed quickly and not lose his right leg.. Historical: - Allergies: 16:15 No Known Allergies; aa5 - PMHx: 16:15 Diabetes - IDDM; Hypertension; Hypothyroidism; Pacemaker; aa5 - PSHx: 16:15 triple bypass; CABG; Left BKA; aa5 - Immunization history:: Adult Immunizations unknown. - Social history:: Smoking status: Patient denies any tobacco usage or history of. ROS: 17:13 Constitutional: Negative for fever, chills, and weight loss, Cardiovascular: Negative kb for chest pain, palpitations, and edema, Respiratory: Negative for shortness of breath, cough, wheezing, and pleuritic chest pain, Abdomen/GI: Negative for abdominal pain, nausea, vomiting, diarrhea, and constipation, Back: Negative for injury and pain, MS/Extremity: Negative for injury and deformity, Neuro: Negative for headache, weakness, numbness, tingling, and seizure. 17:13 Skin: Positive for erythema, swelling, wound with purulent drainage. Exam: 17:15 Constitutional: This is a well developed, well nourished patient who is awake, alert, kb and in no acute distress. Head/Face: Normocephalic, atraumatic. Chest/axilla: Normal chest wall appearance and motion. Nontender with no deformity. No lesions are appreciated. Cardiovascular: Regular rate and rhythm with a normal S1 and S2. No gallops, murmurs, or rubs. Normal PMI, no JVD. No pulse deficits. Respiratory: Lungs have equal breath sounds bilaterally, clear to auscultation and percussion. No rales, rhonchi or wheezes noted. No increased work of breathing, no retractions or nasal flaring. Abdomen/GI: Soft, non-tender, with normal bowel sounds. No distension or tympany. No guarding or rebound. No evidence of tenderness throughout. MS/ Extremity: Pulses equal, no cyanosis. Neurovascular intact. Full, normal range of motion. Neuro: Awake and alert, GCS 15, oriented to person, place, time, and situation. Cranial nerves II-XII grossly intact. Motor strength 5/5 in all extremities. Sensory grossly intact. Cerebellar exam normal. Normal gait. 17:15 Skin: injury, abrasion(s), moderate sized abrasion noted, of the right hendrix, swelling and drainage to abrasions lower right leg. Vital Signs: 16:15 BP 123 / 83; Pulse 103; Resp 20 S; Temp 99.0(O); Pulse Ox 97% on R/A; aa5 18:18 BP 115 / 56; Pulse 78; Resp 18; Pulse Ox 100% on R/A; hb 19:30 BP 116 / 66; Pulse 78; Resp 14; Pulse Ox 96% on R/A; ll2 MDM: 16:23 Patient medically screened. kb 16:59 Data reviewed: vital signs, nurses notes. Data interpreted: Pulse oximetry: on room air kb is 97 %. Interpretation: normal. 17:17 Counseling: I had a detailed discussion with the patient and/or guardian regarding: the kb historical points, exam findings, and any diagnostic results supporting the discharge/admit diagnosis, lab results, the need for further work-up and treatment in the hospital. 18:18 Physician consultation: Migel KRUEGER was contacted at 18:19, regarding kb admission, to the medical/surgical unit. patient's condition, and will see patient in ED, shortly. 05/16 16:33 Order name: CBC with Diff; Complete Time: 17:43 kb 05/16 16:33 Order name: Basic Metabolic Panel; Complete Time: 17:43 kb 05/16 16:33 Order name: Procalcitonin; Complete Time: 18:51 kb 05/16 16:33 Order name: Lactate; Complete Time: 17:43 kb 05/16 16:33 Order name: Blood Culture Adult (2) kb 05/16 16:33 Order name: Wound Culture kb 05/16 17:17 Order name: Manual Differential; Complete Time: 17:43 EDMS 05/16 19:51 Order name: Urinalysis EDMS 05/16 19:51 Order name: Basic Metabolic Panel EDMS 05/16 19:51 Order name: Basic Metabolic Panel EDMS 05/16 19:51 Order name: CBC with Automated Diff EDMS 05/16 19:51 Order name: CBC with Automated Diff EDMS 05/16 19:51 Order name: Magnesium EDPR 05/16 19:51 Order name: Magnesium EDMS 05/16 16:33 Order name: IV Start; Complete Time: 17:05 kb 05/16 19:51 Order name: Consistent Carb (ADA) [address]; Complete Time: 20:04 EDMS 05/16 19:54 Order name: Vancomycin Level Trough EDMS 05/16 19:54 Order name: Vancomycin Peak EDMS Administered Medications: 17:05 Drug: vancoMYCIN 1 grams Route: IVPB; Infused Over: 2 hrs; Site: left antecubital; hb 19:33 Follow up: IV Status: Completed infusion; IV Intake: 250ml ll2 Disposition: 05/16/20 18:18 Hospitalization ordered by Phil Palafox for Inpatient Admission. Preliminary diagnosis are Open wound of lower leg, Cellulitis of right lower limb, Elevated white blood cell count, unspecified. - Bed requested for Telemetry/MedSurg (Inpatient). - Status is Inpatient Admission. bb - Condition is Stable. - Problem is new. - Symptoms are unchanged. Addendum: 05/18/2020 08:50 Co-signature as Attending Physician, Frankie Royal MD I agree with the assessment and k dr plan of care. Signatures: Dispatcher [employer] EDMS Ruthy Cabezas FNP-C PRODUCT SAFETY EXPERT-Ckb Kari Berry RN RN Frankie Larkin MD MD kdr Ballard, Brenda RN RN bb Milly Villatoro RN RN aa5 Kiersten Agrawal RN RN Noemí Kerns RN ll2 Corrections: (The following items were deleted from the chart) 05/16 17:17 17:15 Constitutional: This is a well developed, well nourished patient who is awake, kb alert, and in no acute distress. Head/Face: Normocephalic, atraumatic. Chest/axilla: Normal chest wall appearance and motion. Nontender with no deformity. No lesions are appreciated. Cardiovascular: Regular rate and rhythm with a normal S1 and S2. No gallops, murmurs, or rubs. Normal PMI, no JVD. No pulse deficits. Respiratory: Lungs have equal breath sounds bilaterally, clear to auscultation and percussion. No rales, rhonchi or wheezes noted. No increased work of breathing, no retractions or nasal flaring. Abdomen/GI: Soft, non-tender, with normal bowel sounds. No distension or tympany. No guarding or rebound. No evidence of tenderness throughout. MS/ Extremity: Pulses equal, no cyanosis. Neurovascular intact. Full, normal range of motion. Neuro: Awake and alert, GCS 15, oriented to person, place, time, and situation. Cranial nerves II-XII grossly intact. Motor strength 5/5 in all extremities. Sensory grossly intact. Cerebellar exam normal. Normal gait. kb 17:17 17:15 Skin: injury, abrasion(s), moderate sized abrasion noted, of the right hendrix, kb 20:00 18:18 Hospitalization Ordered by Phil Palafox MD for Inpatient Admission. Preliminary dw diagnosis is Open wound of lower leg; Cellulitis of right lower limb; Elevated white blood cell count, unspecified. Bed requested for Telemetry/MedSurg (Inpatient). Status is Inpatient Admission. Condition is Stable. Problem is new. Symptoms are unchanged. kb 22:19 20:00 05/16/2020 18:18 Hospitalization Ordered by Phil Palafox MD for Inpatient bb Admission. Preliminary diagnosis is Open wound of lower leg; Cellulitis of right lower limb; Elevated white blood cell count, unspecified. Bed requested for Telemetry/MedSurg (Inpatient). Status is Inpatient Admission. Condition is Stable. Problem is new. Symptoms are unchanged. dw
--- NOTE | 2020-05-16 18:18 | ER ---
Nurse's Notes [facility] Name: Carlos Yoon Age: 74 yrs Sex: Male : 1945 Arrival Date: 05/16/2020 Time: 16:08 Bed 8 Private MD: Arvind Collado Diagnosis: Open wound of lower leg;Cellulitis of right lower limb;Elevated white blood cell count, unspecified Presentation: 05/16 16:15 Chief complaint: Patient states: "I just want to get this yellowish wounds on my right aa5 leg checked out". pt states "I got my left leg amputated back in September and I don't want my other leg amputated". 16:15 Coronavirus screen: Client denies travel out of the [place] in the last 14 days. At this aa5 time, the client does not indicate any symptoms associated with coronavirus-19. Ebola Screen: Patient negative for fever greater than or equal to 101.5 degrees Fahrenheit, and additional compatible Ebola Virus Disease symptoms. Initial Sepsis Screen: Does the patient meet any 2 criteria? HR > 90 bpm. Does the patient have a suspected source of infection? No. Patient's initial sepsis screen is negative. Risk Assessment: Do you want to hurt yourself or someone else? Patient reports no desire to harm self or others. Onset of symptoms was May 16, 2020. 16:15 Acuity: IZZY 3 aa5 16:15 Method Of Arrival: Ambulatory aa5 Historical: - Allergies: 16:15 No Known Allergies; aa5 - PMHx: 16:15 Diabetes - IDDM; Hypertension; Hypothyroidism; Pacemaker; aa5 - PSHx: 16:15 triple bypass; CABG; Left BKA; aa5 - Immunization history:: Adult Immunizations unknown. - Social history:: Smoking status: Patient denies any tobacco usage or history of. Screenin:11 Abuse screen: Denies threats or abuse. Denies injuries from another. Nutritional hb screening: No deficits noted. Tuberculosis screening: No symptoms or risk factors identified. Fall Risk Total Car Fall Scale indicates Low Risk Score (25-44 pts). Fall prevention measures have been instituted. Side Rails Up X 2 Frequent Obs/Assesments occuring As available Patient and Family Educated on Fall Prevention Program and strategies. Assessment: 16:45 General: Appears in no apparent distress. Behavior is calm, cooperative. Pain: Pain hb currently is 3 out of 10 on a pain scale. Neuro: Level of Consciousness is awake, alert, obeys commands, Oriented to person, place, time, situation. Cardiovascular: Capillary refill < 3 seconds Patient's skin is warm and dry. Respiratory: Airway is patent Respiratory effort is even, unlabored, Respiratory pattern is regular, symmetrical. GI: No signs and/or symptoms were reported involving the gastrointestinal system. : No signs and/or symptoms were reported regarding the genitourinary system. EENT: No signs and/or symptoms were reported regarding the EENT system. Derm: RLE with yellow purulent discharge. Musculoskeletal: No signs and/or symptoms reported regarding the musculoskeletal system. 17:30 Reassessment: Patient appears in no apparent distress at this time. Patient and/or hb family updated on plan of care and expected duration. Pain level reassessed. Patient is alert, oriented x 3, equal unlabored respirations, skin warm/dry/pink. 18:19 Reassessment: Patient appears in no apparent distress at this time. Patient and/or hb family updated on plan of care and expected duration. Pain level reassessed. Patient is alert, oriented x 3, equal unlabored respirations, skin warm/dry/pink. Vital Signs: 16:15 BP 123 / 83; Pulse 103; Resp 20 S; Temp 99.0(O); Pulse Ox 97% on R/A; aa5 18:18 BP 115 / 56; Pulse 78; Resp 18; Pulse Ox 100% on R/A; hb 19:30 BP 116 / 66; Pulse 78; Resp 14; Pulse Ox 96% on R/A; ll2 ED Course: 16:08 Patient arrived in ED. mr 16:08 Arvind Collado is Private Physician. mr 16:15 Arm band placed on. aa5 16:20 Triage completed. aa5 16:23 [facility]. kb 16:23 Frankie Royal MD is Attending Physician. kb 16:43 Kiersten Agrawal, RUCHI is Primary Nurse. hb 17:00 Inserted saline lock: 20 gauge in left antecubital area, using aseptic technique. Blood hb collected. 17:11 Patient has correct armband on for positive identification. Bed in low position. Call hb light in reach. Side rails up X2. 18:17 Phil Palafox MD is Hospitalizing Provider. kb 20:03 Diet: Patient given a regular meal tray. Patient given snack. Patient given juice. ll2 Administered Medications: 17:05 Drug: vancoMYCIN 1 grams Route: IVPB; Infused Over: 2 hrs; Site: left antecubital; hb 19:33 Follow up: IV Status: Completed infusion; IV Intake: 250ml ll2 Intake: 19:33 IV: 250ml; Total: 250ml. ll2 Outcome: 18:18 Decision to Hospitalize by Provider. kb 22:19 Patient left the ED. bb Signatures: Ruthy Cabezas, SPECIAL EFFECTS SPECIALIST-C SPECIAL EFFECTS SPECIALIST-Carrie Ray mr Sandy Leggett RN RN Milly Villatoro, RN RN aa5 Kiersten Agrawal, RUCHI RN Noemí Kerns RN RN ll2
--- NOTE | 2020-05-16 20:07 | P.HP ---
Certification for Inpatient With expected LOS: >2 Midnights Patient will require the following post-hospital care: None Practitioner: I am a practitioner with admitting privileges, knowledge of patient current condition, hospital course, and medical plan of care. Services: Services provided to patient in accordance with Admission requirements found in Title 42 Section 412.3 of the Code of Federal Regulations Patient History Date of Service: 05/16/20 Reason for admission: Right leg cellulitis History of Present Illness: 74-year-old male with a past medical history of type 2 diabetes mellitus, quadruple CABG 5 years ago, left BKA, pacemaker, hypertension, and hypothyroidism presents to the emergency room complaining of right leg infection. Patient states that he had noted a couple of skin tears on his anterior and medial lower right leg. Patient states he has significant neuropathy and does not feel his lower right leg very much. States he went outside and noticed that the leg was significantly red and more swollen than usual. Came to the emergency room for further evaluation. In the emergency room patient is alert and oriented x3, pleasant and cooperative. In no distress. His right leg is erythematous with 2 open areas in the anterior and medial aspect of the lower right leg above the ankle. There is erythema extending from the lower leg to just below the right knee. There is also swelling in the lower right leg consistent with cellulitis and possible infection. Patient was taking some leftover antibiotics from September of this year. In the emergency room he was found to have a white cell count of 21 K. creatinine of 1.95 and the patient she has a baseline is 1.3-1.5. Lactate is within normal limits at 1.3 and pro Donell is 0.05. Patient will be admitted and further evaluated. Allergies No Known Allergies Allergy (Verified 10/07/19 03:44) Home Medications: Aripiprazole [Abilify] 1 tab PO DAILY 10/07/19 Aspirin [Aspir-Low] 1 tab PO DAILY 10/07/19 Cyanocobalamin (Vitamin B-12) [Vitamin B-12] 1 tab PO DAILY 10/07/19 Magnesium Oxide [Magnesium] 1 tab PO DAILY 10/07/19 Metformin ER [Glucophage ER*] 1 tab PO BID 10/07/19 Sertraline HCl 200 mg PO DAILY 10/07/19 Clopidogrel Bisulfate [Plavix*] 75 mg PO DAILY tablet 01/31/20 Acetaminophen [Tylenol*] 650 mg PO Q6H PRN tab 12/07/19 Docusate [Colace Cap*] 100 mg PO BID #60 cap 12/07/19 Furosemide [Lasix*] 20 mg PO DAILY #30 tab 12/07/19 Insulin Glargine Human [Lantus*] 15 units SQ BEDTIME #10 ml 12/07/19 clonazePAM [Klonopin*] 0.5 mg PO DAILY #30 tab 12/07/19 - Past Medical/Surgical History Diabetic: Yes -: [place], HTN, CKD -: CHF -: INSOMNIA -: SLEEP APNEA -: CPAP DYSPNEA -: NERVOUSNESS/DEPRESSION -: CARDIOMYOPATHY -: ANEMIA -: CAD -: quadruple heart bypass (5 yrs ago) - Family History Father -: Cancer Notes: throat cancer Mother -: Cancer Notes: liver cancer - Social History Smoking Status: Never smoker Alcohol use: Yes CD- Drugs: No Caffeine use: Yes Place of Residence: Home Review of Systems General: As per HPI Eyes: Unremarkable ENT: Unremarkable Respiratory: Unremarkable Cardiovascular: Unremarkable Gastrointestinal: Unremarkable Genitourinary: Unremarkable Musculoskeletal: As per HPI Integumentary: Lesions, As per HPI Neurological: Numbness (Right leg), As per HPI Lymphatics: Unremarkable Physical Examination - Vital Signs Temperature: 99.0 F Blood Pressure: 115/56 Pulse: 78 Respirations: 18 Pulse Ox (%): 100 (RA) - Physical Exam General: Alert, In no apparent distress, Oriented x3 HEENT: Atraumatic, Normocephalic, PERRLA, Mucous membr. moist/pink Neck: Supple, Other (Trachea midline) Respiratory: Clear to auscultation bilaterally, Normal air movement Cardiovascular: Normal pulses, Normal S1 S2, Edema (Right leg) Capillary refill: <2 Seconds Gastrointestinal: Normal bowel sounds, Soft and benign, Non-distended Musculoskeletal: No contractures, Swelling (Right lower lung), Warmth (Right lower lid), Other (Left BKA) Integumentary: Skin lesion (Right lower leg) Neurological: Normal gait, Normal speech, Normal strength at 5/5 x4 extr, Normal tone - Studies Laboratory Data (last 24 hrs) 05/16/20 16:57: Sodium 142, Potassium 4.8, BUN 36 H, Creatinine 1.95 H, Glucose 174 H 05/16/20 16:57: WBC 21.0 H*, Hgb 12.2 L, Hct 37.3 L, Plt Count 197 Assessment and Plan - Plan Impression: Right leg cellulitis with 2 open skin tears with drainage: Type 2 diabetes mellitus complicated by lower extremity neuropathy and left BKA: Acute on chronic kidney disease, stage III: Essential hypertension: CABG x4 with pacemaker in-situ: Plan: Right leg cellulitis with 2 open skin tears with drainage: Will start patient on IV vancomycin renally dosed at 1250 mg daily. Patient could benefit from wound care consult. Monitor daily labs. White cell count of 21,000 on admission. T-max of 99. Type 2 diabetes mellitus complicated by lower extremity neuropathy and left BKA: Patient has significant lower extremity neuropathy and does not feel is lower right leg. Will resume all medications once verified. Will cover with sliding scale insulin. Diabetic diet. Accu-Cheks a.c. HS. Acute on chronic kidney disease, stage III: Patient's creatinine level is usually in the baseline of 1.3-1.5. Creatinine on admission of 1.95. Continue gentle IV hydration. Monitor daily labs. Essential hypertension: Will resume all medications once verified. Monitor blood pressure. CABG x4 with pacemaker in-situ: History of CABG x4 with a pacemaker in place. Patient states his last echo had a 23% ejection fraction. Resume all medi cations once verified. Discharge Plan: Home Plan to discharge in: Greater than 2 days - Advance Directives Does patient have a Living Will: No Does patient have a Durable POA for Healthcare: No - Code Status/Comfort Care Code Status Assessed: Yes Time Spent Managing Pts Care (In Minutes): 55
[2020-05-16] MEDS ORDERED: D50W 25 GM/50 ML SYRINGE/VIAL IV PRN (20:17)
[2020-05-16] MEDS ORDERED: GLUCAGON 1 MG/VIAL IM PRN (20:17)
[2020-05-16] MEDS ORDERED: INSULIN -REGULAR HUMAN 50 UNIT/0.5 ML ML SQ PRN (20:17)
[2020-05-16] MEDS ORDERED: VANCOMYCIN 1 GM in NA CHLORIDE 0.9% 500 ML IVPB SCH (21:00)
[2020-05-16 22:40] VITALS: BMI 33.1
[2020-05-17 01:49] LABS: Urine Appearance CLEAR; Urine Bilirubin NEGATIVE (NEG); Urine Blood NEGATIVE (NEG); Urine Color YELLOW; Urine Glucose NEGATIVE (NEG); Urine Protein TRACE (NEG); Urine pH 5.5 (5.0-7.0)
[2020-05-17 01:57] LABS: Urine Microscopic Reflex ORDER UMIC
[2020-05-17 02:11] LABS: Urine Bacteria 20-50 /HPF (NONE SEEN); Urine Culture Reflex Order REFLEXED; Urine RBC <5 /HPF (NONE SEEN)
[2020-05-17 06:37] LABS: Absolute Lymphocytes (CBC) 18.1 K/uL (0.7-4.9); Basophils % 0.2 % (0-1.3); Hematocrit 33.9 % (39.6-49.0); Lymphocytes % 81.1 % (15.3-44.8); MPV 7.7 fL (7.6-11.3)
[2020-05-17 06:45] LABS: Magnesium 2.4 mg/dL (1.8-2.4); Potassium 4.2 mmol/L (3.5-5.1)
[2020-05-17] MEDS: INSULIN -REGULAR HUMAN 50 UNIT/0.5 ML ML SQ SCH ×4 (07:30→20:38)
[2020-05-17] MEDS ORDERED: CEFEPIME 1 GM/VIAL IV SCH (09:00)
[2020-05-17] MEDS ORDERED: NA CHLORIDE 0.9% IVPB SCH (09:00)
[2020-05-17] MEDS ORDERED: VANCOMYCIN IVPB SCH (09:00)
[2020-05-17] MEDS: CEFEPIME/SWI 1gm 10 ML IVP SCH (09:37)
[2020-05-17] MEDS: ENOXAPARIN 40 MG/0.4 ML SQ SCH (09:37)
--- NOTE | 2020-05-17 09:59 | P.PN ---
Subjective Date of Service: 05/17/20 Chief Complaint: Right leg cellulitis Subjective: No new changes, Improving Review of Systems 10-point ROS is otherwise unremarkable Physical Examination - Vital Signs Temperature: 97.4 F Blood Pressure: 108/68 Pulse: 66 Respirations: 18 Pulse Ox (%): 94 - Physical Exam General: Alert, In no apparent distress, Oriented x3 HEENT: Atraumatic, Normocephalic Neck: Supple, 2+ carotid pulse no bruit Respiratory: Clear to auscultation bilaterally, Normal air movement Cardiovascular: Regular rate/rhythm, Normal S1 S2 Capillary refill: <2 Seconds Gastrointestinal: Soft and benign, W/out hepatosplenomegaly Musculoskeletal: No clubbing, No swelling, Other (Left Lower extremity amputation ) Integumentary: Skin lesion, Tenderness/swelling, Erythema, Other (Erythema and swelling over the left lower extremity , dressing intact ) Neurological: Normal speech, Normal strength at 5/5 x4 extr Lymphatics: No axilla or inguinal lymphadenopathy - Studies Laboratory Data (last 24 hrs) 05/16/20 16:57: Sodium 142, Potassium 4.8, BUN 36 H, Creatinine 1.95 H, Glucose 174 H 05/16/20 16:57: WBC 21.0 H*, Hgb 12.2 L, Hct 37.3 L, Plt Count 197 Assessment & Plan Physician Review Additional Text: Right leg cellulitis with 2 open skin tears with drainage: Type 2 diabetes mellitus complicated by lower extremity neuropathy and left BKA: Acute on chronic kidney disease, stage III: Essential hypertension: CABG x4 with pacemaker in-situ: Plan: Right leg cellulitis with 2 open skin tears with drainage: On IV vancomycin renally dosed Added on Cefepime as well Cultures pending Wound care consult. Leukocytosis trending high Monitor daily labs. Monitor closely Type 2 diabetes mellitus complicated by lower extremity neuropathy and left BKA: Patient has significant lower extremity neuropathy and does not feel is lower right leg. Continue home medications sliding scale insulin. Diabetic diet. Accu-Cheks a.c. HS. Acute on chronic kidney disease, stage III: Patient's creatinine level is usually in the baseline of 1.3-1.5. Creatinine on admission of 1.95. Continue gentle IV hydration. Monitor daily labs. Essential hypertension: continue home medications and titrate accordingly. Monitor blood pressure. CAD status post CABG x4 with pacemaker in-situ: History of CABG x4 with a pacemaker in place. Patient states his last echo had a 23% ejection fraction. Resume all home medications Time Spent Managing Pts Care (In Minutes): 42
[2020-05-17] MEDS ORDERED: GLUCAGON 1 MG/VIAL IM PRN (13:06)
[2020-05-17] MEDS ORDERED: D50W 25 GM/50 ML SYRINGE/VIAL IV PRN (13:06)
[2020-05-17] MEDS ORDERED: VANCOMYCIN 1.75 GM in NA CHLORIDE 0.9% 500 ML IVPB SCH (17:00)
[2020-05-18] MEDS ORDERED: VANCOMYCIN 1 GM/VIAL ONE (02:52)
[2020-05-18] MEDS ORDERED: NA CHLORIDE 0.9% 500 ML ONE (04:29)
[2020-05-18] MEDS ORDERED: VANCOMYCIN 1.75 GM in NA CHLORIDE 0.9% 500 ML IVPB SCH (05:00)
[2020-05-18] MEDS: INSULIN -REGULAR HUMAN 50 UNIT/0.5 ML ML SQ SCH ×4 (07:30→21:36)
[2020-05-18 08:51] LABS: Absolute Lymphocytes (CBC) 15.3 K/uL (0.7-4.9); Basophils % 0.3 % (0-1.3); Hematocrit 35.5 % (39.6-49.0); Lymphocytes % 80.1 % (15.3-44.8); MPV 7.6 fL (7.6-11.3); RBC Red Blood Cell Count 3.77 M/uL (4.33-5.43)
[2020-05-18 09:24] LABS: ALT/SGPT 22 U/L (12-78); AST/SGOT 18 U/L (15-37); Albumin 3.6 g/dL (3.4-5.0); Alkaline Phosphatase 157 U/L (45-117); BUN Blood Urea Nitrogen 30 mg/dL (7-18); Bicarbonate 27 mmol/L (21-32); Glucose Level 185 mg/dL (74-106); Potassium 4.4 mmol/L (3.5-5.1); Protein, Total 6.3 g/dL (6.4-8.2); Sodium Level 141 mmol/L (136-145)
[2020-05-18 09:29] LABS: C-Reactive Protein < 2.90 mg/L (<3.00)
[2020-05-18] MEDS: CEFEPIME/SWI 1gm 10 ML IVP SCH (09:32)
[2020-05-18] MEDS: ENOXAPARIN 40 MG/0.4 ML SQ SCH (09:32)
--- NOTE | 2020-05-18 09:42 | P.PN ---
Subjective Date of Service: 05/18/20 Chief Complaint: Right leg cellulitis Subjective: No new changes Review of Systems 10-point ROS is otherwise unremarkable Physical Examination - Vital Signs Temperature: 97.4 F Blood Pressure: 123/58 Pulse: 71 Respirations: 17 Pulse Ox (%): 96 - Physical Exam General: Alert, In no apparent distress HEENT: Atraumatic, Normocephalic Neck: Supple Respiratory: Clear to auscultation bilaterally, Normal air movement Cardiovascular: Regular rate/rhythm, Normal S1 S2 Capillary refill: <2 Seconds Gastrointestinal: Soft and benign, W/out hepatosplenomegaly Musculoskeletal: No clubbing, No swelling, Other (Left Leg amputation ) Integumentary: Skin lesion, Tenderness/swelling, Erythema Neurological: Normal speech, Normal strength at 5/5 x4 extr Lymphatics: No axilla or inguinal lymphadenopathy Assessment & Plan Physician Review Additional Text: Right leg cellulitis with 2 open skin tears with drainage: Type 2 diabetes mellitus complicated by lower extremity neuropathy and left BKA: Acute on chronic kidney disease, stage III: Essential hypertension: CABG x4 with pacemaker in-situ: Plan: Right leg cellulitis with 2 open skin tears with drainage: On IV vancomycin renally dosed Added on Cefepime Cultures pending Wound care consult. Leukocytosis trending down but still high Monitor daily labs. Monitor closely Type 2 diabetes mellitus complicated by lower extremity neuropathy and left BKA: Patient has significant lower extremity neuropathy and does not feel is lower right leg. Continue home medications sliding scale insulin. Diabetic diet. Accu-Cheks a.c. HS. Acute on chronic kidney disease, stage III: Patient's creatinine level is usually in the baseline of 1.3-1.5. Creatinine on admission of 1.95. Continue gentle IV hydration. Monitor daily labs. Essential hypertension: continue home medications and titrate accordingly. Monitor blood pressure. CAD status post CABG x4 with pacemaker in-situ: History of CABG x4 with a pacemaker in place. Patient states his last echo had a 23% ejection fraction. Resume all home medications Disposition : awaiting the wound culture Continue antibiotics and wound care Will change antibiotics as for the culture and sensitivity Possible Dc in a.m. on p.o. antibiotics and wound care Time Spent Managing Pts Care (In Minutes): 42
[2020-05-19] MEDS: VANCOMYCIN 1.75 GM in NA CHLORIDE 0.9% 500 ML IVPB SCH (04:34)
[2020-05-19 06:34] LABS: Hematocrit 32.8 % (39.6-49.0); MPV 7.6 fL (7.6-11.3); RBC Red Blood Cell Count 3.46 M/uL (4.33-5.43)
[2020-05-19 06:51] LABS: Potassium 4.1 mmol/L (3.5-5.1)
[2020-05-19] MEDS: INSULIN -REGULAR HUMAN 50 UNIT/0.5 ML ML SQ SCH ×5 (07:30→21:20)
[2020-05-19] MEDS: ENOXAPARIN 40 MG/0.4 ML SQ SCH (08:10)
[2020-05-19] MEDS: CEFEPIME/SWI 1gm 10 ML IVP SCH (08:10)
--- NOTE | 2020-05-19 16:59 | P.PN ---
Subjective Date of Service: 05/19/20 Chief Complaint: Right leg cellulitis Subjective: Improving Review of Systems 10-point ROS is otherwise unremarkable Physical Examination - Vital Signs Temperature: 97.7 F Blood Pressure: 118/58 Pulse: 70 Respirations: 18 Pulse Ox (%): 96 - Physical Exam General: Alert, In no apparent distress HEENT: PERRLA, EOMI Neck: Supple, JVD not distended Respiratory: Clear to auscultation bilaterally, Normal air movement Cardiovascular: Regular rate/rhythm, Normal S1 S2 Gastrointestinal: Normal bowel sounds, No tenderness Integumentary: Other (left lower le ulcers wrapped in kerlix, c/d/i) Neurological: Normal speech, Normal affect - Studies Microbiology Data (last 24 hrs): 05/16/20 17:07 Wound - L Leg (Lower) Gram Stain - Final 05/16/20 17:07 Wound - L Leg (Lower) Culture & Sensitivity - Final Assessment & Plan Physician Review Additional Text: Right leg cellulitis with 2 open skin tears with drainage: Type 2 diabetes mellitus complicated by lower extremity neuropathy and left BKA: Acute on chronic kidney disease, stage III: Essential hypertension: CABG x4 with pacemaker in-situ: Plan: Right leg cellulitis with 2 open skin tears with drainage: On IV vancomycin renally dosed & Cefepime mild improvement; Cultures pending , wound culture with GPC and gram positive rods Wound care consult. Leukocytosis increased Monitor daily labs. Monitor closely Type 2 diabetes mellitus complicated by lower extremity neuropathy and left BKA: Patient has significant lower extremity neuropathy and does not feel is lower right leg. Continue home medications sliding scale insulin. Diabetic diet. Accu-Cheks a.c. HS. Acute on chronic kidney disease, stage III: Patient's creatinine level is usually in the baseline of 1.3-1.5. Creatinine on admission of 1.95. Continue gentle IV hydration. Monitor daily labs. downtrending Essential hypertension: continue home medications and titrate accordingly. Monitor blood pressure. CAD status post CABG x4 with pacemaker in-situ: History of CABG x4 with a pacemaker in place. Patient states his last echo had a 23% ejection fraction. Resume all home medications Disposition : awaiting the wound culture Continue antibiotics and wound care Will change antibiotics as for the culture and sensitivity Possible Dc in a.m. on p.o. antibiotics and wound care Time Spent Managing Pts Care (In Minutes): 35
[2020-05-20 04:19] LABS: Hematocrit 34.7 % (39.6-49.0); RBC Red Blood Cell Count 3.64 M/uL (4.33-5.43)
[2020-05-20 04:27] LABS: Magnesium 2.5 mg/dL (1.8-2.4); Potassium 4.3 mmol/L (3.5-5.1)
[2020-05-20] MEDS: VANCOMYCIN 1.75 GM in NA CHLORIDE 0.9% 500 ML IVPB SCH (05:06)
[2020-05-20] MEDS: INSULIN -REGULAR HUMAN 50 UNIT/0.5 ML ML SQ SCH ×4 (07:30→21:41)
[2020-05-20] MEDS: CEFEPIME/SWI 1gm 10 ML IVP SCH (09:22)
[2020-05-20] MEDS: ENOXAPARIN 40 MG/0.4 ML SQ SCH (09:22)
--- NOTE | 2020-05-20 11:39 | P.PN ---
Subjective Date of Service: 05/20/20 Chief Complaint: Right leg cellulitis Subjective: No new changes Review of Systems 10-point ROS is otherwise unremarkable Physical Examination - Vital Signs Temperature: 96.2 F Blood Pressure: 116/58 Pulse: 64 Respirations: 16 Pulse Ox (%): 96 - Physical Exam General: Alert, In no apparent distress HEENT: Atraumatic, PERRLA, EOMI Neck: Supple, JVD not distended Respiratory: Clear to auscultation bilaterally, Normal air movement Cardiovascular: Regular rate/rhythm, Normal S1 S2 Gastrointestinal: Normal bowel sounds, Soft and benign, Non-distended, No tenderness Integumentary: Other (R lower leg with 3 ulcers, wet-to-dry dressing in place. Left stump: ~5mm opening on prior surgical incision, no drainage, no surrounding erythema) Neurological: Normal speech, Normal affect - Studies Microbiology Data (last 24 hrs): 05/16/20 17:07 Wound - L Leg (Lower) Gram Stain - Final 05/16/20 17:07 Wound - L Leg (Lower) Culture & Sensitivity - Final Assessment & Plan Physician Review Additional Text: Right leg cellulitis with 2 open skin tears with drainage: Type 2 diabetes mellitus complicated by lower extremity neuropathy and left BKA: Acute on chronic kidney disease, stage III: Essential hypertension: CABG x4 with pacemaker in-situ: Plan: Right leg cellulitis with 2 open skin tears with drainage: On IV vancomycin renally dosed & Cefepime mild improvement; Cultures pending , wound culture with GPC and gram positive rods - mixed gilberto Wound care consult. Leukocytosis continues to increase. Skin check performed today, small opening on L BKA stump incision line, but does not appear infected will consult ID for assistance Type 2 diabetes mellitus complicated by lower extremity neuropathy and left BKA: Patient has significant lower extremity neuropathy and does not feel his lower right leg. Continue home medications, sliding scale insulin. Diabetic diet. Accu-Cheks a.c. HS. Acute on chronic kidney disease, stage III: Patient's creatinine level is usually in the baseline of 1.3-1.5. Creatinine on admission of 1.95. improving Essential hypertension: continue home medications and titrate accordingly. Monitor blood pressure. CAD status post CABG x4 with pacemaker in-situ: History of CABG x4 with a pacemaker in place. Patient states his last echo had a 23% ejection fraction. Resume all home medications Disposition : unclear etiology of climbing leukocytosis, ID consulted Time Spent Managing Pts Care (In Minutes): 30
--- NOTE | 2020-05-20 15:47 | P.CNS ---
Date of Consult: 05/20/20 Subjective: The patient is a 74-year-old male with extensive cardiac history including quadruple bypass and pacemaker who presents with right leg wounds worsening over the past few weeks. Patient found to have right lower extremity cellulitis which I have been consulted for. Patient examined at bedside. 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 Patient reports "I do not feel sick." Past medical/surgical history: Mi a, hypertension, CHF, insomnia, sleep apnea, anemia, CAD, heart bypass Family History: Father-throat cancer, Mother-liver cancer Social history: Denies tobacco and alcohol use Allergies: NKDA Active Medications Dextrose (Dextrose 50% Syringe/Vial) 12.5 gm IV PRN PRN; Protocol PRN Reason: HYPOGLYCEMIA Stop: 06/16/20 13:07 Enoxaparin Sodium (Lovenox 40 Mg Inj) 40 mg SQ DAILY EMILY Stop: 06/16/20 09:01 Last Admin: 05/20/20 09:22 Dose: 40 mg Documented by: Glucagon (Glucagen) 1 mg IM 1X PRN; Protocol PRN Reason: HYPOGLYCEMIA Stop: 06/16/20 13:07 Cefepime HCl (Maxipime 1 Gm/10 Ml Ivp) 10 mls @ 200 mls/hr IVP DAILY EMILY Stop: 06/16/20 09:01 Last Admin: 05/20/20 09:22 Dose: 10 mls Documented by: Vancomycin HCl 1.75 gm/ Sodium (Chloride) 500 mls @ 250 mls/hr IVPB Q24H EMILY Stop: 06/18/20 05:01 Last Admin: 05/20/20 05:06 Dose: 500 mls Documented by: Insulin Human Regular (Novolin -R) 0 unit SQ ACHS EMILY; Protocol Stop: 06/16/20 16:31 Last Admin: 05/20/20 11:30 Dose: Not Given Documented by: Sodium Chloride (Normal Saline Flush) 10 ml IV BID EMILY Stop: 06/15/20 21:01 Last Admin: 05/20/20 09:22 Dose: 10 ml Documented by: ROS: CV: Denies chest pain RESP: Denies shortness of breath : Denies dysuria GI: Denies nausea and diarrhea MSK: Has prosthesis for left lower extremity Objective: Temp Pulse Resp BP Pulse Ox 97.3 F 65 16 122/62 95 05/20/20 12:00 05/20/20 12:00 05/20/20 12:00 05/20/20 12:00 05/20/20 12:00 Labs: Sodium 143, potassium 4.3, BUN 29, creatinine 1.86, WBC 21.1, hemoglobin 11.4, hematocrit 34.7 ROS: General: Awake, alert and oriented CV: S1,S2, pacemaker RESP: Good breath sounds Extremities: Left BKA. Stasis changes to right lower extremity, 1+ pedal pulse. Skin: Right lower extremity with superior stasis ulcer, wound bed with yellow s cabbing. Right lower extremity inferior stasis ulcer with yellow scabbing. Tamar area with erythema Assessment and plan: Leukocytosis RLE superior and inferior stasis ulcer, recommend xeroform dressing daily Right lower extremity cellulitis VS stasis changes, will recommend venous doppler Maxipime day 4, vancomycin day 2 Upon discharge can switch to Doxycycline PO Patient will need total of 14 days of antibiotics Diabetes mellitus with neuropathy, monitor glycemic control Will continue to monitor Thank you for consult Patient discussed with Dr. Santiago
--- NOTE | 2020-05-20 18:59 | RAD REPORT ---
EXAM DESCRIPTION: US - Lower Extremity Artery [employer] - 05/20/2020 6:47 pm CLINICAL HISTORY: Possible PVD Leg pain, claudication COMPARISON: No comparisons FINDINGS: Doppler interrogation of the left lower extremity arterial system was performed. Triphasic waveform is seen involving left common femoral artery to the popliteal artery. Monophasic w aveform is seen in the left posterior tibial artery dorsalis pedis artery. No occlusion. Enlarged right groin lymph nodes seen largest measuring 4.5 cm. IMPRESSION: Moderate peripheral vascular disease is seen distal to the left popliteal artery.
[2020-05-21 04:07] LABS: Absolute Lymphocytes (CBC) 17.7 K/uL (0.7-4.9); Basophils % 0.4 % (0-1.3); Hematocrit 33.3 % (39.6-49.0); Lymphocytes % 81.4 % (15.3-44.8); MPV 7.7 fL (7.6-11.3); RBC Red Blood Cell Count 3.53 M/uL (4.33-5.43)
[2020-05-21 04:24] LABS: Potassium 4.2 mmol/L (3.5-5.1)
[2020-05-21 04:52] LABS: Blood Morphology Comment NOT SEEN (NOT SEEN); Platelet Estimate ADEQ
[2020-05-21] MEDS: VANCOMYCIN 1.75 GM in NA CHLORIDE 0.9% 500 ML IVPB SCH (05:34)
[2020-05-21] MEDS: INSULIN -REGULAR HUMAN 50 UNIT/0.5 ML ML SQ SCH ×3 (07:30→16:30)
[2020-05-21] MEDS: CEFEPIME/SWI 1gm 10 ML IVP SCH (09:10)
[2020-05-21] MEDS: ENOXAPARIN 40 MG/0.4 ML SQ SCH (09:11)
[2020-05-21 11:05] VITALS: O2SAT 98
[2020-05-21 12:13] LABS: Protime INR 1.01
--- NOTE | 2020-05-21 14:21 | P.PN ---
Date of Service: 05/21/20 Subjective: The patient is a 74-year-old male with extensive cardiac history including quadruple bypass and pacemaker who presents with right leg wounds worsening over the past few weeks. Patient found to have right lower extremity cellulitis which I have been consulted for. Patient examined at bedside. 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 Patient reports "I do not feel sick." Patient examined at bedside. Doppler of lower extremity showed moderate PVD. Currently being treated for right lower extremity cellulitis/ venous stasis ulcers. Objective: Temp Pulse Resp BP Pulse Ox 97.2 F 73 16 114/52 L 98 05/21/20 12:00 05/21/20 12:00 05/21/20 12:05/21/20 12:05/21/20 12:00 Labs: Sodium 143, potassium 4.2, BUN 30, creatinine 1.77, WBC 21.8, hemoglobin 11.0, hematocrit 33.3 ROS: General: Awake, alert and oriented CV: S1,S2, pacemaker RESP: Good breath sounds Extremities: Left BKA. Stasis changes to right lower extremity, 1+ pedal pulse. Skin: Right lower extremity with superior stasis ulcer, wound bed with yellow scabbing. Right lower extremity inferior stasis ulcer with yellow scabbing. Erythema improved Assessment and plan: Persistent Leukocytosis, patient to follow up with inspector of dredging outpatient RLE superior and inferior stasis ulcer, recommend xeroform dressing daily Right lower extremity cellulitis VS stasis changes, doppler shows moderate PVD Maxipime day 5, vancomycin day 3 Upon discharge can switch to Doxycycline PO Patient will need total of 14 days of antibiotics Patient will need to follow up with PCP for recommendations on vascular surgeon Diabetes mellitus with neuropathy, monitor glycemic control Will continue to monitor Patient discussed with Dr. Santiago
[2020-05-21 16:29] VITALS: BP 118/56; TEMP 97.6
--- NOTE | 2020-05-21 20:10 | P.DS ---
Admission Date: 05/16/20 Discharge Date: 05/21/20 Primary Care Provider: Dr. Arvind Collado Disposition: ROUTINE DISCHARGE Discharge Condition: GOOD Reason for Admission: Right leg cellulitis Consultations: Infectious disease Procedures: 05/20/20: RLE doppler: Moderate peripheral vascular disease seen in the distal popliteal artery. 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 Acute on chronic kidney disease, stage III Essential hypertension. Coronary artery disease status post CABG x4 with pacemaker Brief History of Present Illness: 74-year-old male with the above PMH presented to the ER complaining of several days of skin tears on lower legs with some drainage. He reported that he notices leg was significantly red and more swollen than usual. He reports he has significant neuropathy and does not feel much in his lower leg. In the ER there was erythema noted extending from the lower legs to just below the right knee. Associated with swelling most consistent with cellulitis. He had a leukocytosis of 21,000, elevated creatinine of 1.95 (baseline: 1.3- 1.5) Hospital Course: Patient was treated with cefepime and vancomycin, and had resolution of the erythema and swelling of his right lower extremity, however his white blood cell count continued to remain elevated despite his significant clinical improvement. Infectious disease was consulted, who felt it was appropriate to discharge the patient is on p.o. doxycycline, to complete a total of 14 days of antibiotics. There was concern of some possible blood disorders/leukemia, as patient has said he has had a somewhat similar issue with elevated white blood cells in the past. There also noted enlarged right inguinal lymph nodes incidentally. He was advised to follow up with his PCP to monitor his WBC, and possible further evaluation. Given patient's history of left BKA and his current ulcerations, arterial Dopplers were performed of his right lower extremity which showed moderate peripheral artery disease others popliteal artery. He is instructed to follow up with his PCP and may need to see vascular surgery. Vital Signs/Physical Exam: Temp Pulse Resp BP Pulse Ox 97.6 F 75 15 118/56 L 97 05/21/20 16:00 05/21/20 16:00 05/21/20 16:00 05/21/20 16:00 05/21/20 16:00 General: Alert, In no apparent distress HEENT: Atraumatic, PERRLA, EOMI Neck: Supple, JVD not distended Respiratory: Clear to auscultation bilaterally, Normal air movement Cardiovascular: Regular rate/rhythm, Normal S1 S2 Gastrointestinal: Normal bowel sounds, Soft and benign, Non-distended, No tenderness Musculoskeletal: No tenderness Integumentary: Other (Right lower leg with 3 ulcers. Left stump with ~ 5 mm ope farhana along prior surgical incision, unable to express any drainage, no surrounding erythema ) Neurological: Normal speech, Normal affect Laboratory Data at Discharge: WBC 21.8 K/uL (4.3-10.9) H* 05/21/20 03:51 Hgb 11.0 g/dL (13.6-17.9) L 05/21/20 03:51 Hct 33.3 % (39.6-49.0) L 05/21/20 03:51 Plt Count 172 K/uL (152-406) 05/21/20 03:51 PT 11.9 SECONDS (9.5-12.5) 05/21/20 11:54 INR 1.01 05/21/20 11:54 APTT 31.9 SECONDS (24.3-36.9) 05/21/20 11:54 Sodium 143 mmol/L (136-145) 05/21/20 03:51 Potassium 4.2 mmol/L (3.5-5.1) 05/21/20 03:51 BUN 30 mg/dL (7-18) H 05/21/20 03:51 Creatinine 1.77 mg/dL (0.55-1.3) H 05/21/20 03:51 Glucose 108 mg/dL (74-106) H 05/21/20 03:51 Magnesium Cancelled 05/20/20 05:00 Total Bilirubin 1.0 mg/dL (0.2-1.0) 05/18/20 08:29 AST 18 U/L (15-37) 05/18/20 08:29 ALT 22 U/L (12-78) 05/18/20 08:29 Alkaline Phosphatase 157 U/L (45-117) H 05/18/20 08:29 Home Medications: ARIPiprazole [Abilify Mycite] 2 mg PO DAILY 05/20/20 Clopidogrel Bisulfate [Plavix*] 75 mg PO DAILY 05/20/20 Glimepiride 1 mg PO BID 05/20/20 Sertraline [Zoloft*] 200 mg PO DAILY 05/20/20 Sitagliptin Phos/Metformin HCl [Janumet 50-1,000 mg Tablet] 1 tab PO DAILY 05/20/20 carvediloL [Carvedilol] 6.25 mg PO BID 05/20/20 Doxycycline Hyclate 100 mg PO BID 6 Days #12 tablet 05/21/20 New Medications: Doxycycline Hyclate 100 mg PO BID 6 Days #12 tablet Patient Discharge Instructions: Followup with PCP within 1 week - to review elevated white blood cell count, follow up on moderate peripheral vascular disease seen distal to the right popliteal artery, and the enlarged right groin lymph node seen measuring 4.5 cm. May benefit from a peripheral smear and/or Hematology referral if elevated white blood cell count doesn't improve. Continue xeroform dressing daily Diet: ADA Activity: Ad jimmy Time spent managing pt's care (in minutes): 45
== END 2020-05-21 17:29 | disposition home or self-care (01) | DRG 603 ==
LOC: ER 16:05 → ERHOLD 19:42 → 2ND 20:48
PROVIDERS: ADMIT Emergency Medicine; ATTEND Hospitalist
DX: L03.115 Cellulitis of right lower limb (principal); L97.819 Non-pressure chronic ulcer of other part of right lower leg with unspecified severity; C95.90 Leukemia, unspecified not having achieved remission; I25.10 Atherosclerotic heart disease of native coronary artery without angina pectoris; I12.9 Hypertensive chronic kidney disease with stage 1 through stage 4 chronic kidney disease, or unspecified chronic kidney disease; N18.3 Chronic kidney disease, stage 3 (moderate); E11.22 Type 2 diabetes mellitus with diabetic chronic kidney disease; S81.811A Laceration without foreign body, right lower leg, initial encounter; I83.018 Varicose veins of right lower extremity with ulcer other part of lower leg; E11.40 Type 2 diabetes mellitus with diabetic neuropathy, unspecified; I25.2 Old myocardial infarction; Z95.0 Presence of cardiac pacemaker; Z95.1 Presence of aortocoronary bypass graft; Z89.512 Acquired absence of left leg below knee; Z79.82 Long term (current) use of aspirin; Z79.02 Long term (current) use of antithrombotics/antiplatelets; Z79.899 Other long term (current) drug therapy; Z79.4 Long term (current) use of insulin; Z20.828 Contact with and (suspected) exposure to other viral communicable diseases
CPT/HCPCS: 36415; 80048; 80053; 80202; 81003; 81015; 82947; 83605; 83735; 84145; 85025; 85027; 85610; 85730; 86140; 87040; 87070; 87086; 87088; 87205; 93926; 96365; 96366; 99283; J0692; J1650; J3370; J7040; J7050; U0002

== ENCOUNTER 2020-10-31 19:15 | Emergency (ER) | payer OTHER ==
[2020-10-31 20:10] LABS: Protime INR 1.22
[2020-10-31] MEDS ORDERED: NA CHLORIDE 0.9% 500 ML ONE (20:11)
--- NOTE | 2020-10-31 20:37 | RAD REPORT ---
EXAM DESCRIPTION: RAD - Chest Single View - 10/31/2020 8:12 pm CLINICAL HISTORY: SOB Chest pain. COMPARISON: Chest Single View dated 11/15/2019; Chest Single View dated 10/31/2019; Chest Single View dated 10/11/2019; Chest Single View dated 10/08/2019 FINDINGS: Portable technique limits examination quality. A right pleural effusion is noted, moderate in size with probable right lung base infiltrate/pneumoni a. The heart is moderately enlarged in size with changes of a prior CABG. Multi lead pacer/defibrilla tor device is present.
[2020-10-31 20:42] LABS: Albumin 3.8 g/dL (3.4-5.0); Bilirubin Direct 2.2 mg/dL (0-0.2); Bilirubin Total 4.8 mg/dL (0.2-1.0); Magnesium 3.2 mg/dL (1.8-2.4); Protein, Total 6.1 g/dL (6.4-8.2); Troponin (Emerg Dept Use Only) 4.22 ng/mL (0.0-0.045)
[2020-10-31 20:58] LABS: Absolute Lymphocytes (CBC) 194.7 K/uL (0.7-4.9); Basophils % 0.2 % (0-1.3); Hematocrit 23.9 % (39.6-49.0); Lymphocytes % 93.3 % (15.3-44.8); MPV 7.8 fL (7.6-11.3); RBC Red Blood Cell Count 2.43 M/uL (4.33-5.43)
[2020-10-31 21:04] LABS: Blood Morphology Comment NOT SEEN (NOT SEEN); Platelet Estimate ADEQ
[2020-10-31] MEDS ORDERED: CEFTRIAXONE/SWI 1gm 1 GM/10 ML SYR ONE (21:14)
[2020-10-31] MEDS ORDERED: NA CHLORIDE 0.9% 250 ML ONE (21:14)
[2020-10-31] MEDS ORDERED: AZITHROMYCIN 500 MG INJ IVPB ONE (21:14)
[2020-10-31] MEDS ORDERED: ONDANSETRON 4 MG/2 ML VIAL ONE (21:31)
[2020-10-31 22:07] LABS: Urine Blood 3+ (NEG); Urine Glucose NEGATIVE (NEG); Urine Protein 2+ (NEG); Urine Specific Gravity >1.030 (1.005-1.030)
[2020-10-31] MEDS ORDERED: D50W 50 ML IV ONE (22:17)
[2020-10-31] MEDS ORDERED: SODIUM BICARB 50 MEQ/50ML VIAL ONE (22:17)
[2020-10-31] MEDS ORDERED: CALCIUM GLUCONATE 1 GM IVPB 1 GM/50 ML BAG IV ONE (22:17)
[2020-10-31] MEDS ORDERED: INSULIN -REGULAR HUMAN 50 UNIT/0.5 ML ML ONE (22:21)
[2020-10-31] MEDS ORDERED: HEPARIN/D5W 25,000 UNIT/500 ML BAG IV ONE (22:32)
--- NOTE | 2020-10-31 23:48 | ER ---
Nurse's Notes [facility] Name: Carlos Yoon Age: 74 yrs Sex: Male : 1945 Arrival Date: 10/31/2020 Time: 19:22 Bed 2 Private MD: Diagnosis: Non-ST elevation (NSTEMI) myocardial infarction;Hyperkalemia;Acute kidney failure, unspecified;Leukemia, unspecified Presentation: 10/31 19:24 Chief complaint: Patient states: Called EMS for generalized weakness. Coronavirus aa5 screen: Client denies travel out of the [place] in the last 14 days. At this time, the client does not indicate any symptoms associated with coronavirus-19. Ebola Screen: Patient denies travel to an Ebola-affected area in the 21 days before illness onset. Initial Sepsis Screen: Does the patient meet any 2 criteria? Systolic BP < 90 mmHg. Does the patient have a suspected source of infection? No. Patient's initial sepsis screen is negative. Risk Assessment: Do you want to hurt yourself or someone else? Patient reports no desire to harm self or others. Onset of symptoms was October 31, 2020. 19:24 Method Of Arrival: EMS: [facility] aa5 19:24 Acuity: IZZY 2 aa5 19:25 Chief complaint: EMS states: BP 80's systolic upon arrival, 100%RA. 20 G L hand started aa5 1/2 L NS given en route. Fingerstick 338. Historical: - Allergies: 19:24 No Known Allergies; aa5 - PMHx: 19:24 Diabetes - IDDM; Hypothyroidism; Pacemaker; Hypertension; Leukemia; CHF; aa5 - PSHx: 19:24 triple bypass; CABG; Left BKA; aa5 - Immunization history:: Flu vaccine status is unknown. - Social history:: Smoking status: unknown. Screenin:49 Abuse screen: Denies threats or abuse. Nutritional screening: No deficits noted. ea Tuberculosis screening: No symptoms or risk factors identified. Fall Risk IV access (20 points). Assessment: 20:22 General: Appears in no apparent distress. Behavior is calm, cooperative. Neuro: Level mg2 of Consciousness is awake, alert, obeys commands, Oriented to person, place, time, situation. Cardiovascular: Respiratory: Airway is patent Respiratory effort is even, unlabored, Respiratory pattern is regular, symmetrical. GI: No signs and/or symptoms were reported involving the gastrointestinal system. : No signs and/or symptoms were reported regarding the genitourinary system. EENT: No signs and/or symptoms were reported regarding the EENT system. Derm: Skin is pale. Musculoskeletal: Circulation, motion, and sensation intact. Capillary refill < 3 seconds. 21:03 Pain: Denies pain. mg2 21:03 Reassessment: critical lab result for trop, wbc and K relayed to the provider. mg2 21:11 Reassessment: patient complained of Shortness of breath. O2 supplemented. mg2 22:32 Reassessment: Patient appears in no apparent distress at this time. Patient and/or mg2 family updated on plan of care and expected duration. Pain level reassessed. 11/01 01:37 Reassessment: report given to RUCHI Herrera of [facility], bed 308. mg2 02:29 Reassessment: report given to [facility]. patient in stable condition, denies Chest mg2 pain and shortness of breath, patient using his own CPAP. Vital Signs: 10/31 19:49 BP 75 / 30; Pulse 88; Resp 18; Pulse Ox 100% ; Weight 97.52 kg; Height 5 ft. 10 in. ea (177.80 cm); 20:31 BP 88 / 67; mg2 20:56 Temp 97.8(A); mg2 22:31 BP 80 / 63; Pulse 87; Resp 24; Pulse Ox 100% on CPAP; mg2 11/01 00:23 BP 87 / 60; Pulse 73; Resp 18; Pulse Ox 99% on R/A; ea 01:36 BP 91 / 46; Pulse 75; Resp 18; Temp 98; Pulse Ox 98% on R/A; mg2 02:30 BP 81 / 56; Pulse 81; Resp 18; Temp 98; Pulse Ox 97% on R/A; ea 10/31 19:49 Body Mass Index 30.85 (97.52 kg, 177.80 cm) ea ED Course: 10/31 19:22 Patient arrived in ED. aa5 19:23 Arm band placed on. aa5 19:25 Triage completed. aa5 19:33 Christiano Chowdary MD is Attending Physician. tw4 19:49 Bev Garcia, RUCHI is Primary Nurse. ea 20:12 XRAY Chest (1 view) In Process Unspecified. EDMS 20:23 Patient has correct armband on for positive identification. Door closed. Warm blanket mg2 given. 20:24 No provider procedures requiring assistance completed. Maintain EMS IV. Dressing mg2 intact. Good blood return noted. Site clean \T\ dry. Gauge \T\ site: 20 \T\ LAC. 21:56 Inserted saline lock: 20 gauge in right forearm, using aseptic technique. oe 22:53 initiated a transfer with Judy Briceno from [facility] Transfer [place]. [place] [id number] denied due to no ICU beds. 22:56 initiated a transfer with Joanie Spann from [facility] transfer [place]. mw2 23:05 Joanie Spann from [facility] denied due to capacity. [facility] 23:06 initiated a transfer with Helio Castellanos from [facility]. [facility] 23:56 called [facility] spoke to [facility] to see if he could help us find bed placement for [facility] patient. called Dr. Traylor from [facility] he spoke with Dr. Chowdary and asked for us to send patient clinicals. Faxed over patients clinicals to [phone]. 11/01 00:45 aministrative approval given by Henrique Traylor/ patient has been accepted to [address]/ Dr. Traylor as accepted the patient in transfer/ report to be called to [phone]. 02:30 Patient transferred, IV remains in place. ea Administered Medications: 10/31 21:02 Drug: Rocephin - (cefTRIAXone) 1 grams Route: IVPB; Infused Over: 30 mins; Site: right mg2 hand; 11/01 02:09 Follow up: IV Status: Completed infusion mg2 10/31 21:02 Drug: AZITHromycin 500 mg Route: IVPB; Infused Over: 1 hrs; Site: right hand; mg2 11/01 02:09 Follow up: Response: No adverse reaction; IV Status: Completed infusion; IV Intake: mg2 250ml 10/31 21:22 Drug: Zofran (Ondansetron) 4 mg Route: IVP; Site: left hand; mg2 11/01 02:09 Follow up: Response: No adverse reaction mg2 10/31 22:10 Drug: Insulin Regular Human 10 units {Co-Signature: jana (Bev Garcia RN).} Route: IVP; mg2 Site: left forearm; 11/01 02:10 Follow up: Response: No adverse reaction mg2 10/31 22:10 Drug: D50W 50 ml Route: IVP; Site: right forearm; mg2 11/01 02:09 Follow up: Response: No adverse reaction mg2 10/31 22:24 Drug: Sodium Bicarbonate 50 mEq Route: IVP; Site: right forearm; mg2 11/01 02:10 Follow up: Response: No adverse reaction mg2 10/31 22:24 Drug: Calcium Gluconate 1 grams Route: IVPB; Infused Over: 60 mins; Site: left forearm; mg2 11/01 02:10 Follow up: Response: No adverse reaction; IV Status: Completed infusion; IV Intake: mg2 100ml 10/31 22:29 Drug: Heparin ([place] Drip) 12 units/kg/hr - (HEParin 36383 units, D5W 500 ml) mg2 {Co-Signature: ea (Bev Garcia RN).} Route: IV; Rate: calculated rate; Site: left forearm; 11/01 02:11 Follow up: Response: No adverse reaction; IV Status: Infusion continued upon transfer mg2 01:44 Drug: Sodium Bicarbonate 1 amp Route: IVP; Site: left hand; ea 02:11 Follow up: Response: No adverse reaction mg2 01:44 Drug: Calcium Chloride 1 grams Route: IVP; Site: left hand; ea 02:11 Follow up: Response: No adverse reaction mg2 01:45 Drug: Insulin Regular Human 10 units {Co-Signature: mg2 (Edwin Coleman RN).} Route: ea IVP; Site: right forearm; 02:10 Follow up: Response: No adverse reaction mg2 01:45 Drug: D50W 50 ml Route: IVP; Site: left wrist; ea 02:11 Follow up: Response: No adverse reaction mg2 01:45 Drug: Kayexalate 30 grams Route: PO; ea 02:11 Follow up: Response: No adverse reaction mg2 Intake: 02:09 IV: 250ml; Total: 250ml. mg2 02:10 IV: 100ml; Total: 350ml. mg2 Outcome: 10/31 23:47 ER care complete, transfer ordered by tw4 11/01 02:29 Transferred by ground EMS to other acute care facility: [facility] . ea Condition: stable Instructed on the need for transfer, Demonstrated understanding of instructions. 02:30 Patient left the ED. mg2 Signatures: Dispatcher [employer] EDMS Milly Villatoro, RN RN aa5 Kalia Knutson Elena RN Christiano Dumont ea, MD MD tw4 Momo Casas mw2 Edwin Coleman RN RUCHI mg2 Bev Coleman RN mg2 Corrections: (The following items were deleted from the chart) 00:32 10/31 23:56 jaimie Traylor from [facility] he spoke with Dr. Chowdary and asked mw2 for us to send patient clinicals. Faxed over patients clinicals to [phone] [facility] 11/01 01:12 10/31 23:56 jaimie Traylor from [facility] he spoke with Dr. Chowdary and asked mw2 for us to send patient clinicals. Faxed over patients clinicals to [phone] [facility]
--- NOTE | 2020-10-31 23:48 | EDPHYS ---
Physician Documentation [facility] Name: Carlos Yoon Age: 74 yrs Sex: Male : 1945 Arrival Date: 10/31/2020 Time: 19:22 Bed 2 Private MD: ED Physician Christiano Chowdary HPI: 10/31 23:43 This 74 yrs old Male presents to ER via EMS with complaints of General tw4 Weakness. 23:43 The patient presents with generalized weakness. Onset: The symptoms/episode tw4 began/occurred today. Context: occurred at home, occurred while the patient was. Modifying factors: The symptoms are alleviated by nothing, the symptoms are aggravated by nothing. Associated signs and symptoms: The patient has no apparent associated signs or symptoms. Severity of symptoms: At their worst the symptoms were moderate in the emergency department the symptoms are unchanged. The patient has not experienced similar symptoms in the past. Historical: - Allergies: 19:24 No Known Allergies; aa5 - PMHx: 19:24 Diabetes - IDDM; Hypothyroidism; Pacemaker; Hypertension; Leukemia; CHF; aa5 - PSHx: 19:24 triple bypass; CABG; Left BKA; aa5 - Immunization history:: Flu vaccine status is unknown. - Social history:: Smoking status: unknown. ROS: 23:42 Abdomen/GI: Positive for nausea and vomiting, Negative for abdominal pain, nausea, tw4 vomiting, and diarrhea, vomiting, diarrhea, constipation, abdominal cramps, abdominal distension, anorexia, dysphagia, hematemesis, black/tarry stool, rectal pain, rectal bleeding, bowel incontinence. 23:42 Neuro: Positive for weakness, Negative for altered mental status, dizziness, gait disturbance, hearing loss, numbness, seizure activity, speech changes, syncope, near syncope. 23:43 Constitutional: Negative for fever, chills, and weight loss, Neck: Negative for injury, tw4 pain, and swelling, Cardiovascular: Negative for chest pain, palpitations, and edema, Respiratory: Negative for shortness of breath, cough, wheezing, and pleuritic chest pain. Exam: 23:43 Constitutional: This is a well developed, well nourished patient who is awake, alert, tw4 and in no acute distress. Head/Face: Normocephalic, atraumatic. Chest/axilla: Normal chest wall appearance and motion. Nontender with no deformity. No lesions are appreciated. Cardiovascular: Regular rate and rhythm with a normal S1 and S2. No gallops, murmurs, or rubs. Normal PMI, no JVD. No pulse deficits. Respiratory: Lungs have equal breath sounds bilaterally, clear to auscultation and percussion. No rales, rhonchi or wheezes noted. No increased work of breathing, no retractions or nasal flaring. Abdomen/GI: Soft, non-tender, with normal bowel sounds. No distension or tympany. No guarding or rebound. No evidence of tenderness throughout. Back: No spinal tenderness. No costovertebral tenderness. Full range of motion. MS/ Extremity: Pulses equal, no cyanosis. Neurovascular intact. Full, normal range of motion. Neuro: Awake and alert, GCS 15, oriented to person, place, time, and situation. Cranial nerves II-XII grossly intact. Motor strength 5/5 in all extremities. Sensory grossly intact. Cerebellar exam normal. Normal gait. Vital Signs: 19:49 BP 75 / 30; Pulse 88; Resp 18; Pulse Ox 100% ; Weight 97.52 kg; Height 5 ft. 10 in. ea (177.80 cm); 20:31 BP 88 / 67; mg2 20:56 Temp 97.8(A); mg2 22:31 BP 80 / 63; Pulse 87; Resp 24; Pulse Ox 100% on CPAP; mg2 11/01 00:23 BP 87 / 60; Pulse 73; Resp 18; Pulse Ox 99% on R/A; ea 01:36 BP 91 / 46; Pulse 75; Resp 18; Temp 98; Pulse Ox 98% on R/A; mg2 02:30 BP 81 / 56; Pulse 81; Resp 18; Temp 98; Pulse Ox 97% on R/A; ea 10/31 19:49 Body Mass Index 30.85 (97.52 kg, 177.80 cm) ea MDM: 10/31 19:33 Patient medically screened. tw4 23:44 Data reviewed: vital signs, nurses notes, lab test result(s), cardiac enzymes, CBC, tw4 drug level(s), electrolytes, hepatic panel, EKG, radiologic studies, plain films. Counseling: I had a detailed discussion with the patient and/or guardian regarding: the historical points, exam findings, and any diagnostic results supporting the discharge/admit diagnosis, lab results, radiology results. 10/31 19:33 Order name: Basic Metabolic Panel; Complete Time: 20:52 tw4 10/31 19:33 Order name: CBC with Diff; Complete Time: 00:04 tw4 10/31 19:33 Order name: LFT's; Complete Time: 20:52 tw4 10/31 19:33 Order name: Magnesium; Complete Time: 20:52 tw4 10/31 19:33 Order name: NT PRO-BNP; Complete Time: 20:52 tw4 10/31 19:33 Order name: PT-INR; Complete Time: 20:52 tw4 10/31 19:33 Order name: Troponin (emerg Dept Use Only); Complete Time: 20:52 tw4 10/31 20:48 Order name: Manual Differential; Complete Time: 00:04 EDMS 10/31 21:38 Order name: Urine Dipstick--Ancillary (enter results); Complete Time: 00:04 mw2 10/31 22:13 Order name: SARS-COV-2 RT PCR; Complete Time: 22:37 EDMS 10/31 23:45 Order name: Potassium tw4 10/31 23:46 Order name: Potassium EDMS 11/01 01:49 Order name: Potassium: \T\ 0215 mg2 10/31 19:33 Order name: XRAY Chest (1 view); Complete Time: 20:52 tw4 11/01 02:08 Order name: Ptt, Activated mg2 11/01 02:09 Order name: PTT, Activated Partial Thromb EDMS 10/31 19:33 Order name: EKG; Complete Time: 19:34 tw4 10/31 19:33 Order name: Cardiac monitoring; Complete Time: 20:22 tw4 10/31 19:33 Order name: EKG - Nurse/Tech; Complete Time: 20:22 tw4 10/31 19:33 Order name: IV Saline Lock; Complete Time: 20:22 tw4 10/31 19:33 Order name: Labs collected and sent; Complete Time: 20:22 tw4 10/31 19:33 Order name: O2 Per Protocol; Complete Time: 20:22 tw4 10/31 19:33 Order name: O2 Sat Monitoring; Complete Time: 20:22 tw4 EC:43 Rate is 89 beats/min. Rhythm is regular. QRS Drew is Normal. VA interval is normal. QRS tw4 interval is prolonged. No Q waves. T waves are Normal. No ST changes noted. Clinical impression: Abnormal EKG without significant change. Interpreted by me. Reviewed by me. Administered Medications: 21:02 Drug: Rocephin - (cefTRIAXone) 1 grams Route: IVPB; Infused Over: 30 mins; Site: right mg2 hand; 11/01 02:09 Follow up: IV Status: Completed infusion mg2 10/31 21:02 Drug: AZITHromycin 500 mg Route: IVPB; Infused Over: 1 hrs; Site: right hand; mg2 11/01 02:09 Follow up: Response: No adverse reaction; IV Status: Completed infusion; IV Intake: mg2 250ml 10/31 21:22 Drug: Zofran (Ondansetron) 4 mg Route: IVP; Site: left hand; mg2 11/01 02:09 Follow up: Response: No adverse reaction mg2 10/31 22:10 Drug: Insulin Regular Human 10 units {Co-Signature: jana (Bev Garcia RN).} Route: IVP; mg2 Site: left forearm; 11/01 02:10 Follow up: Response: No adverse reaction mg2 10/31 22:10 Drug: D50W 50 ml Route: IVP; Site: right forearm; mg2 11/01 02:09 Follow up: Response: No adverse reaction mg2 10/31 22:24 Drug: Sodium Bicarbonate 50 mEq Route: IVP; Site: right forearm; mg2 11/01 02:10 Follow up: Response: No adverse reaction mg2 10/31 22:24 Drug: Calcium Gluconate 1 grams Route: IVPB; Infused Over: 60 mins; Site: left forearm; mg2 11/01 02:10 Follow up: Response: No adverse reaction; IV Status: Completed infusion; IV Intake: mg2 100ml 10/31 22:29 Drug: Heparin (GA Drip) 12 units/kg/hr - (HEParin 94343 units, D5W 500 ml) mg2 {Co-Signature: jana (Bev Garcia RN).} Route: IV; Rate: calculated rate; Site: left forearm; 11/01 02:11 Follow up: Response: No adverse reaction; IV Status: Infusion continued upon transfer mg2 01:44 Drug: Sodium Bicarbonate 1 amp Route: IVP; Site: left hand; ea 02:11 Follow up: Response: No adverse reaction mg2 01:44 Drug: Calcium Chloride 1 grams Route: IVP; Site: left hand; ea 02:11 Follow up: Response: No adverse reaction mg2 01:45 Drug: Insulin Regular Human 10 units {Co-Signature: mg2 (Edwin Coleman RN).} Route: ea IVP; Site: right forearm; 02:10 Follow up: Response: No adverse reaction mg2 01:45 Drug: D50W 50 ml Route: IVP; Site: left wrist; ea 02:11 Follow up: Response: No adverse reaction mg2 01:45 Drug: Kayexalate 30 grams Route: PO; ea 02:11 Follow up: Response: No adverse reaction mg2 Disposition: 10/31/20 23:47 Transfer ordered to Other Acute Care Facility. Diagnosis are Non-ST elevation (NSTEMI) myocardial infarction, Hyperkalemia, Acute kidney failure, unspecified, Leukemia, unspecified. - Reason for transfer: Higher level of care. - Accepting physician is . - Condition is Fair. - Problem is new. - Symptoms are unchanged. Signatures: Dispatcher [employer] [facility] Milly Villatoro RN RN aa5 Bev Garcia RN RN ea Wadley, Terrence, MD MD tw4 Edwin Coleman RN RN mg2 Bev Coleman RN mg2 Corrections: (The following items were deleted from the chart) 10/31 21:27 20:35 CORONAVIRUS+ ordered. [facility] 11/01 02:30 10/31 23:47 10/31/2020 23:47 Transfer ordered to Other Acute Care Facility. Diagnosis mg2 is Non-ST elevation (NSTEMI) myocardial infarction; Hyperkalemia; Acute kidney failure, unspecified; Leukemia, unspecified. Reason for transfer: Higher level of care. Accepting physician is Condition is Fair. Problem is new. Symptoms are unchanged. tw4
[2020-11-01] MEDS ORDERED: INSULIN -REGULAR HUMAN 50 UNIT/0.5 ML ML ONE (01:31)
[2020-11-01] MEDS ORDERED: SOD BICARB 8.4% PEDI 10 mEq/10 mL SYR IVP ONE (01:33)
[2020-11-01] MEDS ORDERED: D50W 50 ML IV ONE (01:33)
[2020-11-01] MEDS ORDERED: Caclcium Chloride 10% INJ SYR IV ONE ×2 (01:33→01:34)
[2020-11-01] MEDS ORDERED: SOD POLYSTYREN SUL 15 GM/60 ML UCUP ONE (01:33)
[2020-11-01 02:40] VITALS: TEMP 98
[2020-11-01 02:41] VITALS: BP 81/56; O2SAT 97
--- NOTE | 2020-11-02 07:55 | EKG ---
Test Date: 2020-10-31 Test Time: 19:43:49 Verification Lead: JERRY MEASUREMENT RESULTS: Intervals: Rate: 89 IN: 132 QRSD: 76 QT: 346 QTc: 420 [place]: P: 93 IN: 132 QRS: 194 T: 80 INTERPRETIVE STATEMENTS: Suspect arm lead reversal, interpretation assumes no reversal Atrial-paced rhythm Possible Right ventricular hypertrophy Anterolateral infarct, possibly acute Inferior injury pattern ACUTE NE / STEMI Abnormal ECG Compared to ECG 10/06/2019 14:14:06 Myocardial infarct finding now present Electronically Signed On 11-02-20 07:53:06 OSTEOLOGY TEACHER by Anup Silva
[2020-11-06 14:25] LABS: Potassium 6.7 mmol/L (3.5-5.1)
== END 2020-11-01 02:30 ==
LOC: ER 19:15
DX: I21.4 Non-ST elevation (NSTEMI) myocardial infarction (principal); E87.5 Hyperkalemia; N17.9 Acute kidney failure, unspecified; Z85.6 Personal history of leukemia; I10 Essential (primary) hypertension; Z20.822 Contact with and (suspected) exposure to COVID-19; Z95.1 Presence of aortocoronary bypass graft; Z95.0 Presence of cardiac pacemaker
CPT/HCPCS: 93005; 85025; 80048; 36415; 83735; 84132 ×2; 85610; 80076; 85730; 81003; 84484; 83880; 71045; 99285; U0003; J0456; J0610; J0696; J7050; J7040; J1644; J2405